=== PATIENT | male | born 1940 | race Caucasian/White ===

== ENCOUNTER → 2016-03-07 | Outpatient (CLI) | payer OTHER ==
[~2016-03-07] MED LIST: ASPCH81; ATOR-26 PO; AZEL0.056; CARV6.252 PO; GADAVIST IV PRN; GLC500 PO; HYDR12.56 PO; IPRA0.03 NAE; IPRA1AER2 INH; LISI20TA3 PO; POTA2.5T PO; SYMIN/8045 INH; TIOT1SPR INH; TRIA1SPR4; ZNTT/150 PO
--- NOTE | 2016-03-07 11:32 | DIAGNOSTIC IMAGING REPORT ---
BRAIN COMBO FOR IAC CLINICAL HISTORY: Asymmetrical left sided hearing loss. COMPARISON STUDY: No previous studies for comparison. TECHNIQUE: Utilizing 1.5 Brianna magnet and dedicated coil, multiplanar, multiecho imaging of the brain was performed pre and postcontrast administration. Thin cut imaging through the internal auditory canals was performed following intravenous injection of 10 cc of Gadavist IV. FINDINGS: There are no areas of restricted diffusion. No acute intracranial hemorrhage, midline shift or mass effect is present. Brain volume is normal for age. Ventricular system is normal. Basilar cisterns are patent. Flow-voids for the major intracranial vessels are present. No intracranial masses or pathologic enhancement is present. There is no enhancement or mass within the internal auditory canals. Semicircular canals are intact. There is no fluid within mastoid air cells. There is no mass within the cerebellopontine angles. Moderate white matter T2 hyperintensity suggest small vessel disease. Calvarial signal is maintained. Orbits and sinuses are unremarkable. IMPRESSION: 1. No acute intracranial findings. 2. No abnormalities within the internal auditory canals. 3. Moderate small vessel disease. 4. No intracranial masses or pathologic enhancement. Electronically signed by: Jewel Balbuena M.D. 03/07/2016 11:30 AM Dictated Date/Time: 03/07/2016 11:25 AM
== END | disposition home or self-care (01) ==
LOC: C.MRI 09:18
DX: H91.8X2 Other specified hearing loss, left ear (principal)

== ENCOUNTER 2021-06-24 14:20 | Inpatient (IN) ==
--- NOTE | 2021-06-24 14:34 | Emergency Department Note ---
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 Right common carotid artery: There is prominent atherosclerotic calcification present at the carotid bulb with approximately 50% stenosis present. Right internal carotid artery: Atherosclerotic calcification extends into the origin of the right internal carotid artery with approximately 70-80% stenosis present. The more mid to distal internal carotid artery also demonstrates atherosclerotic calcification with less than 50% narrowing.. Right vertebral artery: Patent without significant stenosis. Mild atherosclerotic calcification is present along its course. Left common carotid artery: There is atherosclerotic calcification present involving the carotid bulb with approximately 50% stenosis present. Left internal carotid artery: The atherosclerotic calcification again extends into the origin of the left internal carotid artery with 78% stenosis also seen at this site.. Left vertebral artery: Patent without significant stenosis. Atherosclerotic calcification is present along its course which is greater than on the right side. Nonvascular findings: The parotid and submandibular salivary glands appear normal. There is no enlarged cervical adenopathy noted. The airway appears patent. The thyroid gland appears within normal limits. . Impression: 1. Significant atherosclerotic calcification is seen involving the carotid bulbs bilaterally and extending into the origins of the internal carotid arteries bilaterally with 70-80% stenosis at the origins of the internal carotid arteries bilaterally. 2. There is also atherosclerotic calcification present along the course of the vertebral arteries, left greater than right. 3. 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 ACT 112: Negative or not required by law. Electronically signed by: Gonzalez Donohue M.D. 06/24/2021 6:16 PM Chest CTA 06/24/21 16:51 CT angio chest PE protocol CLINICAL HISTORY: History of Covid. Evaluate right lung opacities. COMPARISON STUDY: Portable chest from 06/16/2021 and previous CTA chest from 10/12/2020 CT DOSE: 2724.76 mGy.cm TECHNIQUE: CT Angio of the chest was performed.followed by image post processing with coronal, and sagittal MIP reformats. Contrast Volume: Optiray 320, 120 ml FINDINGS: Vasculature: There is homogeneous perfusion of the pulmonary vasculature bilaterally. No intraluminal filling defects or evidence for pulmonary embolus is seen. Airway: The airway is clear. No endobronchial lesion is identified. Lungs: Centrilobular emphysematous changes are present involving both lungs bilaterally, particularly involving the upper lobes. Compared to previous CT, there is now a patchy alveolar opacity present within the superior segment of the right lower lobe with bronchograms. This is characteristic of pneumonia. The additional finding seen at the right lung base radiographically were present on the previous CT. There is chronic scarring and bronchiectasis at the right lung base posteriorly. The left hemithorax is clear. Scattered bullae are present throughout both lungs. Pleura: There is no evidence for pleural effusion. There is no evidence for pneumothorax. Pleural calcifications are again seen on the right. Mediastinum: There is no evidence for pathologic adenopathy. The heart size is within normal limits. Coronary artery calcification is present. The thoracic aorta is within normal limits. 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 There is no evidence for pericardial effusion. Upper abdomen:The adrenal glands are normal bilaterally. Osseous structures: There is no acute osseous pathology. Impression: 1. No CTA evidence for pulmonary embolus. 2. Centrilobular emphysematous changes are again seen with bullous disease present. 3. The patchy alveolar opacity within the posterior segment of the right lower lobe is new and demonstrates air bronchograms. It is characteristic of pneumonia. 4. The alveolar opacities the right lung base are chronic with scarring and bronchiectasis present. 5. Extensive coronary artery calcification. 6. Additional nonacute findings are delineated above. ACT 112: Negative or not required by law. Electronically signed by: Gonzalez Donohue M.D. 06/24/2021 6:02 PM Discharge Plan Visit Data Chief Complaint: Confusion ED Provider: Efrain Anne Discharge Problem: Pneumonia, AMS (altered mental status), Acute hypotension, Carotid arterial disease Patient Disposition: Admitted As Inpatient Discharge Instructions Interventions: ED Discharge Assessment Last Done: 06/24/21 20:14 Discharge Problem: Pneumonia Qualifiers: Pneumonia type: due to unspecified organism Laterality: unspecified laterality Lung location: unspecified part of lung Qualified Code(s): J18.9 - Pneumonia, unspecified organism AMS (altered mental status) Qualifiers: Altered mental status type: disorientation Qualified Code(s): R41.0 - Disorientation, unspecified Carotid arterial disease Qualifiers: Carotid artery disease type: unspecified Laterality: unspecified laterality Qualified Code(s): I77.9 - Disorder of arteries and arterioles, unspecified
--- NOTE | 2021-06-24 14:49 | XRay Report ---
XR chest 1V portable CLINICAL HISTORY: SEPSIS. COMPARISON STUDY: 12/12/2017 TECHNIQUE: 1 view of the chest FINDINGS: Single frontal view of the chest demonstrates the cardiomediastinal silhouette to be within normal li mits. There is hyperinflation of the lungs with attenuation of the pulmonary vasculature peripherally characteristic of underlying chronic obstructive pulmonary disease. Patchy alveolar opacities are se en in the right midlung and at the right lung base suspicious for the presence of pneumonia. The left hemithorax is clear. There is no evidence for pleural effusion. There is no evidence for vascular co ngestion. There is no acute osseous pathology. IMPRESSION: 1. Evidence for COPD with small patchy alveolar opacities within the right midlung and right lung bas e suspicious for pneumonia. ACT 112: Negative or not required by law. Electronically signed by: Gonzalez Donohue M.D. 06/24/2021 2:47 PM
[2021-06-24 14:50] LABS: Base Excess VBG 1.6 mEq/L; HCO3 VBG 26 mmol/L; PCO2 VBG 42 mmHg (38-50); PO2 VBG 30 mmHg; pH VBG 7.41 (7.36-7.41)
[2021-06-24] MEDS ORDERED: SODIUM CHLORIDE 0.9% 1000ML 1,000 ML IV ONE ×2 (14:54→18:26)
[2021-06-24] MEDS ORDERED: PIPERACILLIN/TAZOBACTAM 4.5 GM/120 ML BAG IV ONE (14:54)
[2021-06-24] MEDS ORDERED: PIPERACILL/TAZOBAC CONSULT ACTIVE PRN (14:54)
[2021-06-24 14:56] LABS: Basophils # (auto) 0.01 K/uL (0-0.2); Basophils % (auto) 0.2 %; Eosinophils # (auto) 0.04 K/uL (0-0.5); Eosinophils % (auto) 0.6 %; Hemoglobin 14.6 g/dL (14.0-18.0); Immature Granulocytes # (auto) 0.01 K/uL (0.00-0.02); Immature Granulocytes % (auto) 0.2 %; Lymphocytes # (auto) 0.41 K/uL (1.2-3.4); Lymphocytes % (auto) 6.6 %; Mean Corpuscular Hemoglobin 32.2 pg (25-34); Mean Corpuscular Hgb Conc 33.2 g/dL (32-36); Mean Corpuscular Volume 96.9 fL (80-100); Mean Platelet Volume 12.4 fL (7.4-10.4); Monocytes # (auto) 0.48 K/uL (0.11-0.59); Monocytes % (auto) 7.8 %; Neutrophils # (auto) 5.22 K/uL (1.4-6.5); Neutrophils % (auto) 84.6 %; Platelet Count 178 K/uL (130-400); RDW Coefficient of Variation 15.3 % (11.5-14.5); RDW Standard Deviation 54.8 fL (36.4-46.3); Red Blood Count 4.54 M/uL (4.7-6.1); White Blood Count 6.17 K/uL (4.8-10.8)
[2021-06-24 14:58] LABS: Prothrombin Time 10.5 Seconds (9.0-12.0)
[2021-06-24 15:30] LABS: Influenza A virus by PCR Negative (Neg); Influenza B virus by PCR Negative (Neg); RSV by PCR Negative (Neg)
[2021-06-24 15:38] LABS: Oxygen Saturation VBG < 60.0 %
[2021-06-24 15:45] LABS: SARS CoV2 RNA(COVID-19) InHosp POSITIVE (Negative)
[2021-06-24 15:58] LABS: Appearance Urine Clear (Clear); Bilirubin Urine Negative (Negative); Blood Urine Negative (Negative); Color Urine Yellow; Glucose Urine UA Negative (Negative); Ketones Urine Negative (Negative); Leukocyte Esterase Urine Negative (Negative); Nitrite Urine Negative (Negative); Protein Urine Negative (Negative); Specific Gravity Urine 1.017 (1.000-1.030); Urobilinogen Urine Negative (Negative)
[2021-06-24 17:22] LABS: iSTAT Hemoglobin 13.3 g/dl (14.0-18.0); iSTAT Ionized Calcium 1.03 mmol/l (1.12-1.32); iSTAT Potassium 3.7 mmol/L (3.3-5.0)
[2021-06-24] MEDS ORDERED: OPTIRAY 320 125ml IV ONE (17:33)
[2021-06-24 17:42] LABS: Albumin Globulin Ratio 1.5 (0.9-2); Albumin Level 3.4 gm/dl (3.4-5.0); BUN Creatinine Ratio 17.9 (10-20); Bilirubin,Total 0.5 mg/dl (0.2-1.0); C Reactive Protein 5.28 mg/dl (0-0.5); Creatinine Clr Calc Pharmacy 59.7 ml/min; Est GFR (African American) 74.9 ml/min; Est GFR (Non-African American) 64.6 ml/min; Globulin 2.3 gm/dl (2.5-4.0); Magnesium 1.6 mg/dl (1.7-2.4); Potassium 3.8 mmol/L (3.5-5.1); Total Protein 5.7 gm/dl (6.0-8.3)
--- NOTE | 2021-06-24 17:49 | CT Scan Report ---
CT head/brain wo con CLINICAL HISTORY: AMS COMPARISON STUDY: No previous studies for comparison. CT DOSE: TECHNIQUE: Standard CT of the Brain was performed without IV contrast. A dose lowering technique was utilized adhering to the principles of ALARA. FINDINGS: Extraaxial space: There is no evidence for subdural hematoma. There are no extra-axial fluid collecti ons. Ventricles and cisterns: The ventricles are mildly dilated bilaterally. There is no evidence for midl ine shift or mass effect. Parenchyma: There is no subarachnoid or intraparenchymal hemorrhage. There is no evidence for an acut e infarct or cerebral edema. There is mild cerebral cortical atrophy and decreased attenuation in the periventricular white matter representing remote small vessel disease. There are no gross mass lesio ns. Osseous structures: There is no evidence for an acute fracture. There is mucosal thickening of the et hmoid air cells bilaterally. The remaining visualized paranasal sinuses are clear. The mastoid air ce lls are clear bilaterally. Soft tissues: There is no evidence for focal soft tissue swelling. IMPRESSION: 1. No acute intracerebral pathology. 2. Cerebral cortical atrophy and remote small vessel disease. 3. Chronic bilateral ethmoid sinusitis. ACT 112: Negative or not required by law. Electronically signed by: Gonzalez Donohue M.D. 06/24/2021 5:48 PM
--- NOTE | 2021-06-24 18:04 | CT Scan Report ---
CT angio chest PE protocol CLINICAL HISTORY: History of Covid. Evaluate right lung opacities. COMPARISON STUDY: Portable chest from 06/16/2021 and previous CTA chest from 10/12/2020 CT DOSE: 2724.76 mGy.cm TECHNIQUE: CT Angio of the chest was performed.followed by image post processing with coronal, and s agittal MIP reformats. Contrast Volume: Optiray 320, 120 ml FINDINGS: Vasculature: There is homogeneous perfusion of the pulmonary vasculature bilaterally. No intraluminal filling defects or evidence for pulmonary embolus is seen. Airway: The airway is clear. No endobronchial lesion is identified. Lungs: Centrilobular emphysematous changes are present involving both lungs bilaterally, particularly involving the upper lobes. Compared to previous CT, there is now a patchy alveolar opacity present w ithin the superior segment of the right lower lobe with bronchograms. This is characteristic of pneum onia. The additional finding seen at the right lung base radiographically were present on the previou s CT. There is chronic scarring and bronchiectasis at the right lung base posteriorly. The left hemithorax is clear. Scattered bullae are present throughout both lungs. Pleura: There is no evidence for pleural effusion. There is no evidence for pneumothorax. Pleural ca lcifications are again seen on the right. Mediastinum: There is no evidence for pathologic adenopathy. The heart size is within normal limits. Coronary artery calcification is present. The thoracic aorta is within normal limits. 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 There is no evidence for pericardial e ffusion. Upper abdomen:The adrenal glands are normal bilaterally. Osseous structures: There is no acute osseous pathology. Impression: 1. No CTA evidence for pulmonary embolus. 2. Centrilobular emphysematous changes are again seen with bullous disease present. 3. The patchy alveolar opacity within the posterior segment of the right lower lobe is new and demons trates air bronchograms. It is characteristic of pneumonia. 4. The alveolar opacities the right lung base are chronic with scarring and bronchiectasis present. 5. Extensive coronary artery calcification. 6. Additional nonacute findings are delineated above. ACT 112: Negative or not required by law. Electronically signed by: Gonzalez Donohue M.D. 06/24/2021 6:02 PM
--- NOTE | 2021-06-24 18:09 | CT Scan Report ---
CT angio head w con CLINICAL HISTORY: ams COMPARISON STUDY: CT brain without contrast from 06/24/2021 CT DOSE: TECHNIQUE: CT Angio of the brain was performed.followed by image post processing with coronal, and s agittal MIP reformats. Contrast Volume: Optiray 320, 120 ml FINDINGS: Vascular findings: There is normal enhancement within the internal carotid arteries bilaterally. Ther e is atherosclerotic calcification of the intracranial portions of the internal carotid arteries bila terally. On the right side, the anterior, middle and posterior cerebral arteries are within normal li mits. On the left side, there is complete occlusion of the A1 and A2 segments of the anterior cerebral delmi ry. However, the distal artery fills via the anterior communicating artery. These findings are most l ikely chronic. The middle and posterior cerebral arteries are within normal limits. Nonvascular findings: There is mild cerebral cortical atrophy and decreased attenuation in the perive ntricular white matter representing remote small vessel disease. There is no evidence for an acute in farct or cerebral edema. IMPRESSION: 1. Atherosclerotic calcification of the intracranial portions of the internal carotid arteries bilate rally. 2. 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 This is most likely a chronic finding. 3. Otherwise, negative CTA. ACT 112: Negative or not required by law. Electronically signed by: Gonzalez Donohue M.D. 06/24/2021 6:07 PM
--- NOTE | 2021-06-24 18:18 | CT Scan Report ---
CT angio neck with con CLINICAL HISTORY: ams COMPARISON STUDY: No previous studies for comparison. CT DOSE: TECHNIQUE: CT Angio of the neck was performed.followed by image post processing with coronal, and sa gittal MIP reformats.. Stenosis assessment by NASCET criteria. Contrast Volume: Optiray 320, 120 ml FINDINGS: Vascular findings: As seen on remote CTA of the chest, there is again complete occlusion of the origi n of the left subclavian artery with reconstitution of the artery via collaterals and subclavian stea l. Right common carotid artery: There is prominent atherosclerotic calcification present at the carotid bulb with approximately 50% stenosis present. Right internal carotid artery: Atherosclerotic calcification extends into the origin of the right int ernal carotid artery with approximately 70-80% stenosis present. The more mid to distal internal ann tid artery also demonstrates atherosclerotic calcification with less than 50% narrowing.. Right vertebral artery: Patent without significant stenosis. Mild atherosclerotic calcification is pr esent along its course. Left common carotid artery: There is atherosclerotic calcification present involving the carotid bulb with approximately 50% stenosis present. Left internal carotid artery: The atherosclerotic calcification again extends into the origin of the left internal carotid artery with 78% stenosis also seen at this site.. Left vertebral artery: Patent without significant stenosis. Atherosclerotic calcification is present along its course which is greater than on the right side. Nonvascular findings: The parotid and submandibular salivary glands appear normal. There is no enlarged cervical adenopathy noted. The airway appears patent. The thyroid gland appears within normal limits. . Impression: 1. Significant atherosclerotic calcification is seen involving the carotid bulbs bilaterally and exte nding into the origins of the internal carotid arteries bilaterally with 70-80% stenosis at the origi ns of the internal carotid arteries bilaterally. 2. There is also atherosclerotic calcification present along the course of the vertebral arteries, le ft greater than right. 3. 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 ACT 112: Negative or not required by law. Electronically signed by: Gonzalez Donohue M.D. 06/24/2021 6:16 PM
--- NOTE | 2021-06-24 18:46 | History & Physical Report ---
Date of Service June 24, 2021 History of Present Illness Chief Complaint: Possible stroke Primary Care Provider: Narendra Blakely MD Allergies Allergy/AdvReac Type Severity Reaction Status Date / Time No Known Allergies Allergy Verified 06/24/21 15:05 Home Medications Medication Instructions Recorded Confirmed Type albuterol sulfate 90 mcg/actuation 2 puff INHALATION Q4H PRN 12/11/17 06/24/21 History aerosol inhaler omeprazole 20 mg capsule,delayed 20 mg PO DAILYBB 12/11/17 06/24/21 History release amlodipine 2.5 mg tablet 2.5 mg PO DAILY 10/31/19 06/24/21 History azelastine 137 mcg (0.1 %) nasal 1 spray INTRANASAL BID 10/31/19 06/24/21 History spray aerosol furosemide 20 mg tablet (Lasix) 20 mg PO [id number] 10/31/19 06/24/21 History metformin 500 mg tablet 1,000 mg PO DAILY tab 10/31/19 06/24/21 History metoprolol succinate 25 mg 25 mg PO BID 10/31/19 06/24/21 History tablet,extended release 24 hr montelukast 10 mg tablet 10 mg PO HS 10/31/19 06/24/21 History potassium gluconate 550 mg (90 mg) 550 mg PO DAILY 10/31/19 06/24/21 History tablet aspirin 81 mg tablet,delayed 81 mg PO DAILY 01/07/21 06/24/21 History release (Adult Aspirin Regimen) atorvastatin 80 mg tablet 80 mg PO DAILY 01/07/21 06/24/21 History lisinopril 20 mg tablet 20 mg PO DAILY 01/07/21 06/24/21 History fluticasone fur. 100 mcg-umeclid 1 inh INHALATION QAM 06/24/21 06/24/21 History 62.5 mcg-vilant 25 mcg inhalat.powder (Trelegy Ellipta) ipratropium bromide 21 mcg (0.03 2 spray INTRANASAL BID 06/24/21 06/24/21 History %) nasal spray magnesium oxide 400 mg PO BID 06/24/21 06/24/21 History polyethylene glycol 3350 17 gram 17 g PO DAILY PRN 06/24/21 06/24/21 History oral powder packet (Miralax) pregabalin 150 mg capsule (Lyrica) 150 mg PO BID 06/24/21 06/24/21 History tramadol 50 mg tablet 50 mg PO Q8H PRN 06/24/21 06/24/21 History Past Med/Surg History Medical History Acute on chronic systolic and diastolic heart failure, NYHA class 4 Acute congestive heart failure likely precipitated by paroxysmal atrial fibrillation with rapid ventricular rate. Now back in sinus rhythm diuresing well with decreasing oxygen requirements Recommend: Continue diuretics, discontinue BiPAP, wean oxygen as tolerated, initiate sliding scale insulin for hyperglycemia, advance diet as tolerated Acute respiratory failure with hypoxia and hypercapnia Aortic stenosis Atherosclerosis of leg with intermittent claudication COPD (chronic obstructive pulmonary disease) Diabetes mellitus, type 2 Electrolyte imbalance GERD (gastroesophageal reflux disease) Hyperlipidemia Hypertension Hypokalemia Hypomagnesemia Hypoxia LBBB (left bundle branch block) Malignant neoplasm of skin of trunk Basal Cell - on Forehead and on Neck Nonischemic cardiomyopathy Osteoporosis Pulmonary edema PVD (peripheral vascular disease) Valvular heart disease Vertebral fracture, osteoporotic (02/04/08) Surgical History History of bronchoscopy 10/23/2019 - Diagnostic History of cardiac cath 11/2017 History of cataract extraction with lens replacement 07/03/2013 - Dr. Hazel History of cholecystectomy 1998 History of discectomy 1995 History of ERCP 02/1999 - with stone removal History of nasal septoplasty History of procedure for peripheral vascular disease 01/15/2015 - Right Femoral Endarterectomy History of tonsillectomy As a Child History of total knee replacement 12/05/2011 - Right - Dr. Medina History of trigger finger 10/09/2019 - Release Surgery (Dr. Dana Hernandez) Family History Mother , Passed age 92 of natural causes No problems noted. Father , Passed age 67 from stroke complications No problems noted. Brother , Passed age 67 of [place] No problems noted. Son No problems noted. Daughter No problems noted. 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 Feels Safe at Home: Yes Childhood Exposure to Second-Hand Smoke: No caffeine: Yes (1-2 cups of coffee/day ) during the past year weight has: remained stable Dental Care, Regularly: Yes Assistive Devices: None Results & Data Results & Data ([facility]) Vital Signs (Past 12 Hours) Vital Signs Temp Pulse Resp BP Pulse Ox 06/24/21 17:15 66 19 95 06/24/21 17:00 64 23 123/56 L 95 06/24/21 16:45 67 18 96 06/24/21 16:30 67 17 122/68 94 06/24/21 16:15 83 18 93 06/24/21 16:00 69 21 93 06/24/21 15:45 69 17 95 06/24/21 15:30 68 24 93 06/24/21 15:15 71 20 95 06/24/21 15:00 74 20 138/79 93 06/24/21 14:45 81 22 97 06/24/21 14:30 77 24 144/69 H 92 06/24/21 14:29 90 06/24/21 14:23 36.8 C 73 18 143/58 H 90
[2021-06-24] MEDS ORDERED: REMDESIVIR 200 MG in SODIUM CHLORIDE 0.9% 210 ML IV STA (19:30)
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
[2021-06-24] MEDS ORDERED: cefTRIAXone SODIUM 1,000 MG/50 ML BAG IV SCH (20:47)
[2021-06-24] MEDS ORDERED: traMADol HCL 50 MG TABLET PO PRN (21:18)
[2021-06-24] MEDS ORDERED: GLUCAGON FOR INJ 1 MG VIAL SQ PRN (21:18)
[2021-06-24] MEDS ORDERED: DEXTROSE 50% 50 ML SYRINGE IV PRN (21:18)
[2021-06-24] MEDS ORDERED: ALBUTEROL HFA 8 GM INHALER INH PRN (21:18)
[2021-06-24] MEDS ORDERED: MAGNESIUM PO SCH (21:18)
[2021-06-24] MEDS ORDERED: GLUCOSE 10 TABS/TUBE PO PRN (21:18)
[2021-06-24] MEDS ORDERED: MAGNESIUM OXIDE 400 MG PO SCH (21:18)
[2021-06-24] MEDS ORDERED: CARBOHYDRATES FOR HYPOGLYCEMIA PO PRN (21:18)
[2021-06-24] MEDS ORDERED: PHARMACIST DISCHARGE MED REC CONSULT PRN (21:18)
[2021-06-24] MEDS ORDERED: GLUCOSE 40% GEL 15 GM TUBE PO PRN (21:18)
[2021-06-24] MEDS: AZELASTINE HCL 0.1% NASAL 200 SPRAYS/27,400 MCG BTL SCH (21:57)
[2021-06-24] MEDS: MAGNESIUM OXIDE 400 MG TAB PO SCH (21:57)
[2021-06-24] MEDS: DOXYCYCLINE HYCLATE 100 MG CAP PO SCH (21:58)
[2021-06-24] MEDS: METOPROLOL SUCC 25MG EXT REL TAB PO SCH (21:59)
[2021-06-24] MEDS: MONTELUKAST SODIUM 10 MG TABLET PO SCH (22:00)
[2021-06-24] MEDS: ENOXAPARIN INJ 40 MG/0.4 ML SYR SQ SCH (22:01)
[2021-06-24] MEDS: IPRATROPIUM BROMIDE NASAL SPRAY 0.06% 15ML SCH (22:02)
[2021-06-24] MEDS: PREGABALIN 150 MG CAP PO SCH (22:04)
[2021-06-24] MEDS: INSULIN ASPART PER UNIT SC SCH (22:13)
[2021-06-24] MEDS: cefTRIAXone SODIUM 2,000 MG in DEXTROSE 5% 50 ML IV SCH (23:22)
[2021-06-25 05:30] LABS: Basophils # (auto) 0.01 K/uL (0-0.2); Basophils % (auto) 0.2 %; Eosinophils # (auto) 0.07 K/uL (0-0.5); Eosinophils % (auto) 1.2 %; Hematocrit (blood only) 38.9 % (42-52); Immature Granulocytes # (auto) 0.01 K/uL (0.00-0.02); Immature Granulocytes % (auto) 0.2 %; Lymphocytes % (auto) 15.8 %; Mean Corpuscular Hemoglobin 33.1 pg (25-34); Mean Corpuscular Hgb Conc 33.4 g/dL (32-36); Mean Platelet Volume 12.2 fL (7.4-10.4); Monocytes # (auto) 0.69 K/uL (0.11-0.59); Monocytes % (auto) 12.1 %; Neutrophils # (auto) 4.01 K/uL (1.4-6.5); Neutrophils % (auto) 70.5 %; Platelet Count 148 K/uL (130-400); RDW Coefficient of Variation 15.2 % (11.5-14.5); RDW Standard Deviation 56.1 fL (36.4-46.3); Red Blood Count 3.93 M/uL (4.7-6.1); White Blood Count 5.69 K/uL (4.8-10.8)
[2021-06-25 05:59] LABS: BUN Creatinine Ratio 17.4 (10-20); Calcium 8.6 mg/dl (8.5-10.1); Creatinine Clr Calc Pharmacy 68.8 ml/min; Est GFR (African American) 88.8 ml/min; Est GFR (Non-African American) 76.6 ml/min; Magnesium 1.9 mg/dl (1.7-2.4); Potassium 3.7 mmol/L (3.5-5.1)
--- NOTE | 2021-06-25 06:06 | Electrocardiogram Report ---
Test Reason : Blood Pressure : / mmHG Vent. Rate : 072 BPM Atrial Rate : 072 BPM P-R Int : 228 ms QRS Dur : 144 ms QT Int : 444 ms P-R-T Axes : 053 024 139 degrees QTc Int : 486 ms Sinus rhythm with 1st degree A-V block Left bundle branch block Abnormal ECG When compared with ECG of 11-DEC-2017 13:52, MN interval has increased Confirmed by Sree Pinedo ([id number]) on 06/25/2021 6:06:30 AM Referred By: Confirmed By:Sree Pinedo
[2021-06-25] MEDS: PANTOprazole 40 MG TAB PO SCH (06:23)
--- NOTE | 2021-06-25 07:05 | Magnetic Resonance Report ---
MRI OF THE BRAIN WITHOUT CONTRAST CLINICAL HISTORY: Weakness. Evaluate for cerebrovascular accident. COMPARISON STUDY: MRI of the brain March 17, 2016. CTA of the head and head CT June 24, 2021. TECHNIQUE: Utilizing a 1.5 Brianna magnet and dedicated coil, multiplanar, multiecho imaging of the bra in was performed without IV contrast. FINDINGS: There are no foci of restricted diffusion to suggest acute infarct. No acute intracranial h emorrhage, midline shift or mass effect is present. Mild to moderate atrophy is present. Ventricular system is unremarkable. Basal cisterns are patent. There are no extra-axial collections. White matter T2 hyperintense foci are similar to previous MRI. These suggest small vessel disease. No intracrania l masses identified on this unenhanced exam. 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 Calvarial signal is normal. There is mild sinus mucosal thickening. Orbits are unremarkable. IMPRESSION: No acute intracranial findings. ACT 112: Negative or not required by law. Electronically signed by: Jewel Balbuena M.D. 06/25/2021 7:03 AM
[2021-06-25] MEDS ORDERED: FUROSEMIDE 20 MG TAB PO ONE (09:00)
[2021-06-25] MEDS ORDERED: POTASSIUM GLUCONATE PO SCH (09:00)
[2021-06-25] MEDS ORDERED: NON-FORMULARY MEDICATION (Fluticasone-Umeclidin-Vilanter [Trelegy Ellipta] 100-62.5-25 mcg INH SCH (09:00)
[2021-06-25] MEDS: METOPROLOL SUCC 25MG EXT REL TAB PO SCH ×2 (09:05→22:09)
[2021-06-25] MEDS: amLODIPine BESYLATE 5 MG TAB PO SCH (09:10)
[2021-06-25] MEDS: ASPIRIN 81 MG ECTAB PO SCH (09:11)
[2021-06-25] MEDS: ATORVASTATIN 40 MG TAB PO SCH (09:11)
[2021-06-25] MEDS: FLUTICASONE FUROATE 100MCG 14 PUFFS/INHALER INH SCH (09:12)
[2021-06-25] MEDS: DOXYCYCLINE HYCLATE 100 MG CAP PO SCH ×2 (09:12→22:10)
[2021-06-25] MEDS: ENOXAPARIN INJ 40 MG/0.4 ML SYR SQ SCH ×2 (09:13→22:10)
[2021-06-25] MEDS: UMECLIDINIUM/VILANTEROL 62.5/25MCG 7 PUFFS/INHALER INH SCH (09:13)
[2021-06-25] MEDS: MAGNESIUM OXIDE 400 MG TAB PO SCH (09:14)
[2021-06-25] MEDS: lisinopril 20 MG TAB PO SCH (09:14)
[2021-06-25] MEDS: PREGABALIN 150 MG CAP PO SCH ×2 (09:15→22:14)
[2021-06-25] MEDS: dexAMETHasone 6 MG in SYRINGE 0 ML IV SCH (09:16)
[2021-06-25] MEDS: INSULIN ASPART PER UNIT SC SCH ×4 (09:22→22:11)
[2021-06-25] MEDS: IPRATROPIUM BROMIDE NASAL SPRAY 0.06% 15ML SCH ×2 (09:44→22:11)
[2021-06-25] MEDS: AZELASTINE HCL 0.1% NASAL 200 SPRAYS/27,400 MCG BTL SCH ×2 (09:44→22:11)
[2021-06-25 14:59] LABS: Estimated Average Glucose 157 mg/dl; Hemoglobin A1C 7.1 % (4.5-5.6)
--- NOTE | 2021-06-25 18:25 | Hospitalist Progress Note ---
Date of Service June 25, 2021 Assessment & Plan (1) Pneumonia due to COVID-19 virus: (2) Hypoxia: (3) Carotid arterial disease: (4) History of lung cancer: (5) Hypomagnesemia: Plan: Pneumonia likely due to COVID 19 along with hypoxia- CT chest and CXR with pneum onia, covid positive. on 2 L NC. WBC, lactate, procal normal; ESR and CRP elevated. - Reviewed his CT chest here with one done at [facility] on 06/21- looks similar. Spoke with radiology and transfer center- unfortunately the system is broken and they are unable to transmit the CT images from 06/21 here to be reviewed by our radiologist here but looks similar on my reading. Also communicated to his p ulmonologist Dr Cuellar at the request of his Brigitte- Per Dr Cuellar, CT lung changes likely from COVID pneumonia and recommended repeat CT in 3 months, unable to definitely say whether there is new malignancy or not. - Continue remdesevir D2/5, decadron D2/10, IS. Follow up on inflammatory markers. Confusion/AMS- [employer]. Resolved, back to baseline after ED arrival. AAOx4. Stroke work up negative. Spoke with neurology who recommended MRI w/wo contrast to r/o brain mets given his malignancy history. Carotid artery disease- Spoke with vascular surgery who recommended OP follow up once he recovers from covid as he is asymptomatic DM-2- A1c 7.1. Hold home metformin, Continue SSI HTN- BP stable, Continue home meds- lisinopril, toprol, norvasc Hypomagnesemia- resolved with repletion H/o lung cancer s/p chemo radiation with radiation pneumonitis COPD- no exacerbation- continue home inhalers Elevated trop- only mildly elevated and already downtrending. likely demand ischemia. no CP, no ischemic changes in EKG. DVT prophylaxis- sc lovenox Dispo- MRI brain pending, on treatment for COVID Pna Update- updated Brigitte over the phone and answered all questions. She would like an update regularly. Admission and Anticipated Discharge Date Admission Date: June 24, 2021 Subjective He feels better. Denies any new issues. He was hypoxic to 86-87% on room air during my encounter as he had taken his NC out when he went to the bathroom and never put it back on. Placed on 2 L NC with improvement to 92-93%. Denies any fever, chills, chest pain, shortness of breath. Discussed the labs and imaging results. Physical Exam Physical Exam: General: Looks better than yesterday. Elderly male, sitting in chair, not in distress, on room air HEENT: EOMI, SIENNA, MMM Chest: Decreased breath sounds bilaterally but fair with no wheezes or crackles CVS: Regular rate and rhythm, normal heart sounds, no murmur Abdomen: Soft, non tender, not distended, normal bowel sounds Neuro: Awake, alert, oriented, conversing well, non focal Extremities: No cyanosis, clubbing or edema Results & Data Results & Data ([facility]) Vital Signs (Past 12 Hours) Vital Signs Temp Pulse Resp BP Pulse Ox Pulse Ox Pulse Ox 06/25/21 15:58 94 06/25/21 14:27 06/25/21 13:47 89 L 93 06/25/21 11:00 36.8 C 57 L 19 144/72 H 90 06/25/21 07:00 48 L 15 153/61 H 98 Pulse Ox Pulse Ox Pulse Ox 06/25/21 15:58 06/25/21 14:27 94 06/25/21 13:47 93 87 L 06/25/21 11:00 06/25/21 07:00 Laboratory Results Short CBC 06/25/21 Range/Units 05:04 WBC 5.69 (4.8-10.8) K/uL Hgb 13.0 L (14.0-18.0) g/dL Hct 38.9 L (42-52) % Plt Count 148 (130-400) K/uL BMP 06/25/21 05:04 Sodium 138 Potassium 3.7 Chloride 104 Carbon Dioxide 29 BUN 16 Creatinine 0.92 Glucose 112 H Calcium 8.6 Diagnostic Findings Brain MRI 06/24/21 21:18 MRI OF THE BRAIN WITHOUT CONTRAST CLINICAL HISTORY: Weakness. Evaluate for cerebrovascular accident. COMPARISON STUDY: MRI of the brain March 17, 2016. CTA of the head and head CT June 24, 2021. TECHNIQUE: Utilizing a 1.5 Brianna magnet and dedicated coil, multiplanar, multiecho imaging of the brain was performed without IV contrast. FINDINGS: There are no foci of restricted diffusion to suggest acute infarct. No acute intracranial hemorrhage, midline shift or mass effect is present. Mild to moderate atrophy is present. Ventricular system is unremarkable. Basal cisterns are patent. There are no extra-axial collections. White matter T2 hyperintense foci are similar to previous MRI. These suggest small vessel disease. No intracranial masses identified on this unenhanced exam. 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 Calvarial signal is normal. There is mild sinus mucosal thickening. Orbits are unremarkable. IMPRESSION: No acute intracranial findings. ACT 112: Negative or not required by law. Electronically signed by: Jewel Balbuena M.D. 06/25/2021 7:03 AM Medications Administered Current Inpatient Medications Albuterol (Albuterol Hfa 8 Gm Inhaler) 2 puffs INH Q4H PRN PRN Reason: Wheezing Stop: 07/24/21 21:17 Amlodipine Besylate (Amlodipine Besylate 5 Mg Tab) 2.5 mg PO DAILY [facility] Stop: 07/25/21 08:59 Last Admin: 06/25/21 09:10 Dose: 2.5 mg Documented by: Aspirin (Aspirin 81 Mg Ectab) 81 mg PO DAILY [facility] Stop: 07/25/21 08:59 Last Admin: 06/25/21 09:11 Dose: 81 mg Documented by: Atorvastatin Calcium (Atorvastatin 40 Mg Tab) 80 mg PO DAILY [facility] Stop: 07/25/21 08:59 Last Admin: 06/25/21 09:11 Dose: 80 mg Documented by: Azelastine HCl (Azelastine Hcl 0.1% Nasal 200 Sprays/27,400 Mcg Btl) 1 sprays NA BID [facility] Stop: 07/24/21 21:17 Last Admin: 06/25/21 09:44 Dose: 1 sprays Documented by: Dextrose (Dextrose 50% 50 Ml Syringe) 25 - 50 ml IV UD PRN; Protocol PRN Reason: Hypoglycemia Protocol Stop: 07/24/21 21:17 Doxycycline Hyclate (Doxycycline Hyclate 100 Mg Cap) 100 mg PO BID [facility]; Protocol Stop: 07/01/21 21:17 Last Admin: 06/25/21 09:12 Dose: 100 mg Documented by: Enoxaparin Sodium (Enoxaparin Inj 40 Mg/0.4 Ml Syr) 40 mg SQ Q12H [facility] Stop: 07/24/21 21:59 Last Admin: 06/25/21 09:13 Dose: 40 mg Documented by: Fluticasone Furoate (Fluticasone Furoate 100mcg 14 Puffs/Inhaler) 1 puffs INH DAILY [facility] Stop: 07/25/21 08:59 Last Admin: 06/25/21 09:12 Dose: 1 puffs Documented by: Glucagon (Glucagon For Inj 1 Mg Vial) 1 mg SQ UD PRN; Protocol PRN Reason: Hypoglycemia Protocol Stop: 07/24/21 21:17 Glucose (Glucose 10 Tabs/Tube) 4 - 8 tabs PO UD PRN; Protocol PRN Reason: Hypoglycemia Protocol Stop: 07/24/21 21:17 Glucose (Glucose 40% Gel 15 Gm Tube) 15 - 30 gm PO UD PRN; Protocol PRN Reason: Hypoglycemia Protocol Stop: 07/24/21 21:17 Remdesivir 100 mg/ Sodium (Chloride) 250 mls @ 250 mls/hr IV DAILY@1999 [facility] Stop: 06/28/21 20:59 Dexamethasone 6 mg/ Syringe 1.5 mls @ 1 mls/min IV DAILY [facility] Stop: 07/04/21 09:02 Last Admin: 06/25/21 09:16 Dose: 1 mls/min Documented by: Ceftriaxone Sodium 2,000 mg/ (Dextrose) 70 mls @ 140 mls/hr IV Q24H [facility] Stop: 07/01/21 21:59 Last Infusion: 06/24/21 23:52 Dose: Infused Documented by: Insulin Aspart (Insulin Aspart Per Unit) 0 units SC ACHS [facility] Stop: 07/24/21 21:17 Last Admin: 06/25/21 17:53 Dose: 5 units Documented by: Ipratropium [place] (Ipratropium [place] Nasal [place] 0.06% 15ml) 1 sprays NA BID [facility] Stop: 07/24/21 21:59 Last Admin: 06/25/21 09:44 Dose: 1 sprays Documented by: Lisinopril (Lisinopril 20 Mg Tab) 20 mg PO DAILY [facility] Stop: 07/25/21 08:59 Last Admin: 06/25/21 09:14 Dose: 20 mg Documented by: Magnesium Oxide (Magnesium Oxide 400 Mg Tab) 400 mg PO QAM [facility] Stop: 07/24/21 20:49 Last Admin: 06/25/21 09:14 Dose: 400 mg Documented by: Metoprolol Succinate (Metoprolol Succ 25mg Ext Rel Tab) 25 mg PO BID [facility] Stop: 07/24/21 21:17 Last Admin: 06/25/21 09:05 Dose: Not Given Documented by: Miscellaneous (Carbohydrates For Hypoglycemia ) 15 - 30 gm PO UD PRN PRN Reason: Hypoglycemia Protocol Stop: 07/24/21 21:17 Montelukast Sodium (Montelukast Sodium 10 Mg Tablet) 10 mg PO HS [facility] Stop: 07/24/21 21:17 Last Admin: 06/24/21 22:00 Dose: 10 mg Documented by: Pantoprazole Sodium (Pantoprazole 40 Mg Tab) 40 mg PO DAILYBB [facility] Stop: 07/25/21 06:29 Last Admin: 06/25/21 06:23 Dose: 40 mg Documented by: Pregabalin (Pregabalin 150 Mg Cap) 150 mg PO BID [facility] Stop: 07/24/21 21:17 Last Admin: 06/25/21 09:15 Dose: 150 mg Documented by: Tramadol HCl (Tramadol Hcl 50 Mg Tablet) 50 mg PO Q8H PRN PRN Reason: Moderate Pain (Scale Score 5-6) Stop: 07/24/21 21:17 Umeclidinium/Vilanterol (Umeclidinium/Vilanterol 62.5/25mcg 7 Puffs/Inhaler) 1 puffs INH DAILY [facility] Stop: 07/25/21 08:59 Last Admin: 06/25/21 09:13 Dose: 1 puffs Documented by: (1) Carotid arterial disease Carotid artery disease type: unspecified Laterality: unspecified laterality Qualified Code(s): I77.9 - Disorder of arteries and arterioles, unspecified
[2021-06-25] MEDS: REMDESIVIR 100 MG in SODIUM CHLORIDE 0.9% 230 ML IV SCH (19:35)
[2021-06-25] MEDS: MONTELUKAST SODIUM 10 MG TABLET PO SCH (22:11)
[2021-06-25] MEDS ORDERED: GADOBUTROL 10ML VIAL IV ONE (22:51)
[2021-06-25] MEDS: cefTRIAXone SODIUM 2,000 MG in DEXTROSE 5% 50 ML IV SCH (22:58)
--- NOTE | 2021-06-25 23:06 | Magnetic Resonance Report ---
MRI OF THE BRAIN COMBO CLINICAL HISTORY: Lung cancer. Change in mental status. Metastatic survey. COMPARISON STUDY: CT and MRI of the brain dated 06/16/2021. TECHNIQUE: MRI of the brain was performed utilizing various T1 and T2-weighted sequences in the axial , sagittal, and coronal planes. Contrast-enhanced sequences were acquired following the administratio n of 9 cc of Gadavist. The examination is modestly degraded by motion artifact. FINDINGS: Brain parenchyma: There is age-related involutional change noting moderate subcortical and periventri cular microangiopathic disease. There is no hemorrhage or mass effect. There is no restricted diffusi on to suggest acute ischemia. No enhancing mass lesion is identified on the postcontrast images. Siegel -white matter differentiation is preserved. No extra-axial fluid collection is seen. The cerebellar t onsils are normal in configuration. Ventricles, sulci, and cisterns: Normal in configuration. Pituitary and sella: Unremarkable. Intracranial vasculature: Normal flow voids are maintained at the skull base. Orbits: The bony orbits are grossly intact. Orbital contents are normal in appearance noting bilatera l ocular lens implants. Sinuses and mastoids: There is trace mucosal thickening within the right maxillary antrum and the eth moid sinuses. The remaining paranasal sinuses and mastoid air cells are clear. Calvarium: Unremarkable. Cervical cord: Partially visualized cervical spinal cord is normal in morphology and signal intensity . IMPRESSION: No acute intracranial abnormality is identified. Specifically, there is no MRI evidence o f intracranial metastatic disease as clinically queried. ACT 112: Negative or not required by law. Electronically signed by: Hudson Salgado M.D. 06/25/2021 11:04 PM
[2021-06-26 05:24] LABS: Hematocrit (blood only) 40.4 % (42-52); Hemoglobin 13.4 g/dL (14.0-18.0); Immature Granulocytes # (auto) 0.01 K/uL (0.00-0.02); Immature Granulocytes % (auto) 0.2 %; Lymphocytes # (auto) 0.41 K/uL (1.2-3.4); Lymphocytes % (auto) 6.6 %; Mean Corpuscular Hemoglobin 31.7 pg (25-34); Mean Corpuscular Hgb Conc 33.2 g/dL (32-36); Mean Corpuscular Volume 95.5 fL (80-100); Monocytes # (auto) 0.53 K/uL (0.11-0.59); Monocytes % (auto) 8.5 %; Neutrophils # (auto) 5.27 K/uL (1.4-6.5); Neutrophils % (auto) 84.7 %; Platelet Count 183 K/uL (130-400); RDW Standard Deviation 53.1 fL (36.4-46.3); Red Blood Count 4.23 M/uL (4.7-6.1); White Blood Count 6.22 K/uL (4.8-10.8)
[2021-06-26 05:57] LABS: BUN Creatinine Ratio 18.8 (10-20); C Reactive Protein 11.49 mg/dl (0-0.5); Calcium 8.9 mg/dl (8.5-10.1); Creatinine Clr Calc Pharmacy 62.6 ml/min; Est GFR (African American) 79.4 ml/min; Est GFR (Non-African American) 68.5 ml/min; Potassium 4.4 mmol/L (3.5-5.1)
[2021-06-26] MEDS: PANTOprazole 40 MG TAB PO SCH (06:27)
[2021-06-26] MEDS: INSULIN ASPART PER UNIT SC SCH ×4 (07:48→20:35)
[2021-06-26] MEDS: amLODIPine BESYLATE 5 MG TAB PO SCH (07:54)
[2021-06-26] MEDS: AZELASTINE HCL 0.1% NASAL 200 SPRAYS/27,400 MCG BTL SCH ×2 (07:55→20:32)
[2021-06-26] MEDS: ASPIRIN 81 MG ECTAB PO SCH (07:55)
[2021-06-26] MEDS: ATORVASTATIN 40 MG TAB PO SCH (07:55)
[2021-06-26] MEDS: dexAMETHasone 6 MG in SYRINGE 0 ML IV SCH (07:56)
[2021-06-26] MEDS: DOXYCYCLINE HYCLATE 100 MG CAP PO SCH ×2 (07:56→20:31)
[2021-06-26] MEDS: FLUTICASONE FUROATE 100MCG 14 PUFFS/INHALER INH SCH (07:57)
[2021-06-26] MEDS: IPRATROPIUM BROMIDE NASAL SPRAY 0.06% 15ML SCH ×2 (07:57→20:32)
[2021-06-26] MEDS: METOPROLOL SUCC 25MG EXT REL TAB PO SCH ×3 (07:58→20:31)
[2021-06-26] MEDS: PREGABALIN 150 MG CAP PO SCH ×3 (07:58→22:16)
[2021-06-26] MEDS: UMECLIDINIUM/VILANTEROL 62.5/25MCG 7 PUFFS/INHALER INH SCH (07:58)
[2021-06-26] MEDS: lisinopril 20 MG TAB PO SCH (07:58)
[2021-06-26] MEDS: ENOXAPARIN INJ 40 MG/0.4 ML SYR SQ SCH ×2 (11:00→22:16)
--- NOTE | 2021-06-26 14:03 | Hospitalist Progress Note ---
Date of Service June 26, 2021 Assessment & Plan (1) Pneumonia due to COVID-19 virus: (2) Hypoxia: (3) Carotid arterial disease: (4) History of lung cancer: (5) Hypomagnesemia: Plan: Pneumonia likely due to COVID 19 along with hypoxia- CT chest and CXR with pneum onia, covid positive. on 2 L NC. - Continue remdesevir D3/5, decadron D3/10, IS. Follow up on inflammatory markers. On empiric antibiotics for PNA. Procal and CRP elevated. - Communicated with his field worker Dr Cuellar 06/25. Reviewed his OP CT lung from 06/21. Confusion/AMS- [employer]. Resolved, back to baseline after ED arrival. Likely related to his COVID infection. AAOx4 throughout my first encounter with him. Stroke work up negative. MRI brain with no mets. Carotid artery disease- Spoke with vascular surgery who recommended OP follow up once he recovers from covid as he is asymptomatic DM-2- A1c 7.1. Hold home metformin, Continue SSI HTN- BP stable, Continue home meds- lisinopril, toprol, norvasc H/o lung cancer s/p chemo radiation with radiation pneumonitis COPD- no exacerbation- continue home inhalers Elevated trop- only mildly elevated and already downtrending. likely demand ischemia. no CP, no ischemic changes in EKG. DVT prophylaxis- sc lovenox Dispo- Pending completion of COVID, PNA Update- updated Brigitte over the phone and answered all questions. She is concerned about the logistics about discharge- how to picker packer when he is still infectious, how to take care of things at home etc. Admission and Anticipated Discharge Date Admission Date: June 24, 2021 Subjective No new issues. Feels fine. Denies any chest pain, shortness of breath, confusion. Has sense of humor. He was on NC, I removed and observed for 5-7 minutes, he stayed in 91-93% throughout the encounter. Reviewed MRI results and labs. Asking when he will get out of here and how long he has to stay in isolation once discharged. He states he takes lyrica q8hrs at home (6 am, 2 pm and 10 pm) and it keeps his pain under control and requesting his lyrica to be ordered that way here. Physical Exam Physical Exam: General: Elderly male, sitting in chair, not in distress, on room air HEENT: EOMI, SIENNA, MMM Chest: Decreased breath sounds bilaterally but fair with no wheezes or crackles CVS: Regular rate and rhythm, normal heart sounds, no murmur Abdomen: Soft, non tender, not distended, normal bowel sounds Neuro: Awake, alert, oriented, conversing well, non focal Extremities: No cyanosis, clubbing or edema Results & Data Results & Data ([facility]) Vital Signs (Past 12 Hours) Vital Signs Temp Pulse Pulse Resp BP BP Pulse Ox 06/26/21 13:36 90 06/26/21 12:00 36.6 C 75 15 123/99 91 06/26/21 11:00 55 L 20 92 06/26/21 10:00 62 15 91 06/26/21 09:00 60 19 94 06/26/21 08:00 36.6 C 58 L 12 154/77 H 96 06/26/21 07:00 54 L 17 95 06/26/21 04:00 36 C L 61 16 103/70 96 Laboratory Results Short CBC 06/26/21 Range/Units 04:12 WBC 6.22 (4.8-10.8) K/uL Hgb 13.4 L (14.0-18.0) g/dL Hct 40.4 L (42-52) % Plt Count 183 (130-400) K/uL BMP 06/26/21 04:12 Sodium 138 Potassium 4.4 Chloride 104 Carbon Dioxide 28 BUN 19 Creatinine 1.01 Glucose 163 H Calcium 8.9 Medications Administered Current Inpatient Medications Albuterol (Albuterol Hfa 8 Gm Inhaler) 2 puffs INH Q4H PRN PRN Reason: Wheezing Stop: 07/24/21 21:17 Amlodipine Besylate (Amlodipine Besylate 5 Mg Tab) 2.5 mg PO DAILY [facility] Stop: 07/25/21 08:59 Last Admin: 06/26/21 07:54 Dose: 2.5 mg Documented by: Aspirin (Aspirin 81 Mg Ectab) 81 mg PO DAILY [facility] Stop: 07/25/21 08:59 Last Admin: 06/26/21 07:55 Dose: 81 mg Documented by: Atorvastatin Calcium (Atorvastatin 40 Mg Tab) 80 mg PO DAILY [facility] Stop: 07/25/21 08:59 Last Admin: 06/26/21 07:55 Dose: 80 mg Documented by: Azelastine HCl (Azelastine Hcl 0.1% Nasal 200 Sprays/27,400 Mcg Btl) 1 sprays NA BID [facility] Stop: 07/24/21 21:17 Last Admin: 06/26/21 07:55 Dose: 1 sprays Documented by: Dextrose (Dextrose 50% 50 Ml Syringe) 25 - 50 ml IV UD PRN; Protocol PRN Reason: Hypoglycemia Protocol Stop: 07/24/21 21:17 Doxycycline Hyclate (Doxycycline Hyclate 100 Mg Cap) 100 mg PO BID [facility]; Protocol Stop: 07/01/21 21:17 Last Admin: 06/26/21 07:56 Dose: 100 mg Documented by: Enoxaparin Sodium (Enoxaparin Inj 40 Mg/0.4 Ml Syr) 40 mg SQ Q12H [facility] Stop: 07/24/21 21:59 Last Admin: 06/26/21 11:00 Dose: 40 mg Documented by: Fluticasone Furoate (Fluticasone Furoate 100mcg 14 Puffs/Inhaler) 1 puffs INH D AILY [facility] Stop: 07/25/21 08:59 Last Admin: 06/26/21 07:57 Dose: 1 puffs Documented by: Glucagon (Glucagon For Inj 1 Mg Vial) 1 mg SQ UD PRN; Protocol PRN Reason: Hypoglycemia Protocol Stop: 07/24/21 21:17 Glucose (Glucose 10 Tabs/Tube) 4 - 8 tabs PO UD PRN; Protocol PRN Reason: Hypoglycemia Protocol Stop: 07/24/21 21:17 Glucose (Glucose 40% Gel 15 Gm Tube) 15 - 30 gm PO UD PRN; Protocol PRN Reason: Hypoglycemia Protocol Stop: 07/24/21 21:17 Remdesivir 100 mg/ Sodium (Chloride) 250 mls @ 250 mls/hr IV DAILY@1999 [facility] Stop: 06/28/21 20:59 Last Infusion: 06/25/21 21:41 Dose: Infused Documented by: Dexamethasone 6 mg/ Syringe 1.5 mls @ 1 mls/min IV DAILY [facility] Stop: 07/04/21 09:02 Last Admin: 06/26/21 07:56 Dose: 1 mls/min Documented by: Ceftriaxone Sodium 2,000 mg/ (Dextrose) 70 mls @ 140 mls/hr IV Q24H [facility] Stop: 07/01/21 21:59 Last Infusion: 06/25/21 23:31 Dose: Infused Documented by: Insulin Aspart (Insulin Aspart Per Unit) 0 units SC ACHS [facility] Stop: 07/24/21 21:17 Last Admin: 06/26/21 11:45 Dose: 5 units Documented by: Ipratropium [place] (Ipratropium [place] Nasal [place] 0.06% 15ml) 1 sprays NA BID [facility] Stop: 07/24/21 21:59 Last Admin: 06/26/21 07:57 Dose: 1 sprays Documented by: Lisinopril (Lisinopril 20 Mg Tab) 20 mg PO DAILY [facility] Stop: 07/25/21 08:59 Last Admin: 06/26/21 07:58 Dose: 20 mg Documented by: Metoprolol Succinate (Metoprolol Succ 25mg Ext Rel Tab) 25 mg PO BID [facility] Stop: 07/24/21 21:17 Last Admin: 06/26/21 10:48 Dose: Not Given Documented by: Miscellaneous (Carbohydrates For Hypoglycemia ) 15 - 30 gm PO UD PRN PRN Reason: Hypoglycemia Protocol Stop: 07/24/21 21:17 Montelukast Sodium (Montelukast Sodium 10 Mg Tablet) 10 mg PO HS [facility] Stop: 07/24/21 21:17 Last Admin: 06/25/21 22:11 Dose: 10 mg Documented by: Pantoprazole Sodium (Pantoprazole 40 Mg Tab) 40 mg PO DAILYBB [facility] Stop: 07/25/21 06:29 Last Admin: 06/26/21 06:27 Dose: 40 mg Documented by: Pregabalin (Pregabalin 150 Mg Cap) 150 mg PO BID [facility] Stop: 07/24/21 21:17 Last Admin: 06/26/21 07:58 Dose: 150 mg Documented by: Tramadol HCl (Tramadol Hcl 50 Mg Tablet) 50 mg PO Q8H PRN PRN Reason: Moderate Pain (Scale Score 5-6) Stop: 07/24/21 21:17 Umeclidinium/Vilanterol (Umeclidinium/Vilanterol 62.5/25mcg 7 Puffs/Inhaler) 1 puffs INH DAILY [facility] Stop: 07/25/21 08:59 Last Admin: 06/26/21 07:58 Dose: 1 puffs Documented by: (1) Carotid arterial disease Carotid artery disease type: unspecified Laterality: unspecified laterality Qualified Code(s): I77.9 - Disorder of arteries and arterioles, unspecified
[2021-06-26] MEDS: MONTELUKAST SODIUM 10 MG TABLET PO SCH (20:31)
[2021-06-26] MEDS: REMDESIVIR 100 MG in SODIUM CHLORIDE 0.9% 230 ML IV SCH (20:33)
[2021-06-26] MEDS: cefTRIAXone SODIUM 2,000 MG in DEXTROSE 5% 50 ML IV SCH (22:17)
[2021-06-27] MEDS: PANTOprazole 40 MG TAB PO SCH (06:08)
[2021-06-27] MEDS: PREGABALIN 150 MG CAP PO SCH ×3 (06:08→22:08)
[2021-06-27] MEDS: FLUTICASONE FUROATE 100MCG 14 PUFFS/INHALER INH SCH (08:24)
[2021-06-27] MEDS: dexAMETHasone 6 MG in SYRINGE 0 ML IV SCH (08:24)
[2021-06-27] MEDS: AZELASTINE HCL 0.1% NASAL 200 SPRAYS/27,400 MCG BTL SCH ×2 (08:24→20:34)
[2021-06-27] MEDS: ASPIRIN 81 MG ECTAB PO SCH (08:25)
[2021-06-27] MEDS: METOPROLOL SUCC 25MG EXT REL TAB PO SCH ×2 (08:25→20:33)
[2021-06-27] MEDS: DOXYCYCLINE HYCLATE 100 MG CAP PO SCH ×2 (08:25→20:34)
[2021-06-27] MEDS: ATORVASTATIN 40 MG TAB PO SCH (08:25)
[2021-06-27] MEDS: lisinopril 20 MG TAB PO SCH (08:25)
[2021-06-27] MEDS: amLODIPine BESYLATE 5 MG TAB PO SCH (08:26)
[2021-06-27] MEDS: IPRATROPIUM BROMIDE NASAL SPRAY 0.06% 15ML SCH ×2 (08:27→20:34)
[2021-06-27] MEDS: UMECLIDINIUM/VILANTEROL 62.5/25MCG 7 PUFFS/INHALER INH SCH (08:28)
[2021-06-27] MEDS: INSULIN ASPART PER UNIT SC SCH ×4 (08:56→20:35)
--- NOTE | 2021-06-27 10:47 | Hospitalist Progress Note ---
Date of Service June 27, 2021 Assessment & Plan (1) Pneumonia due to COVID-19 virus: (2) Hypoxia: (3) Carotid arterial disease: (4) History of lung cancer: (5) Hypomagnesemia: Plan: Pneumonia likely due to COVID 19 along with hypoxia- CT chest and CXR with pneumonia, covid positive. - Hypoxia resolved, now in room air saturating well. - Continue remdesevir D4/5, decadron D4/10, IS. Follow up on inflammatory markers. On empiric antibiotics for PNA. Procal and CRP elevated. Recheck in am. - Communicated with his dining server Dr Cuellar 06/25. Reviewed his OP CT lung from 06/21. 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 Resolved, back to baseline after ED arrival. Likely related to his COVID infection. AAOx4 throughout my first encounter with him. Stroke work up negative. MRI brain with no mets. Carotid artery disease- Per Brigitte, patient has a vascular surgeon in [facility] and they will follow up with him after discharge. DM-2- A1c 7.1. Hold home metformin, Continue SSI HTN- BP stable, Continue home meds- lisinopril, toprol, norvasc. resume lasix. H/o lung cancer s/p chemo radiation with radiation pneumonitis COPD- no exacerbation- continue home inhalers Elevated trop- only mildly elevated and already downtrending. likely demand ischemia. no CP, no ischemic changes in EKG. DVT prophylaxis- sc lovenox Dispo- Pending completion of COVID, PNA Update- now admitted under my service and updated at bedside. Admission and Anticipated Discharge Date Admission Date: June 24, 2021 Subjective No new issues. He feels great and would like to go home by tomorrow morning. Saturating well in room air. No shortness of breath. No fever. Mentation at baseline. Ambulating in room. Normal oral intake. Regular bowel movements. Physical Exam Physical Exam: General: Elderly male, sitting in chair, not in distress, on room air HEENT: EOMI, SIENNA, MMM Chest: Decreased breath sounds bilaterally but fair with no wheezes or crackles CVS: Regular rate and rhythm, normal heart sounds, no murmur Abdomen: Soft, non tender, not distended, normal bowel sounds Neuro: Awake, alert, oriented, conversing well, non focal Extremities: No cyanosis, clubbing or edema Results & Data Results & Data ([facility]) Vital Signs (Past 12 Hours) Vital Signs Temp Pulse Pulse Resp BP Pulse Ox 06/27/21 07:24 36.4 C L 47 L 19 151/74 H 96 06/27/21 05:00 36.5 C 67 16 131/74 93 06/27/21 00:36 36.5 C 68 16 135/80 93 Medications Administered Current Inpatient Medications Albuterol (Albuterol Hfa 8 Gm Inhaler) 2 puffs INH Q4H PRN PRN Reason: Wheezing Stop: 07/24/21 21:17 Amlodipine Besylate (Amlodipine Besylate 5 Mg Tab) 2.5 mg PO DAILY [facility] Stop: 07/25/21 08:59 Last Admin: 06/27/21 08:26 Dose: 2.5 mg Documented by: Aspirin (Aspirin 81 Mg Ectab) 81 mg PO DAILY [facility] Stop: 07/25/21 08:59 Last Admin: 06/27/21 08:25 Dose: 81 mg Documented by: Atorvastatin Calcium (Atorvastatin 40 Mg Tab) 80 mg PO DAILY [facility] Stop: 07/25/21 08:59 Last Admin: 06/27/21 08:25 Dose: 80 mg Documented by: Azelastine HCl (Azelastine Hcl 0.1% Nasal 200 Sprays/27,400 Mcg Btl) 1 sprays NA BID [facility] Stop: 07/24/21 21:17 Last Admin: 06/27/21 08:24 Dose: 1 sprays Documented by: Dextrose (Dextrose 50% 50 Ml Syringe) 25 - 50 ml IV UD PRN; Protocol PRN Reason: Hypoglycemia Protocol Stop: 07/24/21 21:17 Doxycycline Hyclate (Doxycycline Hyclate 100 Mg Cap) 100 mg PO BID [facility]; Protocol Stop: 07/01/21 21:17 Last Admin: 06/27/21 08:25 Dose: 100 mg Documented by: Enoxaparin Sodium (Enoxaparin Inj 40 Mg/0.4 Ml Syr) 40 mg SQ Q12H [facility] Stop: 07/24/21 21:59 Last Admin: 06/26/21 22:16 Dose: 40 mg Documented by: Fluticasone Furoate (Fluticasone Furoate 100mcg 14 Puffs/Inhaler) 1 puffs INH DAILY [facility] Stop: 07/25/21 08:59 Last Admin: 06/27/21 08:24 Dose: 1 puffs Documented by: Furosemide (Furosemide 20 Mg Tab) 20 mg PO QAM [facility] Stop: 07/27/21 09:59 Glucagon (Glucagon For Inj 1 Mg Vial) 1 mg SQ UD PRN; Protocol PRN Reason: Hypoglycemia Protocol Stop: 07/24/21 21:17 Glucose (Glucose 10 Tabs/Tube) 4 - 8 tabs PO UD PRN; Protocol PRN Reason: Hypoglycemia Protocol Stop: 07/24/21 21:17 Glucose (Glucose 40% Gel 15 Gm Tube) 15 - 30 gm PO UD PRN; Protocol PRN Reason: Hypoglycemia Protocol Stop: 07/24/21 21:17 Remdesivir 100 mg/ Sodium (Chloride) 250 mls @ 250 mls/hr IV DAILY@1999 [facility] Stop: 06/28/21 20:59 Last Infusion: 06/26/21 21:35 Dose: Infused Documented by: Dexamethasone 6 mg/ Syringe 1.5 mls @ 1 mls/min IV DAILY [facility] Stop: 07/04/21 09:02 Last Admin: 06/27/21 08:24 Dose: 1 mls/min Documented by: Ceftriaxone Sodium 2,000 mg/ (Dextrose) 70 mls @ 140 mls/hr IV Q24H [facility] Stop: 07/01/21 21:59 Last Infusion: 06/26/21 22:50 Dose: Infused Documented by: Insulin Aspart (Insulin Aspart Per Unit) 0 units SC ACHS [facility] Stop: 07/24/21 21:17 Last Admin: 06/27/21 08:56 Dose: 6 units Documented by: Ipratropium [place] (Ipratropium [place] Nasal [place] 0.06% 15ml) 1 sprays NA BID [facility] Stop: 07/24/21 21:59 Last Admin: 06/27/21 08:27 Dose: 1 sprays Documented by: Lisinopril (Lisinopril 20 Mg Tab) 20 mg PO DAILY [facility] Stop: 07/25/21 08:59 Last Admin: 06/27/21 08:25 Dose: 20 mg Documented by: Metoprolol Succinate (Metoprolol Succ 25mg Ext Rel Tab) 25 mg PO BID [facility] Stop: 07/24/21 21:17 Last Admin: 06/27/21 08:25 Dose: Not Given Documented by: Miscellaneous (Carbohydrates For Hypoglycemia ) 15 - 30 gm PO UD PRN PRN Reason: Hypoglycemia Protocol Stop: 07/24/21 21:17 Montelukast Sodium (Montelukast Sodium 10 Mg Tablet) 10 mg PO HS [facility] Stop: 07/24/21 21:17 Last Admin: 06/26/21 20:31 Dose: 10 mg Documented by: Pantoprazole Sodium (Pantoprazole 40 Mg Tab) 40 mg PO DAILYBB [facility] Stop: 07/25/21 06:29 Last Admin: 06/27/21 06:08 Dose: 40 mg Documented by: Pregabalin (Pregabalin 150 Mg Cap) 150 mg PO Q8 [facility] Stop: 07/26/21 14:14 Last Admin: 06/27/21 06:08 Dose: 150 mg Documented by: Tramadol HCl (Tramadol Hcl 50 Mg Tablet) 50 mg PO Q8H PRN PRN Reason: Moderate Pain (Scale Score 5-6) Stop: 07/24/21 21:17 Umeclidinium/Vilanterol (Umeclidinium/Vilanterol 62.5/25mcg 7 Puffs/Inhaler) 1 puffs INH DAILY [facility] Stop: 07/25/21 08:59 Last Admin: 06/27/21 08:28 Dose: 1 puffs Documented by: (1) Carotid arterial disease Carotid artery disease type: unspecified Laterality: unspecified laterality Qualified Code(s): I77.9 - Disorder of arteries and arterioles, unspecified
[2021-06-27] MEDS: ENOXAPARIN INJ 40 MG/0.4 ML SYR SQ SCH ×2 (12:13→22:09)
[2021-06-27] MEDS: FUROSEMIDE 20 MG TAB PO SCH (12:14)
[2021-06-27] MEDS: REMDESIVIR 100 MG in SODIUM CHLORIDE 0.9% 230 ML IV SCH (20:33)
[2021-06-27] MEDS: MONTELUKAST SODIUM 10 MG TABLET PO SCH (20:34)
[2021-06-27] MEDS: cefTRIAXone SODIUM 2,000 MG in DEXTROSE 5% 50 ML IV SCH (22:07)
[2021-06-28] MEDS: PREGABALIN 150 MG CAP PO SCH ×3 (06:09→22:09)
[2021-06-28] MEDS: PANTOprazole 40 MG TAB PO SCH (06:09)
[2021-06-28 06:32] LABS: BUN Creatinine Ratio 23.2 (10-20); C Reactive Protein 2.51 mg/dl (0-0.5); Calcium 8.4 mg/dl (8.5-10.1); Creatinine Clr Calc Pharmacy 63.9 ml/min; Est GFR (African American) 81.3 ml/min; Est GFR (Non-African American) 70.1 ml/min; Magnesium 1.8 mg/dl (1.7-2.4); Potassium 3.8 mmol/L (3.5-5.1)
[2021-06-28] MEDS: INSULIN ASPART PER UNIT SC SCH ×4 (08:00→20:35)
[2021-06-28] MEDS: ASPIRIN 81 MG ECTAB PO SCH (08:20)
[2021-06-28] MEDS: amLODIPine BESYLATE 5 MG TAB PO SCH (08:21)
[2021-06-28] MEDS: ATORVASTATIN 40 MG TAB PO SCH (08:21)
[2021-06-28] MEDS: lisinopril 20 MG TAB PO SCH (08:21)
[2021-06-28] MEDS: FUROSEMIDE 20 MG TAB PO SCH (08:22)
[2021-06-28] MEDS: DOXYCYCLINE HYCLATE 100 MG CAP PO SCH ×2 (08:22→20:39)
[2021-06-28] MEDS: UMECLIDINIUM/VILANTEROL 62.5/25MCG 7 PUFFS/INHALER INH SCH (08:23)
[2021-06-28] MEDS: METOPROLOL SUCC 25MG EXT REL TAB PO SCH ×2 (08:23→20:41)
[2021-06-28] MEDS: IPRATROPIUM BROMIDE NASAL SPRAY 0.06% 15ML SCH ×2 (08:24→20:37)
[2021-06-28] MEDS: dexAMETHasone 6 MG in SYRINGE 0 ML IV SCH (08:24)
[2021-06-28] MEDS: FLUTICASONE FUROATE 100MCG 14 PUFFS/INHALER INH SCH (08:24)
[2021-06-28] MEDS: AZELASTINE HCL 0.1% NASAL 200 SPRAYS/27,400 MCG BTL SCH ×2 (08:24→20:37)
[2021-06-28] MEDS: ENOXAPARIN INJ 40 MG/0.4 ML SYR SQ SCH ×2 (12:26→20:40)
--- NOTE | 2021-06-28 12:50 | Hospitalist Progress Note ---
Date of Service June 28, 2021 Assessment & Plan (1) Pneumonia due to COVID-19 virus: (2) Hypoxia: (3) Carotid arterial disease: (4) History of lung cancer: (5) Hypomagnesemia: Plan: Pneumonia likely due to COVID 19 along with hypoxia- CT chest and CXR with pneumonia, covid positive. - Hypoxia resolved, now in room air saturating well. - Continue remdesevir D5/5, decadron D5/10, IS. Inflammatory markers now improving, On empiric antibiotics for PNA- Procal and CRP elevated, now coming down. - Communicated with his vegetable packer Dr Cuellar 06/25. Reviewed his OP CT lung from 06/21. Recommended repeat CT after 8 weeks to ensure resolution. 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 Resolved, back to baseline after ED arrival. Likely related to his COVID infection. AAOx4 throughout my first encounter with him. Stroke work up negative. MRI brain with no mets. Carotid artery disease- Per Brigitte, patient has a vascular surgeon in [place] and they will follow up with him after discharge. DM-2- A1c 7.1. Hold home metformin, Continue SSI HTN- BP stable, Continue home meds- lisinopril, toprol, norvasc, lasix H/o lung cancer s/p chemo radiation with radiation pneumonitis COPD- no exacerbation- continue home inhalers Elevated trop- only mildly elevated and already downtrending. likely demand ischemia. no CP, no ischemic changes in EKG. DVT prophylaxis- sc lovenox Dispo- Pending completion of treatment for COVID, PNA- to be done tonight. Update- updated at bedside who is also admitted under my service Admission and Anticipated Discharge Date Admission Date: June 24, 2021 Subjective No new issues. He feels good. Denies any issues. He will complete his last dose of remdesevir tonight and hopes to go home tomorrow morning. He denies any needs. He would like some N95 to go home with. He is asking when to get repeat CT to ensure his pneumonia is gone- recommended follow up with his lung doctor Dr Cuellar who recommended repeat CT in 3 months. He was also enquiring how many more days to self isolate at home as his is covid negative. Physical Exam Physical Exam: General: Elderly male, sitting in bed, not in distress, on room air HEENT: EOMI, SIENNA, MMM Chest: Decreased breath sounds bilaterally but fair with no wheezes or crackles CVS: Regular rate and rhythm, normal heart sounds, no murmur Abdomen: Soft, non tender, not distended, normal bowel sounds Neuro: Awake, alert, oriented, conversing well, non focal Extremities: No cyanosis, clubbing or edema Results & Data Results & Data ([facility]) Vital Signs (Past 12 Hours) Vital Signs Temp Pulse Resp BP Pulse Ox 06/28/21 12:00 36.6 C 77 20 149/71 H 97 06/28/21 07:49 36.6 C 64 20 159/67 H 97 06/28/21 03:00 36.6 C 50 L 18 166/91 H 96 Laboratory Results BMP 06/28/21 05:35 Sodium 139 Potassium 3.8 Chloride 107 Carbon Dioxide 25 BUN 23 Creatinine 0.99 Glucose 152 H Calcium 8.4 L Medications Administered Current Inpatient Medications Albuterol (Albuterol Hfa 8 Gm Inhaler) 2 puffs INH Q4H PRN PRN Reason: Wheezing Stop: 07/24/21 21:17 Amlodipine Besylate (Amlodipine Besylate 5 Mg Tab) 2.5 mg PO DAILY [facility] Stop: 07/25/21 08:59 Last Admin: 06/28/21 08:21 Dose: 2.5 mg Documented by: Aspirin (Aspirin 81 Mg Ectab) 81 mg PO DAILY [facility] Stop: 07/25/21 08:59 Last Admin: 06/28/21 08:20 Dose: 81 mg Documented by: Atorvastatin Calcium (Atorvastatin 40 Mg Tab) 80 mg PO DAILY [facility] Stop: 07/25/21 08:59 Last Admin: 06/28/21 08:21 Dose: 80 mg Documented by: Azelastine HCl (Azelastine Hcl 0.1% Nasal 200 Sprays/27,400 Mcg Btl) 1 sprays NA BID [facility] Stop: 07/24/21 21:17 Last Admin: 06/28/21 08:24 Dose: 1 sprays Documented by: Dextrose (Dextrose 50% 50 Ml Syringe) 25 - 50 ml IV UD PRN; Protocol PRN Reason: Hypoglycemia Protocol Stop: 07/24/21 21:17 Doxycycline Hyclate (Doxycycline Hyclate 100 Mg Cap) 100 mg PO BID [facility]; Protocol Stop: 07/01/21 21:17 Last Admin: 06/28/21 08:22 Dose: 100 mg Documented by: Enoxaparin Sodium (Enoxaparin Inj 40 Mg/0.4 Ml Syr) 40 mg SQ Q12H [facility] Stop: 07/24/21 21:59 Last Admin: 06/28/21 12:26 Dose: 40 mg Documented by: Fluticasone Furoate (Fluticasone Furoate 100mcg 14 Puffs/Inhaler) 1 puffs INH DAILY [facility] Stop: 07/25/21 08:59 Last Admin: 06/28/21 08:24 Dose: 1 puffs Documented by: Furosemide (Furosemide 20 Mg Tab) 20 mg PO QAM [facility] Stop: 07/27/21 09:59 Last Admin: 06/28/21 08:22 Dose: 20 mg Documented by: Glucagon (Glucagon For Inj 1 Mg Vial) 1 mg SQ UD PRN; Protocol PRN Reason: Hypoglycemia Protocol Stop: 07/24/21 21:17 Glucose (Glucose 10 Tabs/Tube) 4 - 8 tabs PO UD PRN; Protocol PRN Reason: Hypoglycemia Protocol Stop: 07/24/21 21:17 Glucose (Glucose 40% Gel 15 Gm Tube) 15 - 30 gm PO UD PRN; Protocol PRN Reason: Hypoglycemia Protocol Stop: 07/24/21 21:17 Remdesivir 100 mg/ Sodium (Chloride) 250 mls @ 250 mls/hr IV DAILY@1999 [facility] Stop: 06/28/21 20:59 Last Infusion: 06/27/21 21:35 Dose: Infused Documented by: Dexamethasone 6 mg/ Syringe 1.5 mls @ 1 mls/min IV DAILY [facility] Stop: 07/04/21 09:02 Last Admin: 06/28/21 08:24 Dose: 1 mls/min Documented by: Ceftriaxone Sodium 2,000 mg/ (Dextrose) 70 mls @ 140 mls/hr IV Q24H [facility] Stop: 07/01/21 21:59 Last Infusion: 06/27/21 23:41 Dose: Infused Documented by: Insulin Aspart (Insulin Aspart Per Unit) 0 units SC ACHS [facility] Stop: 07/24/21 21:17 Last Admin: 06/28/21 12:06 Dose: 4 units Documented by: Ipratropium [place] (Ipratropium [place] Nasal [place] 0.06% 15ml) 1 sprays NA BID [facility] Stop: 07/24/21 21:59 Last Admin: 06/28/21 08:24 Dose: 1 sprays Documented by: Lisinopril (Lisinopril 20 Mg Tab) 20 mg PO DAILY [facility] Stop: 07/25/21 08:59 Last Admin: 06/28/21 08:21 Dose: 20 mg Documented by: Metoprolol Succinate (Metoprolol Succ 25mg Ext Rel Tab) 25 mg PO BID [facility] Stop: 07/24/21 21:17 Last Admin: 06/28/21 08:23 Dose: 25 mg Documented by: Miscellaneous (Carbohydrates For Hypoglycemia ) 15 - 30 gm PO UD PRN PRN Reason: Hypoglycemia Protocol Stop: 07/24/21 21:17 Montelukast Sodium (Montelukast Sodium 10 Mg Tablet) 10 mg PO HS [facility] Stop: 07/24/21 21:17 Last Admin: 06/27/21 20:34 Dose: 10 mg Documented by: Pantoprazole Sodium (Pantoprazole 40 Mg Tab) 40 mg PO DAILYBB [facility] Stop: 07/25/21 06:29 Last Admin: 06/28/21 06:09 Dose: 40 mg Documented by: Pregabalin (Pregabalin 150 Mg Cap) 150 mg PO Q8 [facility] Stop: 07/26/21 14:14 Last Admin: 06/28/21 06:09 Dose: 150 mg Documented by: Tramadol HCl (Tramadol Hcl 50 Mg Tablet) 50 mg PO Q8H PRN PRN Reason: Moderate Pain (Scale Score 5-6) Stop: 07/24/21 21:17 Umeclidinium/Vilanterol (Umeclidinium/Vilanterol 62.5/25mcg 7 Puffs/Inhaler) 1 puffs INH DAILY [facility] Stop: 07/25/21 08:59 Last Admin: 06/28/21 08:23 Dose: 1 puffs Documented by: (1) Carotid arterial disease Carotid artery disease type: unspecified Laterality: unspecified laterality Qualified Code(s): I77.9 - Disorder of arteries and arterioles, unspecified
[2021-06-28] MEDS: MONTELUKAST SODIUM 10 MG TABLET PO SCH (20:38)
[2021-06-28] MEDS: REMDESIVIR 100 MG in SODIUM CHLORIDE 0.9% 230 ML IV SCH (22:11)
[2021-06-28] MEDS: cefTRIAXone SODIUM 2,000 MG in DEXTROSE 5% 50 ML IV SCH (22:13)
[2021-06-29] MEDS: PANTOprazole 40 MG TAB PO SCH (05:23)
[2021-06-29] MEDS: PREGABALIN 150 MG CAP PO SCH (05:23)
[2021-06-29 07:29] VITALS: TEMP 97.5; O2SAT 94
[2021-06-29] MEDS: INSULIN ASPART PER UNIT SC SCH (08:18)
[2021-06-29] MEDS ORDERED: dexAMETHasone 4 MG TAB PO SCH (09:00)
[2021-06-29] MEDS: ATORVASTATIN 40 MG TAB PO SCH (10:20)
[2021-06-29] MEDS: ENOXAPARIN INJ 40 MG/0.4 ML SYR SQ SCH (10:21)
[2021-06-29] MEDS: DOXYCYCLINE HYCLATE 100 MG CAP PO SCH (10:21)
[2021-06-29] MEDS: METOPROLOL SUCC 25MG EXT REL TAB PO SCH (10:21)
[2021-06-29] MEDS: ASPIRIN 81 MG ECTAB PO SCH (10:22)
[2021-06-29] MEDS: FUROSEMIDE 20 MG TAB PO SCH (10:22)
[2021-06-29] MEDS: AZELASTINE HCL 0.1% NASAL 200 SPRAYS/27,400 MCG BTL SCH (10:22)
[2021-06-29] MEDS: amLODIPine BESYLATE 5 MG TAB PO SCH (10:22)
[2021-06-29] MEDS: FLUTICASONE FUROATE 100MCG 14 PUFFS/INHALER INH SCH (10:23)
[2021-06-29] MEDS: IPRATROPIUM BROMIDE NASAL SPRAY 0.06% 15ML SCH (10:23)
[2021-06-29] MEDS: UMECLIDINIUM/VILANTEROL 62.5/25MCG 7 PUFFS/INHALER INH SCH (10:23)
[2021-06-29] MEDS: lisinopril 20 MG TAB PO SCH (10:23)
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
[2021-06-29 11:30] VITALS: BP 133/77; PULSE 54
== END 2021-06-29 11:50 | disposition home or self-care (01) | DRG 177 ==
LOC: ED 14:20 → 1E 19:30 → 2S 06-26 19:02

== ENCOUNTER 2021-07-17 10:50 | Inpatient (IN) ==
[2021-07-17] MEDS ORDERED: ACETAMINOPHEN 1000 MG/100 ML IV IV ONE (11:00)
--- NOTE | 2021-07-17 11:04 | Emergency Department Note ---
Impression & Plan Pneumonia, AMS (altered mental status), Hypoxia ED Provider Note NAME: RADHA VENCES AGE: 81 SEX: M : 1940 ARRIVES VIA: Ambulance INFORMANT: Patient, EMS ED PROVIDER(S): Efrain Anne DO CHIEF COMPLAINT: Altered mental status HPI: The patient is an 81-year-old male who presented to the emergency department for an evaluation of altered mental status and neurologic symptoms. The patient had a similar presentation recently. He had a stroke work-up but at that time was found to have COVID-pneumonia as the cause of his presentation. He does have a history of tobacco use. He also has a history of lung cancer. H e states that he was not feeling well when he awoke this morning. His significant other called 911 because the patient had weakness and cannot walk up the stairs. He denies having any dysuria or frequency. He was noted to have a fever upon arrival to the emergency department. He did not know he had a fever. He does complain of cough which is not new for him. He states he has been getting intermittent chest pain as well. Reportedly he had slurred speech and left-sided facial droop which resolved prior to arrival. The patient states he has been feeling ill since he woke up this morning between 6 and 7 AM. He has had no changes to his medications. He denies having any trauma. ROS: See above HPI for pertinent positives & negatives. A total of 10 systems reviewed and were otherwise negative. PAST MEDICAL HISTORY: See Below PAST SURGICAL HISTORY: See Below FAMILY HISTORY: See Below SOCIAL HISTORY: See Below HOME MEDICATIONS: See Below ALLERGIES: See Below VITALS: See Below PHYSICAL EXAMINATION: GENERAL: The patient is awake and answers questions appropriately. EYES: The conjunctivae are clear. The pupils are round and reactive. EARS, NOSE, MOUTH AND THROAT: The nose is without any evidence of any deformity. NECK: The neck is nontender and supple. RESPIRATORY: Diminished breath sounds are noted throughout. Scattered rhonchi were noted. CARDIOVASCULAR: Irregular heart sounds are noted auscultation. There is no definite murmur. GASTROINTESTINAL: The abdomen is soft. Abdomen is nontender. MUSCULOSKELETAL/EXTREMITIES: There is no evidence of gross deformity full range of motion is noted in the hips and shoulders. SKIN: Skin is warm and dry. There is no significant pedal edema. NEUROLOGIC: Patient is awake alert and oriented x3. Patient is able to hold each leg off the bed for greater than 5 seconds. He does have a slight left-sided facial droop which spares the forehead. He has no drift in the upper extremities. Speech is pressured but understandable. MEDICAL DECISION MAKING: The patient is an 81-year-old male who presented to the emergency department for an evaluation of difficulty ambulating. Initially he was felt to be suffering from a neurologic episode. The patient was not made a stroke alert as his symptoms seem to wax and wane. The patient also admitted that he felt that he woke up with the symptoms so he was outside the 3-hour window for thrombolytics. His physical exam did not appear to be consistent with large vessel occlusion. He was febrile and had abnormal lung sounds. I discussed the patient's laboratory and radiographic studies with him and his significant other. Given his findings I also discussed his case with the [facility]call [facility]. He was treated with IV fluids and IV antibiotics. He was placed on supplemental oxygen. He was reevaluated multiple times. I discussed this with the [facility] as well about the possibility of a neurologic event and that the significant other would like further neuroimaging if at all possible. The patient did have a similar presentation at the end of May. Triage Nursing notes reviewed. Prior medical records reviewed Vital Signs: reviewed and remarkable for elevated blood pressure and hypoxia initially. Differential diagnosis: Infection, dehydration, metabolic abnormality, hypo/hyperglycemia, electrolyte disturbance, anemia, hypoxia, cardiac sources, intracerebral event, toxicologic, neurologic, as well as other pathologies. ER treatment provided: See below Diagnostics interpreted by me: ECG: EKG was obtained in the emergency department. My interpretation is sinus rhythm with first-degree AV block at 80 bpm. Left bundle branch block pattern was appreciated. There is no ectopy. There is no acute ST segment abnormalities noted. This was compared to a tracing from June 24. No changes were noted. Cardiac Monitoring: An order was placed for continuous cardiac monitoring. The monitor shows a rate of 70 bpm with sinus rhythm. Laboratory studies: As stated above and show below. Imaging studies: See below Consultation(s): I discussed this case with Dr. Ortiz who is on-call for the [facility]. They will evaluate the patient in the emergency department for further management and disposition. Past Med/Surg History Medical History Acute on chronic systolic and diastolic heart failure, NYHA class 4 Acute congestive heart failure likely precipitated by paroxysmal atrial fibrillation with rapid ventricular rate. Now back in sinus rhythm diuresing well with decreasing oxygen requirements Recommend: Continue diuretics, discontinue BiPAP, wean oxygen as tolerated, initiate sliding scale insulin for hyperglycemia, advance diet as tolerated Acute respiratory failure with hypoxia and hypercapnia Aortic stenosis Atherosclerosis of leg with intermittent claudication COPD (chronic obstructive pulmonary disease) Diabetes mellitus, type 2 Electrolyte imbalance GERD (gastroesophageal reflux disease) Hyperlipidemia Hypertension Hypokalemia Hypomagnesemia Hypoxia LBBB (left bundle branch block) Malignant neoplasm of skin of trunk Basal Cell - on Forehead and on Neck Nonischemic cardiomyopathy Osteoporosis Pulmonary edema PVD (peripheral vascular disease) Valvular heart disease Vertebral fracture, osteoporotic (02/04/08) Surgical History History of bronchoscopy 10/23/2019 - Diagnostic History of cardiac cath 11/2017 History of cataract extraction with lens replacement 07/03/2013 - Dr. Hazel History of cholecystectomy 1998 History of discectomy 1995 History of ERCP 02/1999 - with stone removal History of nasal septoplasty 1959' History of procedure for peripheral vascular disease 01/15/2015 - Right Femoral Endarterectomy History of tonsillectomy As a Child History of total knee replacement 12/05/2011 - Right - Dr. Medina History of trigger finger 10/09/2019 - Release Surgery (Dr. Dana Hernandez) Family History Mother , Passed age 92 of natural causes No problems noted. Father , Passed age 67 from stroke complications No problems noted. Brother , Passed age 67 of [place] No problems noted. Son No problems noted. Daughter No problems noted. Other No pertinent family history Social History Smoking Status: Former smoker Tobacco Type: Cigarettes packs per day: 1.5; Years Smoked: 62; Second Hand Exposure: No; Do You Dip or Chew Tobacco: No; Tobacco Cessation Education Requested by Patient: No Hx Alcohol Use: Yes Alcohol type: hard liquor Alcohol Intake Frequency: 2-3 x/Week Hx Substance Use: No Preferred Language: Yoruba Communication Ability: Effective Visual Impairment: Limited Hearing Ability: Hard of Hearing Sql Etl Developer Required: No Beliefs That Will Affect Care: None marital status: Current Living Situation: Spouse current occupational status: retired 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 Other Information That Helps Us Care for You: No Feels Safe at Home: Yes Safety Concerns: Feels Safe At This Time Childhood Exposure to Second-Hand Smoke: No caffeine: Yes (1-2 cups of coffee/day ) during the past year weight has: remained stable Dental Care, Regularly: Yes Assistive Devices: Cane and Walker Allergies Allergies Allergy/AdvReac Type Severity Reaction Status Date / Time No Known Allergies Allergy Verified 07/17/21 14:11 Home Meds Home Medications Medication Instructions Recorded Confirmed albuterol sulfate 90 mcg/actuation 2 puff INHALATION Q4H PRN 12/11/17 07/17/21 aerosol inhaler omeprazole 20 mg capsule,delayed 20 mg PO DAILYBB 12/11/17 07/17/21 release amlodipine 2.5 mg tablet 2.5 mg PO DAILY 10/31/19 07/17/21 azelastine 137 mcg (0.1 %) nasal 1 spray INTRANASAL BID 10/31/19 07/17/21 spray aerosol furosemide 20 mg tablet (Lasix) 20 mg PO [id number] 10/31/19 07/17/21 metformin 500 mg tablet 1,000 mg PO DAILY tab 10/31/19 07/17/21 metoprolol succinate 25 mg 25 mg PO BID 10/31/19 07/17/21 tablet,extended release 24 hr montelukast 10 mg tablet 10 mg PO HS 10/31/19 07/17/21 potassium gluconate 550 mg (90 mg) 550 mg PO DAILY 10/31/19 07/17/21 tablet aspirin 81 mg tablet,delayed 81 mg PO DAILY 01/07/21 07/17/21 release (Adult Aspirin Regimen) atorvastatin 80 mg tablet 80 mg PO DAILY 01/07/21 07/17/21 lisinopril 20 mg tablet 20 mg PO DAILY 01/07/21 07/17/21 fluticasone fur. 100 mcg-umeclid 1 inh INHALATION QAM 06/24/21 07/17/21 62.5 mcg-vilant 25 mcg inhalat.powder (Trelegy Ellipta) ipratropium bromide 21 mcg (0.03 2 spray INTRANASAL BID 06/24/21 07/17/21 %) nasal spray magnesium oxide 400 mg PO BID 06/24/21 07/17/21 polyethylene glycol 3350 17 gram 17 g PO DAILY PRN 06/24/21 07/17/21 oral powder packet (Miralax) pregabalin 150 mg capsule (Lyrica) 150 mg PO BID 06/24/21 07/17/21 tramadol 50 mg tablet 50 mg PO Q8H PRN 06/24/21 07/17/21 Results & Data (ED) Vital Signs Vital Signs - 24 hr 07/17/21 10:59 07/17/21 11:01 07/17/21 12:05 Temperature 39.4 C H Temperature Source Oral Pulse Rate 76 76 73 Pulse Rate from SpO2 Sensor 72 Pulse Rhythm Regular Regular Pulse Strength Normal Respiratory Rate 20 20 16 Respiratory Effort / Characteristics Non-Labored Spontaneous Non-Labored Spontaneous Respiratory Depth Normal Respiratory Pattern Regular Blood Pressure 150/78 H 107/63 Blood Pressure Mean 102 77 Blood Pressure Position Sitting Pulse Oximetry 92 92 93 Oxygen Delivery Method Room Air Room Air Sepsis Recent Fever Within 48 Hours Yes Sepsis New/Unexplained Change in Mental Status No Sepsis Action Taken by Nursing No Action Required 07/17/21 12:12 07/17/21 12:30 07/17/21 13:00 Temperature 37.6 C H Temperature Source Oral Pulse Rate 75 67 Pulse Rate from SpO2 Sensor 63 63 Pulse Rhythm Pulse Strength Respiratory Rate 7 L 11 L Respiratory Effort / Characteristics Respiratory Depth Respiratory Pattern Blood Pressure 139/72 118/67 Blood Pressure Mean 94 84 Blood Pressure Position Pulse Oximetry 91 93 Oxygen Delivery Method Sepsis Recent Fever Within 48 Hours Sepsis New/Unexplained Change in Mental Status Sepsis Action Taken by Nursing 07/17/21 13:30 07/17/21 14:01 07/17/21 14:30 Temperature Temperature Source Pulse Rate 60 60 64 Pulse Rate from SpO2 Sensor 60 61 62 Pulse Rhythm Pulse Strength Respiratory Rate 15 16 16 Respiratory Effort / Characteristics Respiratory Depth Respiratory Pattern Blood Pressure 119/70 141/81 H 165/77 H Blood Pressure Mean 86 101 106 Blood Pressure Position Pulse Oximetry 94 96 99 Oxygen Delivery Method Sepsis Recent Fever Within 48 Hours Sepsis New/Unexplained Change in Mental Status Sepsis Action Taken by Half-Way Medications Current Medication List: was personally reviewed by me Laboratory Data Attestation: I reviewed the patient's lab results. Result diagrams: 07/18/21 07:03 07/18/21 07:03 Lab Results 07/17/21 07/17/21 07/17/21 Range/Units 11:10 11:10 11:10 WBC (4.8-10.8) K/uL RBC (4.7-6.1) M/uL Hgb (14.0-18.0) g/dL Hct (42-52) % MCV (80-100) fL MCH (25-34) pg MCHC (32-36) g/dL RDW Std Deviation (36.4-46.3) fL RDW Coeff of Carol (11.5-14.5) % Plt Count (130-400) K/uL MPV (7.4-10.4) fL Immature Gran % (Auto) % Neut % (Auto) % Lymph % (Auto) % [place] % (Auto) % Eos % (Auto) % Baso % (Auto) % Neut # (Auto) (1.4-6.5) K/uL Lymph # (Auto) (1.2-3.4) K/uL [place] # (Auto) (0.11-0.59) K/uL Eos # (Auto) (0-0.5) K/uL Baso # (Auto) (0-0.2) K/uL Immature Gran # (Auto) (0.00-0.02) K/uL ESR 66 H (0-20) mm/hr PT (9.0-12.0) Seconds INR (0.9-1.1) APTT (21.0-31.0) Seconds PTT Ratio VBG pH (7.36-7.41) VBG pCO2 (38-50) mmHg VBG pO2 mmHg VBG HCO3 mmol/L VBG O2 Saturation % VBG Base Excess mEq/L Barometric Pressure mm/Hg Sodium 135 L (136-145) mmol/L Potassium 4.0 (3.5-5.1) mmol/L Chloride 100 (98-107) mmol/L Carbon Dioxide 25 (21-32) mmol/L Anion Gap 10 (3-11) BUN 14 (6-23) mg/dl Creatinine 0.92 (0.6-1.4) mg/dl Est Cr Clr Drug Dosing 74.7 ml/min Est GFR ( Amer) 88.8 ml/min Est GFR (Non-Af Amer) 76.6 ml/min BUN/Creatinine Ratio 15.2 (10-20) Glucose 160 H (70-99(Fasting)) mg/dl Lactate (0.4-2.0) mmol/L Calcium 8.8 (8.5-10.1) mg/dl Magnesium 1.5 L (1.7-2.4) mg/dl Total Bilirubin 0.8 (0.2-1.0) mg/dl AST 9 L (13-39) U/L ALT 7 (7-52) U/L Alkaline Phosphatase 73 (34-104) U/L Troponin I High Sens 27.6 H (0-20) pg/ml C-Reactive Protein 14.17 H (0-0.5) mg/dl Total Protein 6.7 (6.0-8.3) gm/dl Albumin 3.5 (3.4-5.0) gm/dl Globulin 3.2 (2.5-4.0) gm/dl Albumin/Globulin Ratio 1.1 (0.9-2) Procalcitonin 0.08 (0-0.5) ng/ml SARS-CoV-2 (PCR) (Negative) Influenza Type A (PCR) (Neg) Influenza Type B (PCR) (Neg) RSV (RT-PCR) (Neg) 07/17/21 07/17/21 07/17/21 Range/Units 11:10 11:10 11:14 WBC 8.86 (4.8-10.8) K/uL RBC 4.29 L (4.7-6.1) M/uL Hgb 14.0 (14.0-18.0) g/dL Hct 40.9 L (42-52) % MCV 95.3 (80-100) fL MCH 32.6 (25-34) pg MCHC 34.2 (32-36) g/dL RDW Std Deviation 50.2 H (36.4-46.3) fL RDW Coeff of Carol 14.4 (11.5-14.5) % Plt Count 177 (130-400) K/uL MPV 12.4 H (7.4-10.4) fL Immature Gran % (Auto) 0.2 % Neut % (Auto) 81.6 % Lymph % (Auto) 8.7 % [place] % (Auto) 9.4 % Eos % (Auto) 0.1 % Baso % (Auto) 0.0 % Neut # (Auto) 7.23 H (1.4-6.5) K/uL Lymph # (Auto) 0.77 L (1.2-3.4) K/uL [place] # (Auto) 0.83 H (0.11-0.59) K/uL Eos # (Auto) 0.01 (0-0.5) K/uL Baso # (Auto) 0.00 (0-0.2) K/uL Immature Gran # (Auto) 0.02 (0.00-0.02) K/uL ESR (0-20) mm/hr PT 10.9 (9.0-12.0) Seconds INR 1.0 (0.9-1.1) APTT 29.1 (21.0-31.0) Seconds PTT Ratio 1.1 VBG pH 7.42 H (7.36-7.41) VBG pCO2 47 (38-50) mmHg VBG pO2 30 mmHg VBG HCO3 30 mmol/L VBG O2 Saturation < 60.0 % VBG Base Excess 4.3 mEq/L Barometric Pressure 732.2 mm/Hg Sodium (136-145) mmol/L Potassium (3.5-5.1) mmol/L Chloride (98-107) mmol/L Carbon Dioxide (21-32) mmol/L Anion Gap (3-11) BUN (6-23) mg/dl Creatinine (0.6-1.4) mg/dl Est Cr Clr Drug Dosing ml/min Est GFR ( Amer) ml/min Est GFR (Non-Af Amer) ml/min BUN/Creatinine Ratio (10-20) Glucose (70-99(Fasting)) mg/dl Lactate (0.4-2.0) mmol/L Calcium (8.5-10.1) mg/dl Magnesium (1.7-2.4) mg/dl Total Bilirubin (0.2-1.0) mg/dl AST (13-39) U/L ALT (7-52) U/L Alkaline Phosphatase (34-104) U/L Troponin I High Sens (0-20) pg/ml C-Reactive Protein (0-0.5) mg/dl Total Protein (6.0-8.3) gm/dl Albumin (3.4-5.0) gm/dl Globulin (2.5-4.0) gm/dl Albumin/Globulin Ratio (0.9-2) Procalcitonin (0-0.5) ng/ml SARS-CoV-2 (PCR) (Negative) Influenza Type A (PCR) (Neg) Influenza Type B (PCR) (Neg) RSV (RT-PCR) (Neg) 07/17/21 07/17/21 Range/Units 11:14 11:50 WBC (4.8-10.8) K/uL RBC (4.7-6.1) M/uL Hgb (14.0-18.0) g/dL Hct (42-52) % MCV (80-100) fL MCH (25-34) pg MCHC (32-36) g/dL RDW Std Deviation (36.4-46.3) fL RDW Coeff of Carol (11.5-14.5) % Plt Count (130-400) K/uL MPV (7.4-10.4) fL Immature Gran % (Auto) % Neut % (Auto) % Lymph % (Auto) % [place] % (Auto) % Eos % (Auto) % Baso % (Auto) % Neut # (Auto) (1.4-6.5) K/uL Lymph # (Auto) (1.2-3.4) K/uL [place] # (Auto) (0.11-0.59) K/uL Eos # (Auto) (0-0.5) K/uL Baso # (Auto) (0-0.2) K/uL Immature Gran # (Auto) (0.00-0.02) K/uL ESR (0-20) mm/hr PT (9.0-12.0) Seconds INR (0.9-1.1) APTT (21.0-31.0) Seconds PTT Ratio VBG pH (7.36-7.41) VBG pCO2 (38-50) mmHg VBG pO2 mmHg VBG HCO3 mmol/L VBG O2 Saturation % VBG Base Excess mEq/L Barometric Pressure mm/Hg Sodium (136-145) mmol/L Potassium (3.5-5.1) mmol/L Chloride (98-107) mmol/L Carbon Dioxide (21-32) mmol/L Anion Gap (3-11) BUN (6-23) mg/dl Creatinine (0.6-1.4) mg/dl Est Cr Clr Drug Dosing ml/min Est GFR ( Amer) ml/min Est GFR (Non-Af Amer) ml/min BUN/Creatinine Ratio (10-20) Glucose (70-99(Fasting)) mg/dl Lactate 1.1 (0.4-2.0) mmol/L Calcium (8.5-10.1) mg/dl Magnesium (1.7-2.4) mg/dl Total Bilirubin (0.2-1.0) mg/dl AST (13-39) U/L ALT (7-52) U/L Alkaline Phosphatase (34-104) U/L Troponin I High Sens (0-20) pg/ml C-Reactive Protein (0-0.5) mg/dl Total Protein (6.0-8.3) gm/dl Albumin (3.4-5.0) gm/dl Globulin (2.5-4.0) gm/dl Albumin/Globulin Ratio (0.9-2) Procalcitonin (0-0.5) ng/ml SARS-CoV-2 (PCR) NEGATIVE (Negative) Influenza Type A (PCR) Negative (Neg) Influenza Type B (PCR) Negative (Neg) RSV (RT-PCR) Negative (Neg) Administered Medications Azelastine HCl (Azelastine Hcl 0.1% Nasal 200 Sprays/27,400 Mcg Btl) 1 sprays NA BID ZHENG Stop: 08/16/21 20:59 Last Admin: 07/17/21 21:14 Dose: 1 sprays Documented by: [id number] Doxycycline Hyclate 100 mg/ (Dextrose) 110 mls @ 50 mls/hr IV Q12H ZHENG Stop: 07/24/21 16:59 Last Infusion: 07/18/21 08:03 Dose: 0 mls/hr Documented by: [id number] Admin: 07/18/21 05:51 Dose: 50 mls/hr Documented by: [id number] Infusion: 07/17/21 19:50 Dose: 0 mls/hr Documented by: [id number] Admin: 07/17/21 17:38 Dose: 50 mls/hr Documented by: [id number] Piperacillin Sod/Tazobactam (Sod 3.375 gm/ Dextrose) 115 mls @ 28.75 mls/hr IV Q8H [facility]; Protocol Stop: 07/19/21 18:59 Last Infusion: 07/18/21 06:01 Dose: 0 mls/hr Documented by: [id number] Admin: 07/18/21 02:01 Dose: 28.8 mls/hr Documented by: [id number] Infusion: 07/18/21 00:17 Dose: 0 mls/hr Documented by: [id number] Admin: 07/17/21 20:17 Dose: 28.8 mls/hr Documented by: [id number] Insulin Aspart (Insulin Aspart Per Unit) 0 units SC ACHS [facility] Stop: 08/16/21 20:59 Last Admin: 07/18/21 08:25 Dose: 1 units Documented by: [id number] Cosigned by: [id number] Admin: 07/17/21 21:09 Dose: 2 units Documented by: [id number] Cosigned by: [id number] Ipratropium [place] (Ipratropium [place] Nasal [place] 0.06% 15ml) 2 sprays JOSEPH BID [facility]; Protocol Stop: 08/16/21 20:59 Last Admin: 07/18/21 08:27 Dose: 2 sprays Documented by: [id number] Admin: 07/17/21 21:15 Dose: 2 sprays Documented by: [id number] Magnesium Oxide (Magnesium Oxide 400 Mg Tab) 400 mg PO BID [facility] Stop: 08/16/21 20:59 Last Admin: 07/17/21 21:13 Dose: Not Given Documented by: [id number] Metoprolol Succinate (Metoprolol Succ 25mg Ext Rel Tab) 25 mg PO BID [facility] Stop: 08/16/21 20:59 Last Admin: 07/17/21 21:14 Dose: Not Given Documented by: [id number] Montelukast Sodium (Montelukast Sodium 10 Mg Tablet) 10 mg PO HS [facility] Stop: 08/16/21 20:59 Last Admin: 07/17/21 21:14 Dose: Not Given Documented by: [id number] Pantoprazole Sodium (Pantoprazole 40 Mg Tab) 40 mg PO DAILYBB [facility]; Protocol Stop: 08/17/21 06:29 Last Admin: 07/18/21 05:18 Dose: Not Given Documented by: [id number] Pregabalin (Pregabalin 150 Mg Cap) 150 mg PO BID ZHENG Stop: 08/16/21 20:59 Last Admin: 07/17/21 21:14 Dose: Not Given Documented by: [id number] Discontinued Medications Acetaminophen (Acetaminophen 1000 Mg/100 Ml Iv) 1,000 mg IV ONE ONE Stop: 07/17/21 11:01 Last Admin: 07/17/21 11:15 Dose: 1,000 mg Documented by: [id number] Gadobutrol (Gadobutrol 65ml Vial) 8.5 ml IV ONCE ONE Stop: 07/18/21 10:32 Last Admin: 07/18/21 10:32 Dose: 8.5 ml Documented by: [id number] Piperacillin Sod/Tazobactam Sod (Zosyn) 4.5 gm in 120 mls @ 240 mls/hr IV NOW ONE Stop: 07/17/21 12:19 Last Infusion: 07/17/21 12:36 Dose: 0 mls/hr Documented by: [id number] Admin: 07/17/21 12:06 Dose: 240 mls/hr Documented by: [id number] Magnesium Sulfate/Dextrose (Magnesium Sulfate / D5w) 1 gm in 100 mls @ 100 mls/hr IV Q1H ZHENG Stop: 07/17/21 14:08 Last Infusion: 07/17/21 14:47 Dose: 0 mls/hr Documented by: [id number] Admin: 07/17/21 13:47 Dose: 100 mls/hr Documented by: [id number] Infusion: 07/17/21 13:22 Dose: 0 mls/hr Documented by: [id number] Admin: 07/17/21 12:22 Dose: 100 mls/hr Documented by: [id number] Sodium Chloride (Nss) 500 mls @ 999 mls/hr IV .Q31M ONE Stop: 07/17/21 12:39 Last Infusion: 07/17/21 12:53 Dose: 0 mls/hr Documented by: [id number] Admin: 07/17/21 12:22 Dose: 999 mls/hr Documented by: [id number] Sodium Chloride (Nss 1000ml) 1,000 mls @ 75 mls/hr IV .[id number] [facility] Stop: 07/18/21 05:49 Last Infusion: 07/18/21 06:35 Dose: 0 mls/hr Documented by: [id number] Admin: 07/17/21 17:38 Dose: 75 mls/hr Documented by: [id number] Imaging Data Radiologist's Impression: Chest CT 07/17/21 10:58 CT OF THE CHEST WITHOUT IV CONTRAST CLINICAL HISTORY: Fever. History of lung cancer. COMPARISON STUDY: Chest CT June 16, 2021. Chest radiograph performed earlier today. CT DOSE: 1016.79 mGy.cm TECHNIQUE: Axial images of the chest were obtained without IV contrast. Images were reviewed in the axial, sagittal, and coronal planes. IV contrast was not administered for this examination. Automated exposure control was utilized for the study. A dose lowering technique was utilized adhering to the principles of ALARA. FINDINGS: A prominent AP window lymph node measures 1 cm short axis diameter. This is slightly increased in size since prior exams. This could be reactive. Extensive coronary artery calcification is present. There is mild cardiomegaly. No pericardial effusion is present. Severe emphysema is noted. Suspected post radiation change within the superior segment of the right lower lobe and posterior segment of the right upper lobe is noted. This is similar to several prior studies. There has been interval development of a 5.5 cm subpleural focus of consolidation within the left upper lobe since CT of June 24, 2021. This corresponds to the finding on chest radiograph. There is no pneumothorax. There are trace bilateral pleural effusions. Right lower lobe airspace opacity has slightly decreased. There is mild left lower lobe airspace opacity. No suspicio us lesions within the bony thorax. Calcified pleural plaques are again noted. Visualized portions of the upper abdomen are unremarkable on this unenhanced exam. Gallbladder is surgically absent. IMPRESSION: 1. Interval development of a 5.5 cm subpleural focus of consolidation within the left upper lobe since chest CT of June 16, 2021. This represents pneumonia. 2. Otherwise, no significant change in appearance of the chest, as described above. Suspected post radiation change within the right lung. 3. Trace bilateral pleural effusions. 4. Emphysema. ACT 112: Negative or not required by law. Electronically signed by: Jewel Balbuena M.D. 07/17/2021 12:[address] 07/17/21 10:58 CT OF THE HEAD WITHOUT CONTRAST CLINICAL HISTORY: Altered mental status. COMPARISON STUDY: Head CT June 24, 2021. MRI of the brain June 25, 2021. TECHNIQUE: Helical axial images of the head were obtained without IV contrast. Automated exposure control was utilized for the study. A dose lowering technique was utilized adhering to the principles of ALARA. FINDINGS: No acute intracranial hemorrhage, midline shift or mass effect is present. White matter hypodensities are unchanged and favor small vessel disease. The ventricular system is unremarkable. The basal cisterns are patent. No extra-axial collections are present. There are no findings to suggest acute dural sinus thrombosis or acute territorial infarct. No significant calvarial abnormalities are present. There is minimal sinus mucosal thickening. IMPRESSION: No acute intracranial findings. No change in appearance of the brain. ACT 112: Negative or not required by law. Electronically signed by: Jewel Balbuena M.D. 07/17/2021 11:58 AM Chest X-Ray 07/17/21 10:59 XR chest 1V portable CLINICAL HISTORY: Sepsis. History of lung cancer. COMPARISON STUDY: Chest radiograph and chest CT June 16, 2021. FINDINGS: Emphysema is better depicted on prior chest CT. There is no pneumothorax or pleural effusion. Cardiomediastinal silhouette is stable. There is no evidence for pulmonary edema. Lateral left midlung airspace has developed since prior exam. Right lower lobe airspace opacity has slightly improved. Mild left basilar opacity has increased. Right suprahilar opacity is unchanged and favor scarring. IMPRESSION: 1. Interval development of lateral left midlung airspace opacity. This favors pneumonia. 2. Slight improvement in right lower lung airspace opacity with slight increase in left basilar opacity. 3. No change in right suprahilar opacity which favor scarring. ACT 112: Negative or not required by law. Electronically signed by: Jewel Balbuena M.D. 07/17/2021 11:44 AM Discharge Plan Visit Data Chief Complaint: TIA Symptoms ED Provider: Efrain Anne Discharge Problem: Pneumonia, AMS (altered mental status), Hypoxia Patient Disposition: Admitted As Inpatient Discharge Instructions Interventions: ED Discharge Assessment Last Done: 07/17/21 15:13 Discharge Problem: Pneumonia Qualifiers: Pneumonia type: due to unspecified organism Laterality: right Lung location: lower lobe of lung Qualified Code(s): J18.9 - Pneumonia, unspecified organism AMS (altered mental status) Qualifiers: Altered mental status type: unspecified Qualified Code(s): R41.82 - Altered mental status, unspecified
[2021-07-17 11:29] LABS: Base Excess VBG 4.3 mEq/L; HCO3 VBG 30 mmol/L; PCO2 VBG 47 mmHg (38-50); PO2 VBG 30 mmHg; pH VBG 7.42 (7.36-7.41)
--- NOTE | 2021-07-17 11:46 | XRay Report ---
XR chest 1V portable CLINICAL HISTORY: Sepsis. History of lung cancer. COMPARISON STUDY: Chest radiograph and chest CT June 16, 2021. FINDINGS: Emphysema is better depicted on prior chest CT. There is no pneumothorax or pleural effusio n. Cardiomediastinal silhouette is stable. There is no evidence for pulmonary edema. Lateral left mid lung airspace has developed since prior exam. Right lower lobe airspace opacity has slightly improved . Mild left basilar opacity has increased. Right suprahilar opacity is unchanged and favor scarring. IMPRESSION: 1. Interval development of lateral left midlung airspace opacity. This favors pneumonia. 2. Slight improvement in right lower lung airspace opacity with slight increase in left basilar opac ity. 3. No change in right suprahilar opacity which favor scarring. ACT 112: Negative or not required by law. Electronically signed by: Jewel Balbuena M.D. 07/17/2021 11:44 AM
[2021-07-17] MEDS ORDERED: PIPERACILLIN/TAZOBACTAM 4.5 GM/120 ML BAG IV ONE (11:50)
[2021-07-17] MEDS ORDERED: PIPERACILL/TAZOBAC CONSULT ACTIVE PRN (11:50)
--- NOTE | 2021-07-17 11:59 | CT Scan Report ---
CT OF THE HEAD WITHOUT CONTRAST CLINICAL HISTORY: Altered mental status. COMPARISON STUDY: Head CT June 24, 2021. MRI of the brain June 25, 2021. TECHNIQUE: Helical axial images of the head were obtained without IV contrast. Automated exposure con trol was utilized for the study. A dose lowering technique was utilized adhering to the principles o f ALARA. FINDINGS: No acute intracranial hemorrhage, midline shift or mass effect is present. White matter hyp odensities are unchanged and favor small vessel disease. The ventricular system is unremarkable. The basal cisterns are patent. No extra-axial collections are present. There are no findings to suggest a cute dural sinus thrombosis or acute territorial infarct. No significant calvarial abnormalities are present. There is minimal sinus mucosal thickening. IMPRESSION: No acute intracranial findings. No change in appearance of the brain. ACT 112: Negative or not required by law. Electronically signed by: Jewel Balbuena M.D. 07/17/2021 11:58 AM
[2021-07-17 12:02] LABS: Partial Thromboplastin Ratio 1.1; Partial Thromboplastin Time 29.1 Seconds (21.0-31.0); Prothrombin Time 10.9 Seconds (9.0-12.0); Troponin I High Sensitivity 27.6 pg/ml (0-20)
[2021-07-17 12:08] LABS: Albumin Globulin Ratio 1.1 (0.9-2); Albumin Level 3.5 gm/dl (3.4-5.0); BUN Creatinine Ratio 15.2 (10-20); Bilirubin,Total 0.8 mg/dl (0.2-1.0); C Reactive Protein 14.17 mg/dl (0-0.5); Calcium 8.8 mg/dl (8.5-10.1); Creatinine Clr Calc Pharmacy 74.7 ml/min; Est GFR (African American) 88.8 ml/min; Est GFR (Non-African American) 76.6 ml/min; Globulin 3.2 gm/dl (2.5-4.0); Magnesium 1.5 mg/dl (1.7-2.4); Total Protein 6.7 gm/dl (6.0-8.3)
[2021-07-17] MEDS ORDERED: SODIUM CHLORIDE 0.9% 500 ML IV ONE (12:09)
[2021-07-17 12:12] LABS: Hematocrit (blood only) 40.9 % (42-52); Mean Corpuscular Hemoglobin 32.6 pg (25-34); Mean Corpuscular Hgb Conc 34.2 g/dL (32-36); Mean Corpuscular Volume 95.3 fL (80-100); Mean Platelet Volume 12.4 fL (7.4-10.4); Platelet Count 177 K/uL (130-400); RDW Coefficient of Variation 14.4 % (11.5-14.5); RDW Standard Deviation 50.2 fL (36.4-46.3); Red Blood Count 4.29 M/uL (4.7-6.1); White Blood Count 8.86 K/uL (4.8-10.8)
[2021-07-17] MEDS: MAGNESIUM SULFATE / D5W 1 GM/100 ML BAG IV SCH ×2 (12:22→13:47)
--- NOTE | 2021-07-17 12:30 | CT Scan Report ---
CT OF THE CHEST WITHOUT IV CONTRAST CLINICAL HISTORY: Fever. History of lung cancer. COMPARISON STUDY: Chest CT June 16, 2021. Chest radiograph performed earlier today. CT DOSE: 1016.79 mGy.cm TECHNIQUE: Axial images of the chest were obtained without IV contrast. Images were reviewed in the axial, sagittal, and coronal planes. IV contrast was not administered for this examination. Automat ed exposure control was utilized for the study. A dose lowering technique was utilized adhering to t he principles of ALARA. FINDINGS: A prominent AP window lymph node measures 1 cm short axis diameter. This is slightly incre ased in size since prior exams. This could be reactive. Extensive coronary artery calcification is pr esent. There is mild cardiomegaly. No pericardial effusion is present. Severe emphysema is noted. Yanet pected post radiation change within the superior segment of the right lower lobe and posterior segmen t of the right upper lobe is noted. This is similar to several prior studies. There has been interval development of a 5.5 cm subpleural focus of consolidation within the left upper lobe since CT of May. This corresponds to the finding on chest radiograph. There is no pneumothorax. There are trace bilateral pleural effusions. Right lower lobe airspace opacity has slightly decreased. There i s mild left lower lobe airspace opacity. No suspicious lesions within the bony thorax. Calcified pleu ral plaques are again noted. Visualized portions of the upper abdomen are unremarkable on this unenha nced exam. Gallbladder is surgically absent. IMPRESSION: 1. Interval development of a 5.5 cm subpleural focus of consolidation within the left upper lobe sinc e chest CT of June 16, 2021. This represents pneumonia. 2. Otherwise, no significant change in appearance of the chest, as described above. Suspected post ra diation change within the right lung. 3. Trace bilateral pleural effusions. 4. Emphysema. ACT 112: Negative or not required by law. Electronically signed by: Jewel Balbuena M.D. 07/17/2021 12:28 PM
[2021-07-17 12:36] LABS: Eosinophils # (auto) 0.01 K/uL (0-0.5); Eosinophils % (auto) 0.1 %; Immature Granulocytes # (auto) 0.02 K/uL (0.00-0.02); Immature Granulocytes % (auto) 0.2 %; Lymphocytes # (auto) 0.77 K/uL (1.2-3.4); Lymphocytes % (auto) 8.7 %; Monocytes # (auto) 0.83 K/uL (0.11-0.59); Monocytes % (auto) 9.4 %; Neutrophils # (auto) 7.23 K/uL (1.4-6.5); Neutrophils % (auto) 81.6 %
[2021-07-17 12:51] LABS: Oxygen Saturation VBG < 60.0 %
--- NOTE | 2021-07-17 13:26 | Electrocardiogram Report ---
Test Reason : Blood Pressure : / mmHG Vent. Rate : 080 BPM Atrial Rate : 080 BPM P-R Int : 210 ms QRS Dur : 140 ms QT Int : 418 ms P-R-T Axes : 069 -01 128 degrees QTc Int : 482 ms Sinus rhythm with 1st degree A-V block Left bundle branch block Abnormal ECG When compared with ECG of 24-JUN-2021 14:26, No significant change was found Confirmed by Efrain Cedeño ([id number]) on 07/17/2021 1:26:46 PM Referred By: REFERRED SELF Confirmed By:Efrain Cedeño
[2021-07-17 14:11] LABS: Influenza A virus by PCR Negative (Neg); Influenza B virus by PCR Negative (Neg); RSV by PCR Negative (Neg); SARS CoV2 RNA(COVID-19) InHosp NEGATIVE (Negative)
[2021-07-17] MEDS ORDERED: POLYETHYLENE (MIRALAX) 17 GM PACK PO PRN ×2 (15:53)
[2021-07-17] MEDS ORDERED: PHARMACIST DISCHARGE MED REC CONSULT PRN (15:53)
[2021-07-17] MEDS ORDERED: NITROGLYCERIN SL 0.4 MG/TAB TAB SL PRN (15:53)
[2021-07-17] MEDS ORDERED: ALBUTEROL HFA 8 GM INHALER INH PRN (15:53)
[2021-07-17] MEDS ORDERED: ACETAMINOPHEN 325 MG TAB PO PRN (15:53)
--- NOTE | 2021-07-17 16:07 | History and Physical Report ---
DATE OF ADMISSION: 07/17/2021. CHIEF COMPLAINT: Stroke-like symptoms. HISTORY OF PRESENT ILLNESS: This is an 81-year-old male with past medical history significant for diabetes, hypertension, history of severe COPD, moderate aortic stenosis, history of right lower lobe lung cancer, status post radiation, chronic heart failure with preserved EF, history of carotid stenosis, hyperlipidemia, osteoporosis, peripheral vascular disease, left subclavian artery stenosis, history of tobacco abuse, B12 deficiencies, chronic sinusitis and rhinitis who lives at home with his who was brought in because the patient fell from the steps and his thought he was having some facial droop and slurred speech.Says she does not know how long he had this new symptoms. Thought he was having a stroke and brought him here. The patient's says he is having these symptoms of slurred speech for the last 4 months, but it is getting worse, recently he was in the hospital in end of May with similar kind of symptoms. At that time, he was found to have COVID pneumonia, he was treated for pneumonia with remdesivir and steroids and at that time workup for stroke was unremarkable with MRI scan was negative .Patient is currently resting comfortably, hemodynamically stable, able to speak okay. Words somewhat slow in volume and no obvious facial droop seen. He is alert and oriented to name and place, could tell his date of , could tell current year, knows that he is in the hospital and also his 's name and mental status seemed to be doing okay. Denies any headache. No dizziness, no blurred visions, has sinus problems. No sore throat, no cough. No fever, no chest pain, no shortness of breath. No nausea, no abdominal pain, normal bowel and bladder movements. Ambulating okay without support, but his balance is not that great. He also had a barium swallow done on 07/05/2021 and was recommended to chop the food and eat slowly, chew properly and slowly and altrnate with liquids, which he is not following as per the , and he is supposed to have followup with speech therapy. ALLERGIES: No known drug allergies. MEDICAL HISTORY: As mentioned above. PAST SURGICAL HISTORY: Right total knee arthroplasty, bronchoscopy, common femoral endarterectomy, ERCP, right femoral popliteal artery, revascularization with stent placement, tonsillectomy, cataracts, cholecystectomy, repair of nasal septum, trigger finger release. MEDICATIONS: The patient is on albuterol 2 puffs inhalation q. 4 hours p.r.n., amlodipine 2.5 mg p.o. daily, aspirin 81 mg p.o. daily, atorvastatin 80 mg p.o. daily, azelastine 0.1% nasal spray intranasal b.i.d., furosemide 20 mg p.o. 6 times a week, ipratropium bromide 2 sprays intranasal b.i.d., lisinopril 20 mg p.o. daily, magnesium 400 mg p.o. b.i.d., metformin 1000 mg p.o. daily, metoprolol succinate 25 mg p.o. b.i.d., Montelukast 10 mg p.o. at bedtime, omeprazole 20 mg p.o. daily, MiraLax 17 g p.o. daily p.r.n., potassium gluconate 550 mg p.o. daily, Lyrica 150 mg p.o. b.i.d., tramadol 50 mg p.o. 8 hours p.r.n., Trelegy Ellipta 1 inhalation daily. FAMILY HISTORY: Significant for father has diabetes; brother has heart disorder; mother has peripheral vascular disease, father has stroke. SOCIAL HISTORY: , former smoker, who quit in 2012, smoked 1 pack a day for 60 years. Alcohol, drinks alcohol, no drug use. REVIEW OF SYMPTOMS: As per HPI. Rest of the review of symptoms is negative. PHYSICAL EXAMINATION: GENERAL: The patient is old and frail, not in acute distress. VITAL SIGNS: Temperature 37.6 when he came in it was 39.4, pulse 60, respiratory rate 16, blood pressure 141/81, oxygen 96% on room air. HEENT: Pupils equal, round and reactive to light. Oral mucosa moist. LUNGS: No JVD, no neck masses. CARDIOVASCULAR: S1 and S2 heard. Regular rate and rhythm. No murmur, no gallop. RESPIRATORY SYSTEM: Normal AP diameter. No accessory muscle use. No wheezing, no crackles. ABDOMEN: Soft. Bowel sounds are present, nontender, no distention. CENTRAL NERVOUS SYSTEM: Alert and oriented. Speech is somewhat low voice. No obvious facial droop. Power 5/5 in all extremities. Sensation is intact. Coordination was normal. No pronator drift. EXTREMITIES: No edema, no erythema. LABORATORY: WBC 8.8, hemoglobin 14, hematocrit 40.9, platelets 177. PT 10.9, INR 1, APTT 29.1. Venous blood gas, pH of 7.4. Sodium 135, potassium 4, chloride 100, bicarb 25, BUN 14, creatinine 0.9, serum glucose 160. Lactate 1.1, calcium 8.8, magnesium 1.5, total bilirubin 0.8, AST 9, ALT 7, alkaline phosphatase 73, troponin I high sensitivity around 7.6. C-reactive protein 14.1. Procalcitonin 0.08. SARS-CoV-2 PCR negative. Influenza A and B PCR negative. RSV PCR negative. IMAGING: Chest x-ray: Interval development of the left mid lung airspace opacity, this favors pneumonia. CT of the head, no acute findings. Chest CT interval development of 5.5 cm subpleural focus of consolidation within the left upper lobe this represents pneumonia. EKG: Sinus rhythm, first-degree AV block, left bundle-branch block, at the rate of 80, no significant change was found. ASSESSMENT AND PLAN: An 81-year-old male who presents with stroke like symptoms and found to have a fever and possible pneumonia. 1. The patient had stroke like symptoms like some facial droop and slurred speech at home. He had similar symptoms in end of May and workup on stroke was negative and thought to be secondary to COVID pneumonia. was concerned, so initial CT was okay. We will do MRI scan. Neuro consult in a.m. and closely monitor in the tele floor. 2. Pneumonia, right and left upper lobe on the CAT scan, he has also fever spikes. his COVID is negative. Influenza A and B and PCR and RSV PCR negative. ER empirically started on Zosyn for possible aspiration pneumonitis. He is having difficulty and trouble with swallowing. We will follow speech therapy evaluation. Empirically also add doxycycline and monitor the response. Gentle fluids.Keeping NPO as he failed dysphagia screen. 3. Hypomagnesemia. We will replace. 4. Diabetes: Hold metformin placed on insulin sliding scale. 5. Hypertension. Continue home medication of lisinopril, Toprol, Norvasc, and Lasix. Monitor the blood pressure. Currently holding po meds. iv lopressor prn 6. History of lung cancer, status post chemoradiation, radiation pneumonitis. Follow up with Pulmonary. 7. Chronic obstructive pulmonary disease, currently not in exacerbation. Continue home inhalers. 8.The troponins are only mildly elevated. We will follow the serial enzymes, likely demand ischemia. 9. Gastroesophageal reflux disease, on omeprazole.iv pecid until able to take po. 10. Chronic diastolic congestive heart failure, on Lasix and metoprolol.Po meds held. Monitor for volume overload. 11. Deep venous thrombosis prophylaxis: Sequential compression devices for now. DISPOSITION: Closely monitor in the tele. Level 1 full code. Expect to discharge home and follow with family doctor. Job ID: [id number]
[2021-07-17] MEDS ORDERED: METOPROLOL TARTRATE 1 MG/ML VIAL IV PRN (16:13)
[2021-07-17] MEDS ORDERED: SODIUM CHLORIDE 0.9% 1000ML 1,000 ML IV SCH (16:30)
[2021-07-17 17:14] LABS: Appearance Urine Clear (Clear); Bilirubin Urine Negative (Negative); Blood Urine Negative (Negative); Color Urine Yellow; Glucose Urine UA Negative (Negative); Ketones Urine Negative (Negative); Leukocyte Esterase Urine Negative (Negative); Nitrite Urine Negative (Negative); Protein Urine Negative (Negative); Specific Gravity Urine 1.014 (1.000-1.030); Urobilinogen Urine Negative (Negative); pH Urine 6.5 (4.5-7.5)
[2021-07-17] MEDS: DOXYCYCLINE HYCLATE 100 MG in DEXTROSE 5% 100 ML IV SCH (17:38)
[2021-07-17] MEDS: PIPERACILLIN/TAZOBACTAM 3.375 GM in DEXTROSE 5% 100 ML IV SCH (20:17)
[2021-07-17] MEDS ORDERED: GLUCAGON FOR INJ 1 MG VIAL SQ PRN (20:56)
[2021-07-17] MEDS ORDERED: GLUCOSE 40% GEL 15 GM TUBE PO PRN (20:56)
[2021-07-17] MEDS ORDERED: GLUCOSE 10 TABS/TUBE PO PRN (20:56)
[2021-07-17] MEDS ORDERED: CARBOHYDRATES FOR HYPOGLYCEMIA PO PRN (20:56)
[2021-07-17] MEDS ORDERED: DEXTROSE 50% 50 ML SYRINGE IV PRN (20:56)
[2021-07-17] MEDS: INSULIN ASPART PER UNIT SC SCH (21:09)
[2021-07-17] MEDS: MAGNESIUM OXIDE 400 MG TAB PO SCH (21:13)
[2021-07-17] MEDS: MONTELUKAST SODIUM 10 MG TABLET PO SCH (21:14)
[2021-07-17] MEDS: METOPROLOL SUCC 25MG EXT REL TAB PO SCH (21:14)
[2021-07-17] MEDS: PREGABALIN 150 MG CAP PO SCH (21:14)
[2021-07-17] MEDS: AZELASTINE HCL 0.1% NASAL 200 SPRAYS/27,400 MCG BTL SCH (21:14)
[2021-07-17] MEDS: IPRATROPIUM BROMIDE NASAL SPRAY 0.06% 15ML NAE SCH (21:15)
[2021-07-18] MEDS: PIPERACILLIN/TAZOBACTAM 3.375 GM in DEXTROSE 5% 100 ML IV SCH ×3 (02:01→19:15)
[2021-07-18] MEDS: PANTOprazole 40 MG TAB PO SCH (05:18)
[2021-07-18] MEDS: DOXYCYCLINE HYCLATE 100 MG in DEXTROSE 5% 100 ML IV SCH ×2 (05:51→17:04)
[2021-07-18 07:28] LABS: Basophils # (auto) 0.01 K/uL (0-0.2); Basophils % (auto) 0.1 %; Hematocrit (blood only) 42.1 % (42-52); Hemoglobin 14.3 g/dL (14.0-18.0); Immature Granulocytes # (auto) 0.02 K/uL (0.00-0.02); Immature Granulocytes % (auto) 0.3 %; Lymphocytes % (auto) 8.8 %; Mean Corpuscular Hemoglobin 31.8 pg (25-34); Mean Corpuscular Volume 93.6 fL (80-100); Mean Platelet Volume 12.3 fL (7.4-10.4); Monocytes # (auto) 0.72 K/uL (0.11-0.59); Neutrophils # (auto) 6.51 K/uL (1.4-6.5); Neutrophils % (auto) 81.8 %; Platelet Count 158 K/uL (130-400); RDW Coefficient of Variation 14.5 % (11.5-14.5); White Blood Count 7.96 K/uL (4.8-10.8)
[2021-07-18 07:53] LABS: BUN Creatinine Ratio 12.5 (10-20); Calcium 8.4 mg/dl (8.5-10.1); Chol HDL Ratio 1.9 (0-5); Creatinine Clr Calc Pharmacy 68.9 ml/min; Est GFR (African American) 84.4 ml/min; Est GFR (Non-African American) 72.8 ml/min; Potassium 3.7 mmol/L (3.5-5.1)
[2021-07-18] MEDS: INSULIN ASPART PER UNIT SC SCH ×4 (08:25→22:03)
[2021-07-18] MEDS: IPRATROPIUM BROMIDE NASAL SPRAY 0.06% 15ML NAE SCH ×2 (08:27→20:28)
[2021-07-18] MEDS ORDERED: NON-FORMULARY MEDICATION (Fluticasone-Umeclidin-Vilanter [Trelegy Ellipta] 100-62.5-25 mcg INH SCH (09:00)
[2021-07-18] MEDS ORDERED: GADOBUTROL 65ML VIAL IV ONE (10:31)
[2021-07-18] MEDS: PREGABALIN 150 MG CAP PO SCH ×2 (11:44→21:08)
[2021-07-18] MEDS: ATORVASTATIN 40 MG TAB PO SCH (11:44)
[2021-07-18] MEDS: amLODIPine BESYLATE 5 MG TAB PO SCH (11:44)
[2021-07-18] MEDS: POTASSIUM CHLORIDE CRTAB 20 MEQ TABCR PO SCH (11:44)
[2021-07-18] MEDS: AZELASTINE HCL 0.1% NASAL 200 SPRAYS/27,400 MCG BTL SCH ×2 (11:45→20:27)
[2021-07-18] MEDS: ASPIRIN 81 MG ECTAB PO SCH (11:45)
[2021-07-18] MEDS: UMECLIDINIUM/VILANTEROL 62.5/25MCG 7 PUFFS/INHALER INH SCH (11:46)
[2021-07-18] MEDS: MAGNESIUM OXIDE 400 MG TAB PO SCH ×2 (11:46→20:30)
[2021-07-18] MEDS: FLUTICASONE FUROATE 100MCG 14 PUFFS/INHALER INH SCH (11:47)
[2021-07-18] MEDS: lisinopril 20 MG TAB PO SCH (11:47)
[2021-07-18] MEDS: METOPROLOL SUCC 25MG EXT REL TAB PO SCH ×2 (11:48→20:31)
--- NOTE | 2021-07-18 12:04 | Communication Note ---
Date of Service: July 18, 2021 Neurology has been asked to evaluate Mr. Piña for a several month history of dysarthric speech of intermittent type worsening during a bout of COVID-pneu monia back in May and then improving but still occurring intermittently and accompanied recently by a general decline in his overall status with increasing ambulatory problems and more dysarthric speech. He was admitted found to have a new upper lobe infiltrate on this x-ray and CT scan is being treated for pneumonia. 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 Medications include albuterol, amlodipine, aspirin, atorvastatin, azelastine, Lasix ipratropium, lisinopril, magnesium, metformin, metoprolol, Singulair, omeprazole, potassium, Lyrica 150 mg twice a day, tramadol 50 mg daily, Trelegy Ellipta inhaler He denies any drug allergies Family history and social history are as per the admitting notes Review of systems from the patient is probably unreliable as he claims that he is back to his baseline never really had much of a speech problem and feels he is better now than he was during his COVID-pneumonia and really denies any fever sweats chills new cardiovascular problems change in memory new issues of numbness or tingling and denies any generalized weakness Exam reveals blood pressure 149/81 pulse 97 respirations are 18 he is afebrile and O2 saturation is 94% on 2 L by nasal cannula He is awake alert and oriented he may have a mild left facial asymmetry his speech is slightly dysarthric with rapid articulation there is no real nasality he does not have any eye movement issues ptosis neck flexor weakness does not complain facial numbness and seems to have pretty good facility rapid repetitive motions in the left arm and both legs but has a clawlike deformity of the right hand and a flexion deformity of the right elbow. Reflexes are hypoactive throughout absent at the ankles toes are indeterminate strength testing appears to be reasonably good he does have some vibratory loss below the knees bilaterally suggestive of a probable diabetic polyneuropathy Laboratory studies reveal a mild leukocytosis variable degrees glucose elevation, hypocalcemia, and mild hyponatremia Imaging studies revealed a pneumonia and the leukoencephalopathy on CT of the chest and MRI of the brain respectively At this point I suspect there we are seeing a nonspecific effect of the new pneumonia on prior neurologic deficits with emerging dysarthria and more motor problems Will check for myasthenia gravis with appropriate antibody titer but this will take a few weeks to come back and at this point if we indeed see no evidence for new infarction on official radiology review of the scan will need no further work-up. I am going to review the chart however to be sure that appropriate extracranial vascular studies have been ordered in the past and if not I may suggest we do them now William Diallo MD Above note was generated utilizing voice recognition technology and may have spelling errors punctuation errors pronoun usage errors and syntax errors
--- NOTE | 2021-07-18 12:13 | Communication Note ---
Date of Service: July 18, 2021 CT angiographic studies have indeed been done within the past 6 weeks and revealed 70 to 80% stenosis of both internal carotid arteries but currently symptoms would not be explained on the basis of these particular lesions loss of course we find evidence for new stroke We could probably justify a duplex of the carotids just to be sure the degree of stenosis has not progressed William Diallo MD
[2021-07-18] MEDS: FUROSEMIDE 20 MG TAB PO SCH (12:16)
--- NOTE | 2021-07-18 12:43 | Magnetic Resonance Report ---
MR brain wo/w con CLINICAL HISTORY: stroke like symptoms. Weakness for one day. Patient complains of slurred speech y esterday. COMPARISON STUDY: 06/25/2021 TECHNIQUE: Multiplanar multisequence images of the brain were performed before and after Gadavist, 8 .5 mL of IV contrast. Diffusion weighted imaging and ADC mapping was also performed. FINDINGS: Extra-axial space: There is no evidence for a subdural hematoma, There are no extra-axial fluid liana ections. Ventricles and cisterns: The ventricles are normal in size and configuration. There is no evidence f or midline shift or mass effect. Parenchyma: On noncontrast images, there is no evidence for an acute hemorrhage or infarct. No acute diffusion abnormalities are noted on diffusion weighted imaging or ADC mapping. There is normal nick -white differentiation. There is mild cerebral cortical atrophy present. There is bright signal seen on FLAIR weighted sequences within the centrum semiovale and periventricular white matter characteris tic of remote small vessel disease. The sulci and gyri appear normal without effacement. The midline structures are unremarkable. The posterior fossa structures appear normal. On postcontrast images, there is no evidence for enhancing mass lesion. Osseous structures: The paranasal sinuses are well aerated. There is mucosal thickening of the masto id air cells bilaterally, right greater than left. Soft tissues: No focal soft tissue abnormalities are identified. IMPRESSION: 1. No acute intracranial abnormalities. 2. Mild cerebral cortical atrophy and remote small vessel disease. 2. Bilateral chronic mastoiditis, right greater than left. ACT 112: Negative or not required by law. Electronically signed by: Gonzalez Donohue M.D. 07/18/2021 12:41 PM
[2021-07-18] MEDS: traMADol HCL 50 MG TABLET PO PRN (14:42)
--- NOTE | 2021-07-18 17:51 | Ultrasound Report ---
US carotid doppler BI CLINICAL HISTORY: foollow up on bilatral carotid stenoses. COMPARISON: CTA neck from 06/16/2021 TECHNIQUE: Siegel scale, Doppler spectral analysis, and color imaging was performed. Stenosis assessmen t by velocity criteria. FINDINGS: Right CCA velocity (cm/s): 197 and 220 at the carotid bulb Right ICA velocity (cm/s): 125 Right ICA/CCA ratio: 0.7 Right vertebral arterial flow: Antegrade. Right findings: There is marked atherosclerotic plaque present involving the common carotid artery, carotid bulb and origin of the right internal carotid artery as seen on the CTA. By velocity criteria , there is marked carotid stenosis Left CCA velocity (cm/s): 53 Left ICA velocity (cm/s): 33 Left ICA/CCA ratio: 1.6 Left vertebral arterial flow: Antegrade. Left findings: Marked atherosclerotic plaque is also present involving the common carotid, carotid b ulb and left internal carotid artery. Due to the calcification present, the velocities could not be w ell obtained. Findings are again characteristic of marked carotid stenosis. IMPRESSION: Ultrasound confirms marked atherosclerotic calcification of the carotid arteries, carotid bulbs and internal carotid arteries bilaterally. Marked carotid stenosis is present bilaterally. ACT 112: Negative or not required by law. Electronically signed by: Gonzalez Donohue M.D. 07/18/2021 5:48 PM
--- NOTE | 2021-07-18 18:50 | Hospitalist Progress Note ---
Date of Service July 18, 2021 Assessment & Plan (1) Pneumonia: (2) Stroke-like symptoms: Plan: 81-year-old male who presents with stroke like symptoms and found to have a fever and pneumonia. 1. STEPHANIA PNA- seen in CT- also febrile. Recently admitted with PNA due to COVID and was treated with remdesevir, steroids as well as empiric antibiotics. - concern for aspiration. continue zosyn, doxy for now. - seen by DELIVERY DEPARTMENT SUPERVISOR - Follow blood clx, sputum clx if able 2. Stroke like symptoms- similar to last admission in setting of infection/PNA- Stroke ruled out with negative MRI brain. Seen by neuro- Carotid duplex and acetylcholine antibodies ordered. Will check orthostatics with fleeting neurological symptoms, as per neuro. PT/OT eval 3. Carotid artery stenosis- US carotid duplex ordered. He has vascular doctor as OP 4. Diabetes: Hold metformin. Continue SSI. 5. Hypertension. Stable, Continue home medication of lisinopril, Toprol, Norvasc, and Lasix. 6. History of lung cancer, status post chemoradiation, radiation pneumonitis. Follows up with Pulmonary. Repeat CT recommended as OP in 3 months 7. Chronic obstructive pulmonary disease, currently not in exacerbation. Continue home inhalers. 8. Elevated trop- mild, flat, likely demand ischemia. No chest pain 9. GERD- continue PPI 10. Chronic diastolic congestive heart failure- compensated, on Lasix, continue 11. Hypomagnesemia- on supplementation, recheck in am DVT ppx- sc lovenox Dispo- continue inpatient status for management of PNA. still with fever. will need PT/OT eval Updated over the phone Admission and Anticipated Discharge Date Admission Date: July 17, 2021 Subjective He feels fine. Denies any issues currently. He remembers me from his recent admission. He recently had barium swallow study as OP and was seeing speech therapist. He denies choking or aspiration as such and he has been tolerating oral intake without issues here. Physical Exam Physical Exam: General: Sitting comfortably in bed, not in distress, on room air HEENT: EOMI, SIENNA, MMM Chest: Clear breath sounds bilaterally, no wheezes or crackles CVS: Regular rate and rhythm, normal heart sounds, no murmur Abdomen: Soft, non tender, not distended, normal bowel sounds Neuro: Awake, alert, oriented, conversing well, non focal Extremities: No cyanosis, clubbing or edema Results & Data Results & Data ([facility]) Vital Signs (Past 12 Hours) Vital Signs Temp Pulse Resp BP Pulse Ox Pulse Ox Pulse Ox 07/18/21 18:30 39 C H 07/18/21 16:35 37.3 C 89 17 120/70 93 07/18/21 15:53 07/18/21 11:42 36.5 C 97 H 18 149/81 H 94 07/18/21 09:44 93 94 07/18/21 07:40 37.5 C 90 19 145/77 H 93 Pulse Ox Pulse Ox Pulse Ox 07/18/21 18:30 07/18/21 16:35 07/18/21 15:53 93 07/18/21 11:42 07/18/21 09:44 96 88 L 07/18/21 07:40 Laboratory Results Short CBC 07/18/21 Range/Units 07:03 WBC 7.96 (4.8-10.8) K/uL Hgb 14.3 (14.0-18.0) g/dL Hct 42.1 (42-52) % Plt Count 158 (130-400) K/uL BMP 07/18/21 07:03 Sodium 133 L Potassium 3.7 Chloride 101 Carbon Dioxide 24 BUN 12 Creatinine 0.96 Glucose 155 H Calcium 8.4 L Diagnostic Findings Brain MRI 07/18/21 00:00 MR brain wo/w con CLINICAL HISTORY: stroke like symptoms. Weakness for one day. Patient complains of slurred speech yesterday. COMPARISON STUDY: 06/25/2021 TECHNIQUE: Multiplanar multisequence images of the brain were performed before and after Gadavist, 8.5 mL of IV contrast. Diffusion weighted imaging and ADC mapping was also performed. FINDINGS: Extra-axial space: There is no evidence for a subdural hematoma, There are no extra-axial fluid collections. Ventricles and cisterns: The ventricles are normal in size and configuration. There is no evidence for midline shift or mass effect. Parenchyma: On noncontrast images, there is no evidence for an acute hemorrhage or infarct. No acute diffusion abnormalities are noted on diffusion weighted imaging or ADC mapping. There is normal siegel-white differentiation. There is mild cerebral cortical atrophy present. There is bright signal seen on FLAIR weighted sequences within the centrum semiovale and periventricular white matter characteristic of remote small vessel disease. The sulci and gyri appear normal without effacement. The midline structures are unremarkable. The posterior fossa structures appear normal. On postcontrast images, there is no evidence for enhancing mass lesion. Osseous structures: The paranasal sinuses are well aerated. There is mucosal thickening of the mastoid air cells bilaterally, right greater than left. Soft tissues: No focal soft tissue abnormalities are identified. IMPRESSION: 1. No acute intracranial abnormalities. 2. Mild cerebral cortical atrophy and remote small vessel disease. 2. Bilateral chronic mastoiditis, right greater than left. ACT 112: Negative or not required by law. Electronically signed by: Gonzalez Donohue M.D. 07/18/2021 12:41 PM Carotid Doppler Study 07/18/21 12:13 US carotid doppler BI CLINICAL HISTORY: foollow up on bilatral carotid stenoses. COMPARISON: CTA neck from 06/16/2021 TECHNIQUE: Siegel scale, Doppler spectral analysis, and color imaging was performed. Stenosis assessment by velocity criteria. FINDINGS: Right CCA velocity (cm/s): 197 and 220 at the carotid bulb Right ICA velocity (cm/s): 125 Right ICA/CCA ratio: 0.7 Right vertebral arterial flow: Antegrade. Right findings: There is marked atherosclerotic plaque present involving the common carotid artery, carotid bulb and origin of the right internal carotid artery as seen on the CTA. By velocity criteria, there is marked carotid stenosis Left CCA velocity (cm/s): 53 Left ICA velocity (cm/s): 33 Left ICA/CCA ratio: 1.6 Left vertebral arterial flow: Antegrade. Left findings: Marked atherosclerotic plaque is also present involving the common carotid, carotid bulb and left internal carotid artery. Due to the calcification present, the velocities could not be well obtained. Findings are again characteristic of marked carotid stenosis. IMPRESSION: Ultrasound confirms marked atherosclerotic calcification of the carotid arteries, carotid bulbs and internal carotid arteries bilaterally. Marked carotid stenosis is present bilaterally. ACT 112: Negative or not required by law. Electronically signed by: Gonzalez Donohue M.D. 07/18/2021 5:48 PM Medications Administered Current Inpatient Medications Acetaminophen (Acetaminophen 325 Mg Tab) 650 mg PO Q4H PRN PRN Reason: Pain or Fever Stop: 08/16/21 15:52 Last Admin: 07/18/21 18:30 Dose: 650 mg Documented by: Albuterol (Albuterol Hfa 8 Gm Inhaler) 2 puffs INH Q4R PRN PRN Reason: Wheezing Stop: 08/16/21 15:52 Amlodipine Besylate (Amlodipine Besylate 5 Mg Tab) 2.5 mg PO DAILY [facility] Stop: 08/17/21 08:59 Last Admin: 07/18/21 11:44 Dose: 2.5 mg Documented by: Aspirin (Aspirin 81 Mg Ectab) 81 mg PO DAILY [facility] Stop: 08/17/21 08:59 Last Admin: 07/18/21 11:45 Dose: 81 mg Documented by: Atorvastatin Calcium (Atorvastatin 40 Mg Tab) 80 mg PO DAILY [facility] Stop: 08/17/21 08:59 Last Admin: 07/18/21 11:44 Dose: 80 mg Documented by: Azelastine HCl (Azelastine Hcl 0.1% Nasal 200 Sprays/27,400 Mcg Btl) 1 sprays NA BID [facility] Stop: 08/16/21 20:59 Last Admin: 07/18/21 11:45 Dose: 1 sprays Documented by: Dextrose (Dextrose 50% 50 Ml Syringe) 25 - 50 ml IV UD PRN; Protocol PRN Reason: Hypoglycemia Protocol Stop: 08/16/21 20:55 Fluticasone Furoate (Fluticasone Furoate 100mcg 14 Puffs/Inhaler) 1 puffs INH DAILY [facility]; Protocol Stop: 08/17/21 08:59 Last Admin: 07/18/21 11:47 Dose: 1 puffs Documented by: Furosemide (Furosemide 20 Mg Tab) 20 mg PO SuMoTuWeThFr@0900 [facility] Stop: 08/17/21 08:59 Last Admin: 07/18/21 12:16 Dose: 20 mg Documented by: Glucagon (Glucagon For Inj 1 Mg Vial) 1 mg SQ UD PRN; Protocol PRN Reason: Hypoglycemia Protocol Stop: 08/16/21 20:55 Glucose (Glucose 10 Tabs/Tube) 4 - 8 tabs PO UD PRN; Protocol PRN Reason: Hypoglycemia Protocol Stop: 08/16/21 20:55 Glucose (Glucose 40% Gel 15 Gm Tube) 15 - 30 gm PO UD PRN; Protocol PRN Reason: Hypoglycemia Protocol Stop: 08/16/21 20:55 Doxycycline Hyclate 100 mg/ (Dextrose) 110 mls @ 50 mls/hr IV Q12H [facility] Stop: 07/24/21 16:59 Last Admin: 07/18/21 17:04 Dose: 50 mls/hr Documented by: Piperacillin Sod/Tazobactam (Sod 3.375 gm/ Dextrose) 115 mls @ 28.75 mls/hr IV Q8H [facility]; Protocol Stop: 07/19/21 18:59 Last Infusion: 07/18/21 16:40 Dose: Infused Documented by: Insulin Aspart (Insulin Aspart Per Unit) 0 units SC ACHS [facility] Stop: 08/16/21 20:59 Last Admin: 07/18/21 17:04 Dose: 2 units Documented by: Ipratropium [place] (Ipratropium [place] Nasal [place] 0.06% 15ml) 2 sprays JOSEPH BID [facility]; Protocol Stop: 08/16/21 20:59 Last Admin: 07/18/21 08:27 Dose: 2 sprays Documented by: Lisinopril (Lisinopril 20 Mg Tab) 20 mg PO DAILY [facility] Stop: 08/17/21 08:59 Last Admin: 07/18/21 11:47 Dose: 20 mg Documented by: Magnesium Oxide (Magnesium Oxide 400 Mg Tab) 400 mg PO BID [facility] Stop: 08/16/21 20:59 Last Admin: 07/18/21 11:46 Dose: 400 mg Documented by: Metoprolol Succinate (Metoprolol Succ 25mg Ext Rel Tab) 25 mg PO BID [facility] Stop: 08/16/21 20:59 Last Admin: 07/18/21 11:48 Dose: 25 mg Documented by: Metoprolol Tartrate (Metoprolol Tartrate 1 Mg/Ml Vial) 5 mg IV Q6 PRN PRN Reason: Hypertension Stop: 08/16/21 17:59 Miscellaneous (Carbohydrates For Hypoglycemia ) 15 - 30 gm PO UD PRN PRN Reason: Hypoglycemia Protocol Stop: 08/16/21 20:55 Miscellaneous Information (Piperacill/Tazobac Consult Active) 1 ea N/A UD PRN PRN Reason: Consult Stop: 08/16/21 11:49 Miscellaneous Information (Pharmacist Discharge Med Rec Consult) 1 ea N/A UD PRN PRN Reason: Consult Stop: 08/16/21 15:52 Montelukast Sodium (Montelukast Sodium 10 Mg Tablet) 10 mg PO HS [facility] Stop: 08/16/21 20:59 Last Admin: 07/17/21 21:14 Dose: Not Given Documented by: Nitroglycerin (Nitroglycerin Sl 0.4 Mg/Tab Tab) 0.4 mg SL UD PRN PRN Reason: Chest Pain Stop: 08/16/21 15:52 Pantoprazole Sodium (Pantoprazole 40 Mg Tab) 40 mg PO DAILYBB [facility]; Protocol Stop: 08/17/21 06:29 Last Admin: 07/18/21 05:18 Dose: Not Given Documented by: Polyethylene Glycol (Polyethylene (Miralax) 17 Gm Pack) 17 gm PO DAILY PRN PRN Reason: Constipation Stop: 08/16/21 15:52 Potassium Chloride (Potassium Chloride Crtab 20 Meq Tabcr) 20 meq PO DAILY [facility]; Protocol Stop: 08/17/21 08:59 Last Admin: 07/18/21 11:44 Dose: 20 meq Documented by: Pregabalin (Pregabalin 150 Mg Cap) 150 mg PO BID [facility] Stop: 08/16/21 20:59 Last Admin: 07/18/21 11:44 Dose: 150 mg Documented by: Tramadol HCl (Tramadol Hcl 50 Mg Tablet) 50 mg PO Q8H PRN PRN Reason: Moderate Pain (Scale Score 5-6) Stop: 08/16/21 15:52 Last Admin: 07/18/21 14:42 Dose: 50 mg Documented by: Umeclidinium/Vilanterol (Umeclidinium/Vilanterol 62.5/25mcg 7 Puffs/Inhaler) 1 puffs INH DAILY [facility]; Protocol Stop: 08/17/21 08:59 Last Admin: 07/18/21 11:46 Dose: 1 puffs Documented by: (1) Pneumonia Laterality: right Lung location: lower lobe of lung Pneumonia type: due to unspecified organism Qualified Code(s): J18.9 - Pneumonia, unspecified organism
[2021-07-18] MEDS: MONTELUKAST SODIUM 10 MG TABLET PO SCH (20:29)
[2021-07-19] MEDS: PIPERACILLIN/TAZOBACTAM 3.375 GM in DEXTROSE 5% 100 ML IV SCH ×2 (02:53→12:29)
[2021-07-19] MEDS: DOXYCYCLINE HYCLATE 100 MG in DEXTROSE 5% 100 ML IV SCH ×2 (05:15→16:59)
[2021-07-19 05:53] LABS: Basophils # (auto) 0.01 K/uL (0-0.2); Basophils % (auto) 0.2 %; Eosinophils # (auto) 0.03 K/uL (0-0.5); Eosinophils % (auto) 0.5 %; Hematocrit (blood only) 41.3 % (42-52); Hemoglobin 13.8 g/dL (14.0-18.0); Immature Granulocytes # (auto) 0.02 K/uL (0.00-0.02); Immature Granulocytes % (auto) 0.3 %; Lymphocytes # (auto) 0.55 K/uL (1.2-3.4); Lymphocytes % (auto) 9.1 %; Mean Corpuscular Hemoglobin 31.7 pg (25-34); Mean Corpuscular Hgb Conc 33.4 g/dL (32-36); Mean Corpuscular Volume 94.9 fL (80-100); Mean Platelet Volume 12.1 fL (7.4-10.4); Monocytes # (auto) 0.74 K/uL (0.11-0.59); Monocytes % (auto) 12.3 %; Neutrophils # (auto) 4.68 K/uL (1.4-6.5); Neutrophils % (auto) 77.6 %; Platelet Count 176 K/uL (130-400); RDW Coefficient of Variation 14.6 % (11.5-14.5); RDW Standard Deviation 50.7 fL (36.4-46.3); Red Blood Count 4.35 M/uL (4.7-6.1); White Blood Count 6.03 K/uL (4.8-10.8)
[2021-07-19] MEDS: PANTOprazole 40 MG TAB PO SCH (06:21)
[2021-07-19 06:26] LABS: BUN Creatinine Ratio 15.6 (10-20); C Reactive Protein 29.31 mg/dl (0-0.5); Calcium 8.6 mg/dl (8.5-10.1); Creatinine Clr Calc Pharmacy 51.7 ml/min; Est GFR (African American) 59.6 ml/min; Est GFR (Non-African American) 51.4 ml/min; Troponin I High Sensitivity 68.1 pg/ml (0-20)
[2021-07-19 08:26] LABS: Estimated Average Glucose 171 mg/dl; Hemoglobin A1C 7.6 % (4.5-5.6)
[2021-07-19] MEDS: INSULIN ASPART PER UNIT SC SCH ×4 (08:32→20:22)
[2021-07-19] MEDS: PREGABALIN 150 MG CAP PO SCH ×2 (08:47→20:30)
[2021-07-19] MEDS: lisinopril 20 MG TAB PO SCH (08:47)
[2021-07-19] MEDS: IPRATROPIUM BROMIDE NASAL SPRAY 0.06% 15ML NAE SCH ×2 (08:47→20:28)
[2021-07-19] MEDS: AZELASTINE HCL 0.1% NASAL 200 SPRAYS/27,400 MCG BTL SCH ×2 (08:48→20:28)
[2021-07-19] MEDS: MAGNESIUM OXIDE 400 MG TAB PO SCH ×2 (08:48→20:28)
[2021-07-19] MEDS: ASPIRIN 81 MG ECTAB PO SCH (08:48)
[2021-07-19] MEDS: POTASSIUM CHLORIDE CRTAB 20 MEQ TABCR PO SCH (08:48)
[2021-07-19] MEDS: ATORVASTATIN 40 MG TAB PO SCH (08:48)
[2021-07-19] MEDS: FUROSEMIDE 20 MG TAB PO SCH (08:48)
[2021-07-19] MEDS: amLODIPine BESYLATE 5 MG TAB PO SCH (08:49)
[2021-07-19] MEDS: UMECLIDINIUM/VILANTEROL 62.5/25MCG 7 PUFFS/INHALER INH SCH (08:49)
[2021-07-19] MEDS: FLUTICASONE FUROATE 100MCG 14 PUFFS/INHALER INH SCH (08:49)
[2021-07-19] MEDS: METOPROLOL SUCC 25MG EXT REL TAB PO SCH ×2 (08:50→20:31)
--- NOTE | 2021-07-19 14:50 | Hospitalist Progress Note ---
Date of Service July 19, 2021 Assessment & Plan (1) Pneumonia: (2) Stroke-like symptoms: Plan: 81-year-old male who presents with stroke like symptoms and found to have a fever and pneumonia. 1. STEPHANIA PNA- seen in CT- currently afebrile, procal and CRP elevated, no leucocytosis. Blood clx negative - Recently admitted with PNA due to COVID and was treated with remdesevir, steroids as well as empiric antibiotics. - concern for aspiration. continue zosyn, doxy for now. - seen by ADOLESCENT COUNSELOR. tolerating diet without issues without obvious coughing or choking 2. Stroke like symptoms- similar to last admission in setting of infection/PNA- Stroke ruled out with negative MRI brain.Seen by neuro- acetylcholine antibodies ordered. PT/OT evashia 3. Carotid artery stenosis- US carotid duplex shows marked atherosclerotic calcification of the carotid arteries, carotid bulbs and internal carotid arteries bilaterally. Marked carotid stenosis is present bilaterally. He has vascular doctor as OP 4. Diabetes: Hold metformin. Continue SSI. 5. Hypertension. Stable, Continue home medication of lisinopril, Toprol, Norvasc, and Lasix. 6. History of lung cancer, status post chemoradiation, radiation pneumonitis. Follows up with Pulmonary. Repeat CT recommended as OP in 3 months 7. Chronic obstructive pulmonary disease, currently not in exacerbation. Continue home inhalers. 8. Elevated trop- mild, trending down, likely demand ischemia. No chest pain 9. GERD- continue PPI 10. Chronic diastolic congestive heart failure- compensated, on Lasix, continue DVT ppx- sc lovenox Dispo- continue inpatient status for management of PNA. PT/OT eval pending Admission and Anticipated Discharge Date Admission Date: July 17, 2021 Subjective He feels okay. Denies any new issues. No fever, no chills, no chest pain or shortness of breath. Physical Exam Physical Exam: General: Sitting comfortably in bed, not in distress, on NC HEENT: EOMI, SIENNA, MMM Chest: Clear breath sounds bilaterally, no wheezes or crackles CVS: Regular rate and rhythm, normal heart sounds, no murmur Abdomen: Soft, non tender, not distended, normal bowel sounds Neuro: Awake, alert, oriented, conversing well, non focal Extremities: No cyanosis, clubbing or edema Results & Data Results & Data ([facility]) Vital Signs (Past 12 Hours) Vital Signs Temp Pulse Resp BP Pulse Ox 07/19/21 12:12 36.8 C 74 19 117/71 96 07/19/21 08:10 36.9 C 83 19 147/82 H 92 07/19/21 04:11 69 20 96/51 L 94 Laboratory Results Short CBC 07/19/21 Range/Units 05:35 WBC 6.03 (4.8-10.8) K/uL Hgb 13.8 L (14.0-18.0) g/dL Hct 41.3 L (42-52) % Plt Count 176 (130-400) K/uL BMP 07/19/21 05:35 Sodium 132 L Potassium 4.0 Chloride 99 Carbon Dioxide 26 BUN 20 Creatinine 1.28 D Glucose 134 H Calcium 8.6 Medications Administered Current Inpatient Medications Acetaminophen (Acetaminophen 325 Mg Tab) 650 mg PO Q4H PRN PRN Reason: Pain or Fever Stop: 08/16/21 15:52 Last Admin: 07/18/21 18:30 Dose: 650 mg Documented by: Albuterol (Albuterol Hfa 8 Gm Inhaler) 2 puffs INH Q4R PRN PRN Reason: Wheezing Stop: 08/16/21 15:52 Amlodipine Besylate (Amlodipine Besylate 5 Mg Tab) 2.5 mg PO DAILY [facility] Stop: 08/17/21 08:59 Last Admin: 07/19/21 08:49 Dose: 2.5 mg Documented by: Aspirin (Aspirin 81 Mg Ectab) 81 mg PO DAILY [facility] Stop: 08/17/21 08:59 Last Admin: 07/19/21 08:48 Dose: 81 mg Documented by: Atorvastatin Calcium (Atorvastatin 40 Mg Tab) 80 mg PO DAILY [facility] Stop: 08/17/21 08:59 Last Admin: 07/19/21 08:48 Dose: 80 mg Documented by: Azelastine HCl (Azelastine Hcl 0.1% Nasal 200 Sprays/27,400 Mcg Btl) 1 sprays NA BID [facility] Stop: 08/16/21 20:59 Last Admin: 07/19/21 08:48 Dose: 1 sprays Documented by: Dextrose (Dextrose 50% 50 Ml Syringe) 25 - 50 ml IV UD PRN; Protocol PRN Reason: Hypoglycemia Protocol Stop: 08/16/21 20:55 Fluticasone Furoate (Fluticasone Furoate 100mcg 14 Puffs/Inhaler) 1 puffs INH DAILY [facility]; Protocol Stop: 08/17/21 08:59 Last Admin: 07/19/21 08:49 Dose: 1 puffs Documented by: Furosemide (Furosemide 20 Mg Tab) 20 mg PO SuMoTuWeThFr@0900 [facility] Stop: 08/17/21 08:59 Last Admin: 07/19/21 08:48 Dose: 20 mg Documented by: Glucagon (Glucagon For Inj 1 Mg Vial) 1 mg SQ UD PRN; Protocol PRN Reason: Hypoglycemia Protocol Stop: 08/16/21 20:55 Glucose (Glucose 10 Tabs/Tube) 4 - 8 tabs PO UD PRN; Protocol PRN Reason: Hypoglycemia Protocol Stop: 08/16/21 20:55 Glucose (Glucose 40% Gel 15 Gm Tube) 15 - 30 gm PO UD PRN; Protocol PRN Reason: Hypoglycemia Protocol Stop: 08/16/21 20:55 Doxycycline Hyclate 100 mg/ (Dextrose) 110 mls @ 50 mls/hr IV Q12H [facility] [place] Stop: 07/24/21 16:59 Last Infusion: 07/19/21 08:17 Dose: Infused Documented by: Piperacillin Sod/Tazobactam (Sod 3.375 gm/ Dextrose) 115 mls @ 28.75 mls/hr IV Q8H [facility]; Protocol Stop: 07/19/21 18:59 Last Admin: 07/19/21 12:29 Dose: 28.8 mls/hr Documented by: Insulin Aspart (Insulin Aspart Per Unit) 0 units SC ACHS [facility] [place] Stop: 08/16/21 20:59 Last Admin: 07/19/21 11:59 Dose: 4 units Documented by: Ipratropium [place] (Ipratropium [place] Nasal [place] 0.06% 15ml) 2 sprays JOSEPH BID [facility] [place]; Protocol Stop: 08/16/21 20:59 Last Admin: 07/19/21 08:47 Dose: 2 sprays Documented by: Lisinopril (Lisinopril 20 Mg Tab) 20 mg PO DAILY [facility] Stop: 08/17/21 08:59 Last Admin: 07/19/21 08:47 Dose: 20 mg Documented by: Magnesium Oxide (Magnesium Oxide 400 Mg Tab) 400 mg PO BID [facility] Stop: 08/16/21 20:59 Last Admin: 07/19/21 08:48 Dose: 400 mg Documented by: Metoprolol Succinate (Metoprolol Succ 25mg Ext Rel Tab) 25 mg PO BID [facility] Stop: 08/16/21 20:59 Last Admin: 07/19/21 08:50 Dose: 25 mg Documented by: Metoprolol Tartrate (Metoprolol Tartrate 1 Mg/Ml Vial) 5 mg IV Q6 PRN PRN Reason: Hypertension Stop: 08/16/21 17:59 Miscellaneous (Carbohydrates For Hypoglycemia ) 15 - 30 gm PO UD PRN PRN Reason: Hypoglycemia Protocol Stop: 08/16/21 20:55 Miscellaneous Information (Piperacill/Tazobac Consult Active) 1 ea N/A UD PRN PRN Reason: Consult Stop: 08/16/21 11:49 Montelukast Sodium (Montelukast Sodium 10 Mg Tablet) 10 mg PO HS [facility] Stop: 08/16/21 20:59 Last Admin: 07/18/21 20:29 Dose: 10 mg Documented by: Nitroglycerin (Nitroglycerin Sl 0.4 Mg/Tab Tab) 0.4 mg SL UD PRN PRN Reason: Chest Pain Stop: 08/16/21 15:52 Pantoprazole Sodium (Pantoprazole 40 Mg Tab) 40 mg PO DAILYBB [facility]; Protocol Stop: 08/17/21 06:29 Last Admin: 07/19/21 06:21 Dose: 40 mg Documented by: Polyethylene Glycol (Polyethylene (Miralax) 17 Gm Pack) 17 gm PO DAILY PRN PRN Reason: Constipation Stop: 08/16/21 15:52 Potassium Chloride (Potassium Chloride Crtab 20 Meq Tabcr) 20 meq PO DAILY [facility]; Protocol Stop: 08/17/21 08:59 Last Admin: 07/19/21 08:48 Dose: 20 meq Documented by: Pregabalin (Pregabalin 150 Mg Cap) 150 mg PO BID [facility] Stop: 08/16/21 20:59 Last Admin: 07/19/21 08:47 Dose: 150 mg Documented by: Tramadol HCl (Tramadol Hcl 50 Mg Tablet) 50 mg PO Q8H PRN PRN Reason: Moderate Pain (Scale Score 5-6) Stop: 08/16/21 15:52 Last Admin: 07/18/21 14:42 Dose: 50 mg Documented by: Umeclidinium/Vilanterol (Umeclidinium/Vilanterol 62.5/25mcg 7 Puffs/Inhaler) 1 puffs INH DAILY [facility]; Protocol Stop: 08/17/21 08:59 Last Admin: 07/19/21 08:49 Dose: 1 puffs Documented by: (1) Pneumonia Laterality: right Lung location: lower lobe of lung Pneumonia type: due to u nspecified organism Qualified Code(s): J18.9 - Pneumonia, unspecified organism
--- NOTE | 2021-07-19 15:06 | Communication Note ---
Date of Service: July 19, 2021 I saw Mr. Hanna today in the accompaniment of his . He was awake alert oriented can move all extremities well still has a left upper motor neuron type of facial asymmetry that his claims has emerged in the past month or so but was not correlated with any evidence on MRI for a new CVA. He does have bilateral severe stenoses of the common and internal carotid arteries read documented by ultrasound. These do have not gone on to total occlusions and there is flow through the system but this is going to be very pressure dependent. He does apparently have a vascular surgery evaluation on for early July at [facility] He continues to have the phenomenon of doing well in the morning and then fatiguing in the afternoon at which point he becomes very weak His blood pressure now is 117/71 but has had some low recordings. I do not see any evidence for clear orthostatic change but at this point I think his pressure should be maintained at him reasonable level i.e. 130 and 140/80-90 if possible as again I think perfusion of his cerebral hemispheres is going to be to some degree pressure dependent in light of the bilateral nature of the stenoses He does have some minor evidence for a polyneuropathy but this is not causing his weakness He is on a single aspirin per day and I certainly agree this could be maintained Without evidence for new CVA we really do not have a reason to add Plavix to the mix at this point He does have a new pneumonia needs this treated and some of his weakness is undoubtedly due to the nonspecific effects of this underlying infection I will check on the results of acetylcholine receptor antibody titer when it becomes available but this may be delayed up to a week to 10 days At this point neurology really does not have a whole lot more to offer other than suggestions that the blood pressure be allowed to run in a more elevated range, that he see vascular surgery at [place] and that his pneumonia be treated appropriately. He may well need a post hospital stay at [facility]. He does remain at risk for a vascular event however with the high-grade stenoses but the current anticoagulation program is all we can offer at this time William Diallo MD
[2021-07-19] MEDS: traMADol HCL 50 MG TABLET PO PRN (17:54)
[2021-07-19] MEDS: MONTELUKAST SODIUM 10 MG TABLET PO SCH (20:30)
[2021-07-20] MEDS: DOXYCYCLINE HYCLATE 100 MG in DEXTROSE 5% 100 ML IV SCH (04:02)
[2021-07-20] MEDS: PANTOprazole 40 MG TAB PO SCH (06:05)
[2021-07-20 06:56] LABS: Basophils # (auto) 0.01 K/uL (0-0.2); Basophils % (auto) 0.2 %; Eosinophils # (auto) 0.09 K/uL (0-0.5); Eosinophils % (auto) 1.7 %; Hematocrit (blood only) 37.9 % (42-52); Immature Granulocytes # (auto) 0.02 K/uL (0.00-0.02); Immature Granulocytes % (auto) 0.4 %; Lymphocytes # (auto) 0.49 K/uL (1.2-3.4); Lymphocytes % (auto) 9.3 %; Mean Corpuscular Hemoglobin 31.9 pg (25-34); Mean Corpuscular Hgb Conc 34.3 g/dL (32-36); Mean Corpuscular Volume 92.9 fL (80-100); Monocytes # (auto) 0.81 K/uL (0.11-0.59); Monocytes % (auto) 15.3 %; Neutrophils # (auto) 3.87 K/uL (1.4-6.5); Neutrophils % (auto) 73.1 %; Platelet Count 189 K/uL (130-400); RDW Coefficient of Variation 14.3 % (11.5-14.5); RDW Standard Deviation 48.5 fL (36.4-46.3); Red Blood Count 4.08 M/uL (4.7-6.1); White Blood Count 5.29 K/uL (4.8-10.8)
[2021-07-20 07:18] LABS: BUN Creatinine Ratio 18.2 (10-20); C Reactive Protein 20.82 mg/dl (0-0.5); Calcium 8.4 mg/dl (8.5-10.1); Creatinine Clr Calc Pharmacy 66.9 ml/min; Est GFR (African American) 81.3 ml/min; Est GFR (Non-African American) 70.1 ml/min; Phosphorus 2.4 mg/dl (2.5-4.9); Potassium 4.1 mmol/L (3.5-5.1)
[2021-07-20] MEDS: AZELASTINE HCL 0.1% NASAL 200 SPRAYS/27,400 MCG BTL SCH ×2 (08:27→21:06)
[2021-07-20] MEDS: IPRATROPIUM BROMIDE NASAL SPRAY 0.06% 15ML NAE SCH ×2 (08:27→21:06)
[2021-07-20] MEDS: UMECLIDINIUM/VILANTEROL 62.5/25MCG 7 PUFFS/INHALER INH SCH (08:38)
[2021-07-20] MEDS: FLUTICASONE FUROATE 100MCG 14 PUFFS/INHALER INH SCH (08:39)
[2021-07-20] MEDS: METOPROLOL SUCC 25MG EXT REL TAB PO SCH ×2 (08:39→21:07)
[2021-07-20] MEDS: POTASSIUM CHLORIDE CRTAB 20 MEQ TABCR PO SCH (08:39)
[2021-07-20] MEDS: ASPIRIN 81 MG ECTAB PO SCH (08:40)
[2021-07-20] MEDS: ATORVASTATIN 40 MG TAB PO SCH (08:40)
[2021-07-20] MEDS: INSULIN ASPART PER UNIT SC SCH ×4 (08:44→21:06)
[2021-07-20] MEDS: PREGABALIN 150 MG CAP PO SCH ×3 (08:44→21:09)
[2021-07-20] MEDS: ENOXAPARIN INJ 40 MG/0.4 ML SYR SQ SCH (08:47)
[2021-07-20] MEDS ORDERED: lisinopril 10 MG TAB PO SCH (09:00)
--- NOTE | 2021-07-20 12:30 | Hospitalist Progress Note ---
Date of Service July 20, 2021 Assessment & Plan (1) Pneumonia: (2) Stroke-like symptoms: Plan: 81-year-old male who presents with stroke like symptoms and found to have a fever and pneumonia. 1. STEPHANIA PNA, likely aspiration pneumonia- seen in CT- currently afebrile, procal and CRP elevated, no leucocytosis. Blood clx negative - Recently admitted with PNA due to COVID and was treated with remdesevir, steroids as well as empiric antibiotics. - Seen by EMT- silent aspiration noted. Discussed measures to minimize the risk by EMT as well as myself. He doesn't want a feeding tube - On zosyn, doxy. Follow up on CRP, procal. 2. Stroke like symptoms- similar to last admission in setting of infection/PNA- Stroke ruled out with negative MRI brain.Seen by neuro- acetylcholine antibodies ordered. PT/OT eval 3. Carotid artery stenosis- US carotid duplex shows marked atherosclerotic calcification of the carotid arteries, carotid bulbs and internal carotid arteries bilaterally. Marked carotid stenosis is present bilaterally. He has OP appointment for 08/04 with vascular surgery. Will decrease BP meds to allow adequate BP for cerebral perfusion as there was concern if his fluctuating neuro symptoms might be during episode of hypoperfusion with low BP. 4. Diabetes: Hold metformin. Continue SSI. 5. Hypertension. Stable, Decreased lisinopril, continue toprol. Holding norvasc and lasix. 6. History of lung cancer, status post chemoradiation, radiation pneumonitis. Follows up with Pulmonary. Repeat CT recommended as OP in 3 months 7. Chronic obstructive pulmonary disease, currently not in exacerbation. Continue home inhalers. 8. Elevated trop- mild, trending down, likely demand ischemia. No chest pain 9. GERD- continue PPI 10. Chronic diastolic congestive heart failure- compensated, holding lasix due to hyponatremia 11. Hyponatremia- will hold lasix. monitor. hold off on ivf or salt tabs for now. 12. Hypophosphatemia- mild. repleted. recheck in am DVT ppx- sc lovenox Dispo- PT eval pending. F/u labs in am Admission and Anticipated Discharge Date Admission Date: July 17, 2021 Subjective He feels fine. Denies any new issues. Discussed about aspiration and risks and how to minimize. No fever, chills, chest pain, shortness of breath. Physical Exam 2 Physical Exam: General: Sitting comfortably in bed, not in distress, on room air HEENT: EOMI, SIENNA, MMM Chest: Clear breath sounds bilaterally, no wheezes or crackles CVS: Regular rate and rhythm, normal heart sounds, no murmur Abdomen: Soft, non tender, not distended, normal bowel sounds Neuro: Awake, alert, oriented, conversing well, non focal Extremities: No cyanosis, clubbing or edema Results & Data Results & Data ([facility]) Vital Signs (Past 12 Hours) Vital Signs Temp Pulse Pulse Pulse Resp BP Pulse Ox 07/20/21 11:28 37.1 C 73 18 110/69 90 07/20/21 08:00 36.5 C 81 19 129/75 90 07/20/21 07:38 76 07/20/21 04:21 37.3 C 76 16 130/75 90 07/20/21 01:03 74 Laboratory Results Short CBC 07/20/21 Range/Units 06:30 WBC 5.29 (4.8-10.8) K/uL Hgb 13.0 L (14.0-18.0) g/dL Hct 37.9 L (42-52) % Plt Count 189 (130-400) K/uL BMP 07/20/21 06:30 Sodium 128 L Potassium 4.1 Chloride 96 L Carbon Dioxide 25 BUN 18 Creatinine 0.99 Glucose 154 H Calcium 8.4 L Medications Administered Current Inpatient Medications Acetaminophen (Acetaminophen 325 Mg Tab) 650 mg PO Q4H PRN PRN Reason: Pain or Fever Stop: 08/16/21 15:52 Last Admin: 07/18/21 18:30 Dose: 650 mg Documented by: Albuterol (Albuterol Hfa 8 Gm Inhaler) 2 puffs INH Q4R PRN PRN Reason: Wheezing Stop: 08/16/21 15:52 Amlodipine Besylate (Amlodipine Besylate 5 Mg Tab) 2.5 mg PO DAILY [facility] Stop: 08/17/21 08:59 Last Admin: 07/19/21 08:49 Dose: 2.5 mg Documented by: Aspirin (Aspirin 81 Mg Ectab) 81 mg PO DAILY [facility] Stop: 08/17/21 08:59 Last Admin: 07/20/21 08:40 Dose: 81 mg Documented by: Atorvastatin Calcium (Atorvastatin 40 Mg Tab) [address] [facility] Stop: 08/17/21 08:59 Last Admin: 07/20/21 08:40 Dose: 80 mg Documented by: Azelastine HCl (Azelastine Hcl 0.1% Nasal 200 Sprays/27,400 Mcg Btl) [address] [facility] Stop: 08/16/21 20:59 Last Admin: 07/20/21 08:27 Dose: 1 sprays Documented by: Dextrose (Dextrose 50% 50 Ml Syringe) 25 - 50 ml IV UD PRN; Protocol PRN Reason: Hypoglycemia Protocol Stop: 08/16/21 20:55 Doxycycline Hyclate (Doxycycline Hyclate 100 Mg Cap) 100 mg PO BID@0700,1900 [facility]; Protocol Stop: 07/27/21 18:59 Enoxaparin Sodium (Enoxaparin Inj 40 Mg/0.4 Ml Syr) [address] [facility] Stop: 08/19/21 08:59 Last Admin: 07/20/21 08:47 Dose: 40 mg Documented by: Fluticasone Furoate (Fluticasone Furoate 100mcg 14 Puffs/Inhaler) [address] [facility]; Protocol Stop: 08/17/21 08:59 Last Admin: 07/20/21 08:39 Dose: 1 puffs Documented by: Furosemide (Furosemide 20 Mg Tab) 20 mg PO SuMoTuWeThFr@0900 [facility] Stop: 08/17/21 08:59 Last Admin: 07/19/21 08:48 Dose: 20 mg Documented by: Glucagon (Glucagon For Inj 1 Mg Vial) 1 mg SQ UD PRN; Protocol PRN Reason: Hypoglycemia Protocol Stop: 08/16/21 20:55 Glucose (Glucose 10 Tabs/Tube) 4 - 8 tabs PO UD PRN; Protocol PRN Reason: Hypoglycemia Protocol Stop: 08/16/21 20:55 Glucose (Glucose 40% Gel 15 Gm Tube) 15 - 30 gm PO UD PRN; Protocol PRN Reason: Hypoglycemia Protocol Stop: 08/16/21 20:55 Insulin Aspart (Insulin Aspart Per Unit) [address] [facility] Stop: 08/16/21 20:59 Last Admin: 07/20/21 12:11 Dose: 7 units Documented by: Ipratropium [place] (Ipratropium [place] Nasal [place] 0.06% 15ml) [address] [facility]; Protocol Stop: 08/16/21 20:59 Last Admin: 07/20/21 08:27 Dose: 2 sprays Documented by: Lisinopril (Lisinopril 10 Mg Tab) [address] [facility] Stop: 08/19/21 08:59 Last Admin: 07/20/21 08:40 Dose: 10 mg Documented by: Magnesium Oxide (Magnesium Oxide 400 Mg Tab) 400 mg PO BID [facility] Stop: 08/16/21 20:59 Last Admin: 07/19/21 20:28 Dose: 400 mg Documented by: Metoprolol Succinate (Metoprolol Succ 25mg Ext Rel Tab) [address] [facility] Stop: 08/16/21 20:59 Last Admin: 07/20/21 08:39 Dose: 25 mg Documented by: Metoprolol Tartrate (Metoprolol Tartrate 1 Mg/Ml Vial) 5 mg IV Q6 PRN PRN Reason: Hypertension Stop: 08/16/21 17:59 Miscellaneous (Carbohydrates For Hypoglycemia ) 15 - 30 gm PO UD PRN PRN Reason: Hypoglycemia Protocol Stop: 08/16/21 20:55 Miscellaneous Information (Piperacill/Tazobac Consult Active) 1 ea N/A UD PRN PRN Reason: Consult Stop: 08/16/21 11:49 Montelukast Sodium (Montelukast Sodium 10 Mg Tablet) [address] [facility] Stop: 08/16/21 20:59 Last Admin: 07/19/21 20:30 Dose: 10 mg Documented by: Nitroglycerin (Nitroglycerin Sl 0.4 Mg/Tab Tab) 0.4 mg SL UD PRN PRN Reason: Chest Pain Stop: 08/16/21 15:52 Pantoprazole Sodium (Pantoprazole 40 Mg Tab) [address] [facility]; Protocol Stop: 08/17/21 06:29 Last Admin: 07/20/21 06:05 Dose: 40 mg Documented by: Polyethylene Glycol (Polyethylene (Miralax) 17 Gm Pack) 17 gm PO DAILY PRN PRN Reason: Constipation Stop: 08/16/21 15:52 Potassium Chloride (Potassium Chloride Crtab 20 Meq Tabcr) [address] [facility]; Protocol Stop: 08/17/21 08:59 Last Admin: 07/20/21 08:39 Dose: 20 meq Documented by: Pregabalin (Pregabalin 150 Mg Cap) [address] [facility] Stop: 08/16/21 20:59 Last Admin: 07/20/21 08:44 Dose: 150 mg Documented by: Tramadol HCl (Tramadol Hcl 50 Mg Tablet) 50 mg PO Q8H PRN PRN Reason: Moderate Pain (Scale Score 5-6) Stop: 08/16/21 15:52 Last Admin: 07/19/21 17:54 Dose: 50 mg Documented by: Umeclidinium/Vilanterol (Umeclidinium/Vilanterol 62.5/25mcg 7 Puffs/Inhaler) [address] [facility]; Protocol Stop: 08/17/21 08:59 Last Admin: 07/20/21 08:38 Dose: 1 puffs Documented by: (1) Pneumonia Laterality: right Lung location: lower lobe of lung Pneumonia type: due to unspecified organism Qualified Code(s): J18.9 - Pneumonia, unspecified organism
[2021-07-20] MEDS: POT PHOSPHATE MONOBASIC W/ SOD TAB PO SCH ×2 (13:40→21:08)
[2021-07-20] MEDS: PIPERACILLIN/TAZOBACTAM 3.375 GM in DEXTROSE 5% 100 ML IV SCH ×2 (13:59→21:10)
--- NOTE | 2021-07-20 16:46 | Communication Note ---
Date of Service: July 20, 2021 I saw Mr. Piña again today in the accompaniment of his . She states she was up and walking to the bathroom still is a little weak at the end of the day still has a left upper motor neuron facial asymmetry and mild intermittent dysarthria speech but his blood pressure today was reasonably good. There was a slight orthostatic drop in a set up but this was not maintained when he stood and he maintained a pressure of about 120/70 and had no orthostatic symptoms Plans apparently are to have him transferred to [facility] for rehabilitation and I agree with this as I think he would benefit I sincerely doubt that there is any myasthenia gravis here but we we will wait for the results of the laboratory study and let his know the results At this point again neurology does not have much more to offer. I would keep his blood pressure in the current range or perhaps even slightly higher in light of his bilateral severe carotid artery stenoses, treat the pneumonia, continue his aspirin, and we will follow-up on the results of the acetylcholine receptor antibody titer when they come back from the reference lab I will make 1 more visit to his bedside tomorrow if he is indeed still here in the hospital not at [facility] William Diallo MD
[2021-07-20] MEDS: DOXYCYCLINE HYCLATE 100 MG CAP PO SCH (19:07)
[2021-07-20] MEDS ORDERED: ALBUT/IPRATROP 3MG/0.5MG NEB 3 ML VIAL NEB STA (20:00)
--- NOTE | 2021-07-20 20:37 | XRay Report ---
XR chest 1V portable CLINICAL HISTORY: low o2. Follow-up alveolar opacities COMPARISON STUDY: 07/17/2021 TECHNIQUE: 1 view of the chest FINDINGS: Single frontal view of the chest demonstrates the cardiomediastinal silhouette to be within normal li mits. There is a decreased inspiratory effort with slightly more prominent right midlung and left low er lobe lung opacities. There is again evidence for underlying COPD. The findings most likely due to chronic lung changes due to there is persistent central recurrence. There is no evidence for pleural effusion. There is no evidence for vascular congestion. There is no acute osseous pathology. IMPRESSION: 1. COPD with chronic right midlung and left lower lung opacities which are most likely related to chr onic lung disease. 2. COPD and chronic changes were identified on the patient's recent CT. 3. No acute alveolar opacities. ACT 112: Negative or not required by law. Electronically signed by: Gonzalez Donohue M.D. 07/20/2021 8:35 PM
[2021-07-20] MEDS: MONTELUKAST SODIUM 10 MG TABLET PO SCH (21:08)
[2021-07-20] MEDS ORDERED: METOPROLOL TARTRATE 1 MG/ML VIAL IV STA (22:55)
[2021-07-20] MEDS ORDERED: SODIUM CHLORIDE 0.9% 500 ML IV ONE (22:56)
[2021-07-20] MEDS: MAGNESIUM SULFATE / D5W 1 GM/100 ML BAG IV SCH (23:28)
[2021-07-21] MEDS: MAGNESIUM SULFATE / D5W 1 GM/100 ML BAG IV SCH (01:21)
[2021-07-21] MEDS ORDERED: METOPROLOL TARTRATE 1 MG/ML VIAL IV STA (05:07)
[2021-07-21 05:36] LABS: Basophils # (auto) 0.01 K/uL (0-0.2); Basophils % (auto) 0.2 %; Eosinophils # (auto) 0.13 K/uL (0-0.5); Eosinophils % (auto) 2.5 %; Hematocrit (blood only) 40.2 % (42-52); Hemoglobin 13.9 g/dL (14.0-18.0); Immature Granulocytes # (auto) 0.01 K/uL (0.00-0.02); Immature Granulocytes % (auto) 0.2 %; Lymphocytes # (auto) 0.62 K/uL (1.2-3.4); Lymphocytes % (auto) 12.1 %; Mean Corpuscular Hemoglobin 31.9 pg (25-34); Mean Corpuscular Hgb Conc 34.6 g/dL (32-36); Mean Corpuscular Volume 92.2 fL (80-100); Monocytes # (auto) 0.87 K/uL (0.11-0.59); Monocytes % (auto) 16.9 %; Neutrophils % (auto) 68.1 %; Platelet Count 230 K/uL (130-400); RDW Coefficient of Variation 14.3 % (11.5-14.5); RDW Standard Deviation 48.7 fL (36.4-46.3); Red Blood Count 4.36 M/uL (4.7-6.1); White Blood Count 5.14 K/uL (4.8-10.8)
[2021-07-21] MEDS ORDERED: SODIUM CHLORIDE 0.9% 500 ML IV ONE (05:55)
[2021-07-21 05:56] LABS: Partial Thromboplastin Ratio 1.2; Partial Thromboplastin Time 31.8 Seconds (21.0-31.0)
[2021-07-21] MEDS: PREGABALIN 150 MG CAP PO SCH ×3 (05:58→21:44)
[2021-07-21] MEDS: METOPROLOL SUCC 25MG EXT REL TAB PO SCH ×2 (05:58→21:48)
[2021-07-21] MEDS: PANTOprazole 40 MG TAB PO SCH (05:59)
[2021-07-21 06:02] LABS: BUN Creatinine Ratio 18.8 (10-20); Calcium 8.6 mg/dl (8.5-10.1); Creatinine Clr Calc Pharmacy 77.9 ml/min; Est GFR (African American) 93.4 ml/min; Est GFR (Non-African American) 80.6 ml/min; Magnesium 2.3 mg/dl (1.7-2.4); Potassium 4.3 mmol/L (3.5-5.1)
[2021-07-21] MEDS: DOXYCYCLINE HYCLATE 100 MG CAP PO SCH ×2 (06:34→19:54)
[2021-07-21] MEDS: PIPERACILLIN/TAZOBACTAM 3.375 GM in DEXTROSE 5% 100 ML IV SCH ×3 (06:49→21:44)
--- NOTE | 2021-07-21 06:57 | Communication Note ---
Date of Service: July 21, 2021 Episodic tachycardia overnight. 5 AM -patient in and out of A. 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 EKG as per my interpretation rate 120, wide QRS rhythm, LAD, LAFB, LBBB AP PAF New onset IV beta-obie 1 dose now in addition to early administration of home beta- obie Cardiology consult Re: New onset AF
[2021-07-21] MEDS: UMECLIDINIUM/VILANTEROL 62.5/25MCG 7 PUFFS/INHALER INH SCH (08:09)
[2021-07-21] MEDS: FLUTICASONE FUROATE 100MCG 14 PUFFS/INHALER INH SCH (08:09)
[2021-07-21] MEDS: POT PHOSPHATE MONOBASIC W/ SOD TAB PO SCH ×2 (08:10→21:44)
[2021-07-21] MEDS: ATORVASTATIN 40 MG TAB PO SCH (08:10)
[2021-07-21] MEDS: AZELASTINE HCL 0.1% NASAL 200 SPRAYS/27,400 MCG BTL SCH ×2 (08:10→20:19)
[2021-07-21] MEDS: IPRATROPIUM BROMIDE NASAL SPRAY 0.06% 15ML NAE SCH ×2 (08:10→20:19)
[2021-07-21] MEDS: ASPIRIN 81 MG ECTAB PO SCH (08:10)
[2021-07-21] MEDS: ENOXAPARIN INJ 40 MG/0.4 ML SYR SQ SCH (08:11)
[2021-07-21] MEDS: INSULIN ASPART PER UNIT SC SCH ×4 (08:15→20:25)
[2021-07-21] MEDS ORDERED: lisinopril 5 MG TAB PO SCH (09:00)
--- NOTE | 2021-07-21 11:47 | Cardiology Consultation ---
Date of Consultation July 21, 2021 Assessment & Plan (1) Atrial tachycardia, paroxysmal: (2) Pneumonia: (3) AMS (altered mental status): (4) Hyponatremia: Patient with 2 episodes of atrial tachycardia overnight lasting 1.5 - 2 hours. Per review of outpatient records, he has a history of atrial tach/SVT with wide complex conduction and is on chronic metoprolol. This arrhythmia likely consistent with his history. No definitive atrial fibrillation or atrial flutter. Continue metoprolol 25 mg BID. Replace supplements including magnesium. Fluid restriction encouraged and monitor sodium levels. Continue antibiotics per hospitalist. Echo earlier this admission was unremarkable. Case discussed with Dr. Linda. Will follow. Supervising Physician Co-Signing Physician Notes I have discussed the case with Ms. Turpin and reviewed the medical record. I have seen and examined the patient. I agree with the plan as outlined. History of Present Illness Reason for Consultation: wide complex tachycardia Requesting Physician: Dr. De La Garza Attending Physician: Dr. Linda History of Present Illness Patient is a 81 year old male who is known to [facility], Dr. Richardson for complex history includin.Diffuse generalized atherosclerosis. 2.Atherosclerotic peripheral vascular disease with chronic claudication, status post right common femoral artery and profunda femoral artery endarterectomy, December 2014. 3.Mild to moderate carotid atherosclerosis with chronic right carotid bruit. 4.Left subclavian stenosis with marked reduction in left arm blood pressure. 5.Chronic obstructive lung disease. 6.History of nonischemic cardiomyopathy with moderate nonobstructive coronary artery disease by cardiac catheterization, January 2016, November 2017. 7.Calcific moderate aortic stenosis. 8.Hypertension. 9.Hyperlipidemia. 10.Chronic left bundle branch block. 11.Diabetes mellitus. 12.History of chronic neuropathic foot pain. 13. 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 Paroxysmal supraventricular tachycardia with wide complex conduction Patient admitted to [facility] with worsening SOB, alterned mental status, diagnosed with pneumonia. Given change in mental status, slurred speech, underwent Brain MRI without evidence of CVA. Treated with antibiotics for pneumonia. Found to have b/l carotid stenosis. BP medications reduced to allow permissive hypertension. Has vasculuar surgery appt in July. Overnight patient developed 2 episodes of sustained wide complex tachycardia. Regular rhythm suggestive of atrial tach/SVT, consistent with patient's history. Sodium and magnesium levels low. Treated with IV metoprolol. Both episodes lasted approx 1-2 hours. Patient was asymptomatic. AT time of consult, patient feeling well. denies acute complaints. SOB improving from admission. Cough improving. No chest pain. No sesnse of palpitations or tachypalpitations. No dizziness. No orthopnea, PND or edema. Allergies Allergy/AdvReac Type Severity Reaction Status Date / Time No Known Allergies Allergy Verified 07/17/21 14:11 Home Medications Medication Instructions Recorded Confirmed Type albuterol sulfate 90 mcg/actuation 2 puff INHALATION Q4H PRN 12/11/17 07/17/21 History aerosol inhaler omeprazole 20 mg capsule,delayed 20 mg PO DAILYBB 12/11/17 07/17/21 History release amlodipine 2.5 mg tablet 2.5 mg PO DAILY 10/31/19 07/17/21 History azelastine 137 mcg (0.1 %) nasal 1 spray INTRANASAL BID 10/31/19 07/17/21 History spray aerosol furosemide 20 mg tablet (Lasix) 20 mg PO [id number] 10/31/19 07/17/21 History metformin 500 mg tablet 1,000 mg PO DAILY tab 10/31/19 07/17/21 History metoprolol succinate 25 mg 25 mg PO BID 10/31/19 07/17/21 History tablet,extended release 24 hr montelukast 10 mg tablet 10 mg PO HS 10/31/19 07/17/21 History potassium gluconate 550 mg (90 mg) 550 mg PO DAILY 10/31/19 07/17/21 History tablet aspirin 81 mg tablet,delayed 81 mg PO DAILY 01/07/21 07/17/21 History release (Adult Aspirin Regimen) atorvastatin 80 mg tablet 80 mg PO DAILY 01/07/21 07/17/21 History lisinopril 20 mg tablet 20 mg PO DAILY 01/07/21 07/17/21 History fluticasone fur. 100 mcg-umeclid 1 inh INHALATION QAM 06/24/21 07/17/21 History 62.5 mcg-vilant 25 mcg inhalat.powder (Trelegy Ellipta) ipratropium bromide 21 mcg (0.03 2 spray INTRANASAL BID 06/24/21 07/17/21 History %) nasal spray magnesium oxide 400 mg PO BID 06/24/21 07/17/21 History polyethylene glycol 3350 17 gram 17 g PO DAILY PRN 06/24/21 07/17/21 History oral powder packet (Miralax) pregabalin 150 mg capsule (Lyrica) 150 mg PO BID 06/24/21 07/17/21 History tramadol 50 mg tablet 50 mg PO Q8H PRN 06/24/21 07/17/21 History Patient History Medical History Acute on chronic systolic and diastolic heart failure, NYHA class 4 Acute congestive heart failure likely precipitated by paroxysmal atrial fibrillation with rapid ventricular rate. Now back in sinus rhythm diuresing well with decreasing oxygen requirements Recommend: Continue diuretics, discontinue BiPAP, wean oxygen as tolerated, initiate sliding scale insulin for hyperglycemia, advance diet as tolerated Acute respiratory failure with hypoxia and hypercapnia Aortic stenosis Atherosclerosis of leg with intermittent claudication COPD (chronic obstructive pulmonary disease) Diabetes mellitus, type 2 Electrolyte imbalance GERD (gastroesophageal reflux disease) Hyperlipidemia Hypertension Hypokalemia Hypomagnesemia Hypoxia LBBB (left bundle branch block) Malignant neoplasm of skin of trunk Basal Cell - on Forehead and on Neck Nonischemic cardiomyopathy Osteoporosis Pulmonary edema PVD (peripheral vascular disease) Valvular heart disease Vertebral fracture, osteoporotic (02/04/08) Surgical History History of bronchoscopy 10/23/2019 - Diagnostic History of cardiac cath 11/2017 History of cataract extraction with lens replacement 07/03/2013 - Dr. Hazel History of cholecystectomy 1998 History of discectomy 1995 History of ERCP 02/1999 - with stone removal History of nasal septoplasty History of procedure for peripheral vascular disease 01/15/2015 - Right Femoral Endarterectomy History of tonsillectomy As a Child History of total knee replacement 12/05/2011 - Right - Dr. Medina History of trigger finger 10/09/2019 - Release Surgery (Dr. Dana Hernandez) Family History Mother , Passed age 92 of natural causes No problems noted. Father , Passed age 67 from stroke complications No problems noted. Brother , Passed age 67 of [place] No problems noted. Son No problems noted. Daughter No problems noted. Other No pertinent family history Social History Smoking Status: Former smoker Tobacco Type: Cigarettes packs per day: 1.5; Years Smoked: 62; Second Hand Exposure: No; Do You Dip or Chew Tobacco: No; Tobacco Cessation Education Requested by Patient: No Hx Alcohol Use: Yes Alcohol type: hard liquor Alcohol Intake Frequency: 2-3 x/Week Hx Substance Use: No Preferred Language: Spanish Communication Ability: Effective Visual Impairment: Limited Hearing Ability: Hard of Hearing Fuel Assembler Required: No Beliefs That Will Affect Care: None marital status: Current Living Situation: Spouse current occupational status: retired 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 Other Information That Helps Us Care for You: No Feels Safe at Home: Yes Safety Concerns: Feels Safe At This Time Childhood Exposure to Second-Hand Smoke: No caffeine: Yes (1-2 cups of coffee/day ) during the past year weight has: remained stable Dental Care, Regularly: Yes Assistive Devices: Cane and Walker Review of Systems Review of Systems: All systems reviewed & are unremarkable except as noted in HPI & below Physical Exam Constitutional: WD/WN, vitals as above Respiratory: no respiratory distress Auscultation: + diminished lung sounds and + wheezes Cardiovascular: Rate/Rhythm: regular rate and regular rhythm Heart Sounds: + murmur (II/ systolic murmur) Vessels: no JVD Extremities: no edema Gastrointestinal (Abdomen): normal bowel sounds, soft, nontender, no hepatosplenomegaly Musculoskeletal: no cyanosis or clubbing, extremities motor strength 5/5 Results & Data ([facility]) Vital Signs (Past 12 Hours) Vital Signs Temp Pulse Pulse Pulse Resp BP BP 07/21/21 08:34 36.4 C L 79 18 119/69 07/21/21 07:00 86 07/21/21 06:23 87 121/77 07/21/21 05:57 133 H 107/07/21/21 05:51 147 H 107/07/21/21 05:50 147 H 129/94 07/21/21 05:06 127 H 127/85 07/21/21 04:00 36.3 C L 79 18 143/83 H 07/21/21 01:26 82 07/21/21 00:09 88 124/81 Pulse Ox 07/21/21 08:34 93 07/21/21 07:00 07/21/21 06:23 07/21/21 05:57 07/21/21 05:51 07/21/21 05:50 07/21/21 05:06 07/21/21 04:00 91 07/21/21 01:26 07/21/21 00:09 Laboratory Results Laboratory Results WBC 5.14 K/uL (4.8-10.8) 07/21/21 05:16 RBC 4.36 M/uL (4.7-6.1) L 07/21/21 05:16 Hgb 13.9 g/dL (14.0-18.0) L 07/21/21 05:16 Hct 40.2 % (42-52) L 07/21/21 05:16 MCV 92.2 fL (80-100) 07/21/21 05:16 MCH 31.9 pg (25-34) 07/21/21 05:16 MCHC 34.6 g/dL (32-36) 07/21/21 05:16 RDW Std Deviation 48.7 fL (36.4-46.3) H 07/21/21 05:16 RDW Coeff of Carol 14.3 % (11.5-14.5) 07/21/21 05:16 Plt Count 230 K/uL (130-400) 07/21/21 05:16 MPV 12.0 fL (7.4-10.4) H 07/21/21 05:16 Immature Gran % (Auto) 0.2 % 07/21/21 05:16 Neut % (Auto) 68.1 % 07/21/21 05:16 Lymph % (Auto) 12.1 % 07/21/21 05:16 [place] % (Auto) 16.9 % 07/21/21 05:16 Eos % (Auto) 2.5 % 07/21/21 05:16 Baso % (Auto) 0.2 % 07/21/21 05:16 Neut # (Auto) 3.50 K/uL (1.4-6.5) 07/21/21 05:16 Lymph # (Auto) 0.62 K/uL (1.2-3.4) L 07/21/21 05:16 [place] # (Auto) 0.87 K/uL (0.11-0.59) H 07/21/21 05:16 Eos # (Auto) 0.13 K/uL (0-0.5) 07/21/21 05:16 Baso # (Auto) 0.01 K/uL (0-0.2) 07/21/21 05:16 Immature Gran # (Auto) 0.01 K/uL (0.00-0.02) 07/21/21 05:16 ESR 66 mm/hr (0-20) H 07/17/21 11:10 PT 10.9 Seconds (9.0-12.0) 07/17/21 11:10 INR 1.0 (0.9-1.1) 07/17/21 11:10 APTT 31.8 Seconds (21.0-31.0) H 07/21/21 05:16 PTT Ratio 1.2 07/21/21 05:16 VBG pH 7.42 (7.36-7.41) H 07/17/21 11:14 VBG pCO2 47 mmHg (38-50) 07/17/21 11:14 VBG pO2 30 mmHg 07/17/21 11:14 VBG HCO3 30 mmol/L 07/17/21 11:14 VBG O2 Saturation < 60.0 % 07/17/21 11:14 VBG Base Excess 4.3 mEq/L 07/17/21 11:14 Barometric Pressure 732.2 mm/Hg 07/17/21 11:14 Sodium 132 mmol/L (136-145) L 07/21/21 05:16 Potassium 4.3 mmol/L (3.5-5.1) 07/21/21 05:16 Chloride 101 mmol/L (98-107) 07/21/21 05:16 Carbon Dioxide 22 mmol/L (21-32) 07/21/21 05:16 Anion Gap 9 (3-11) 07/21/21 05:16 BUN 16 mg/dl (6-23) 07/21/21 05:16 Creatinine 0.85 mg/dl (0.6-1.4) 07/21/21 05:16 Est Cr Clr Drug Dosing 77.9 ml/min 07/21/21 05:16 Est GFR ( Amer) 93.4 ml/min 07/21/21 05:16 Est GFR (Non-Af Amer) 80.6 ml/min 07/21/21 05:16 BUN/Creatinine Ratio 18.8 (10-20) 07/21/21 05:16 Glucose 181 mg/dl (70-99(Fasting)) H 07/21/21 05:16 POC Glucose 210 mg/dl (70-99) H 07/21/21 11:17 Estimat Average Glucose 171 mg/dl 07/18/21 07:03 Hemoglobin A1c 7.6 % (4.5-5.6) H 07/18/21 07:03 Osmolality 283 mOsm/kg (280-300) 07/21/21 05:16 Lactate 1.1 mmol/L (0.4-2.0) 07/17/21 11:14 Calcium 8.6 mg/dl (8.5-10.1) 07/21/21 05:16 Phosphorus 2.4 mg/dl (2.5-4.9) L 07/20/21 06:30 Magnesium 2.3 mg/dl (1.7-2.4) 07/21/21 05:16 Total Bilirubin 0.8 mg/dl (0.2-1.0) 07/17/21 11:10 AST 9 U/L (13-39) L 07/17/21 11:10 ALT 7 U/L (7-52) 07/17/21 11:10 Alkaline Phosphatase 73 U/L (34-104) 07/17/21 11:10 Troponin I High Sens 64.5 pg/ml (0-20) H* D 07/19/21 17:44 C-Reactive Protein 20.68 mg/dl (0-0.5) H 07/21/21 05:16 Total Protein 6.7 gm/dl (6.0-8.3) 07/17/21 11:10 Albumin 3.5 gm/dl (3.4-5.0) 07/17/21 11:10 Globulin 3.2 gm/dl (2.5-4.0) 07/17/21 11:10 Albumin/Globulin Ratio 1.1 (0.9-2) 07/17/21 11:10 Triglycerides 51 mg/dl (0-150) 07/18/21 07:03 Cholesterol 110 mg/dl (0-200) 07/18/21 07:03 LDL Cholesterol, Calc 41 mg/dl 07/18/21 07:03 VLDL Cholesterol, Calc 10 mg/dl (0-30) 07/18/21 07:03 HDL Cholesterol 59 mg/dl 07/18/21 07:03 Cholesterol/HDL Ratio 1.9 (0-5) 07/18/21 07:03 Procalcitonin 0.64 ng/ml (0-0.5) H 07/21/21 05:16 TSH 1.774 uIu/ml (0.300-4.500) 07/21/21 05:16 Urine Color Yellow 07/17/21 16:20 Urine Appearance Clear (Clear) 07/17/21 16:20 Urine pH 6.5 (4.5-7.5) 07/17/21 16:20 Ur Specific [place] 1.014 (1.000-1.030) 07/17/21 16:20 Urine Protein Negative (Negative) 07/17/21 16:20 Urine Glucose (UA) Negative (Negative) 07/17/21 16:20 Urine Ketones Negative (Negative) 07/17/21 16:20 Urine Blood Negative (Negative) 07/17/21 16:20 Urine Nitrite Negative (Negative) 07/17/21 16:20 Urine Bilirubin Negative (Negative) 07/17/21 16:20 Urine Urobilinogen Negative (Negative) 07/17/21 16:20 Ur Leukocyte Esterase Negative (Negative) 07/17/21 16:20 SARS-CoV-2 (PCR) NEGATIVE (Negative) 07/17/21 11:50 Influenza Type A (PCR) Negative (Neg) 07/17/21 11:50 Influenza Type B (PCR) Negative (Neg) 07/17/21 11:50 RSV (RT-PCR) Negative (Neg) 07/17/21 11:[address] 07/17/21 10:58 CT OF THE CHEST WITHOUT IV CONTRAST CLINICAL HISTORY: Fever. History of lung cancer. COMPARISON STUDY: Chest CT June 16, 2021. Chest radiograph performed earlier today. CT DOSE: 1016.79 mGy.cm TECHNIQUE: Axial images of the chest were obtained without IV contrast. Images were reviewed in the axial, sagittal, and coronal planes. IV contrast was not administered for this examination. Automated exposure control was utilized for the study. A dose lowering technique was utilized adhering to the principles of ALARA. FINDINGS: A prominent AP window lymph node measures 1 cm short axis diameter. This is slightly increased in size since prior exams. This could be reactive. Extensive coronary artery calcification is present. There is mild cardiomegaly. No pericardial effusion is present. Severe emphysema is noted. Suspected post radiation change within the superior segment of the right lower lobe and posterior segment of the right upper lobe is noted. This is similar to several prior studies. There has been interval development of a 5.5 cm subpleural focus of consolidation within the left upper lobe since CT of June 24, 2021. This corresponds to the finding on chest radiograph. There is no pneumothorax. There are trace bilateral pleural effusions. Right lower lobe airspace opacity has slightly decreased. There is mild left lower lobe airspace opacity. No suspicious lesions within the bony thorax. Calcified pleural plaques are again noted. Visualized portions of the upper abdomen are unremarkable on this unenhanced exam. Gallbladder is surgically absent. IMPRESSION: 1. Interval development of a 5.5 cm subpleural focus of consolidation within the left upper lobe since chest CT of June 16, 2021. This represents pneumonia. 2. Otherwise, no significant change in appearance of the chest, as described above. Suspected post radiation change within the right lung. 3. Trace bilateral pleural effusions. 4. Emphysema. ACT 112: Negative or not required by law. Electronically signed by: Jewel Balbuena M.D. 07/17/2021 12:[address] 07/17/21 10:58 CT OF THE HEAD WITHOUT CONTRAST CLINICAL HISTORY: Altered mental status. COMPARISON STUDY: Head CT June 24, 2021. MRI of the brain June 25, 2021. TECHNIQUE: Helical axial images of the head were obtained without IV contrast. Automated exposure control was utilized for the study. A dose lowering technique was utilized adhering to the principles of ALARA. FINDINGS: No acute intracranial hemorrhage, midline shift or mass effect is present. White matter hypodensities are unchanged and favor small vessel disea se. The ventricular system is unremarkable. The basal cisterns are patent. No extra-axial collections are present. There are no findings to suggest acute dural sinus thrombosis or acute territorial infarct. No significant calvarial abnormalities are present. There is minimal sinus mucosal thickening. IMPRESSION: No acute intracranial findings. No change in appearance of the brain. ACT 112: Negative or not required by law. Electronically signed by: Jewel Balbuena M.D. 07/17/2021 11:58 AM Brain MRI 07/18/21 00:00 MR brain wo/w con CLINICAL HISTORY: stroke like symptoms. Weakness for one day. Patient complains of slurred speech yesterday. COMPARISON STUDY: 06/25/2021 TECHNIQUE: Multiplanar multisequence images of the brain were performed before and after Gadavist, 8.5 mL of IV contrast. Diffusion weighted imaging and ADC mapping was also performed. FINDINGS: Extra-axial space: There is no evidence for a subdural hematoma, There are no extra-axial fluid collections. Ventricles and cisterns: The ventricles are normal in size and configuration. There is no evidence for midline shift or mass effect. Parenchyma: On noncontrast images, there is no evidence for an acute hemorrhage or infarct. No acute diffusion abnormalities are noted on diffusion weighted imaging or ADC mapping. There is normal siegel-white differentiation. There is mild cerebral cortical atrophy present. There is bright signal seen on FLAIR weighted sequences within the centrum semiovale and periventricular white matter characteristic of remote small vessel disease. The sulci and gyri appear normal without effacement. The midline structures are unremarkable. The posterior fossa structures appear normal. On postcontrast images, there is no evidence for enhancing mass lesion. Osseous structures: The paranasal sinuses are well aerated. There is mucosal thickening of the mastoid air cells bilaterally, right greater than left. Soft tissues: No focal soft tissue abnormalities are identified. IMPRESSION: 1. No acute intracranial abnormalities. 2. Mild cerebral cortical atrophy and remote small vessel disease. 2. Bilateral chronic mastoiditis, right greater than left. ACT 112: Negative or not required by law. Electronically signed by: Gonzalez Donohue M.D. 07/18/2021 12:41 PM Carotid Doppler Study 07/18/21 12:13 US carotid doppler BI CLINICAL HISTORY: foollow up on bilatral carotid stenoses. COMPARISON: CTA neck from 06/16/2021 TECHNIQUE: Siegel scale, Doppler spectral analysis, and color imaging was performed. Stenosis assessment by velocity criteria. FINDINGS: Right CCA velocity (cm/s): 197 and 220 at the carotid bulb Right ICA velocity (cm/s): 125 Right ICA/CCA ratio: 0.7 Right vertebral arterial flow: Antegrade. Right findings: There is marked atherosclerotic plaque present involving the common carotid artery, carotid bulb and origin of the right internal carotid artery as seen on the CTA. By velocity criteria, there is marked carotid stenosis Left CCA velocity (cm/s): 53 Left ICA velocity (cm/s): 33 Left ICA/CCA ratio: 1.6 Left vertebral arterial flow: Antegrade. Left findings: Marked atherosclerotic plaque is also present involving the common carotid, carotid bulb and left internal carotid artery. Due to the calcification present, the velocities could not be well obtained. Findings are again characteristic of marked carotid stenosis. IMPRESSION: Ultrasound confirms marked atherosclerotic calcification of the carotid arteries, carotid bulbs and internal carotid arteries bilaterally. Marked carotid stenosis is present bilaterally. ACT 112: Negative or not required by law. Electronically signed by: Gonzalez Donohue M.D. 07/18/2021 5:48 PM Chest X-Ray 07/20/21 19:59 XR chest 1V portable CLINICAL HISTORY: low o2. Follow-up alveolar opacities COMPARISON STUDY: 07/17/2021 TECHNIQUE: 1 view of the chest FINDINGS: Single frontal view of the chest demonstrates the cardiomediastinal silhouette to be within normal limits. There is a decreased inspiratory effort with slightly more prominent right midlung and left lower lobe lung opacities. There is again evidence for underlying COPD. The findings most likely due to chronic lung changes due to there is persistent central recurrence. There is no evidence for pleural effusion. There is no evidence for vascular congestion. There is no acute osseous pathology. IMPRESSION: 1. COPD with chronic right midlung and left lower lung opacities which are most likely related to chronic lung disease. 2. COPD and chronic changes were identified on the patient's recent CT. 3. No acute alveolar opacities. ACT 112: Negative or not required by law. Electronically signed by: Gonzalez Donohue M.D. 07/20/2021 8:35 PM Diagnostic Findings Telemetry reviewed: NSR with underlying conduction delay (known LBBB). Around 22:30 last evening patient developed wide complex tachycardia, regular. Rates around 130 bpm consistent with possible atrial tach, SVT. episode lasted approx 1.5 hours. He had recurrent episode again around 4:00 AM till 6 AM. No symptoms reported (1) AMS (altered mental status) Altered mental status type: unspecified Qualified Code(s): R41.82 - Altered mental status, unspecified (2) Pneumonia Laterality: unspecified laterality Lung location: unspecified part of lung Pneumonia type: due to unspecified organism Qualified Code(s): J18.9 - Pneumonia, unspecified organism
--- NOTE | 2021-07-21 13:50 | Electrocardiogram Report ---
Test Reason : Blood Pressure : / mmHG Vent. Rate : 120 BPM Atrial Rate : 129 BPM P-R Int : 000 ms QRS Dur : 132 ms QT Int : 366 ms P-R-T Axes : 000 -26 137 degrees QTc Int : 517 ms Wide QRS rhythm Left bundle branch block Abnormal ECG When compared with ECG of 17-JUL-2021 11:01, Wide QRS rhythm has replaced Sinus rhythm Vent. rate has increased BY 40 BPM Confirmed by Efrain Cedeño ([id number]) on 07/21/2021 1:49:27 PM Referred By: REFERRED SELF Confirmed By:Efrain Cedeño
--- NOTE | 2021-07-21 13:57 | Electrocardiogram Report ---
Test Reason : Blood Pressure : / mmHG Vent. Rate : 129 BPM Atrial Rate : 098 BPM P-R Int : 000 ms QRS Dur : 128 ms QT Int : 358 ms P-R-T Axes : 000 -29 135 degrees QTc Int : 524 ms Wide QRS tachycardia Left bundle branch block Abnormal ECG When compared with ECG of 20-JUL-2021 23:42, (unconfirmed) Wide QRS tachycardia has replaced Wide QRS rhythm Confirmed by Efrain Cedeño ([id number]) on 07/21/2021 1:57:33 PM Referred By: REFERRED SELF Confirmed By:Efrain Cedeño
--- NOTE | 2021-07-21 15:21 | Communication Note ---
Date of Service: July 21, 2021 Mr. Piña was in the bathroom when I made rounds today but according to his nurse he was ambulatory required a little assistance when he is out of bed ov ritucatalino seems to be doing better. He had some runs of supraventricular tachycardia last night and cardiology has seen him. He was asymptomatic. 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, has a bilateral significant internal and common carotid artery stenoses is due to see vascular surgery for this issue and his blood pressure needs to be maintained in a somewhat higher range but currently at 117/74 he is asymptomatic and we have not documented any significant orthostasis He does have a polyneuropathy which is not helping his gait stability but I think a major issue now is the fact that he has an pneumonia and some generalized weakness due to that and I wonder if he is not having episodes of right hemisphere hypoperfusion without fixed ischemic damage to the explanation of his episodic dysarthria At present we are not justified in giving anything more than aspirin and I think he will probably [facility] which I think is appropriate Again we have not documented any new cerebrovascular events involving the right hemisphere or brainstem, his exam would be atypical for myasthenia but the antibody titers are still out and will certainly inform his of the results when they are available. He does have a vascular surgery appointment address the carotid issue and I do not think neurology needs to see him on a regular basis less things would change I am going to sign off the case at this point but will be available for reconsultation should anything change
--- NOTE | 2021-07-21 17:08 | Hospitalist Progress Note ---
Date of Service July 21, 2021 Assessment & Plan (1) Pneumonia: (2) Stroke-like symptoms: Plan: 81-year-old male who presents with stroke like symptoms and found to have a fever and pneumonia. 1. STEPHANIA PNA, likely aspiration pneumonia- seen in CT- currently afebrile, procal and CRP elevated, no leucocytosis. Blood clx negative - Recently admitted with PNA due to COVID and was treated with remdesevir, steroids as well as empiric antibiotics. - Seen by APPLIANCE SERVICER- silent aspiration noted. Discussed measures to minimize the risk by APPLIANCE SERVICER as well as myself. He doesn't want a feeding tube - On zosyn, doxy. Procal, CRP improving. WBC normal, no fever. 2. Stroke like symptoms- similar to last admission in setting of infection/PNA- Stroke ruled out with negative MRI brain.Seen by neuro- acetylcholine antibodies ordered- f/u as OP 3. Carotid artery stenosis- US carotid duplex shows marked atherosclerotic calcification of the carotid arteries, carotid bulbs and internal carotid arteries bilaterally. Marked carotid stenosis is present bilaterally. He has OP appointment for 08/04 with vascular surgery. BP meds decreased to allow adequate BP for cerebral perfusion as there was concern if his fluctuating neuro symptoms might be during episode of hypoperfusion with low BP. 4. Diabetes: Hold metformin. Continue SSI. 5. Hypertension. Stable, Decreased lisinopril, continue toprol. Holding norvasc and lasix. 6. History of lung cancer, status post chemoradiation, radiation pneumonitis. Follows up with Pulmonary. Repeat CT recommended as OP in 3 months 7. Chronic obstructive pulmonary disease, currently not in exacerbation. Continue home inhalers. 8. Elevated trop- mild, trending down, likely demand ischemia. No chest pain 9. GERD- continue PPI 10. Chronic diastolic congestive heart failure- compensated, holding lasix due to hyponatremia. Will likely resume in am. 11. Hyponatremia- improved to 132. monitor 12. PAT- seen by cardio- not a new issue- on toprol. No new recommendations. DVT ppx- sc lovenox Dispo- PT recommended rehab. Plan for [facility]. stable for discharge. Updated Brigitte at bedside and answered all questions Admission and Anticipated Discharge Date Admission Date: July 17, 2021 Subjective No new issues. States his heart went crazy last night but he did not feel anything. No chest pain, palpitations, shortness of breath, lightheadedness, dizziness. Physical Exam Physical Exam: General: Sitting comfortably in bed, not in distress, on room air HEENT: EOMI, SIENNA, MMM Chest: Clear breath sounds bilaterally, no wheezes or crackles CVS: Regular rate and rhythm, normal heart sounds, no murmur Abdomen: Soft, non tender, not distended, normal bowel sounds Neuro: Awake, alert, oriented, conversing well, non focal Extremities: No cyanosis, clubbing or edema Results & Data Results & Data ([facility]) Vital Signs (Past 12 Hours) Vital Signs Temp Pulse Pulse Resp BP BP Pulse Ox 07/21/21 16:00 69 07/21/21 15:48 36.8 C 86 16 138/84 96 07/21/21 12:00 36.4 C L 70 18 117/74 93 07/21/21 08:34 36.4 C L 79 18 119/69 93 07/21/21 07:00 86 07/21/21 06:23 87 121/77 07/21/21 05:57 133 H 107/77 07/21/21 05:51 147 H 107/77 07/21/21 05:50 147 H 129/94 07/21/21 05:06 127 H 127/85 Laboratory Results Short CBC 07/21/21 Range/Units 05:16 WBC 5.14 (4.8-10.8) K/uL Hgb 13.9 L (14.0-18.0) g/dL Hct 40.2 L (42-52) % Plt Count 230 (130-400) K/uL BMP 07/21/21 05:16 Sodium 132 L Potassium 4.3 Chloride 101 Carbon Dioxide 22 BUN 16 Creatinine 0.85 Glucose 181 H Calcium 8.6 Medications Administered Current Inpatient Medications Acetaminophen (Acetaminophen 325 Mg Tab) 650 mg PO Q4H PRN PRN Reason: Pain or Fever Stop: 08/16/21 15:52 Last Admin: 07/18/21 18:30 Dose: 650 mg Documented by: Albuterol (Albuterol Hfa 8 Gm Inhaler) 2 puffs INH Q4R PRN PRN Reason: Wheezing Stop: 08/16/21 15:52 Amlodipine Besylate (Amlodipine Besylate 5 Mg Tab) 2.5 mg PO DAILY [facility] Stop: 08/17/21 08:59 Last Admin: 07/19/21 08:49 Dose: 2.5 mg Documented by: Aspirin (Aspirin 81 Mg Ectab) 81 mg PO DAILY [facility] Stop: 08/17/21 08:59 Last Admin: 07/21/21 08:10 Dose: 81 mg Documented by: Atorvastatin Calcium (Atorvastatin 40 Mg Tab) 80 mg PO DAILY [facility] Stop: 08/17/21 08:59 Last Admin: 07/21/21 08:10 Dose: 80 mg Documented by: Azelastine HCl (Azelastine Hcl 0.1% Nasal 200 Sprays/27,400 Mcg Btl) 1 sprays NA BID [facility] Stop: 08/16/21 20:59 Last Admin: 07/21/21 08:10 Dose: 1 sprays Documented by: Dextrose (Dextrose 50% 50 Ml Syringe) 25 - 50 ml IV UD PRN; Protocol PRN Reason: Hypoglycemia Protocol Stop: 08/16/21 20:55 Doxycycline Hyclate (Doxycycline Hyclate 100 Mg Cap) 100 mg PO BID@0700,1900 [facility]; Protocol Stop: 07/27/21 18:59 Last Admin: 07/21/21 06:34 Dose: 100 mg Documented by: Enoxaparin Sodium (Enoxaparin Inj 40 Mg/0.4 Ml Syr) 40 mg SQ QAM [facility] Stop: 08/19/21 08:59 Last Admin: 07/21/21 08:11 Dose: 40 mg Documented by: Fluticasone Furoate (Fluticasone Furoate 100mcg 14 Puffs/Inhaler) 1 puffs INH DAILY [facility]; Protocol Stop: 08/17/21 08:59 Last Admin: 07/21/21 08:09 Dose: 1 puffs Documented by: Furosemide (Furosemide 20 Mg Tab) 20 mg PO SuMoTuWeThFr@0900 [facility] Stop: 08/17/21 08:59 Last Admin: 07/19/21 08:48 Dose: 20 mg Documented by: Glucagon (Glucagon For Inj 1 Mg Vial) 1 mg SQ UD PRN; Protocol PRN Reason: Hypoglycemia Protocol Stop: 08/16/21 20:55 Glucose (Glucose 10 Tabs/Tube) 4 - 8 tabs PO UD PRN; Protocol PRN Reason: Hypoglycemia Protocol Stop: 08/16/21 20:55 Glucose (Glucose 40% Gel 15 Gm Tube) 15 - 30 gm PO UD PRN; Protocol PRN Reason: Hypoglycemia Protocol Stop: 08/16/21 20:55 Piperacillin Sod/Tazobactam (Sod 3.375 gm/ Dextrose) 115 mls @ 28.75 mls/hr IV Q8H [facility]; Protocol Stop: 07/25/21 09:59 Last Admin: 07/21/21 14:58 Dose: 28.8 mls/hr Documented by: Insulin Aspart (Insulin Aspart Per Unit) 0 units SC ACHS [facility] Stop: 08/16/21 20:59 Last Admin: 07/21/21 16:54 Dose: 5 units Documented by: Ipratropium [place] (Ipratropium [place] Nasal [place] 0.06% 15ml) 2 sprays JOSEPH BID [facility]; Protocol Stop: 08/16/21 20:59 Last Admin: 07/21/21 08:10 Dose: 2 sprays Documented by: Lisinopril (Lisinopril 5 Mg Tab) 5 mg PO DAILY [facility] Stop: 08/20/21 08:59 Last Admin: 07/21/21 08:10 Dose: 5 mg Documented by: Magnesium Oxide (Magnesium Oxide 400 Mg Tab) 400 mg PO BID [facility] Stop: 08/16/21 20:59 Last Admin: 07/19/21 20:28 Dose: 400 mg Documented by: Metoprolol Succinate (Metoprolol Succ 25mg Ext Rel Tab) 25 mg PO BID [facility] Stop: 08/20/21 05:09 Last Admin: 07/21/21 05:58 Dose: 25 mg Documented by: Metoprolol Tartrate (Metoprolol Tartrate 1 Mg/Ml Vial) 5 mg IV Q6 PRN PRN Reason: Hypertension Stop: 08/16/21 17:59 Miscellaneous (Carbohydrates For Hypoglycemia ) 15 - 30 gm PO UD PRN PRN Reason: Hypoglycemia Protocol Stop: 08/16/21 20:55 Miscellaneous Information (Piperacill/Tazobac Consult Active) 1 ea N/A UD PRN PRN Reason: Consult Stop: 08/16/21 11:49 Montelukast Sodium (Montelukast Sodium 10 Mg Tablet) 10 mg PO HS [facility] Stop: 08/16/21 20:59 Last Admin: 07/20/21 21:08 Dose: 10 mg Documented by: Nitroglycerin (Nitroglycerin Sl 0.4 Mg/Tab Tab) 0.4 mg SL UD PRN PRN Reason: Chest Pain Stop: 08/16/21 15:52 Pantoprazole Sodium (Pantoprazole 40 Mg Tab) 40 mg PO DAILYBB [facility]; Protocol Stop: 08/17/21 06:29 Last Admin: 07/21/21 05:59 Dose: 40 mg Documented by: Polyethylene Glycol (Polyethylene (Miralax) 17 Gm Pack) 17 gm PO DAILY PRN PRN Reason: Constipation Stop: 08/16/21 15:52 Potassium Chloride (Potassium Chloride Crtab 20 Meq Tabcr) 20 meq PO DAILY [facility]; Protocol Stop: 08/17/21 08:59 Last Admin: 07/20/21 08:39 Dose: 20 meq Documented by: Potassium Phosphate (Pot Phosphate Monobasic W/ Sod Tab) 1 tab PO BID [facility] Stop: 07/22/21 12:44 Last Admin: 07/21/21 08:10 Dose: 1 tab Documented by: Pregabalin (Pregabalin 150 Mg Cap) 150 mg PO TID@0600,1400,2200 [facility] Stop: 08/19/21 15:29 Last Admin: 07/21/21 14:58 Dose: 150 mg Documented by: Tramadol HCl (Tramadol Hcl 50 Mg Tablet) 50 mg PO Q8H PRN PRN Reason: Moderate Pain (Scale Score 5-6) Stop: 08/16/21 15:52 Last Admin: 07/19/21 17:54 Dose: 50 mg Documented by: Umeclidinium/Vilanterol (Umeclidinium/Vilanterol 62.5/25mcg 7 Puffs/Inhaler) 1 puffs INH DAILY [facility]; Protocol Stop: 08/17/21 08:59 Last Admin: 07/21/21 08:09 Dose: 1 puffs Documented by: (1) Pneumonia Laterality: right Lung location: lower lobe of lung Pneumonia type: due to unspecified organism Qualified Code(s): J18.9 - Pneumonia, unspecified organism
[2021-07-21] MEDS: MONTELUKAST SODIUM 10 MG TABLET PO SCH (21:44)
[2021-07-22] MEDS: PIPERACILLIN/TAZOBACTAM 3.375 GM in DEXTROSE 5% 100 ML IV SCH (06:11)
[2021-07-22] MEDS: PANTOprazole 40 MG TAB PO SCH (06:11)
[2021-07-22] MEDS: PREGABALIN 150 MG CAP PO SCH ×2 (06:11→14:31)
[2021-07-22 06:33] LABS: BUN Creatinine Ratio 17.1 (10-20); Calcium 8.5 mg/dl (8.5-10.1); Creatinine Clr Calc Pharmacy 84.4 ml/min; Est GFR (African American) 97.8 ml/min; Est GFR (Non-African American) 84.4 ml/min; Potassium 4.4 mmol/L (3.5-5.1)
[2021-07-22] MEDS ORDERED: lisinopril 10 MG TAB PO SCH (09:00)
[2021-07-22] MEDS ORDERED: AZELASTINE HCL 0.1% NASAL 200 SPRAYS/27,400 MCG BTL SCH (09:00)
[2021-07-22] MEDS: ENOXAPARIN INJ 40 MG/0.4 ML SYR SQ SCH (09:03)
[2021-07-22] MEDS: ASPIRIN 81 MG ECTAB PO SCH (09:03)
[2021-07-22] MEDS: DOXYCYCLINE HYCLATE 100 MG CAP PO SCH (09:03)
[2021-07-22] MEDS: ATORVASTATIN 40 MG TAB PO SCH (09:03)
[2021-07-22] MEDS: UMECLIDINIUM/VILANTEROL 62.5/25MCG 7 PUFFS/INHALER INH SCH (09:04)
[2021-07-22] MEDS: IPRATROPIUM BROMIDE NASAL SPRAY 0.06% 15ML NAE SCH (09:04)
[2021-07-22] MEDS: METOPROLOL SUCC 25MG EXT REL TAB PO SCH (09:05)
[2021-07-22] MEDS: FLUTICASONE FUROATE 100MCG 14 PUFFS/INHALER INH SCH (09:05)
[2021-07-22] MEDS: INSULIN ASPART PER UNIT SC SCH ×2 (09:09→12:01)
--- NOTE | 2021-07-22 10:06 | Cardiology Progress Note ---
Date of Service July 22, 2021 Assessment & Plan (1) Atrial tachycardia, paroxysmal: (2) Pneumonia: (3) AMS (altered mental status): (4) Hyponatremia: Plan: I reviewed the patient's telemetry for the past 24 hours. He is maintaining sinus rhythm with occasional PACs. No atrial fibrillation or other significant arrhythmias. At this point I would continue his current medications. Cardiology will sign off. Admission and Anticipated Discharge Date Admission Date: July 17, 2021 Subjective The patient has no new cardiac complaints. Review of Systems Review of Systems: Review of Systems: See HPI for pertinent positives. All other 10 point review of systems are negative. Physical Exam Physical Exam: General: no acute distress and stated age Head: normocephalic, no masses, lesions, tenderness or abnormalities Eyes: conjunctiva are pink and non-injected, sclera clear Neck: supple, no adenopathy, no bruits, normal jugular venous pulse, no hepa tojugular reflux Chest: normal shape and normal respiratory effort Lungs: clear to auscultation and percussion Cardiac Exam: - regular rate & rhythm, no murmurs gallops or rubs - normal S1, normal S2 Pulses: 2(+) throughout Abdomen: abdomen soft, non-tender, no abnormal masses and no hepatosplenomegaly Musculoskeletal: no gait disturbance, no joint inflammation, no deforming arthritis Extremities: no edema and no cyanosis Neuro: grossly normal exam Results & Data ([facility]) Vital Signs (Past 12 Hours) Vital Signs Temp Pulse Pulse Pulse Resp BP Pulse Ox 07/22/21 07:00 36.8 C 74 20 147/69 H 98 07/22/21 02:30 36.7 C 73 20 151/86 H 93 07/22/21 00:00 73 07/21/21 22:37 36.8 C 74 19 145/82 H 93 Laboratory Results Laboratory Results - last 24 hr 07/21/21 07/21/21 07/21/21 05:16 11:17 16:15 Sodium Potassium Chloride Carbon Dioxide Anion Gap BUN Creatinine Est Cr Clr Drug Dosing Est GFR ( Amer) Est GFR (Non-Af Amer) BUN/Creatinine Ratio Glucose POC Glucose 210 H 166 H Calcium C-Reactive Protein 20.68 H 07/21/21 07/22/21 20:16 05:40 Sodium 135 L Potassium 4.4 Chloride 103 Carbon Dioxide 26 Anion Gap 6 BUN 13 Creatinine 0.76 Est Cr Clr Drug Dosing 84.4 Est GFR ( Amer) 97.8 Est GFR (Non-Af Amer) 84.4 BUN/Creatinine Ratio 17.1 Glucose 181 H POC Glucose 163 H Calcium 8.5 C-Reactive Protein Medications Administered Current Inpatient Medications Acetaminophen (Acetaminophen 325 Mg Tab) 650 mg PO Q4H PRN PRN Reason: Pain or Fever Stop: 08/16/21 15:52 Last Admin: 07/18/21 18:30 Dose: 650 mg Documented by: Albuterol (Albuterol Hfa 8 Gm Inhaler) 2 puffs INH Q4R PRN PRN Reason: Wheezing Stop: 08/16/21 15:52 Amlodipine Besylate (Amlodipine Besylate 5 Mg Tab) 2.5 mg PO DAILY [facility] Stop: 08/17/21 08:59 Last Admin: 07/19/21 08:49 Dose: 2.5 mg Documented by: Aspirin (Aspirin 81 Mg Ectab) 81 mg PO DAILY [facility] Stop: 08/17/21 08:59 Last Admin: 07/22/21 09:03 Dose: 81 mg Documented by: Atorvastatin Calcium (Atorvastatin 40 Mg Tab) 80 mg PO DAILY [facility] Stop: 08/17/21 08:59 Last Admin: 07/22/21 09:03 Dose: 80 mg Documented by: Azelastine HCl (Azelastine Hcl 0.1% Nasal 200 Sprays/27,400 Mcg Btl) 1 sprays NA BID [facility] Stop: 08/16/21 08:59 Last Admin: 07/22/21 09:04 Dose: 1 sprays Documented by: Dextrose (Dextrose 50% 50 Ml Syringe) 25 - 50 ml IV UD PRN; Protocol PRN Reason: Hypoglycemia Protocol Stop: 08/16/21 20:55 Doxycycline Hyclate (Doxycycline Hyclate 100 Mg Cap) 100 mg PO BID@0700,1900 [facility]; Protocol Stop: 07/27/21 18:59 Last Admin: 07/22/21 09:03 Dose: 100 mg Documented by: Enoxaparin Sodium (Enoxaparin Inj 40 Mg/0.4 Ml Syr) 40 mg SQ QAM [facility] Stop: 08/19/21 08:59 Last Admin: 07/22/21 09:03 Dose: 40 mg Documented by: Fluticasone Furoate (Fluticasone Furoate 100mcg 14 Puffs/Inhaler) 1 puffs INH DAILY [facility]; Protocol Stop: 08/17/21 08:59 Last Admin: 07/22/21 09:05 Dose: 1 puffs Documented by: Furosemide (Furosemide 20 Mg Tab) 20 mg PO SuMoTuWeThFr@0900 [facility] Stop: 08/17/21 08:59 Last Admin: 07/19/21 08:48 Dose: 20 mg Documented by: Glucagon (Glucagon For Inj 1 Mg Vial) 1 mg SQ UD PRN; Protocol PRN Reason: Hypoglycemia Protocol Stop: 08/16/21 20:55 Glucose (Glucose 10 Tabs/Tube) 4 - 8 tabs PO UD PRN; Protocol PRN Reason: Hypoglycemia Protocol Stop: 08/16/21 20:55 Glucose (Glucose 40% Gel 15 Gm Tube) 15 - 30 gm PO UD PRN; Protocol PRN Reason: Hypoglycemia Protocol Stop: 08/16/21 20:55 Piperacillin Sod/Tazobactam (Sod 3.375 gm/ Dextrose) 115 mls @ 28.75 mls/hr IV Q8H [facility]; Protocol Stop: 07/25/21 09:59 Last Admin: 07/22/21 06:11 Dose: 28.8 mls/hr Documented by: Insulin Aspart (Insulin Aspart Per Unit) 0 units SC ACHS [facility] Stop: 08/16/21 20:59 Last Admin: 07/22/21 09:09 Dose: 6 units Documented by: Ipratropium [place] (Ipratropium [place] Nasal [place] 0.06% 15ml) 2 sprays JOSEPH BID [facility]; Protocol Stop: 08/16/21 20:59 Last Admin: 07/22/21 09:04 Dose: 2 sprays Documented by: Lisinopril (Lisinopril 10 Mg Tab) 10 mg PO DAILY [facility] Stop: 08/21/21 08:59 Last Admin: 07/22/21 09:03 Dose: 10 mg Documented by: Magnesium Oxide (Magnesium Oxide 400 Mg Tab) 400 mg PO BID [facility] Stop: 08/16/21 20:59 Last Admin: 07/19/21 20:28 Dose: 400 mg Documented by: Metoprolol Succinate (Metoprolol Succ 25mg Ext Rel Tab) 25 mg PO BID [facility] Stop: 08/20/21 05:09 Last Admin: 07/22/21 09:05 Dose: 25 mg Documented by: Metoprolol Tartrate (Metoprolol Tartrate 1 Mg/Ml Vial) 5 mg IV Q6 PRN PRN Reason: Hypertension Stop: 08/16/21 17:59 Miscellaneous (Carbohydrates For Hypoglycemia ) 15 - 30 gm PO UD PRN PRN Reason: Hypoglycemia Protocol Stop: 08/16/21 20:55 Miscellaneous Information (Piperacill/Tazobac Consult Active) 1 ea N/A UD PRN PRN Reason: Consult Stop: 08/16/21 11:49 Montelukast Sodium (Montelukast Sodium 10 Mg Tablet) 10 mg PO HS [facility] Stop: 08/16/21 20:59 Last Admin: 07/21/21 21:44 Dose: 10 mg Documented by: Nitroglycerin (Nitroglycerin Sl 0.4 Mg/Tab Tab) 0.4 mg SL UD PRN PRN Reason: Chest Pain Stop: 08/16/21 15:52 Pantoprazole Sodium (Pantoprazole 40 Mg Tab) 40 mg PO DAILYBB [facility]; Protocol Stop: 08/17/21 06:29 Last Admin: 07/22/21 06:11 Dose: 40 mg Documented by: Polyethylene Glycol (Polyethylene (Miralax) 17 Gm Pack) 17 gm PO DAILY PRN PRN Reason: Constipation Stop: 08/16/21 15:52 Potassium Chloride (Potassium Chloride Crtab 20 Meq Tabcr) 20 meq PO DAILY [facility]; Protocol Stop: 08/17/21 08:59 Last Admin: 07/20/21 08:39 Dose: 20 meq Documented by: Pregabalin (Pregabalin 150 Mg Cap) 150 mg PO TID@0600,1400,2200 [facility] Stop: 08/19/21 15:29 Last Admin: 07/22/21 06:11 Dose: 150 mg Documented by: Tramadol HCl (Tramadol Hcl 50 Mg Tablet) 50 mg PO Q8H PRN PRN Reason: Moderate Pain (Scale Score 5-6) Stop: 08/16/21 15:52 Last Admin: 07/19/21 17:54 Dose: 50 mg Documented by: Umeclidinium/Vilanterol (Umeclidinium/Vilanterol 62.5/25mcg 7 Puffs/Inhaler) 1 puffs INH DAILY [facility]; Protocol Stop: 08/17/21 08:59 Last Admin: 07/22/21 09:04 Dose: 1 puffs Documented by: (1) Pneumonia Laterality: unspecified laterality Lung location: unspecified part of lung Pneumonia type: due to unspecified organism Qualified Code(s): J18.9 - Pneumonia, unspecified organism (2) AMS (altered mental status) Altered mental status type: unspecified Qualified Code(s): R41.82 - Altered mental status, unspecified
[2021-07-22] MEDS: FUROSEMIDE 20 MG TAB PO SCH (10:41)
[2021-07-22 12:17] VITALS: BP 138/76; TEMP 98.1; O2SAT 97
--- NOTE | 2021-07-22 13:23 | Discharge Summary ---
Date of Service July 22, 2021 Admission HPI Per Admitting Provider This is an 81-year-old male with past medical history significant for diabetes, hypertension, history of severe COPD, moderate aortic stenosis, history of right lower lobe lung cancer, status post radiation, chronic heart failure with preserved EF, history of carotid stenosis, hyperlipidemia, osteoporosis, peripheral vascular disease, left subclavian artery stenosis, history of tobacco abuse, B12 deficiencies, chronic sinusitis and rhinitis who lives at home with his who was brought in because the patient fell from the steps and his thought he was having some facial droop and slurred speech.Says she does not know how long he had this new symptoms. Thought he was having a stroke and brought him here. The patient's says he is having these symptoms of slurred speech for the last 4 months, but it is getting worse, recently he was in the hospital in end of May with similar kind of symptoms. At that time, he was found to have COVID pneumonia, he was treated for pneumonia with remdesivir and steroids and at that time workup for stroke was unremarkable with MRI scan was negative .Patient is currently resting comfortably, hemodynamically stable, able to speak okay. Words somewhat slow in volume and no obvious facial droop seen. He is alert and oriented to name and place, could tell his date of , could tell current year, knows that he is in the hospital and also his 's name and mental status seemed to be doing okay. Denies any headache. No dizziness, no blurred visions, has sinus problems. No sore throat, no cough. No fever, no chest pain, no shortness of breath. No nausea, no abdominal pain, normal bowel and bladder movements. Ambulating okay without support, but his balance is not that great. He also had a barium swallow done on 07/05/2021 and was recommended to chop the food and eat slowly, chew properly and slowly and altrnate with liquids, which he is not following as per the , and he is supposed to have followup with speech therapy. Admission Exam Per Admitting Provider GENERAL: The patient is old and frail, not in acute distress. VITAL SIGNS: Temperature 37.6 when he came in it was 39.4, pulse 60, respiratory rate 16, blood pressure 141/81, oxygen 96% on room air. HEENT: Pupils equal, round and reactive to light. Oral mucosa moist. LUNGS: No JVD, no neck masses. CARDIOVASCULAR: S1 and S2 heard. Regular rate and rhythm. No murmur, no gallop. RESPIRATORY SYSTEM: Normal AP diameter. No accessory muscle use. No wheezing, no crackles. ABDOMEN: Soft. Bowel sounds are present, nontender, no distention. CENTRAL NERVOUS SYSTEM: Alert and oriented. Speech is somewhat low voice. No obvious facial droop. Power 5/5 in all extremities. Sensation is intact. Coordination was normal. No pronator drift. EXTREMITIES: No edema, no erythema. Principal Diagnosis Aspiration pneumonia Discharge Exam General: Sitting comfortably in bed, not in distress, on room air HEENT: EOMI, SIENNA, MMM Chest: Clear breath sounds bilaterally, no wheezes or crackles CVS: Regular rate and rhythm, normal heart sounds, no murmur Abdomen: Soft, non tender, not distended, normal bowel sounds Neuro: Awake, alert, oriented, conversing well, non focal Extremities: No cyanosis, clubbing or edema Discharge Data Allergies Allergy/AdvReac Type Severity Reaction Status Date / Time No Known Allergies Allergy Verified 07/17/21 14:11 Consultations 07/17/21 13:06 ED Decision to Admit Stat 07/17/21 15:53 Consult Neurology Routine 07/21/21 06:05 Consult Cardiology Routine Ordered Studies 07/17/21 10:58 CT chest diagnostic wo con Stat CT head/brain wo con Stat 07/18/21 00:00 MR brain wo/w con Routine 07/18/21 12:13 US carotid doppler BI Routine Laboratory Results WBC 5.14 K/uL (4.8-10.8) 07/21/21 05:16 RBC 4.36 M/uL (4.7-6.1) L 07/21/21 05:16 Hgb 13.9 g/dL (14.0-18.0) L 07/21/21 05:16 Hct 40.2 % (42-52) L 07/21/21 05:16 MCV 92.2 fL (80-100) 07/21/21 05:16 MCH 31.9 pg (25-34) 07/21/21 05:16 MCHC 34.6 g/dL (32-36) 07/21/21 05:16 RDW Std Deviation 48.7 fL (36.4-46.3) H 07/21/21 05:16 RDW Coeff of Carol 14.3 % (11.5-14.5) 07/21/21 05:16 Plt Count 230 K/uL (130-400) 07/21/21 05:16 MPV 12.0 fL (7.4-10.4) H 07/21/21 05:16 Immature Gran % (Auto) 0.2 % 07/21/21 05:16 Neut % (Auto) 68.1 % 07/21/21 05:16 Lymph % (Auto) 12.1 % 07/21/21 05:16 Schuyler % (Auto) 16.9 % 07/21/21 05:16 Eos % (Auto) 2.5 % 07/21/21 05:16 Baso % (Auto) 0.2 % 07/21/21 05:16 Neut # (Auto) 3.50 K/uL (1.4-6.5) 07/21/21 05:16 Lymph # (Auto) 0.62 K/uL (1.2-3.4) L 07/21/21 05:16 [place]uyler # (Auto) 0.87 K/uL (0.11-0.59) H 07/21/21 05:16 Eos # (Auto) 0.13 K/uL (0-0.5) 07/21/21 05:16 Baso # (Auto) 0.01 K/uL (0-0.2) 07/21/21 05:16 Immature Gran # (Auto) 0.01 K/uL (0.00-0.02) 07/21/21 05:16 ESR 66 mm/hr (0-20) H 07/17/21 11:10 PT 10.9 Seconds (9.0-12.0) 07/17/21 11:10 INR 1.0 (0.9-1.1) 07/17/21 11:10 APTT 31.8 Seconds (21.0-31.0) H 07/21/21 05:16 PTT Ratio 1.2 07/21/21 05:16 VBG pH 7.42 (7.36-7.41) H 07/17/21 11:14 VBG pCO2 47 mmHg (38-50) 07/17/21 11:14 VBG pO2 30 mmHg 07/17/21 11:14 VBG HCO3 30 mmol/L 07/17/21 11:14 VBG O2 Saturation < 60.0 % 07/17/21 11:14 VBG Base Excess 4.3 mEq/L 07/17/21 11:14 Barometric Pressure 732.2 mm/Hg 07/17/21 11:14 Sodium 135 mmol/L (136-145) L 07/22/21 05:40 Potassium 4.4 mmol/L (3.5-5.1) 07/22/21 05:40 Chloride 103 mmol/L (98-107) 07/22/21 05:40 Carbon Dioxide 26 mmol/L (21-32) 07/22/21 05:40 Anion Gap 6 (3-11) 07/22/21 05:40 BUN 13 mg/dl (6-23) 07/22/21 05:40 Creatinine 0.76 mg/dl (0.6-1.4) 07/22/21 05:40 Est Cr Clr Drug Dosing 84.4 ml/min 07/22/21 05:40 Est GFR ( Amer) 97.8 ml/min 07/22/21 05:40 Est GFR (Non-Af Amer) 84.4 ml/min 07/22/21 05:40 BUN/Creatinine Ratio 17.1 (10-20) 07/22/21 05:40 Glucose 181 mg/dl (70-99(Fasting)) H 07/22/21 05:40 POC Glucose 200 mg/dl (70-99) H 07/22/21 11:12 Estimat Average Glucose 171 mg/dl 07/18/21 07:03 Hemoglobin A1c 7.6 % (4.5-5.6) H 07/18/21 07:03 Osmolality 283 mOsm/kg (280-300) 07/21/21 05:16 Lactate 1.1 mmol/L (0.4-2.0) 07/17/21 11:14 Calcium 8.5 mg/dl (8.5-10.1) 07/22/21 05:40 Phosphorus 2.4 mg/dl (2.5-4.9) L 07/20/21 06:30 Magnesium 2.3 mg/dl (1.7-2.4) 07/21/21 05:16 Total Bilirubin 0.8 mg/dl (0.2-1.0) 07/17/21 11:10 AST 9 U/L (13-39) L 07/17/21 11:10 ALT 7 U/L (7-52) 07/17/21 11:10 Alkaline Phosphatase 73 U/L (34-104) 07/17/21 11:10 Troponin I High Sens 64.5 pg/ml (0-20) H* D 07/19/21 17:44 C-Reactive Protein 20.68 mg/dl (0-0.5) H 07/21/21 05:16 Total Protein 6.7 gm/dl (6.0-8.3) 07/17/21 11:10 Albumin 3.5 gm/dl (3.4-5.0) 07/17/21 11:10 Globulin 3.2 gm/dl (2.5-4.0) 07/17/21 11:10 Albumin/Globulin Ratio 1.1 (0.9-2) 07/17/21 11:10 Triglycerides 51 mg/dl (0-150) 07/18/21 07:03 Cholesterol 110 mg/dl (0-200) 07/18/21 07:03 LDL Cholesterol, Calc 41 mg/dl 07/18/21 07:03 VLDL Cholesterol, Calc 10 mg/dl (0-30) 07/18/21 07:03 HDL Cholesterol 59 mg/dl 07/18/21 07:03 Cholesterol/HDL Ratio 1.9 (0-5) 07/18/21 07:03 Procalcitonin 0.64 ng/ml (0-0.5) H 07/21/21 05:16 TSH 1.774 uIu/ml (0.300-4.500) 07/21/21 05:16 Urine Color Yellow 07/17/21 16:20 Urine Appearance Clear (Clear) 07/17/21 16:20 Urine pH 6.5 (4.5-7.5) 07/17/21 16:20 Ur Specific [place] 1.014 (1.000-1.030) 07/17/21 16:20 Urine Protein Negative (Negative) 07/17/21 16:20 Urine Glucose (UA) Negative (Negative) 07/17/21 16:20 Urine Ketones Negative (Negative) 07/17/21 16:20 Urine Blood Negative (Negative) 07/17/21 16:20 Urine Nitrite Negative (Negative) 07/17/21 16:20 Urine Bilirubin Negative (Negative) 07/17/21 16:20 Urine Urobilinogen Negative (Negative) 07/17/21 16:20 Ur Leukocyte Esterase Negative (Negative) 07/17/21 16:20 SARS-CoV-2 (PCR) NEGATIVE (Negative) 07/17/21 11:50 Influenza Type A (PCR) Negative (Neg) 07/17/21 11:50 Influenza Type B (PCR) Negative (Neg) 07/17/21 11:50 RSV (RT-PCR) Negative (Neg) 07/17/21 11:[address] 07/17/21 10:58 CT OF THE CHEST WITHOUT IV CONTRAST CLINICAL HISTORY: Fever. History of lung cancer. COMPARISON STUDY: Chest CT June 16, 2021. Chest radiograph performed earlier today. CT DOSE: 1016.79 mGy.cm TECHNIQUE: Axial images of the chest were obtained without IV contrast. Images were reviewed in the axial, sagittal, and coronal planes. IV contrast was not administered for this examination. Automated exposure control was utilized for the study. A dose lowering technique was utilized adhering to the principles of ALARA. FINDINGS: A prominent AP window lymph node measures 1 cm short axis diameter. This is slightly increased in size since prior exams. This could be reactive. Extensive coronary artery calcification is present. There is mild cardiomegaly. No pericardial effusion is present. Severe emphysema is noted. Suspected post radiation change within the superior segment of the right lower lobe and posterior segment of the right upper lobe is noted. This is similar to several prior studies. There has been interval development of a 5.5 cm subpleural focus of consolidation within the left upper lobe since CT of June 24, 2021. This corresponds to the finding on chest radiograph. There is no pneumothorax. There are trace bilateral pleural effusions. Right lower lobe airspace opacity has slightly decreased. There is mild left lower lobe airspace opacity. No suspicious lesions within the bony thorax. Calcified pleural plaques are again noted. Visualized portions of the upper abdomen are unremarkable on this unenhanced exam. Gallbladder is surgically absent. IMPRESSION: 1. Interval development of a 5.5 cm subpleural focus of consolidation within the left upper lobe since chest CT of June 16, 2021. This represents pneumonia. 2. Otherwise, no significant change in appearance of the chest, as described above. Suspected post radiation change within the right lung. 3. Trace bilateral pleural effusions. 4. Emphysema. ACT 112: Negative or not required by law. Electronically signed by: Jewel Balbuena M.D. 07/17/2021 12:[address] 07/17/21 10:58 CT OF THE HEAD WITHOUT CONTRAST CLINICAL HISTORY: Altered mental status. COMPARISON STUDY: Head CT June 24, 2021. MRI of the brain June 25, 2021. TECHNIQUE: Helical axial images of the head were obtained without IV contrast. Automated exposure control was utilized for the study. A dose lowering technique was utilized adhering to the principles of ALARA. FINDINGS: No acute intracranial hemorrhage, midline shift or mass effect is present. White matter hypodensities are unchanged and favor small vessel disease. The ventricular system is unremarkable. The basal cisterns are patent. No extra-axial collections are present. There are no findings to suggest acute dural sinus thrombosis or acute territorial infarct. No significant calvarial abnormalities are present. There is minimal sinus mucosal thickening. IMPRESSION: No acute intracranial findings. No change in appearance of the brain. ACT 112: Negative or not required by law. Electronically signed by: Jewel Balbuena M.D. 07/17/2021 11:58 AM Brain MRI 07/18/21 00:00 MR brain wo/w con CLINICAL HISTORY: stroke like symptoms. Weakness for one day. Patient complains of slurred speech yesterday. COMPARISON STUDY: 06/25/2021 TECHNIQUE: Multiplanar multisequence images of the brain were performed before and after Gadavist, 8.5 mL of IV contrast. Diffusion weighted imaging and ADC mapping was also performed. FINDINGS: Extra-axial space: There is no evidence for a subdural hematoma, There are no extra-axial fluid collections. Ventricles and cisterns: The ventricles are normal in size and configuration. There is no evidence for midline shift or mass effect. Parenchyma: On noncontrast images, there is no evidence for an acute hemorrhage or infarct. No acute diffusion abnormalities are noted on diffusion weighted imaging or ADC mapping. There is normal siegel-white differentiation. There is mild cerebral cortical atrophy present. There is bright signal seen on FLAIR weighted sequences within the centrum semiovale and periventricular white matter characteristic of remote small vessel disease. The sulci and gyri appear normal without effacement. The midline structures are unremarkable. The posterior fossa structures appear normal. On postcontrast images, there is no evidence for enhancing mass lesion. Osseous structures: The paranasal sinuses are well aerated. There is mucosal thickening of the mastoid air cells bilaterally, right greater than left. Soft tissues: No focal soft tissue abnormalities are identified. IMPRESSION: 1. No acute intracranial abnormalities. 2. Mild cerebral cortical atrophy and remote small vessel disease. 2. Bilateral chronic mastoiditis, right greater than left. ACT 112: Negative or not required by law. Electronically signed by: Gonzalez Donohue M.D. 07/18/2021 12:41 PM Carotid Doppler Study 07/18/21 12:13 US carotid doppler BI CLINICAL HISTORY: foollow up on bilatral carotid stenoses. COMPARISON: CTA neck from 06/16/2021 TECHNIQUE: Siegel scale, Doppler spectral analysis, and color imaging was performed. Stenosis assessment by velocity criteria. FINDINGS: Right CCA velocity (cm/s): 197 and 220 at the carotid bulb Right ICA velocity (cm/s): 125 Right ICA/CCA ratio: 0.7 Right vertebral arterial flow: Antegrade. Right findings: There is marked atherosclerotic plaque present involving the common carotid artery, carotid bulb and origin of the right internal carotid artery as seen on the CTA. By velocity criteria, there is marked carotid stenosis Left CCA velocity (cm/s): 53 Left ICA velocity (cm/s): 33 Left ICA/CCA ratio: 1.6 Left vertebral arterial flow: Antegrade. Left findings: Marked atherosclerotic plaque is also present involving the common carotid, carotid bulb and left internal carotid artery. Due to the calcification present, the velocities could not be well obtained. Findings are again characteristic of marked carotid stenosis. IMPRESSION: Ultrasound confirms marked atherosclerotic calcification of the carotid arteries, carotid bulbs and internal carotid arteries bilaterally. Marked carotid stenosis is present bilaterally. ACT 112: Negative or not required by law. Electronically signed by: Gonzalez Donohue M.D. 07/18/2021 5:48 PM Chest X-Ray 07/20/21 19:59 XR chest 1V portable CLINICAL HISTORY: low o2. Follow-up alveolar opacities COMPARISON STUDY: 07/17/2021 TECHNIQUE: 1 view of the chest FINDINGS: Single frontal view of the chest demonstrates the cardiomediastinal silhouette to be within normal limits. There is a decreased inspiratory effort with slightly more prominent right midlung and left lower lobe lung opacities. There is again evidence for underlying COPD. The findings most likely due to chronic lung changes due to there is persistent central recurrence. There is no evidence for pleural effusion. There is no evidence for vascular congestion. There is no acute osseous pathology. IMPRESSION: 1. COPD with chronic right midlung and left lower lung opacities which are most likely related to chronic lung disease. 2. COPD and chronic changes were identified on the patient's recent CT. 3. No acute alveolar opacities. ACT 112: Negative or not required by law. Electronically signed by: Gonzalez Donohue M.D. 07/20/2021 8:35 PM Hospital Course (1) Pneumonia: (2) Stroke-like symptoms: 81-year-old male who presents with stroke like symptoms and found to have a fever and pneumonia. 1. STEPHANIA PNA, likely aspiration pneumonia- seen in CT- currently afebrile, procal and CRP elevated but coming down, no leucocytosis. Blood clx negative - Recently admitted with PNA due to COVID and was treated with remdesevir, steroids as well as empiric antibiotics. - Seen by FOOD SERVICES MANAGER- silent aspiration noted. Discussed measures to minimize the risk by FOOD SERVICES MANAGER as well as myself. He doesn't want a feeding tube - On zosyn, doxy inhouse -> being changed to augmentin/doxy for 2 more days. Procal, CRP improving. WBC normal, no fever. 2. Stroke like symptoms- similar to last admission in setting of infection/PNA- Stroke ruled out with negative MRI brain.Seen by neuro- acetylcholine antibodies ordered- f/u as OP 3. Carotid artery stenosis- US carotid duplex shows marked atherosclerotic calcification of the carotid arteries, carotid bulbs and internal carotid arteries bilaterally. Marked carotid stenosis is present bilaterally. CTA neck copy from 06/24 was provided to the . He has OP appointment for 08/04 with vascular surgery. Per neurology, keep BP in higher range 130-140/80-90 to allow adequate cerebral perfusion- hence his BP meds were adjusted- discontinued norvasc, lisinopril decreased to 10 mg/d. continue toprol and lasix. 4. Diabetes: Continue metformin. SSI if needed per rehab physician 5. Hypertension: BP improved, BP meds adjusted as #3 6. History of lung cancer, status post chemoradiation, radiation pneumonitis. Follows up with Pulmonary. Repeat CT recommended as OP in 8-12 weeks 7. Chronic obstructive pulmonary disease, currently not in exacerbation. Continue home inhalers. 8. Elevated trop- mild, trended down, likely demand ischemia. No chest pain 9. GERD- continue PPI 10. Chronic diastolic congestive heart failure- compensated, continue OP lasix 11. Hyponatremia- resolved. Recommend fluid restriction. 12. PAT- seen by cardio- not a new issue- on toprol. No new recommendations. Comfortable and stable for discharge to [facility]. Updated over the phone and answered all questions. Reinforced oral hygiene and aspiration precautions to prevent recurrent aspiration pneumonia. Total Time Total Time Spent Total Time Spent (In Minutes): 40 Discharge Plan Discharge Items Patient Disposition: Transfer Inpatient Rehab Fac Reason For Visit: STROKE LIKE SYMPTOMS Discharge Diagnosis: Aspiration pneumnia Activity: Resume your previous activity Non-emergency contact: Primary Care Provider Call non-emergency contact if: you have any medication questions Follow-up/Referrals: Narendra Blakely MD [Primary Care Provider] - Diet: Carb Consistent or DM2 Fluids: 1500ml (6 cups) Addtl Attending Provider Instructions: Complete the antibiotic for 2 more days Recommend good oral hygiene and aspiration precautions as recommended by speech therapist Follow up with your vascular surgery on August 04 for your carotid artery disease evaluation Because of your carotid artery disease, neurology recommended keeping the blood pressure in slightly higher range like 130-140/80-90 to allow for good blood supply to the brain. We have stopped your norvasc and decreased your lisinopril for the same reason. Your rehab doctor will further manage that to keep the blood pressure at that range. Recommend repeat CT in 8-12 weeks for follow up of your pneumonia- follow up with your lung doctor or family doctor Follow up with neurology with follow up on the acetylcholine receptor antibody test Pending Studies at Discharge: Yes Studies:: Acetylcholine receptor antibody Stand-Alone Forms: My [employer] Skilled Items Patient informed of condition?: Yes DNR: No Discharge Level of Care: Acute rehab Communicable Disease: No Discharge Prognosis: Stable Lines: None Urinary Catheter: No Medications and DC Order Prescriptions: New doxycycline hyclate 100 mg Capsule 100 mg PO BID@0700,1900 Qty: 4 RF: 0 amoxicillin-pot clavulanate 875-125 mg tablet 1 tab PO BID Qty: 4 RF: 0 Continued montelukast 10 mg tablet 10 mg PO HS RF: 0 metoprolol succinate 25 mg tablet extended release 24 hr 25 mg PO BID RF: 0 azelastine 137 mcg (0.1 %) aerosol,spray 1 spray intranasal BID RF: 0 furosemide [Lasix] 20 mg tablet 20 mg PO [id number] RF: 0 metformin 500 mg tablet 1,000 mg PO DAILY RF: 0 potassium gluconate 550 mg (90 mg) tablet 550 mg PO DAILY RF: 0 aspirin [Adult Aspirin Regimen] 81 mg tablet,delayed release (DR/EC) 81 mg PO DAILY RF: 0 atorvastatin 80 mg tablet 80 mg PO DAILY RF: 0 omeprazole 20 mg Capsule,Delayed Release(Dr/Ec) 20 mg PO DAILYBB RF: 0 albuterol sulfate 90 mcg/actuation Hfa Aerosol Inhaler 2 puff INHALATION Q4H PRN (Reason: Wheezing) RF: 0 polyethylene glycol 3350 [Miralax] 17 gram Powder In Packet 17 g PO DAILY PRN (Reason: Constipation) RF: 0 tramadol 50 mg tablet 50 mg PO Q8H PRN (Reason: Moderate Pain (Scale Score 5-6)) RF: 0 ipratropium bromide 21 mcg (0.03 %) spray,non-aerosol 2 spray INTRANASAL BID RF: 0 magnesium oxide 400 mg magnesium Capsule 400 mg PO BID RF: 0 Trelegy Ellipta 100-62.5-25 mcg blister with device 1 inh INHALATION QAM RF: 0 Changed lisinopril 20 mg tablet 10 mg PO DAILY Qty: 0 RF: 0 pregabalin [Lyrica] 150 mg capsule 150 mg PO Q8H Qty: 0 RF: 0 Discontinued amlodipine 2.5 mg tablet 2.5 mg PO DAILY RF: 0 Discharge Orders: Discharge Order (Routine); Ordered 07/22/21 Ordered By: Jarod Patel/Other Patient Handouts: Managing Type 2 Diabetes Admission Data Admit Date/Time: 07/17/21 14:39 Attending Provider: Jarod Nichole Admit Provider: Jonathan Ortiz Primary Care Provider: Narendra Blakely Other Providers: Jonathan Ortiz ; Mary Martino ; Willima Diallo ; Mary Bentley ; Blu Miguel ; Joleen Li. ; [facility] ; Huan Mcfarland ; Dale Diego ; Van Richardson ; Jose Cazares ; Jake Linda. ; Mane [place] ; Irina Turpin ; Mary Stokes ; Rosalina Pratt. ; Blaise Rosales
[2021-07-22 14:00] VITALS: PULSE 81
[2021-07-24 02:36] LABS: Acetylcholine Recept Blocking <15 (<15); Receptor Binding Ab <0.30 nmol/L
== END 2021-07-22 14:44 | DRG 178 ==
LOC: ED 10:50 → SUATTDRO 14:39 → 2S 14:39
DX: I24.8 Other forms of acute ischemic heart disease; R09.02 Hypoxemia; Z85.118 Personal history of other malignant neoplasm of bronchus and lung; I44.7 Left bundle-branch block, unspecified; Z83.3 Family history of diabetes mellitus; I35.0 Nonrheumatic aortic (valve) stenosis; E87.1 Hypo-osmolality and hyponatremia; Z79.84 Long term (current) use of oral hypoglycemic drugs; Z96.651 Presence of right artificial knee joint; I50.32 Chronic diastolic (congestive) heart failure; Z92.3 Personal history of irradiation; J69.0 Pneumonitis due to inhalation of food and vomit; Z87.891 Personal history of nicotine dependence; E83.42 Hypomagnesemia; J44.9 Chronic obstructive pulmonary disease, unspecified; I47.1 Supraventricular tachycardia

== ENCOUNTER 2021-09-19 16:46 | Inpatient (IN) ==
[2021-09-19] MEDS ORDERED: ALBUTEROL 0.083% NEBU SOLN 3 ML VIAL NEB STA (17:02)
--- NOTE | 2021-09-19 17:05 | Emergency Department Note ---
Impression & Plan Multifocal pneumonia, COPD (chronic obstructive pulmonary disease), Primary cancer of right lower lobe of lung, Hypoxia ED Provider Note NAME: RADHA VENCES AGE: 81 SEX: M : 1940 ARRIVES VIA: Walk-In INFORMANT: Patient, ED PROVIDER(S): Curt Sanford DO CHIEF COMPLAINT: shortness of breath and change in sputum HPI: Patient is an 81-year-old male with a past medical history of COPD, hyponatremia, paroxysmal atrial tachycardia, pneumonia, Primary right lower lobe lung cancer who presents to ER for worsening shortness of breath. He notes he h as been admitted twice in the past 2 months. With the past week, his shortness of breath has gotten significantly worse. He has been wearing his oxygen 1 L as needed at home. It is helping only slightly. He notes that he has increased production of sputum but no change in color. He does have a cough and this is unchanged. This to some right-sided mid abdominal pain. No dysuria urgency or frequency. No other exacerbating remitting factors. ROS: See above HPI for pertinent positives & negatives. A total of 10 systems reviewed and were otherwise negative. PAST MEDICAL HISTORY:See Below PAST SURGICAL HISTORY:See Below FAMILY HISTORY:See Below SOCIAL HISTORY:See Below HOME MEDICATIONS:See Below ALLERGIES:See Below VITALS:See Below PHYSICAL EXAMINATION: GENERAL: Sitting up in bed, alert, Ill-appearing, disheveled EYE EXAM: normal conjunctiva. PERRL and EOM's grossly intact. OROPHARYNX: no exudate, no erythema, lips, buccal mucosa, and tongue normal and mucous membranes are moist NECK: supple, no nuchal rigidity, no adenopathy, non-tender LUNGS: Wrist bilaterally. Normal chest wall mechanics HEART: no murmurs, S1 normal and S2 normal ABDOMEN: abdomen soft, non-tender, normo-active bowel sounds, no masses, no rebound or guarding. UPPER EXTREMITIES: upper extremities are grossly normal. LOWER EXTREMITIES: No pitting edema. Calfs are equal bilateral NEURO EXAM: Normal sensorium, cranial nerves II-XII grossly intact, normal speech, no gross weakness of arms, no gross weakness of legs. MEDICAL DECISION MAKING: Patient is an 81-year-old male who presents ER for the boasting complaint. IV was established blood work was obtained.Labs show no significant leukocytosis or anemia. D-dimer was elevated. BMP along with LFTs bilirubin and lipase was unremarkable. Troponin was negative. COVID was negative. CT of the chest shows multifocal pneumonia. He was given IV Rocephin and azithromycin. He was hypoxic at 84% on room air and placed on 1 to 2 L. This hypoxia was with exertion. He was updated bedside. Discussed with hospitalist admitted for further work-up. Triage Nursing notes reviewed. Limited review of prior medical records performed Vital Signs: reviewed and remarkable for Tachycardic, hypoxic and hypotensive Differential diagnosis: Differential diagnoses includes but is not limited to pneumonia, bronchitis, COPD/Asthma exacerbation, pneumothorax, pulmonary embolism, congestive heart failure, acute coronary syndrome ER treatment provided: See below Diagnostics interpreted by me: ECG: Sinus rhythm rate 83 Normal axis No PVCs Left bundle branch block Cardiac Monitoring: An order was placed for continuous cardiac monitoring. The monitor shows a rate of 89 with sinus rhythm. Laboratory studies: As stated above and show below. Imaging studies: CT angio chest shows multifocal pneumonia Consultation(s): Discussed with hospitalist for further evaluation Procedures: none Critical Care: None Past Med/Surg History Medical History (Updated 09/19/21 @ 22:47 by Curt Sanford DO) Acute on chronic systolic and diastolic heart failure, NYHA class 4 Acute congestive heart failure likely precipitated by paroxysmal atrial fibrillation with rapid ventricular rate. Now back in sinus rhythm diuresing well with decreasing oxygen requirements Recommend: Continue diuretics, discontinue BiPAP, wean oxygen as tolerated, initiate sliding scale insulin for hyperglycemia, advance diet as tolerated Acute respiratory failure with hypoxia and hypercapnia Aortic stenosis Atherosclerosis of leg with intermittent claudication COPD (chronic obstructive pulmonary disease) Diabetes mellitus, type 2 Electrolyte imbalance GERD (gastroesophageal reflux disease) Hyperlipidemia Hypertension Hypokalemia Hypomagnesemia Hypoxia LBBB (left bundle branch block) Malignant neoplasm of skin of trunk Basal Cell - on Forehead and on Neck Nonischemic cardiomyopathy Osteoporosis Pulmonary edema PVD (peripheral vascular disease) Valvular heart disease Vertebral fracture, osteoporotic (02/04/08) Surgical History History of bronchoscopy 10/23/2019 - Diagnostic History of cardiac cath 11/2017 History of cataract extraction with lens replacement 07/03/2013 - Dr. Hazel History of cholecystectomy 1998 History of discectomy 1995 History of ERCP 02/1999 - with stone removal History of nasal septoplasty 1960's History of procedure for peripheral vascular disease 01/15/2015 - Right Femoral Endarterectomy History of tonsillectomy As a Child History of total knee replacement 12/05/2011 - Right - Dr. Medina History of trigger finger 10/09/2019 - Release Surgery (Dr. Dana Hernandez) Family History Mother , Passed age 92 of natural causes No problems noted. Father , Passed age 67 from stroke complications No problems noted. Brother , Passed age 67 of [place] No problems noted. Son No problems noted. Daughter No problems noted. 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 Feels Safe at Home: Yes Childhood Exposure to Second-Hand Smoke: No caffeine: Yes (1-2 cups of coffee/day ) during the past year weight has: remained stable Dental Care, Regularly: Yes Assistive Devices: Cane and Walker Allergies Allergies Allergy/AdvReac Type Severity Reaction Status Date / Time No Known Allergies Allergy Verified 09/19/21 17:19 Home Meds Home Medications Medication Instructions Recorded Confirmed albuterol sulfate 90 mcg/actuation 2 puff inhalation Q4H PRN Wheezing 12/11/17 09/19/21 aerosol inhaler omeprazole 20 mg capsule,delayed 20 mg PO DAILYBB 12/11/17 09/19/21 release furosemide 20 mg tablet (Lasix) 20 mg PO 6XWK 10/31/19 09/19/21 metoprolol succinate 25 mg See Rx Instructions .Route .COMPLEX 10/31/19 09/19/21 tablet,extended release 24 hr montelukast 10 mg tablet 10 mg PO HS 10/31/19 09/19/21 potassium gluconate 550 mg (90 mg) 550 mg PO DAILY 10/31/19 09/19/21 tablet aspirin 81 mg tablet,delayed 81 mg PO DAILY 01/07/21 09/19/21 release (Adult Aspirin Regimen) atorvastatin 80 mg tablet 80 mg PO DAILY 01/07/21 09/19/21 ipratropium bromide 21 mcg (0.03 2 spray intranasal BID 06/24/21 09/19/21 %) nasal spray magnesium oxide 400 mg PO BID 06/24/21 09/19/21 polyethylene glycol 3350 17 gram 17 g PO DAILY PRN Constipation 06/24/21 09/19/21 oral powder packet (Miralax) tramadol 50 mg tablet 50 mg PO Q8H PRN Moderate Pain 06/24/21 09/19/21 (Scale Score 5-6) amlodipine 2.5 mg tablet 2.5 mg PO DAILY 09/09/21 09/19/21 fluticasone fur. 100 mcg-umeclid 1 inh inhalation QAM 09/19/21 09/19/21 62.5 mcg-vilant 25 mcg inhalat.powder (Trelegy Ellipta) lisinopril 5 mg tablet 5 mg PO QAM 09/19/21 09/19/21 metformin 500 mg tablet,extended 1,000 mg PO DAILY 09/19/21 09/19/21 release 24 hr Previous Rx's Medication Instructions Recorded pregabalin 150 mg capsule (Lyrica) 150 mg PO Q8H #0 caps 07/22/21 Results & Data (ED) Vital Signs Vital Signs - 24 hr 09/19/21 16:50 09/19/21 17:18 09/19/21 17:18 Temperature 36.4 C L Temperature Source Temporal Artery Scan Pulse Rate 102 H Pulse Rate [Finger] 83 Pulse Rate from SpO2 Sensor Pulse Rhythm [Finger] Regular Pulse Strength [Finger] Normal Respiratory Rate 22 18 Respiratory Effort / Characteristics Non-Labored Spontaneous Non-Labored Respiratory Depth Normal Normal Respiratory Pattern Regular Regular Blood Pressure 169/89 H Blood Pressure [Right Arm] 138/81 Blood Pressure Mean 115 Blood Pressure Mean [Right Arm] 100 Blood Pressure Position [Right Arm] Lying Pulse Oximetry 88 L 91 91 Oxygen Delivery Method Room Air Room Air Room Air Oxygen Flow Rate Sepsis Recent Fever Within 48 Hours No Sepsis New/Unexplained Change in Mental Status N/A Sepsis Action Taken by Nursing No Action Required 09/19/21 17:18 09/19/21 19:51 09/19/21 20:57 Temperature Temperature Source Pulse Rate 83 92 H Pulse Rate [Finger] 93 H Pulse Rate from SpO2 Sensor Pulse Rhythm [Finger] Regular Pulse Strength [Finger] Respiratory Rate 18 19 21 Respiratory Effort / Characteristics Respiratory Depth Normal Respiratory Pattern Blood Pressure 151/92 H Blood Pressure [Right Arm] 152/106 H Blood Pressure Mean 111 Blood Pressure Mean [Right Arm] 121 Blood Pressure Position [Right Arm] Pulse Oximetry 91 95 94 Oxygen Delivery Method Room Air Nasal Cannula Oxygen Flow Rate 2 Sepsis Recent Fever Within 48 Hours Sepsis New/Unexplained Change in Mental Status Sepsis Action Taken by Nursing 09/19/21 22:00 Temperature Temperature Source Pulse Rate 89 Pulse Rate [Finger] Pulse Rate from SpO2 Sensor 89 Pulse Rhythm [Finger] Pulse Strength [Finger] Respiratory Rate 23 Respiratory Effort / Characteristics Respiratory Depth Respiratory Pattern Blood Pressure Blood Pressure [Right Arm] Blood Pressure Mean Blood Pressure Mean [Right Arm] Blood Pressure Position [Right Arm] Pulse Oximetry 95 Oxygen Delivery Method Oxygen Flow Rate Sepsis Recent Fever Within 48 Hours Sepsis New/Unexplained Change in Mental Status Sepsis Action Taken by Nursing Laboratory Data Result diagrams: 09/19/21 17:15 09/19/21 17:15 Lab Results 09/19/21 09/19/21 09/19/21 Range/Units 17:15 17:15 17:15 WBC 5.35 (4.8-10.8) K/ul RBC 4.46 L (4.63-6.08) M/uL Hgb 13.7 L (14.0-18.0) g/dl Hct 40.2 (40.1-51.0) % MCV 90.1 (80.0-100.0) fL MCH 30.7 (25.0-34.0) pg MCHC 34.1 (32.0-36.0) g/dL RDW Std Deviation 46.8 H (36.4-46.3) fL RDW Coeff of Carol 14.1 (11.5-14.5) % Plt Count 318 (130-400) K/uL MPV 11.4 (9.4-12.4) fL Immature Gran % (Auto) 0.4 % Neut % (Auto) 67.3 % Lymph % (Auto) 14.6 % [place] % (Auto) 11.6 % Eos % (Auto) 5.2 % Baso % (Auto) 0.9 % Neut # (Auto) 3.60 (1.4-6.5) K/uL Lymph # (Auto) 0.78 L (1.2-3.4) K/uL [place] # (Auto) 0.62 (0.24-0.82) K/uL Eos # (Auto) 0.28 (0-0.50) K/uL Baso # (Auto) 0.05 (0-0.2) K/uL Immature Gran # (Auto) 0.02 (0.00-0.02) K/uL D-Dimer 2120 H* (0-500) ug/L FEU Sodium 136 (136-145) mmol/L Potassium 4.0 (3.5-5.1) mmol/L Chloride 101 (98-107) mmol/L Carbon Dioxide 24 (21-32) mmol/L Anion Gap 11 (3-11) BUN 18 (6-23) mg/dl Creatinine 0.90 (0.6-1.4) mg/dl Est Cr Clr Drug Dosing 70.7 ml/min Est GFR ( Amer) 91.2 ml/min Est GFR (Non-Af Amer) 78.7 ml/min BUN/Creatinine Ratio 20.0 (10-20) Glucose 139 H (70-99(Fasting)) mg/dl Calcium 8.8 (8.5-10.1) mg/dl Total Bilirubin 0.5 (0.2-1.0) mg/dl AST 10 L (13-39) U/L ALT 7 (7-52) U/L Alkaline Phosphatase 75 (34-104) U/L Troponin I High Sens 19.9 D (0-20) pg/ml Total Protein 6.8 (6.0-8.3) gm/dl Albumin 3.4 (3.4-5.0) gm/dl Globulin 3.4 (2.5-4.0) gm/dl Albumin/Globulin Ratio 1.0 (0.9-2) Lipase 14 (11-82) U/L SARS-CoV-2, RNA, NAAT (NEGATIVE) 09/19/21 Range/Units 17:20 WBC (4.8-10.8) K/ul RBC (4.63-6.08) M/uL Hgb (14.0-18.0) g/dl Hct (40.1-51.0) % MCV (80.0-100.0) fL MCH (25.0-34.0) pg MCHC (32.0-36.0) g/dL RDW Std Deviation (36.4-46.3) fL RDW Coeff of Carol (11.5-14.5) % Plt Count (130-400) K/uL MPV (9.4-12.4) fL Immature Gran % (Auto) % Neut % (Auto) % Lymph % (Auto) % [place] % (Auto) % Eos % (Auto) % Baso % (Auto) % Neut # (Auto) (1.4-6.5) K/uL Lymph # (Auto) (1.2-3.4) K/uL [place] # (Auto) (0.24-0.82) K/uL Eos # (Auto) (0-0.50) K/uL Baso # (Auto) (0-0.2) K/uL Immature Gran # (Auto) (0.00-0.02) K/uL D-Dimer (0-500) ug/L FEU Sodium (136-145) mmol/L Potassium (3.5-5.1) mmol/L Chloride (98-107) mmol/L Carbon Dioxide (21-32) mmol/L Anion Gap (3-11) BUN (6-23) mg/dl Creatinine (0.6-1.4) mg/dl Est Cr Clr Drug Dosing ml/min Est GFR ( Amer) ml/min Est GFR (Non-Af Amer) ml/min BUN/Creatinine Ratio (10-20) Glucose (70-99(Fasting)) mg/dl Calcium (8.5-10.1) mg/dl Total Bilirubin (0.2-1.0) mg/dl AST (13-39) U/L ALT (7-52) U/L Alkaline Phosphatase (34-104) U/L Troponin I High Sens (0-20) pg/ml Total Protein (6.0-8.3) gm/dl Albumin (3.4-5.0) gm/dl Globulin (2.5-4.0) gm/dl Albumin/Globulin Ratio (0.9-2) Lipase (11-82) U/L SARS-CoV-2, RNA, NAAT NEGATIVE (NEGATIVE) Administered Medications Discontinued Medications Albuterol (Albuterol 0.083% Nebu Soln 3 Ml Vial) 5 mg NEB NOW STA; Protocol Stop: 09/19/21 17:03 Last Admin: 09/19/21 17:23 Dose: 5 mg Documented By: CCM Ceftriaxone Sodium (Rocephin) 2,000 mg in 70 mls @ 140 mls/hr IV NOW STA Stop: 09/19/21 20:46 Last Infusion: 09/19/21 21:24 Dose: 0 mls/hr Documented By: Admin: 09/19/21 20:56 Dose: 140 mls/hr Documented By: EMB Azithromycin 500 mg/ Dextrose 255 mls @ 125 mls/hr IV NOW STA Stop: 09/19/21 22:19 Last Admin: 09/19/21 20:55 Dose: 125 mls/hr Documented By: EMB Ioversol (Optiray 320 125ml) 120 ml IV ONCE ONE Stop: 09/19/21 19:45 Last Admin: 09/19/21 19:44 Dose: 120 ml Documented By: PERRI Methylprednisolone (Methylprednisolone 40 Mg/Ml Vial) 40 mg IV NOW STA Stop: 09/19/21 17:09 Last Admin: 09/19/21 17:23 Dose: 40 mg Documented By: [facility] Imaging Data Radiologist's Impression: Chest X-Ray 09/19/21 17:02 XR chest 1V portable CLINICAL HISTORY: Atypical chest pain. COMPARISON STUDY: Chest CT July 17, 2021. Chest radiograph July 20, 2021. FINDINGS: No pneumothorax or pleural effusion is noted. Calcified pleural plaque projects over the right chest. Interval development of moderate left lower lung airspace opacity is noted. Left upper lobe opacity shown on prior chest CT has resolved. Cardiac size is normal. Mediastinal contours are normal. IMPRESSION: Left lower lung airspace opacity suggestive of pneumonia. Radiographic follow-up to ensure resolution is recommended. Resolution of previously described left upper lobe pneumonia. ACT 112: Negative or not required by law. Electronically signed by: Jewel Balbuena M.D. 09/19/2021 6:47 PM Abdomen/Pelvis CT 09/19/21 18:[address] WITH IV CONTRAST CT DOSE: 837.13 mGy.cm HISTORY: Right upper quadrant abdominal pain. TECHNIQUE: Multiaxial CT images of the abdomen and pelvis were performed following the use of intravenous contrast. A dose lowering technique was utilized adhering to the principles of ALARA. COMPARISON STUDY: Abdominal CT 06/24/2009. FINDINGS: Please refer to the same day chest CT for further evaluation the lung bases. Moderate degenerative disc disease at L4-5. There is an old mild anterior wedge-shaped compression deformity at T12. No pneumoperitoneum. No pneumatosis. Bilateral sacroiliac joints are partially fused. Trace left pleural effusion. Prior cholecystectomy. The liver, spleen, adrenal glands, and pancreas are unremarkable. No retroperitoneal lymphadenopathy. Moderate to severe calcified plaque within the mildly ectatic abdominal aorta which measures up to 2.6 cm in diameter. The bilateral proximal superficial femoral arteries are occluded. This is technically age indeterminate but likely chronic. The prostate gland is mildly enlarged. Mild bladder wall thickening is likely due to chronic outlet obstruction. Calcifications within the bilateral renal sinuses are likely vascular. No ureteral stones. No hydronephrosis. Mild bilateral perinephric edema, unchanged. This is likely chronic. The main portal vein is patent. No pelvic free fluid. A few colonic diverticula. No evidence for acute diverticulitis. No bowel wall thickening or obstruction. Normal appendix. IMPRESSION: 1. No bowel wall thickening or obstruction. 2. Colonic diverticulosis. No evidence for acute diverticulitis. 3. Normal appendix. 4. The bilateral superficial femoral arteries are occluded proximally. This is technically age indeterminate but likely chronic. 5. Please refer to the same day chest CT for further evaluation of the lung bases. 6. Additional findings as described above. ACT 112: Negative or not required by law. Electronically signed by: Hung Stuart M.D. 09/19/2021 7:57 PM Chest CTA 09/19/21 18:38 CT ANGIOGRAPHY OF THE CHEST, PULMONARY EMBOLUS PROTOCOL CLINICAL HISTORY: Elevated d-dimer. Short of breath. Hypoxia. History of lung cancer. COMPARISON STUDY: Chest CT July 17, 2021. Chest radiograph performed earlier today. TECHNIQUE: Following IV administration of 120 mL of Optiray, helical axial images of the chest were obtained utilizing the pulmonary embolus protocol. Maximal intensity projections and sagittal and coronal reformats were viewed on an independent 3D workstation. IV contrast was administered without complication. Automated exposure control was utilized for the study. A dose lo wering technique was utilized adhering to the principles of ALARA. FINDINGS: No pulmonary emboli are identified although the lower lobe pulmonary arteries are suboptimally assessed due to respiratory motion. No pericardial effusion is present. Size of the heart is normal. There is extensive coronary artery calcification. A prominent AP window lymph node is unchanged since CT of July 17, 2021. Small left pleural effusion has slightly increased in size. There is no pneumothorax. Severe emphysema is noted. Calcified pleural plaques are again noted. Irregular opacity within the posterior segment of the right upper lobe and superior segment the right lower lobe remains unchanged. This favors postradiation change. Scattered airspace opacities within the left lower lobe, lingula and anterior segment of the right upper lobe are new since CT of July 17, 2021. Secretions within the right lower lobe bronchi are noted. Abdomen and pelvis CT will be reported separately. IMPRESSION: 1. No pulmonary emboli identified although lower lobe pulmonary arteries suboptimally assessed due to respiratory motion. 2. Scattered multifocal airspace opacities within the lungs which have developed since CT of July 17, 2021. This favors multifocal pneumonia. A follow-up chest CT in 3 months to ensure resolution is recommended. 3. Suspected post radiation change within the right lung, similar to prior exam. This can be assessed on follow-up CT. 4. Emphysema. ACT 112: Negative or not required by law. Electronically signed by: Jewel Balbuena M.D. 09/19/2021 8:00 PM Discharge Plan Visit Data Chief Complaint: Shortness of Breath/Dyspnea Stated Complaint: SOB ED Provider: Curt Sanford Discharge Problem: Multifocal pneumonia, COPD (chronic obstructive pulmonary disease), Primary cancer of right lower lobe of lung, Hypoxia Forms Stand Alone Forms: My [facility] [employer] Prescriptions Prescriptions: No Action montelukast 10 mg tablet 10 mg PO HS metoprolol succinate 25 mg tablet extended release 24 hr See Rx Instructions .ROUTE .COMPLEX Rx Instructions: 25 mg (1 tablet) orally in the morning and 12.5 mg (1/2 tablet) orally in the evening furosemide [Lasix] 20 mg tablet 20 mg PO 6XWK Rx Instructions: take one per day plus add one two days per week and as directed potassium gluconate 550 mg (90 mg) tablet 550 mg PO DAILY aspirin [Adult Aspirin Regimen] 81 mg tablet,delayed release (DR/EC) 81 mg PO DAILY atorvastatin 80 mg tablet 80 mg PO DAILY amlodipine 2.5 mg tablet 2.5 mg PO DAILY omeprazole 20 mg Capsule,Delayed Release(Dr/Ec) 20 mg PO DAILYBB albuterol sulfate 90 mcg/actuation Hfa Aerosol Inhaler 2 puff INHALATION Q4H PRN (Reason: Wheezing) polyethylene glycol 3350 [Miralax] 17 gram Powder In Packet 17 g PO DAILY PRN (Reason: Constipation) tramadol 50 mg tablet 50 mg PO Q8H PRN (Reason: Moderate Pain (Scale Score 5-6)) ipratropium bromide 21 mcg (0.03 %) spray,non-aerosol 2 spray INTRANASAL BID magnesium oxide 400 mg magnesium Capsule 400 mg PO BID lisinopril 5 mg tablet 5 mg PO QAM metformin 500 mg tablet extended release 24 hr 1,000 mg PO DAILY Trelegy Ellipta 100-62.5-25 mcg blister with device 1 inh INHALATION QAM pregabalin [Lyrica] 150 mg capsule 150 mg PO Q8H Qty: 0 0RF Rx Instructions: at 6 am, 2 pm, and 10 pm Referrals Referrals: Narendra Blakely MD [Primary Care Provider] -
[2021-09-19 17:43] LABS: Basophils # (auto) 0.05 K/uL (0-0.2); Basophils % (auto) 0.9 %; Eosinophils # (auto) 0.28 K/uL (0-0.50); Eosinophils % (auto) 5.2 %; Hematocrit (blood only) 40.2 % (40.1-51.0); Hemoglobin 13.7 g/dl (14.0-18.0); Immature Granulocytes # (auto) 0.02 K/uL (0.00-0.02); Immature Granulocytes % (auto) 0.4 %; Lymphocytes # (auto) 0.78 K/uL (1.2-3.4); Lymphocytes % (auto) 14.6 %; Mean Corpuscular Hemoglobin 30.7 pg (25.0-34.0); Mean Corpuscular Hgb Conc 34.1 g/dL (32.0-36.0); Mean Corpuscular Volume 90.1 fL (80.0-100.0); Mean Platelet Volume 11.4 fL (9.4-12.4); Monocytes # (auto) 0.62 K/uL (0.24-0.82); Monocytes % (auto) 11.6 %; Neutrophils % (auto) 67.3 %; Platelet Count 318 K/uL (130-400); RDW Coefficient of Variation 14.1 % (11.5-14.5); RDW Standard Deviation 46.8 fL (36.4-46.3); Red Blood Count 4.46 M/uL (4.63-6.08); White Blood Count 5.35 K/ul (4.8-10.8)
[2021-09-19 18:03] LABS: Albumin Level 3.4 gm/dl (3.4-5.0); Bilirubin,Total 0.5 mg/dl (0.2-1.0); Calcium 8.8 mg/dl (8.5-10.1); Creatinine Clr Calc Pharmacy 70.7 ml/min; Est GFR (African American) 91.2 ml/min; Est GFR (Non-African American) 78.7 ml/min; Globulin 3.4 gm/dl (2.5-4.0); Total Protein 6.8 gm/dl (6.0-8.3)
[2021-09-19 18:06] LABS: D Dimer 2120 ug/L FEU (0-500)
[2021-09-19 18:09] LABS: Troponin I High Sensitivity 19.9 pg/ml (0-20)
--- NOTE | 2021-09-19 18:48 | XRay Report ---
XR chest 1V portable CLINICAL HISTORY: Atypical chest pain. COMPARISON STUDY: Chest CT July 17, 2021. Chest radiograph July 20, 2021. FINDINGS: No pneumothorax or pleural effusion is noted. Calcified pleural plaque projects over the ri ght chest. Interval development of moderate left lower lung airspace opacity is noted. Left upper lob e opacity shown on prior chest CT has resolved. Cardiac size is normal. Mediastinal contours are norm al. IMPRESSION: Left lower lung airspace opacity suggestive of pneumonia. Radiographic follow-up to ensu re resolution is recommended. Resolution of previously described left upper lobe pneumonia. ACT 112: Negative or not required by law. Electronically signed by: Jewel Balbuena M.D. 09/19/2021 6:47 PM
[2021-09-19] MEDS ORDERED: OPTIRAY 320 125ml IV ONE (19:44)
--- NOTE | 2021-09-19 19:59 | CT Scan Report ---
ABDOMEN AND PELVIS CT WITH IV CONTRAST CT DOSE: 837.13 mGy.cm HISTORY: Right upper quadrant abdominal pain. TECHNIQUE: Multiaxial CT images of the abdomen and pelvis were performed following the use of intrave nous contrast. A dose lowering technique was utilized adhering to the principles of ALARA. COMPARISON STUDY: Abdominal CT 06/24/2009. FINDINGS: Please refer to the same day chest CT for further evaluation the lung bases. Moderate degen erative disc disease at L4-5. There is an old mild anterior wedge-shaped compression deformity at T12 . No pneumoperitoneum. No pneumatosis. Bilateral sacroiliac joints are partially fused. Trace left pl eural effusion. Prior cholecystectomy. The liver, spleen, adrenal glands, and pancreas are unremarkab le. No retroperitoneal lymphadenopathy. Moderate to severe calcified plaque within the mildly ectatic abdominal aorta which measures up to 2.6 cm in diameter. The bilateral proximal superficial femoral arteries are occluded. This is technically age indeterminate but likely chronic. The prostate gland i s mildly enlarged. Mild bladder wall thickening is likely due to chronic outlet obstruction. Calcific ations within the bilateral renal sinuses are likely vascular. No ureteral stones. No hydronephrosis. Mild bilateral perinephric edema, unchanged. This is likely chronic. The main portal vein is patent. No pelvic free fluid. A few colonic diverticula. No evidence for acute diverticulitis. No bowel wall thickening or obstruction. Normal appendix. IMPRESSION: 1. No bowel wall thickening or obstruction. 2. Colonic diverticulosis. No evidence for acute diverticulitis. 3. Normal appendix. 4. The bilateral superficial femoral arteries are occluded proximally. This is technically age indete rminate but likely chronic. 5. Please refer to the same day chest CT for further evaluation of the lung bases. 6. Additional findings as described above. ACT 112: Negative or not required by law. Electronically signed by: Hung Stuart M.D. 09/19/2021 7:57 PM
--- NOTE | 2021-09-19 20:02 | CT Scan Report ---
CT ANGIOGRAPHY OF THE CHEST, PULMONARY EMBOLUS PROTOCOL CLINICAL HISTORY: Elevated d-dimer. Short of breath. Hypoxia. History of lung cancer. COMPARISON STUDY: Chest CT July 17, 2021. Chest radiograph performed earlier today. TECHNIQUE: Following IV administration of 120 mL of Optiray, helical axial images of the chest were o btained utilizing the pulmonary embolus protocol. Maximal intensity projections and sagittal and cor onal reformats were viewed on an independent 3D workstation. IV contrast was administered without co mplication. Automated exposure control was utilized for the study. A dose lowering technique was ut ilized adhering to the principles of ALARA. FINDINGS: No pulmonary emboli are identified although the lower lobe pulmonary arteries are suboptim ally assessed due to respiratory motion. No pericardial effusion is present. Size of the heart is nor mal. There is extensive coronary artery calcification. A prominent AP window lymph node is unchanged since CT of July 17, 2021. Small left pleural effusion has slightly increased in size. There is no pne umothorax. Severe emphysema is noted. Calcified pleural plaques are again noted. Irregular opacity wi thin the posterior segment of the right upper lobe and superior segment the right lower lobe remains unchanged. This favors postradiation change. Scattered airspace opacities within the left lower lobe, lingula and anterior segment of the right upper lobe are new since CT of July 17, 2021. Secretions wi thin the right lower lobe bronchi are noted. Abdomen and pelvis CT will be reported separately. IMPRESSION: 1. No pulmonary emboli identified although lower lobe pulmonary arteries suboptimally assessed due to respiratory motion. 2. Scattered multifocal airspace opacities within the lungs which have developed since CT of July 17, 2021. This favors multifocal pneumonia. A follow-up chest CT in 3 months to ensure resolution is ed mmended. 3. Suspected post radiation change within the right lung, similar to prior exam. This can be assessed on follow-up CT. 4. Emphysema. ACT 112: Negative or not required by law. Electronically signed by: Jewel Balbuena M.D. 09/19/2021 8:00 PM
[2021-09-19] MEDS ORDERED: AZITHROMYCIN 500 MG in DEXTROSE 5% 250 ML IV STA (20:17)
[2021-09-19] MEDS ORDERED: cefTRIAXone SODIUM 2,000 MG/70 ML BAG IV STA (20:17)
[2021-09-19] MEDS ORDERED: NITROGLYCERIN SL 0.4 MG/TAB TAB SL PRN (22:48)
[2021-09-19] MEDS ORDERED: ALBUTEROL HFA 8 GM INHALER INH PRN (22:48)
[2021-09-19] MEDS ORDERED: ACETAMINOPHEN 325 MG TAB PO PRN (22:48)
[2021-09-19] MEDS ORDERED: traMADol HCL 50 MG TABLET PO PRN (22:48)
[2021-09-19] MEDS ORDERED: LEVALBUTEROL HCL 1.25 MG/3 ML NEB NEB PRN (22:48)
[2021-09-19] MEDS ORDERED: POLYETHYLENE (MIRALAX) 17 GM PACK PO PRN ×2 (22:48)
[2021-09-19] MEDS: AMPICILLIN/SULBACTAM SOD 3,000 MG in 0.9 % SODIUM CHLORIDE 100 ML IV SCH (22:54)
[2021-09-19] MEDS ORDERED: GLUCOSE 40% GEL 15 GM TUBE PO PRN (23:15)
[2021-09-19] MEDS ORDERED: GLUCAGON FOR INJ 1 MG VIAL IM PRN (23:15)
[2021-09-19] MEDS ORDERED: DEXTROSE 50% 50 ML SYRINGE IV PRN (23:15)
[2021-09-19] MEDS ORDERED: GLUCOSE 10 TAB/TUBE PO PRN (23:15)
[2021-09-20] MEDS: DOXYCYCLINE HYCLATE 100 MG in DEXTROSE 5% 100 ML IV SCH ×3 (00:03→23:55)
[2021-09-20] MEDS: ENOXAPARIN INJ 40 MG/0.4 ML SYR SQ SCH ×2 (00:04→21:35)
[2021-09-20] MEDS: PREGABALIN 150 MG CAP PO SCH ×4 (00:05→21:40)
[2021-09-20] MEDS: MAGNESIUM OXIDE 400 MG TAB PO SCH ×3 (00:06→21:33)
[2021-09-20] MEDS: METOPROLOL SUCC 25MG EXT REL TAB PO SCH ×3 (00:06→21:34)
[2021-09-20] MEDS: MONTELUKAST SODIUM 10 MG TABLET PO SCH ×2 (00:06→21:33)
[2021-09-20] MEDS: IPRATROPIUM BROMIDE NEB SOLN 0.02% 2.5 ML VIAL INH SCH ×5 (00:12→19:07)
[2021-09-20] MEDS: LEVALBUTEROL HCL 0.63 MG/3 ML NEB NEB SCH ×5 (00:13→19:07)
--- NOTE | 2021-09-20 00:51 | History and Physical Report ---
DATE OF ADMISSION: 09/19/2021. CHIEF COMPLAINT: Shortness of breath. HISTORY OF PRESENT ILLNESS: An 81-year-old male with past medical history significant for diabetes, hypertension, history of severe COPD, history of moderate aortic stenosis, history of right lower lobe lung cancer, status post radiation, history of radiation pneumonitis, history of chronic heart failure with preserved EF, history of carotid stenosis, hyperlipidemia, osteoporosis, peripheral vascular disease, left subclavian artery stenosis, history of tobacco abuse, history of B12 deficiency, history of chronic sinusitis and rhinitis, history of COVID, presents with shortness of breath. The patient states that since 3 days he is feeling short of breath, cough, bringing up yellowish phlegm, uses oxygen at home as needed lately using 1 liter of oxygen all time and symptoms are not getting better, came to the hospital. Denies any fever or chills. He has aspiration pneumonitis in the past and he says he cuts his food into small pieces and swallows with water.Denies any headache. No dizziness, no blurred visions, no earache, no runny nose, no sore throat. He notes he also has chest pain from his radiation, comes and goes, moves up and down. He is also having some abdominal discomfort. Denies any nausea. No diarrhea or constipation. Normal bladder movements. Ambulating without any support. ALLERGIES: No known drug allergies. PAST MEDICAL HISTORY: As mentioned above. PAST SURGICAL HISTORY: Right total knee arthroplasty, bronchoscopy, common femoral endarterectomy, femoral popliteal artery revascularization with stent and angioplasty, back surgery, tonsillectomy, cataract surgery, cholecystectomy, repair of nasal septum, left third trigger finger release. MEDICATIONS: The patient is on albuterol 2 puffs inhalation q. 4 hours p.r.n., amlodipine 2.5 mg p.o. daily, aspirin 81 mg p.o. daily, atorvastatin 80 mg p.o. daily, Trelegy Ellipta 1 inhalation daily, furosemide 20 mg p.o. 6 times a week, ipratropium bromide 2 sprays intranasal b.i.d., lisinopril 5 mg p.o. a.m., magnesium oxide 400 mg p.o. b.i.d., metformin 1000 mg p.o. daily, metoprolol succinate 25 mg as directed, montelukast 10 mg p.o. daily, omeprazole 20 mg p.o. daily, MiraLax 17 grams p.o. daily p.r.n., potassium gluconate 550 mg p.o. daily, Lyrica 150 mg p.o. daily, tramadol 50 mg p.o. 8 hours p.r.n. FAMILY HISTORY: Significant for father has diabetes; brother has [place]; mother has peripheral vascular disease. SOCIAL HISTORY: , former smoker, smoked 1 pack a day for 60 years, quit in 2012. Alcohol, drinks 12 drinks per week as per the Epic. No drug use. REVIEW OF SYSTEMS: As per HPI. Rest of review of systems is negative. PHYSICAL EXAMINATION: GENERAL: The patient is of moderate build, not in acute distress. VITAL SIGNS: Temperature 36.4, pulse 93, respiratory rate 19, blood pressure 152/106, oxygen 88% on room air and 95% on 2 L. HEENT: Pupils equal, round and reactive to light. Oral mucosa moist. NECK: No carotid bruit, no neck masses, no JVD seen. CARDIOVASCULAR: S1 and S2 heard. Regular rate and rhythm. No murmur, no gallop. RESPIRATORY SYSTEM: Normal AP diameter. No accessory muscle use. Mild bilateral wheezing is heard. No crackles. ABDOMEN: Soft, bowel sounds present. Mild abdominal discomfort, feels no distention. CENTRAL NERVOUS SYSTEM: Cranial nerves II-XII are grossly intact, nonfocal. EXTREMITIES: No edema, no erythema. LABORATORY DATA: WBC 5.3, hemoglobin 13.7, hematocrit 40.2, platelets 318. D- dimer 2120. Sodium 136, potassium 4, chloride 101, bicarbonate 24, BUN 18, creatinine 0.9, serum glucose 139, calcium 8.8, total bilirubin 0.5, AST 10, ALT 7, alkaline phosphatase 75, troponin I high sensitivity 19.9. Lipase 14. SARS-CoV-2 rapid test negative. IMAGING DATA: CT of the chest, no pulmonary emboli, scattered multifocal airspace opacities within the lungs, which have developed since CT of the 07/17/2021. Possible multifocal pneumonia. Followup CT chest in three months is recommended. Suspected postradiation changes in the right lung, similar to prior exam. Emphysema. CT of abdomen and pelvis, no bowel wall thickening or obstruction, colonic diverticulosis, no evidence for acute diverticulitis. Normal appendix. Bilateral superficial femoral arteries are occluded proximally. This is technically age indeterminate, but likely chronic. Chest x-ray, left lower lung airspace opacities are suggestive of pneumonia, resolution of previously described left upper lobe pneumonia. EKG: Normal sinus rhythm at a rate of 83, left bundle-branch block. ASSESSMENT AND PLAN: This is an 81-year-old male who presents with shortness of breath and cough and found to have pneumonia. 1. Shortness of breath: Shortness of breath with multifocal pneumonia on CAT scan. History of aspiration pneumonia episode in the past. History of COVID in the past. Empirically started on Unasyn and doxycycline. We will place him on full liquid diet for now and consult speech evaluation in the a.m. Monitor for the response. 2. Mild COPD exacerbation and mild wheezing. History of COPD. Continue home inhalers. The patient placed on nebs around the clock and p.r.n., IV Solu- Medrol 40 mg p.o. b.i.d., antibiotics as above. Monitor for the response. 3. History of diabetes: Holding metformin, placed on insulin sliding scale. Follow the blood sugars. 4. History of hypertension: Continue his home medications of lisinopril, metoprolol and Lasix. Monitor the blood pressure. 5. History of lung cancer, status post radiation pneumonitis. Follow up with pulmonary. 6. GERD. On omeprazole. 7. History of chronic diastolic CHF,on Lasix and metoprolol. Monitor for any volume overload. 8. Deep venous thrombosis prophylaxis: Placed on Lovenox. DISPOSITION: Closely monitor in [employer]. Level 1 full code. PT/OT prior to discharge. Social service to help with discharge planning. Job ID: [id number] [facility]
[2021-09-20] MEDS ORDERED: XOPENEX/ATROVENT 0.63mg/0.5MG NEB COMBO NEB SCH (01:00)
[2021-09-20] MEDS: AMPICILLIN/SULBACTAM SOD 3,000 MG in 0.9 % SODIUM CHLORIDE 100 ML IV SCH ×5 (02:27→23:16)
[2021-09-20] MEDS ORDERED: PANTOprazole 40 MG TAB ONE (04:55)
[2021-09-20] MEDS: PANTOprazole 40 MG TAB PO SCH (05:16)
[2021-09-20] MEDS: methylPREDNISolone 40 MG in SYRINGE 0 ML IV SCH ×2 (05:16→18:23)
[2021-09-20 05:36] LABS: Hematocrit (blood only) 38.2 % (40.1-51.0); Hemoglobin 12.9 g/dl (14.0-18.0); Immature Granulocytes # (auto) 0.02 K/uL (0.00-0.02); Immature Granulocytes % (auto) 0.7 %; Lymphocytes # (auto) 0.34 K/uL (1.2-3.4); Lymphocytes % (auto) 11.7 %; Mean Corpuscular Hemoglobin 30.1 pg (25.0-34.0); Mean Corpuscular Hgb Conc 33.8 g/dL (32.0-36.0); Mean Corpuscular Volume 89.3 fL (80.0-100.0); Mean Platelet Volume 11.5 fL (9.4-12.4); Monocytes # (auto) 0.16 K/uL (0.24-0.82); Monocytes % (auto) 5.5 %; Neutrophils # (auto) 2.39 K/uL (1.4-6.5); Neutrophils % (auto) 82.1 %; Platelet Count 295 K/uL (130-400); RDW Coefficient of Variation 13.8 % (11.5-14.5); RDW Standard Deviation 44.9 fL (36.4-46.3); Red Blood Count 4.28 M/uL (4.63-6.08); White Blood Count 2.91 K/ul (4.8-10.8)
[2021-09-20 06:04] LABS: BUN Creatinine Ratio 21.8 (10-20); Calcium 8.7 mg/dl (8.5-10.1); Creatinine Clr Calc Pharmacy 81.6 ml/min; Est GFR (African American) 96.7 ml/min; Est GFR (Non-African American) 83.5 ml/min; Magnesium 1.6 mg/dl (1.7-2.4); Potassium 4.4 mmol/L (3.5-5.1)
[2021-09-20 06:44] LABS: Estimated Average Glucose 171 mg/dl; Hemoglobin A1C 7.6 % (4.5-5.6)
[2021-09-20] MEDS ORDERED: PHARMACY GLYCEMIC MGMT CONSULT PRN (07:51)
[2021-09-20] MEDS ORDERED: POTASSIUM GLUCONATE PO SCH (09:00)
[2021-09-20] MEDS ORDERED: FLUTICASONE FUROATE 100MCG 14 PUFFS/INHALER INH SCH (09:00)
[2021-09-20] MEDS ORDERED: LANTUS PER UNIT CHARGE SQ SCH ×2 (09:15→21:00)
[2021-09-20] MEDS ORDERED: LANTUS PER UNIT CHARGE SQ ONE (09:15)
[2021-09-20] MEDS: amLODIPine BESYLATE 5 MG TAB PO SCH (09:25)
[2021-09-20] MEDS: ASPIRIN 81 MG ECTAB PO SCH (10:02)
[2021-09-20] MEDS: FUROSEMIDE 20 MG TAB PO SCH (10:02)
[2021-09-20] MEDS: ATORVASTATIN 40 MG TAB PO SCH (10:03)
[2021-09-20] MEDS: lisinopril 5 MG TAB PO SCH (10:05)
[2021-09-20] MEDS: UMECLIDINIUM/VILANTEROL 62.5/25MCG 7 PUFFS/INHALER INH SCH (10:06)
[2021-09-20] MEDS: INSULIN ASPART PER UNIT SC SCH ×4 (10:32→21:31)
--- NOTE | 2021-09-20 14:25 | Electrocardiogram Report ---
Test Reason : Blood Pressure : / mmHG Vent. Rate : 083 BPM Atrial Rate : 083 BPM P-R Int : 186 ms QRS Dur : 142 ms QT Int : 424 ms P-R-T Axes : 058 019 130 degrees QTc Int : 498 ms Normal sinus rhythm Left bundle branch block Abnormal ECG When compared with ECG of 21-JUL-2021 05:10, Vent. rate has decreased BY 46 BPM Confirmed by Pawan Chinchilla ([id number]) on 09/20/2021 2:24:56 PM Referred By: REFERRED SELF Confirmed By:Pawan Chinchilla
--- NOTE | 2021-09-20 14:38 | Pharmacy Report ---
Pharmacy Glycemic Short Note 2 - Date of Service September 20, 2021 - Glycemic Short BSG Results (Last 24 hours): 09/19/21 09/20/21 09/20/21 17:15 05:21 08:55 Glucose 139 H 289 H POC Glucose 237 H 09/20/21 11:51 Glucose POC Glucose 279 H OUTPATIENT ANTIDIABETIC REGIMEN: * metformin 1 gm PO Daily * HbA1C = 7.6% (09/20/21) ASSESSMENT: * Mr Piña is an 81 y/o M with a PMH of T2DM who presents with SOB. He received Solu-Medrol 40 mg on 09/19/21 @ 1723 and then was started on Solu- Medrol 40 mg IV q12 hours @ 0600 on 09/20/21. * Fasting BSG today was 237 mg/dL (after two doses of Solu-Medrol). * For basal, started Lantus 20 units x 1 (gxrd-bkrnvs-pxhys stress of 3). This was not given until noon. Will do a scale for this evening with weight-based stress 1 and 2 available. * For Novolog, started weight-based stress of 3. AM Novolog given at 1032 and lunch Novolog given at 1430 so Accuchecks have been off. * Overnight checks to ensure full 24 hour coverage. PLAN FOR INPATIENT GLYCEMIC CONTROL: * Hold outpatient oral diabetes medications * Basal insulin * Lantus 20 units SQ x 1 then 0-15 units tonight depending on BSG * Bolus insulin * NovoLog per scale ACHS or Q6hrs while NPO * Goal Range: Low 110 mg/dL - High 140 mg/dL * Correction Factor: 20 mg/dL/unit * Nutritional / Prandial insulin per carb ratio of 1 unit per 7 grams CHO consumed
--- NOTE | 2021-09-20 16:41 | Pulmonary Consultation ---
Date of Consultation September 20, 2021 Assessment & Plan (1) Multifocal pneumonia: (2) Hypoxia: (3) Abnormal CT scan of lung: (4) COPD (chronic obstructive pulmonary disease): Plan CT chest 09/19/2021 personally reviewed: Centrilobular and paraseptal emphysema appreciated bilaterally Bronchiectasis superior segment of the right lower lobe with scarring Consolidative changes appreciated in the left lower lobe, left upper lobe consolidative process seems to be improving No mediastinal lymphadenopathy 2D echo 07/18/2021: Normal EF, right ventricle systolic function is normal --Pneumonia Left lower lobe Continue with antibiotics Seems to be recurrent aspiration. Patient already has a history of aspiration as per the previous records. Swallow eval can be done again if it is not confirmatory. COVID NAAT negative --Abnormal chest CT Patient seen to have bronchiectasis and fibrosis of the superior segment of the right upper lobe There is some interstitial thickening around the emphysematous changes in the right lower lobe on the periphery Repeat CT chest in 3 months --History of lung cancer S/p radiation on the right side That is most likely the cause of patient's fibrosis and bronchiectasis in the superior segment of the right lung -- COPD with emphysema On Trelegy inhaler at home. Would recommend to continue with the same regimen --Ex-smoker [id number]-[id number] smoking history Quit in 2012 Plan: Would recommend to have swallow eval to rule out aspiration episodes Add flutter valve and hypertonic saline Please note the above document was generated using voice recognition software. It may contain grammatical, syntax or spelling errors.Any formal questions or concerns about the content, text or information contained within the body of this dictation should be directly addressed to the provider for clarification. History of Present Illness Attending Physician: Brandon Rubalcava MD History of Present Illness 81-year-old male was admitted to hospital because of shortness of breath Past medical history: Diabetes, hypertension, moderate aortic stenosis, right lower lobe cancer s/p radiation, dyslipidemia, peripheral vascular disease Pulmonary consulted for shortness of breath and recurrent infiltrate At the time of examination patient said that he has been having issues with coughing for a long time Denies any worsening with eating He states that he is compliant with the recommendation from speech therapy that he got from before. No hemoptysis. No fever or chills No dysuria, diarrhea No headache, no blurry vision. He has been using incentive spirometry. He is compliant with his medications. Social history: [id number] smoking history quit in 2012. Drinks 1 and half to 2 drinks a week. Denies any illicit drug use Allergies Allergy/AdvReac Type Severity Reaction Status Date / Time No Known Allergies Allergy Verified 09/19/21 17:19 Home Medications Medication Instructions Recorded Confirmed Type albuterol sulfate 90 mcg/actuation 2 puff inhalation Q4H PRN Wheezing 12/11/17 09/19/21 History aerosol inhaler omeprazole 20 mg capsule,delayed 20 mg PO DAILYBB 12/11/17 09/19/21 History release furosemide 20 mg tablet (Lasix) 20 mg PO [id number] 10/31/19 09/19/21 History metoprolol succinate 25 mg See Rx Instructions .Route .COMPLEX 10/31/19 09/19/21 History tablet,extended release 24 hr montelukast 10 mg tablet 10 mg PO HS 10/31/19 09/19/21 History potassium gluconate 550 mg (90 mg) 550 mg PO DAILY 10/31/19 09/19/21 History tablet aspirin 81 mg tablet,delayed 81 mg PO DAILY 01/07/21 09/19/21 History release (Adult Aspirin Regimen) atorvastatin 80 mg tablet 80 mg PO DAILY 01/07/21 09/19/21 History ipratropium bromide 21 mcg (0.03 2 spray intranasal BID 06/24/21 09/19/21 History %) nasal spray magnesium oxide 400 mg PO BID 06/24/21 09/19/21 History polyethylene glycol 3350 17 gram 17 g PO DAILY PRN Constipation 06/24/21 09/19/21 History oral powder packet (Miralax) tramadol 50 mg tablet 50 mg PO Q8H PRN Moderate Pain 06/24/21 09/19/21 History (Scale Score 5-6) pregabalin 150 mg capsule (Lyrica) 150 mg PO Q8H #0 caps 07/22/21 09/19/21 Rx amlodipine 2.5 mg tablet 2.5 mg PO DAILY 09/09/21 09/19/21 History fluticasone fur. 100 mcg-umeclid 1 inh inhalation QAM 09/19/21 09/19/21 History 62.5 mcg-vilant 25 mcg inhalat.powder (Trelegy Ellipta) lisinopril 5 mg tablet 5 mg PO QAM 09/19/21 09/19/21 History metformin 500 mg tablet,extended 1,000 mg PO DAILY 09/19/21 09/19/21 History release 24 hr Patient History Medical History (Updated 09/19/21 @ 22:47 by Curt Sanford DO) Acute on chronic systolic and diastolic heart failure, NYHA class 4 Acute congestive heart failure likely precipitated by paroxysmal atrial fibrillation with rapid ventricular rate. Now back in sinus rhythm diuresing well with decreasing oxygen requirements Recommend: Continue diuretics, discontinue BiPAP, wean oxygen as tolerated, initiate sliding scale insulin for hyperglycemia, advance diet as tolerated Acute respiratory failure with hypoxia and hypercapnia Aortic stenosis Atherosclerosis of leg with intermittent claudication COPD (chronic obstructive pulmonary disease) Diabetes mellitus, type 2 Electrolyte imbalance GERD (gastroesophageal reflux disease) Hyperlipidemia Hypertension Hypokalemia Hypomagnesemia Hypoxia LBBB (left bundle branch block) Malignant neoplasm of skin of trunk Basal Cell - on Forehead and on Neck Nonischemic cardiomyopathy Osteoporosis Pulmonary edema PVD (peripheral vascular disease) Valvular heart disease Vertebral fracture, osteoporotic (02/04/08) Surgical History History of bronchoscopy 10/23/2019 - Diagnostic History of cardiac cath 11/2017 History of cataract extraction with lens replacement 07/03/2013 - Dr. Hazel History of cholecystectomy 1998 History of discectomy 1995 History of ERCP 02/1999 - with stone removal History of nasal septoplasty History of procedure for peripheral vascular disease 01/15/2015 - Right Femoral Endarterectomy History of tonsillectomy As a Child History of total knee replacement 12/05/2011 - Right - Dr. Medina History of trigger finger 10/09/2019 - Release Surgery (Dr. Dana Hernandez) Family History Mother , Passed age 92 of natural causes No problems noted. Father , Passed age 67 from stroke complications No problems noted. Brother , Passed age 67 of [place] No problems noted. Son No problems noted. Daughter No problems noted. 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 Other Information That Helps Us Care for You: No Feels Safe at Home: Yes Safety Concerns: Feels Safe At This Time Childhood Exposure to Second-Hand Smoke: No caffeine: Yes (1-2 cups of coffee/day ) during the past year weight has: remained stable Dental Care, Regularly: Yes Assistive Devices: Oxygen - Continuous Review of Systems Review of Systems: All systems reviewed & are unremarkable except as noted in HPI & below Physical Exam Physical Exam: Constitutional: No acute distress HEENT: EOMI, PERRLA Respiratory system: Decreased air entry bilaterally, no wheeze, rhonchi, positive crackles bilaterally CVS: S1-S2 positive, no murmurs or gallops, distant heart sounds Abdomen: Soft, nontender, nondistended, positive bowel sounds x4 Extremities: +2 pulses bilaterally radialis/ dorsalis pedis, no cyanosis, no edema Neuro: Awake alert oriented x3 Psych: Normal mood and affect G/U: No [place] Skin: no rashes, warm and dry Lymphatic: no cervical or axillary lymphadenopathy Results & Data Results & [facility] ([facility]) Vital Signs (Past 12 Hours) Vital Signs Temp Pulse Resp BP Pulse Ox O2 Del Method O2 Flow Rate 09/20/21 13:19 65 20 118/62 93 Nasal Cannula 1 09/20/21 12:28 65 18 97 Nasal Cannula 2 09/20/21 11:31 67 20 158/88 H 95 Nasal Cannula 2 09/20/21 10:09 37 C 73 22 158/102 H 94 Nasal Cannula 2 09/20/21 07:21 63 18 97 Nasal Cannula 2 Laboratory Results 09/20/21 05:21 09/20/21 05:21 PG Care Time/CCT Total # of Minutes Spent Total Time Spent with Patient: Total time spent is greater than 50% in coordination of care (as documented) at patient's floor/unit and/or counseling patient: Coding Level of Care Code 06953 Initial Inpt Care Lvl 3 Diagnoses Multifocal pneumonia J18.[address] scan of lung R91.8 COPD (chronic obstructive pulmonary disease) J44.9
--- NOTE | 2021-09-20 19:12 | Hospitalist Progress Note ---
Date of Service September 20, 2021 Assessment & Plan (1) Multifocal pneumonia: Plan: ASSESSMENT AND PLAN: This is an 81-year-old male who presents with shortness of breath and cough and found to have pneumonia. 1. Multifocal pneumonia, possible community-acquired versus aspiration related History of radiation pneumonitis History of aspiration pneumonia episode in the past. History of COVID in the past. Empirically started on Unasyn and doxycycline. We will place him on full liquid diet for now and consult speech evaluation in the a.m. Monitor for the response. 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 Cuellar per family request- recommend to DC inhaled corticosteroid to prevent recurrent pneumonia Sputum cultures ordered Continue Unasyn plus doxycycline, nebs, Solu-Medrol Pulmonary service consulted 2. Mild COPD exacerbation and mild wheezing. History of COPD. Management per above 3. History of diabetes: Holding metformin, placed on insulin sliding scale. Follow the blood sugars. 4. History of hypertension: Continue his home medications of lisinopril, metoprolol and Lasix. Monitor the blood pressure. 5. History of lung cancer, status post radiation pneumonitis. Follow up with pulmonary. 6. GERD. On omeprazole. 7. History of chronic diastolic CHF,on Lasix and metoprolol. Monitor for any volume overload. 8. Deep venous thrombosis prophylaxis: Placed on Lovenox. DISPOSITION: Closely monitor in [employer]. Level 1 full code. PT/OT prior to discharge. Social service to help with discharge planning. Tried to call patient's but no response Admission and Anticipated Discharge Date Admission Date: September 19, 2021 Subjective Follow-up for multifocal pneumonia, etc. Seen sitting up in bed, on 1 L of nasal cannula States he feels okay overall Improving compared to yesterday Less cough, denies shortness of breath No chest pain, palpitations, dizziness No fevers or chills no abdominal pain, nausea vomiting No other symptom Review of Systems Review of Systems: all noted and negative except for above Physical Exam Physical Exam: General- oriented x 3, not in distress, speaks in sentences with no effort or accessory muscle use Head- atraumatic Eyes- PERRL, EOMI, anicteric ENT- oropharynx clear Neck- supple, no JVD, no adenopathy, no thyromegaly; carotids +2/2, no bruits appreciated Lungs-positive faint diffuse wheeze bilaterally No crackles Heart- normal rate, regular rhythm; no murmur, no gallop, no rub appreciated Abdomen- normal bowel sounds, nondistended, soft, nontender, no masses or hepatosplenomegaly Extremities- no pretibial edema, no calf tenderness; peripheral pulses intact Neuro- alert, oriented x 3; CN 2-12 grossly intact; motor 5/5 [address]ally;sensation 100% on all extremities; no other gross focal neurologic deficits Skin- warm & dry Results & Data Results & Data ([facility]) Vital Signs (Past 12 Hours) Vital Signs Temp Pulse Pulse Resp BP Pulse Ox O2 Del Method 09/20/21 16:43 75 09/20/21 16:15 36.4 C L 79 18 119/75 91 Nasal Cannula 09/20/21 16:31 Nasal Cannula 09/20/21 13:19 65 20 118/62 93 Nasal Cannula 09/20/21 12:28 65 18 97 Nasal Cannula 09/20/21 11:31 67 20 158/88 H 95 Nasal Cannula 09/20/21 10:09 37 C 73 22 158/102 H 94 Nasal Cannula 09/20/21 07:21 63 18 97 Nasal Cannula O2 Flow Rate 09/20/21 16:43 09/20/21 16:15 1 09/20/21 16:31 1 09/20/21 13:19 1 09/20/21 12:28 2 09/20/21 11:31 2 09/20/21 10:09 2 09/20/21 07:21 2 all noted and reviewed including below
[2021-09-20] MEDS: CARBOHYDRATES FOR HYPOGLYCEMIA PO PRN ×2 (20:12→20:44)
[2021-09-21] MEDS: INSULIN ASPART PER UNIT SC SCH ×6 (00:15→22:10)
[2021-09-21] MEDS: LEVALBUTEROL HCL 0.63 MG/3 ML NEB NEB SCH (00:37)
[2021-09-21] MEDS: IPRATROPIUM BROMIDE NEB SOLN 0.02% 2.5 ML VIAL INH SCH (00:37)
[2021-09-21] MEDS: PANTOprazole 40 MG TAB PO SCH (05:34)
[2021-09-21] MEDS: methylPREDNISolone 40 MG in SYRINGE 0 ML IV SCH ×2 (05:34→17:39)
[2021-09-21] MEDS: PREGABALIN 150 MG CAP PO SCH ×3 (06:06→22:01)
[2021-09-21] MEDS: AMPICILLIN/SULBACTAM SOD 3,000 MG in 0.9 % SODIUM CHLORIDE 100 ML IV SCH ×4 (06:07→23:21)
[2021-09-21] MEDS: LANTUS PER UNIT CHARGE SQ SCH (08:59)
[2021-09-21] MEDS: UMECLIDINIUM/VILANTEROL 62.5/25MCG 7 PUFFS/INHALER INH SCH (09:02)
[2021-09-21] MEDS: METOPROLOL SUCC 25MG EXT REL TAB PO SCH ×2 (09:03→22:02)
[2021-09-21] MEDS: ASPIRIN 81 MG ECTAB PO SCH (09:03)
[2021-09-21] MEDS: ATORVASTATIN 40 MG TAB PO SCH (09:03)
[2021-09-21] MEDS: amLODIPine BESYLATE 5 MG TAB PO SCH (09:03)
[2021-09-21] MEDS: FUROSEMIDE 20 MG TAB PO SCH (09:04)
[2021-09-21] MEDS: MAGNESIUM OXIDE 400 MG TAB PO SCH ×2 (09:04→22:03)
[2021-09-21] MEDS: lisinopril 5 MG TAB PO SCH (09:04)
[2021-09-21] MEDS: ADVANCED PROBIOTIC 1250 MG CAPSULE PO SCH (11:12)
[2021-09-21] MEDS: DOXYCYCLINE HYCLATE 100 MG in DEXTROSE 5% 100 ML IV SCH ×2 (12:56→23:59)
--- NOTE | 2021-09-21 14:15 | Pharmacy Report ---
Pharmacy Glycemic Short Note 2 - Date of Service September 21, 2021 - Glycemic Short BSG Results (Last 24 hours): 09/20/21 09/20/21 09/20/21 16:35 20:08 20:10 POC Glucose 245 H 65 L* 62 L* 09/20/21 09/20/21 09/20/21 20:33 20:59 21:28 POC Glucose 63 L* 71 88 09/20/21 09/21/21 09/21/21 22:35 04:15 07:52 POC Glucose 198 H 241 H 132 H 09/21/21 11:33 POC Glucose 233 H OUTPATIENT ANTIDIABETIC REGIMEN: * metformin 1 gm PO Daily * HbA1C = 7.6% (09/20/21) ASSESSMENT: 09/21/21 * BSGs yesterday were [phone] and overnight were 198-241 mg/dL. Julisa ent continues to receive Solu-Medrol 40 mg IV q12. * Patient had hypoglycemic episode as Novolog was administered late and stacking occurred. * Patient received 49 units of insulin yesterday (20 units of basal and 29 units of bolus). * Continue Lantus 20 units. * Continue Novolog with loosen CF. Background * Mr Wang is an 81 y/o M with a PMH of T2DM who presents with SOB. He received Solu-Medrol 40 mg on 09/19/21 @ 1723 and then was started on Solu- Medrol 40 mg IV q12 hours @ 0600 on 09/20/21. * Fasting BSG today was 237 mg/dL (after two doses of Solu-Medrol). * For basal, started Lantus 20 units x 1 ([id number]-[id number] stress of 3). This was not given until noon. Will do a scale for this evening with weight-based stress 1 and 2 available. * For Novolog, started weight-based stress of 3. AM Novolog given at 1032 and lunch Novolog given at 1430 so Accuchecks have been off. * Overnight checks to ensure full 24 hour coverage. PLAN FOR INPATIENT GLYCEMIC CONTROL: * Hold outpatient oral diabetes medications * Basal insulin * Lantus 20 units SQ daily * Bolus insulin * NovoLog per scale ACHS or Q6hrs while NPO * Goal Range: Low 110 mg/dL - High 140 mg/dL * Correction Factor: 25 mg/dL/unit * Nutritional / Prandial insulin per carb ratio of 1 unit per 7 grams CHO consumed
--- NOTE | 2021-09-21 15:24 | Pulmonology Progress Note ---
Date of Service September 21, 2021 Assessment & Plan (1) Multifocal pneumonia: (2) Hypoxia: (3) Abnormal CT scan of lung: (4) COPD (chronic obstructive pulmonary disease): Plan CT chest 09/19/2021 personally reviewed: Centrilobular and paraseptal emphysema appreciated bilaterally Bronchiectasis superior segment of the right lower lobe with scarring Consolidative changes appreciated in the left lower lobe, left upper lobe consolidative process seems to be improving No mediastinal lymphadenopathy 2D echo 07/18/2021: Normal EF, right ventricle systolic function is normal --Pneumonia Left lower lobe Continue with antibiotics Seems to be recurrent aspiration. Patient already has a history of aspiration as per the previous records. Swallow eval can be done again if it is not confirmatory. COVID NAAT negative Procalcitonin 0.06 --Abnormal chest CT Patient seen to have bronchiectasis and fibrosis of the superior segment of the right upper lobe There is some interstitial thickening around the emphysematous changes in the right lower lobe on the periphery Repeat CT chest in 3 months --History of lung cancer S/p radiation on the right side That is most likely the cause of patient's fibrosis and bronchiectasis in the superior segment of the right lung -- COPD with emphysema On Trelegy inhaler at home. Would recommend to continue with the same regimen --Ex-smoker [id number] smoking history Quit in 2012 Plan: Continue with antibiotics Continue with flutter valve and hypertonic saline nebulized Recommend speech eval again. Can check immunoglobulin levels to see if patient does has hypogammaglobulinemia Please note the above document was generated using voice recognition software. It may contain grammatical, syntax or spelling errors.Any formal questions or concerns about the content, text or information contained within the body of this dictation should be directly addressed to the provider for clarification. Admission and Anticipated Discharge Date Admission Date: September 19, 2021 Subjective Seen and examined at bedside. No acute distress, no delusions overnight. Says that he still coughing. No hemoptysis. Fair appetite. No nausea or vomiting. No headache, blurry vision. No abdominal pain. Review of Systems Review of Systems: All systems reviewed & are unremarkable except as noted in Subjective Physical Exam Physical Exam: Constitutional: No acute distress HEENT: EOMI, PERRLA Respiratory system: Decreased air entry bilaterally, no wheeze, rhonchi, positive crackles bilaterally CVS: S1-S2 positive, no murmurs or gallops, distant heart sounds Abdomen: Soft, nontender, nondistended, positive bowel sounds x4 Extremities: +2 pulses bilaterally radialis/ dorsalis pedis, no cyanosis, no edema Neuro: Awake alert oriented x3 Psych: Normal mood and affect G/U: No [place] Skin: no rashes, warm and dry Lymphatic: no cervical or axillary lymphadenopathy Results & Data Results & Data ([facility]) Vital Signs (Past 12 Hours) Vital Signs Temp Pulse Pulse Resp BP Pulse Ox O2 Del Method 09/21/21 14:57 36.3 C L 58 L 16 114/70 92 Room Air 09/21/21 11:23 36.3 C L 62 16 129/62 95 Nasal Cannula 09/21/21 08:00 Nasal Cannula 09/21/21 08:00 56 L 09/21/21 07:34 36.4 C L 62 16 137/76 95 Nasal Cannula 09/21/21 04:34 Nasal Cannula 09/21/21 04:11 65 18 136/63 93 Room Air O2 Flow Rate 09/21/21 14:57 09/21/21 11:23 1 09/21/21 08:00 1 09/21/21 08:00 09/21/21 07:34 2 09/21/21 04:34 1 09/21/21 04:11 Laboratory Results 09/20/21 05:21 09/20/21 05:21 PG Care Time/CCT Total # of Minutes Spent Total Time Spent with Patient: Total time spent is greater than 50% in coordination of care (as documented) at patient's floor/unit and/or counseling patient: Coding Level of Care Code 36151 Subseq Hosp Care Lvl 2 Diagnoses Multifocal pneumonia J18.[address] scan of lung R91.8 COPD (chronic obstructive pulmonary disease) J44.9
[2021-09-21] MEDS: SODIUM CHLOR 7% 4 ML NEB NEB SCH (19:52)
--- NOTE | 2021-09-21 20:02 | Hospitalist Progress Note ---
Date of Service September 21, 2021 Assessment & Plan (1) Multifocal pneumonia: Plan: ASSESSMENT AND PLAN: This is an 81-year-old male who presents with shortness of breath and cough and found to have pneumonia. 1. Multifocal pneumonia, possible community-acquired versus aspiration related History of radiation pneumonitis History of aspiration pneumonia episode in the past. History of COVID in the past. Empirically started on Unasyn and doxycycline. We will place him on full liquid diet for now and consult speech evaluation in the a.m. Monitor for the response. 09/21 Clinically improving, wean of oxygen accordingly Discussed with [facility] ditch digger Dr. Cuellar per family request- recommend to DC inhaled corticosteroid to prevent recurrent pneumonia Sputum cultures ordered: Pending Continue Unasyn plus doxycycline, nebs, Solu-Medrol Pulmonary service consulted 2. Mild COPD exacerbation and mild wheezing. History of COPD. Management per above 3. History of diabetes: Holding metformin, placed on insulin sliding scale. 4. History of hypertension: Continue his home medications of lisinopril, metoprolol and Lasix. Monitor the blood pressure. 5. History of lung cancer, status post radiation pneumonitis. Follow up with pulmonary. 6. GERD. On omeprazole. 7. History of chronic diastolic CHF,on Lasix and metoprolol. Monitor for any volume overload. 8. Deep venous thrombosis prophylaxis: Placed on Lovenox. DISPOSITION: Possible discharge home tomorrow Tried to call patient's but no response Admission and Anticipated Discharge Date Admission Date: September 19, 2021 Subjective Follow-up for multifocal pneumonia, etc. Seen resting in bed, comfortable, not in distress On 1 to 2 L of nasal cannula States he is feeling improved overall Less cough Has right lower rib pain-chronic No nausea vomiting, hematemesis, melena hematochezia No fevers or chills No other symptom Review of Systems Review of Systems: all noted and negative except for above Physical Exam Physical Exam: General- oriented x 3, not in distress, speaks in sentences with no effort or accessory muscle use Eyes- anicteric Neck- no JVD Lungs- clear BS bilaterally, no wheezing Heart- normal rate, regular rhythm; no murmurs Abdomen- normal bowel sounds, nondistended, soft, nontender Extremities- no pretibial edema, no calf tenderness Neuro- alert, oriented x 3; no gross focal neurologic deficits Skin- warm & dry Results & Data Results & Data ([facility]) Vital Signs (Past 12 Hours) Vital Signs Temp Pulse Pulse Resp BP Pulse Ox O2 Del Method 09/21/21 19:52 85 18 92 Room Air 09/21/21 19:25 36.4 C L 64 20 145/74 H 92 Room Air 09/21/21 15:44 62 09/21/21 14:57 36.3 C L 58 L 16 114/70 92 Room Air 09/21/21 11:23 36.3 C L 62 16 129/62 95 Nasal Cannula 09/21/21 08:00 Nasal Cannula 09/21/21 08:00 56 L O2 Flow Rate 09/21/21 19:52 09/21/21 19:25 09/21/21 15:44 09/21/21 14:57 09/21/21 11:23 1 09/21/21 08:00 1 09/21/21 08:00 all noted and reviewed including below
[2021-09-21] MEDS: MONTELUKAST SODIUM 10 MG TABLET PO SCH (22:01)
[2021-09-21] MEDS: ENOXAPARIN INJ 40 MG/0.4 ML SYR SQ SCH (22:10)
[2021-09-22] MEDS: PANTOprazole 40 MG TAB PO SCH (04:55)
[2021-09-22] MEDS: methylPREDNISolone 40 MG in SYRINGE 0 ML IV SCH (04:55)
[2021-09-22] MEDS: PREGABALIN 150 MG CAP PO SCH (05:00)
[2021-09-22] MEDS: AMPICILLIN/SULBACTAM SOD 3,000 MG in 0.9 % SODIUM CHLORIDE 100 ML IV SCH (05:00)
[2021-09-22] MEDS: SODIUM CHLOR 7% 4 ML NEB NEB SCH (07:03)
[2021-09-22 07:21] LABS: Creatinine Clr Calc Pharmacy 79.6 ml/min; Est GFR (African American) 95.7 ml/min; Est GFR (Non-African American) 82.6 ml/min
[2021-09-22 07:53] VITALS: BP 179/67; TEMP 97.3
[2021-09-22] MEDS: METOPROLOL SUCC 25MG EXT REL TAB PO SCH (08:58)
[2021-09-22] MEDS: lisinopril 5 MG TAB PO SCH (08:59)
[2021-09-22] MEDS: MAGNESIUM OXIDE 400 MG TAB PO SCH (08:59)
[2021-09-22] MEDS: ADVANCED PROBIOTIC 1250 MG CAPSULE PO SCH (09:00)
[2021-09-22] MEDS: ATORVASTATIN 40 MG TAB PO SCH (09:00)
[2021-09-22] MEDS: ASPIRIN 81 MG ECTAB PO SCH (09:00)
[2021-09-22] MEDS: FUROSEMIDE 20 MG TAB PO SCH (09:00)
[2021-09-22] MEDS: amLODIPine BESYLATE 5 MG TAB PO SCH (09:01)
[2021-09-22] MEDS: INSULIN ASPART PER UNIT SC SCH (09:03)
[2021-09-22] MEDS: LANTUS PER UNIT CHARGE SQ SCH (09:04)
[2021-09-22] MEDS: UMECLIDINIUM/VILANTEROL 62.5/25MCG 7 PUFFS/INHALER INH SCH (09:04)
--- NOTE | 2021-09-22 09:20 | Hospitalist Progress Note ---
Date of Service September 22, 2021 Assessment & Plan (1) Multifocal pneumonia: Plan: ASSESSMENT AND PLAN: This is an 81-year-old male who presents with shortness of breath and cough and found to have pneumonia. 1. Multifocal pneumonia, possible community-acquired versus aspiration related History of radiation pneumonitis History of aspiration pneumonia episode in the past. History of COVID in the past. Empirically started on Unasyn and doxycycline. We will place him on full liquid diet for now and consult speech evaluation in the a.m. Monitor for the response. 09/22 Clinically improved on room air at rest Discussed with [facility] part time Dr. Cuellar per family request- recommend to DC inhaled corticosteroid to prevent recurrent pneumonia Sputum cultures ordered: (+) Pseudomonas given Unasyn plus doxycycline, nebs, Solu-Medrol x 3 days Pulmonary service consulted- Dr. Mcqueen discharge plan: Levaquin 500mg daily x 10 days Augmentin 875mg BID x 7 days Prednisone taper 40mg x 2 days, 20mg x 2 days, then 10mg x 2 days d/c Trelegy Ellipta, [facility] Aspiration Precautions emphasized Incentive Spirometry, Atrial Flutter 2. Mild COPD exacerbation and mild wheezing. History of COPD. Management per above 3. History of diabetes: continue Metformin 4. History of hypertension: Continue his home medications of lisinopril, metoprolol and Lasix. 5. History of lung cancer, status post radiation pneumonitis. Follow up with pulmonary. 6. GERD. On omeprazole. 7. History of chronic diastolic CHF,on Lasix and metoprolol. Monitor for any volume overload. 8. Deep venous thrombosis prophylaxis: Placed on Lovenox. DISPOSITION: d/c home today ff up with PCP in 1 week Admission and Anticipated Discharge Date Admission Date: September 19, 2021 Subjective Follow-up for multifocal pneumonia, etc. Seen resting in bed, sitting up, on room air, in good spirits States he feels much better overall Breathing also better Less cough No chest pain, palpitations, dizziness No other symptoms States that he is ready and would like to be discharged today Review of Systems Review of Systems: all noted and negative except for above Physical Exam Physical Exam: General- oriented x 3, not in distress, speaks in sentences with no effort or accessory muscle use Eyes- anicteric Neck- no JVD Lungs- mild rhonchi, L lower lobe clear on the R Heart- normal rate, regular rhythm; no murmurs Abdomen- normal bowel sounds, nondistended, soft, nontender Extremities- no pretibial edema, no calf tenderness Neuro- alert, oriented x 3; no gross focal neurologic deficits Skin- warm & dry Results & Data Results & Data ([facility]) Vital Signs (Past 12 Hours) Vital Signs Temp Pulse Pulse Resp BP Pulse Ox O2 Del Method 09/22/21 07:53 36.3 C L 64 18 179/67 H 90 09/22/21 07:05 80 16 92 Room Air 09/22/21 04:08 36.5 C 64 17 123/71 93 Room Air 09/22/21 03:54 62 09/21/21 23:00 36.4 C L 61 20 133/79 92 Room Air all noted and reviewed including below
--- NOTE | 2021-09-22 09:40 | Discharge Summary ---
Date of Service September 22, 2021 Discharge Data Allergies Allergy/AdvReac Type Severity Reaction Status Date / Time No Known Allergies Allergy Verified 09/19/21 17:19 Consultations 09/19/21 20:17 ED Decision to Admit Stat 09/20/21 16:18 Consult Pulmonology Routine Ordered Studies 09/19/21 18:38 CT Abd and Pelvis [CT abd pelvis IV con only] Stat CT angio chest PE protocol Stat Hospital Course (1) Multifocal pneumonia: ASSESSMENT AND PLAN: This is an 81-year-old male who presents with shortness of breath and cough and found to have pneumonia. 1. Multifocal pneumonia, possible community-acquired versus aspiration related History of radiation pneumonitis History of aspiration pneumonia episode in the past. History of COVID in the past. Empirically started on Unasyn and doxycycline. We will place him on full liquid diet for now and consult speech evaluation in the a.m. Monitor for the response. 09/22 Clinically improved on room air at rest [facility] Cu[facility] per family request- recommend to DC inhaled corticosteroid to prevent recurrent pneumonia Sputum cultures ordered: (+) Pseudomonas given Unasyn plus doxycycline, nebs, Solu-Medrol x 3 days Pulmonary service consulted- Dr. Mcqueen discharge plan: Levaquin 500mg daily x 10 days Augmentin 875mg BID x 7 days Prednisone taper 40mg x 2 days, 20mg x 2 days, then 10mg x 2 days d/c Trelegy Ellipta, transition to Stiolto as per [facility] Dr. Cuellar Aspiration Precautions emphasized Incentive Spirometry, Atrial Flutter 2. Mild COPD exacerbation and mild wheezing. History of COPD. Management per above 3. History of diabetes: continue Metformin 4. History of hypertension: Continue his home medications of lisinopril, metoprolol and Lasix. 5. History of lung cancer, status post radiation pneumonitis. Follow up with pulmonary. 6. GERD. On omeprazole. 7. History of chronic diastolic CHF,on Lasix and metoprolol. Monitor for any volume overload. 8. Deep venous thrombosis prophylaxis: Placed on Lovenox. DISPOSITION: d/c home today ff up with PCP in 1 week Discharge Plan Discharge Items Patient Disposition: Home - Self-Care Reason For Visit: SOB Discharge Diagnosis: MULTIFOCAL PNEUMONIA- PSEUDOMONAS, POSSIBLE ASPIRATION COMPONENT Activity: Resume your previous activity Activity Comment: RESUME ACTIVITY GRADUALLY TOLERATED Lifting: Wait until after follow-up appointment Exercise/Sports: Wait until after follow-up appointment Driving/Machine Use: NO DRIVING UNTIL RE-EVALUATED AND ALLOWED BY PRIMARY CARE PHYSICIAN Non-emergency contact: Primary Care Provider and Partition Assembly Machine Operator Call non-emergency contact if: you have any medication questions, your symptoms worsen, your pain is not controlled, your pain is worsening, your pain is unusual for you, your pain is concerning for you and you have a fever Follow-up/Referrals: Narendra Blakely MD [Primary Care Provider] - (Date & Time 09/27/2021 10:20 AM Provider Tonya Matias MD Department General Internal Medicine [facility] ) Blu Cuellar MD [Outside Practitioners] - Diet: Carb Consistent or DM2 and Heart Healthy Addtl Attending Provider Instructions: PLEASE REFER TO YOUR NEW MEDICATION LIST AND FOLLOW INSTRUCTIONS CAREFULLY. YOUR NEW MEDICATIONS INCLUDE: LEVAQUIN AND AUGMENTIN- antibiotic take a probiotic daily x 1 month to prevent diarrhea PREDNISONE TAPER- as follows Prednisone 40mg daily x 2 days, then Prednisone 20mg daily x 2 days, then Prednisone 10mg daily x 2 days, then STOP USE 3 LITERS OF OXYGEN WHILE AMBULATING. CONTINUE TO USE INCENTIVE SPIROMETRY AND FLUTTER VALVE (AT LEAST EVERY 4 HOURS) X 10 DAYS. DRINK PLENTY OF FLUIDS. PLEASE FOLLOW ASPIRATION PRECAUTIONS STRICTLY. PLEASE CALL YOUR PRIMARY CARE PHYSICIAN OR RETURN TO THE ER IF WITH WORSENING OF SYMPTOMS, INCLUDING SHORTNESS OF BREATH, COUGH, FEVER/CHILLS, DIARRHEA, ETC FOLLOW UP WITH PRIMARY CARE PHYSICIAN in 1 week. FOLLOW-UP WITH AGRICULTURE TECHNICIAN SCHEDULED. Pending Studies at Discharge: No Stand-Alone Forms: My [facility], Smoking Cessation Medications and DC Order Prescriptions: New levofloxacin 750 mg Tablet 750 mg PO DAILY@1100 6 Days Qty: 7 0RF amoxicillin-pot clavulanate 875-125 mg Tablet 1 tab PO BIDM 5 Days Qty: 10 0RF Advanced Probiotic 625 mg (10 billion cell) Capsule 2 cap PO DAILY 30 Days Qty: 60 0RF Stiolto Respimat 2.5-2.5 mcg/actuation mist 2 inh inhalation DAILY Qty: 4 0RF prednisone 10 mg tablet 10 mg PO DAILY Qty: 14 0RF Continued montelukast 10 mg tablet 10 mg PO HS metoprolol succinate 25 mg tablet extended release 24 hr See Rx Instructions .ROUTE .COMPLEX Rx Instructions: 25 mg (1 tablet) orally in the morning and 12.5 mg (1/2 tablet) orally in the evening furosemide [Lasix] 20 mg tablet 20 mg PO [id number] Rx Instructions: take one per day plus add one two days per week and as directed potassium gluconate 550 mg (90 mg) tablet 550 mg PO DAILY aspirin [Adult Aspirin Regimen] 81 mg tablet,delayed release (DR/EC) 81 mg PO DAILY atorvastatin 80 mg tablet 80 mg PO DAILY amlodipine 2.5 mg tablet 2.5 mg PO DAILY omeprazole 20 mg Capsule,Delayed Release(Dr/Ec) 20 mg PO DAILYBB albuterol sulfate 90 mcg/actuation Hfa Aerosol Inhaler 2 puff INHALATION Q4H PRN (Reason: Wheezing) polyethylene glycol 3350 [Miralax] 17 gram Powder In Packet 17 g PO DAILY PRN (Reason: Constipation) tramadol 50 mg tablet 50 mg PO Q8H PRN (Reason: Moderate Pain (Scale Score 5-6)) ipratropium bromide 21 mcg (0.03 %) spray,non-aerosol 2 spray INTRANASAL BID magnesium oxide 400 mg magnesium Capsule 400 mg PO BID lisinopril 5 mg tablet 5 mg PO QAM metformin 500 mg tablet extended release 24 hr 1,000 mg PO DAILY pregabalin [Lyrica] 150 mg capsule 150 mg PO Q8H Qty: 0 0RF Rx Instructions: at 6 am, 2 pm, and 10 pm Discontinued Trelegy Ellipta 100-62.5-25 mcg blister with device 1 inh INHALATION QAM Discharge Orders: Discharge Order (Routine); Ordered 09/22/21 Ordered By: Brandon Patel/Other Patient Handouts: Managing Type 2 Diabetes Admission Data Admit Date/Time: 09/19/21 21:01 Attending Provider: Josh Wright Admit Provider: Jonathan Ortiz Primary Care Provider: Narendra Blakely Other Providers: Jonathan Ortiz ; [facility] ; Power Mcqueen
--- NOTE | 2021-09-22 09:45 | XRay Report ---
XR chest 1V portable HISTORY: Follow up airspace opacity/pneumonia. COMPARISON: Chest 09/19/2021. FINDINGS: Patchy left basilar airspace opacities have improved. Emphysema and mild chronic interstiti al thickening persists. No pneumothorax. Focal wedge-shaped density within the right midlung zone rem ains unchanged and likely represents post radiation change. The heart is stable in size. There are ol d, healed right-sided rib fractures and an old, healed right humeral and clavicle fracture. No eviden ce for pulmonary edema. Focal right suprahilar density remains unchanged. IMPRESSION: 1. Improved aeration within the left lung base airspace opacity. 2. Focal right suprahilar density persists. 3. Emphysema. 4. No pneumothorax. ACT 112: Negative or not required by law. Electronically signed by: Hung Stuart M.D. 09/22/2021 9:43 AM
[2021-09-22 10:55] VITALS: PULSE 64; O2SAT 90
[2021-09-22] MEDS ORDERED: levoFLOXacin 750 MG TAB PO SCH (11:00)
[2021-09-22] MEDS ORDERED: levoFLOXacin 500 MG TAB PO SCH (11:00)
[2021-09-22] MEDS ORDERED: AMOXICILLIN/CLAVULANATE 875 MG TAB PO SCH (17:00)
== END 2021-09-22 12:27 | disposition home health service (06) | DRG 178 ==
LOC: ED 16:46 → SUATTDRO 21:01 → EDINP 21:01 → 2W 09-20 05:19

== ENCOUNTER 2022-10-21 14:22 | Inpatient (IN) ==
--- NOTE | 2022-10-21 14:43 | Emergency Department Note ---
Impression & Plan Pneumonia, COPD (chronic obstructive pulmonary disease), Hypoxia ED Provider Note NAME: RADHA VENCES AGE: 82 SEX: M ARRIVES VIA: Ambulance INFORMANT: Patient ED PROVIDER(S): Damien Ennis MD CHIEF COMPLAINT: Shortness of breath PLAN: Disposition: Admit MEDICAL DECISION MAKING: The patient is an 82-year-old gentleman with a past medical history of hypert ension, diabetes, severe COPD, aortic stenosis, history of right lower lobe lung cancer status post radiation and chemotherapy, history of radiation pneumonitis, chronic diastolic heart failure, carotid stenosis, hyperlipidemia, peripheral vascular disease, tobacco abuse who presents to the emergency department via EMS for worsening shortness of breath since yesterday with productive yellow sputum and increased work of breathing and chest tightness. He reports he is not on oxygen normally. On my evaluation the patient is mildly dyspneic but no acute distress, afebrile with O2 saturation 87% on room air on arrival improving to 94% on 2 L nasal cannula. Blood pressures 150s/80s and vital signs otherwise stable. He appears clinically dry. He has diminished breath sounds of the right lower lung martin with underlying bilateral wheezes diffusely. EKG demonstrates left bundle branch block similar to prior without Sgarbossa criteria. Chest x-ray demonstrates right middle lobe opacities suggestive of pneumonia per my review. WBC, H/H and platelets within normal limits. Chemistry without metabolic acidosis. Magnesium 1.6 with IV repletion provided and sodium 135 electrolytes otherwise unremarkable. Initial lactic acid 2.2 with repeat following gentle IV fluid hydration improved to 1.4. LFTs unremarkable. High-sensitivity troponin 18.5, within normal limits. BNP 48, nonspecific. Lipase is not elevated. Procalcitonin is undetectable. Respiratory viral panel/[employer] was negative. CTA of the chest was performed and was negative for PE. Note is made of airspace opacity in the right lung consistent with aspiration/pneumonia. Small right pleural effusion is seen. Emphysema and fibrotic changes are present. Upon reevaluation the patient did feel some improvement following treatment with IV fluid hydration, Solu-Medrol, DuoNeb. Patient agrees with plan for admission for further management. Case was discussed with Rosy Olmos jesse PAC with Dr. Doshi, [facility] hospitalist, who will evaluate the patient for admission. Triage Nursing notes reviewed and agree them. Prior/outside medical records reviewed Vital Signs: reviewed Differential diagnosis: Reactive airway disease, pneumonia, pneumothorax, COPD, CHF, infections, cardiac ischemia, pulmonary embolism, musculoskeletal, gastrointestinal, as well as other pathologies. ER treatment provided: See below. Diagnostics interpreted by me: ECG: Sinus rhythm with first-degree AV block, 80 bpm, no ectopy, LBBB, no sgarbossa criteria, QTc 500, QRS 138. Similar to prior. Cardiac Monitoring: An order for continuous cardiac monitoring was placed and demonstrated Sinus rhythm with first-degree AV block, 80 bpm, no ectopy. Laboratory studies: See below Imaging studies: See below Consultation(s): Case was discussed with Rosy Olmos [facility] PAC with Dr. Doshi, [facility] hospitalist, who will evaluate the patient for admission. HPI: The patient is an 82-year-old gentleman with a past medical history of hypertension, diabetes, severe COPD, aortic stenosis, history of right lower lobe lung cancer status post radiation and chemotherapy, history of radiation pneumonitis, chronic diastolic heart failure, carotid stenosis, hyperlipidemia, peripheral vascular disease, tobacco abuse who presents to the emergency department via EMS for worsening shortness of breath since yesterday with pro ductive yellow sputum and increased work of breathing and chest tightness. He reports he is not on oxygen normally. ROS: See above HPI for pertinent positives & negatives. A total of 10 systems reviewed and were otherwise negative. VITALS:See Below PHYSICAL EXAMINATION: GENERAL: Awake, alert, mildly dyspneic-appearing, in no distress HENT: Normocephalic, atraumatic. Oropharynx with dry mucous membranes and otherwise unremarkable. EYES: Normal conjunctiva. Sclera non-icteric. NECK: Supple. No nuchal rigidity. FROM. No JVD. RESPIRATORY: Diminished breath sounds of the right lower lung martin with underlying bilateral wheezes diffusely. CARDIAC: Regular rate, normal rhythm. Extremities warm and well perfused. Pulses equal. ABDOMEN: Soft, non-distended. No tenderness to palpation. No rebound or guarding. No masses. RECTAL: Deferred. MUSCULOSKELETAL: Chest examination reveals no tenderness. The back is symmetr ical on inspection without obvious abnormality. There is no CVA tenderness to palpation. No joint edema. LOWER EXTREMITIES: Calves are equal size bilaterally and non-tender. No edema. No discoloration. NEURO: Normal sensorium. No sensory or motor deficits noted. SKIN: No rash or jaundice noted. Damien Ennis MD Past Med/Surg History Medical History Acute on chronic systolic and diastolic heart failure, NYHA class 4 Acute congestive heart failure likely precipitated by paroxysmal atrial fibrillation with rapid ventricular rate. Now back in sinus rhythm diuresing well with decreasing oxygen requirements Recommend: Continue diuretics, discontinue BiPAP, wean oxygen as tolerated, initiate sliding scale insulin for hyperglycemia, advance diet as tolerated Acute respiratory failure with hypoxia and hypercapnia Aortic stenosis Atherosclerosis of leg with intermittent claudication COPD (chronic obstructive pulmonary disease) Diabetes mellitus, type 2 Electrolyte imbalance GERD (gastroesophageal reflux disease) Hyperlipidemia Hypertension Hypokalemia Hypomagnesemia Hypoxia LBBB (left bundle branch block) Malignant neoplasm of skin of trunk Basal Cell - on Forehead and on Neck Nonischemic cardiomyopathy Osteoporosis Pulmonary edema PVD (peripheral vascular disease) Valvular heart disease Vertebral fracture, osteoporotic (02/04/08) Surgical History History of bronchoscopy 10/23/2019 - Diagnostic History of cardiac cath 11/2017 History of cataract extraction with lens replacement 07/03/2013 - Dr. Hazel History of cholecystectomy 1998 History of discectomy 1995 History of ERCP 02/1999 - with stone removal History of nasal septoplasty History of procedure for peripheral vascular disease 01/15/2015 - Right Femoral Endarterectomy History of tonsillectomy As a Child History of total knee replacement 12/05/2011 - Right - Dr. Medina History of trigger finger 10/09/2019 - Release Surgery (Dr. Dana Hernandez) Family History Mother , Passed age 92 of natural causes No problems noted. Father , Passed age 67 from stroke complications No problems noted. Brother , Passed age 67 of [place] No problems noted. Son No problems noted. Daughter No problems noted. 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 Feels Safe at Home: Yes Childhood Exposure to Second-Hand Smoke: No Diet: regular caffeine: Yes (1-2 cups of coffee/day ) during the past year weight has: remained stable Dental Care, Regularly: Yes Assistive Devices: Oxygen - Continuous Allergies Allergies Allergy/AdvReac Type Severity Reaction Status Date / Time No Known Allergies Allergy Verified 12/14/21 14:23 Home Meds Home Medications Medication Instructions Recorded Confirmed albuterol sulfate 90 mcg/actuation 2 puff inhalation Q4H PRN Wheezing 12/11/17 10/21/22 aerosol inhaler omeprazole 20 mg capsule,delayed 20 mg PO DAILYBB 12/11/17 10/21/22 release furosemide 20 mg tablet (Lasix) 20 mg PO SUMOTUWETHSA@0900 10/31/19 10/21/22 montelukast 10 mg tablet 10 mg PO HS 10/31/19 10/21/22 potassium gluconate 550 mg (90 mg) 550 mg PO DAILY 10/31/19 10/21/22 tablet aspirin 81 mg tablet,delayed 81 mg PO DAILY 01/07/21 10/21/22 release (Adult Aspirin Regimen) atorvastatin 80 mg tablet 80 mg PO DAILY 01/07/21 10/21/22 ipratropium bromide 21 mcg (0.03 2 spray intranasal BID 06/24/21 10/21/22 %) nasal spray magnesium oxide 400 mg PO BID 06/24/21 10/21/22 polyethylene glycol 3350 17 gram 17 g PO DAILY PRN Constipation 06/24/21 10/21/22 oral powder packet (Miralax) tramadol 50 mg tablet 50 mg PO Q8H PRN Moderate Pain 06/24/21 10/21/22 (Scale Score 5-6) lisinopril 5 mg tablet 5 mg PO QAM 09/19/21 10/21/22 metformin 500 mg tablet,extended 1,000 mg PO DAILY 09/19/21 10/21/22 release 24 hr metoprolol succinate 50 mg 50 mg PO AMHS 10/21/22 10/21/22 tablet,extended release 24 hr pregabalin 150 mg capsule (Lyrica) 150 mg PO Q8H PRN nerve pain 10/21/22 10/21/22 Previous Rx's Medication Instructions Recorded tiotropium 2.5 mcg-olodaterol 2.5 2 inh inhalation DAILY #4 grams 09/22/21 mcg/actuation mist for inhalation (Stiolto Respimat) loperamide 2 mg capsule (Imodium 2 mg PO Q6H PRN loose stool #14 07/16/22 A-D) caps Results & Data (ED) Vital Signs Vital Signs - 24 hr 10/21/22 14:35 10/21/22 14:35 10/21/22 14:35 Temperature 37.5 C 37.5 C Temperature Source Oral Oral Pulse Rate 93 H Pulse Rate from SpO2 Sensor Respiratory Rate 20 Blood Pressure 159/89 H Blood Pressure Mean 112 Pulse Oximetry 87 L 87 L Oxygen Delivery Method Room Air Room Air Oxygen Flow Rate 0 Sepsis Recent Fever Within 48 Hours Yes Sepsis New/Unexplained Change in Mental Status No Sepsis Action Taken by Nursing No Action Required Oxygen Flow Rate - Titration 2 Pulse Oximetry Post Tiitration 95 10/21/22 14:43 10/21/22 14:44 10/21/22 14:45 Temperature Temperature Source Pulse Rate 89 88 Pulse Rate from SpO2 Sensor 88 Respiratory Rate 24 Blood Pressure Blood Pressure Mean Pulse Oximetry 94 95 Oxygen Delivery Method Nasal Cannula Oxygen Flow Rate 2 Sepsis Recent Fever Within 48 Hours Sepsis New/Unexplained Change in Mental Status Sepsis Action Taken by Nursing Oxygen Flow Rate - Titration Pulse Oximetry Post Tiitration 10/21/22 14:50 10/21/22 15:00 10/21/22 15:00 Temperature Temperature Source Pulse Rate 89 88 Pulse Rate from SpO2 Sensor 90 93 H Respiratory Rate 18 13 Blood Pressure 128/92 Blood Pressure Mean 111 Pulse Oximetry 94 94 Oxygen Delivery Method Oxygen Flow Rate Sepsis Recent Fever Within 48 Hours Sepsis New/Unexplained Change in Mental Status Sepsis Action Taken by Nursing Oxygen Flow Rate - Titration Pulse Oximetry Post Tiitration 10/21/22 15:10 10/21/22 15:20 10/21/22 15:30 Temperature Temperature Source Pulse Rate 89 86 Pulse Rate from SpO2 Sensor 89 86 Respiratory Rate 15 15 Blood Pressure 135/84 Blood Pressure Mean 100 Pulse Oximetry 93 94 Oxygen Delivery Method Oxygen Flow Rate Sepsis Recent Fever Within 48 Hours Sepsis New/Unexplained Change in Mental Status Sepsis Action Taken by Nursing Oxygen Flow Rate - Titration Pulse Oximetry Post Tiitration 10/21/22 15:30 10/21/22 16:11 10/21/22 16:20 Temperature Temperature Source Pulse Rate 86 90 85 Pulse Rate from SpO2 Sensor 86 85 Respiratory Rate 15 15 17 Blood Pressure Blood Pressure Mean Pulse Oximetry 93 99 Oxygen Delivery Method Oxygen Flow Rate Sepsis Recent Fever Within 48 Hours Sepsis New/Unexplained Change in Mental Status Sepsis Action Taken by Nursing Oxygen Flow Rate - Titration Pulse Oximetry Post Tiitration 10/21/22 16:30 10/21/22 16:30 10/21/22 16:40 Temperature Temperature Source Pulse Rate 87 87 Pulse Rate from SpO2 Sensor 87 87 Respiratory Rate 23 23 Blood Pressure 89/74 L Blood Pressure Mean 79 Pulse Oximetry 100 95 Oxygen Delivery Method Oxygen Flow Rate Sepsis Recent Fever Within 48 Hours Sepsis New/Unexplained Change in Mental Status Sepsis Action Taken by Nursing Oxygen Flow Rate - Titration Pulse Oximetry Post Tiitration 10/21/22 16:50 10/21/22 17:02 10/21/22 17:10 Temperature Temperature Source Pulse Rate 92 H 86 Pulse Rate from SpO2 Sensor 92 H 93 H 86 Respiratory Rate 21 15 Blood Pressure Blood Pressure Mean Pulse Oximetry 92 90 90 Oxygen Delivery Method Oxygen Flow Rate Sepsis Recent Fever Within 48 Hours Sepsis New/Unexplained Change in Mental Status Sepsis Action Taken by Nursing Oxygen Flow Rate - Titration Pulse Oximetry Post Tiitration 10/21/22 17:20 10/21/22 17:30 10/21/22 17:33 Temperature Temperature Source Pulse Rate 85 81 Pulse Rate from SpO2 Sensor 85 82 Respiratory Rate 15 19 Blood Pressure 142/79 H Blood Pressure Mean 108 Pulse Oximetry 90 90 Oxygen Delivery Method Oxygen Flow Rate Sepsis Recent Fever Within 48 Hours Sepsis New/Unexplained Change in Mental Status Sepsis Action Taken by Nursing Oxygen Flow Rate - Titration Pulse Oximetry Post Tiitration 10/21/22 17:33 10/21/22 17:40 10/21/22 17:50 Temperature Temperature Source Pulse Rate 82 83 82 Pulse Rate from SpO2 Sensor 84 82 82 Respiratory Rate 19 15 19 Blood Pressure Blood Pressure Mean Pulse Oximetry 93 94 94 Oxygen Delivery Method Oxygen Flow Rate Sepsis Recent Fever Within 48 Hours Sepsis New/Unexplained Change in Mental Status Sepsis Action Taken by Nursing Oxygen Flow Rate - Titration Pulse Oximetry Post Tiitration 10/21/22 18:00 10/21/22 18:00 10/21/22 18:46 Temperature Temperature Source Pulse Rate 82 73 Pulse Rate from SpO2 Sensor 81 Respiratory Rate 20 Blood Pressure 147/71 H Blood Pressure Mean 90 Pulse Oximetry 96 Oxygen Delivery Method Oxygen Flow Rate Sepsis Recent Fever Within 48 Hours Sepsis New/Unexplained Change in Mental Status Sepsis Action Taken by Nursing Oxygen Flow Rate - Titration Pulse Oximetry Post Tiitration Laboratory Data Attestation: I reviewed the patient's lab results. 10/21/22 14:50 10/21/22 14:50 Lab Results 10/21/22 10/21/22 10/21/22 Range/Units 14:50 14:50 14:50 WBC 9.96 (4.8-10.8) K/ul RBC 4.77 (4.70-6.10) M/uL Hgb 15.2 (14.0-18.0) g/dl Hct 45.1 (42.0-52.0) % MCV 94.5 (80.0-100.0) fL MCH 31.9 (25.0-34.0) pg MCHC 33.7 (32.0-36.0) g/dL RDW Std Deviation 48.4 H (36.4-46.3) fL RDW Coeff of Carol 13.9 (11.5-14.5) % Plt Count 250 (130-400) K/uL MPV 10.8 (9.4-12.4) fL Immature Gran % (Auto) 0.3 % Neut % (Auto) 89.6 % Lymph % (Auto) 4.5 % Republic % (Auto) 4.7 % Eos % (Auto) 0.4 % Baso % (Auto) 0.5 % Neut # (Auto) 8.92 H (1.40-6.50) K/uL Lymph # (Auto) 0.45 L (1.20-3.40) K/uL Republic # (Auto) 0.47 (0.11-0.59) K/uL Eos # (Auto) 0.04 (0.00-0.50) K/uL Baso # (Auto) 0.05 (0.00-0.20) K/uL Immature Gran # (Auto) 0.03 (0.01-0.20) K/uL PT (9.0-12.0) Seconds INR (0.9-1.1) Sodium 135 L (136-145) mmol/L Potassium 4.3 (3.5-5.1) mmol/L Chloride 101 (98-107) mmol/L Carbon Dioxide 25 (21-32) mmol/L Anion Gap 9 (3-11) BUN 15 (6-23) mg/dl Creatinine 0.95 (0.6-1.4) mg/dl Est Cr Clr Drug Dosing Not Reportable Est GFR ( Amer) 84.9 ml/min Est GFR (Non-Af Amer) 73.2 ml/min BUN/Creatinine Ratio 15.8 (10-20) Glucose 123 H (70-99(Fasting)) mg/dl Lactate (0.4-2.0) mmol/L Calcium 9.0 (8.6-10.3) mg/dl Phosphorus 2.7 (2.5-4.9) mg/dl Magnesium 1.6 L (1.7-2.4) mg/dl Total Bilirubin 0.7 (0.2-1.0) mg/dl AST 12 L (13-39) U/L ALT 9 (7-52) U/L Alkaline Phosphatase 74 (34-104) U/L Troponin I High Sens 18.5 (0-20) pg/ml B-Natriuretic Peptide 488 H (0-100) pg/ml Total Protein 6.9 (6.0-8.3) gm/dl Albumin 4.0 (3.4-5.0) gm/dl Globulin 2.9 (2.5-4.0) gm/dl Albumin/Globulin Ratio 1.4 (0.9-2) Lipase 9 L (11-82) U/L Procalcitonin (0-0.5) ng/ml Adenovirus (PCR) (NotDetected) B. pertussis DNA (PCR) (NotDetected) B.parapertussis DNA PCR (NotDetected) C. pneumoniae DNA (PCR) (NotDetected) Coronavirus OC43 (PCR) (NotDetected) Coronavirus HKU1 (PCR) (NotDetected) Coronavirus 229E (PCR) (NotDetected) SARS-CoV-2 (PCR) (NotDetected) Coronavirus NL63 (PCR) (NotDetected) Human Metapneumovir PCR (NotDetected) Influenza Type A (PCR) (NotDetected) Influenza Type B (PCR) (NotDetected) M. pneumoniae (PCR) (NotDetected) Parainfluenza 1 (PCR) (NotDetected) Parainfluenza 2 (PCR) (NotDetected) Parainfluenza 3 (PCR) (NotDetected) Parainfluenza 4 (PCR) (NotDetected) RSV (PCR) (NotDetected) Entero/Rhino (PCR) (NotDetected) 10/21/22 10/21/22 10/21/22 Range/Units 14:50 14:50 14:50 WBC (4.8-10.8) K/ul RBC (4.70-6.10) M/uL Hgb (14.0-18.0) g/dl Hct (42.0-52.0) % MCV (80.0-100.0) fL MCH (25.0-34.0) pg MCHC (32.0-36.0) g/dL RDW Std Deviation (36.4-46.3) fL RDW Coeff of Carol (11.5-14.5) % Plt Count (130-400) K/uL MPV (9.4-12.4) fL Immature Gran % (Auto) % Neut % (Auto) % Lymph % (Auto) % Republic % (Auto) % Eos % (Auto) % Baso % (Auto) % Neut # (Auto) (1.40-6.50) K/uL Lymph # (Auto) (1.20-3.40) K/uL Republic # (Auto) (0.11-0.59) K/uL Eos # (Auto) (0.00-0.50) K/uL Baso # (Auto) (0.00-0.20) K/uL Immature Gran # (Auto) (0.01-0.20) K/uL PT 10.9 (9.0-12.0) Seconds INR 1.0 (0.9-1.1) Sodium (136-145) mmol/L Potassium (3.5-5.1) mmol/L Chloride (98-107) mmol/L Carbon Dioxide (21-32) mmol/L Anion Gap (3-11) BUN (6-23) mg/dl Creatinine (0.6-1.4) mg/dl Est Cr Clr Drug Dosing Est GFR ( Amer) ml/min Est GFR (Non-Af Amer) ml/min BUN/Creatinine Ratio (10-20) Glucose (70-99(Fasting)) mg/dl Lactate (0.4-2.0) mmol/L Calcium (8.6-10.3) mg/dl Phosphorus (2.5-4.9) mg/dl Magnesium (1.7-2.4) mg/dl Total Bilirubin (0.2-1.0) mg/dl AST (13-39) U/L ALT (7-52) U/L Alkaline Phosphatase (34-104) U/L Troponin I High Sens (0-20) pg/ml B-Natriuretic Peptide (0-100) pg/ml Total Protein (6.0-8.3) gm/dl Albumin (3.4-5.0) gm/dl Globulin (2.5-4.0) gm/dl Albumin/Globulin Ratio (0.9-2) Lipase (11-82) U/L Procalcitonin < 0.05 (0-0.5) ng/ml Adenovirus (PCR) Not Detected (NotDetected) B. pertussis DNA (PCR) Not Detected (NotDetected) B.parapertussis DNA PCR Not Detected (NotDetected) C. pneumoniae DNA (PCR) Not Detected (NotDetected) Coronavirus OC43 (PCR) Not Detected (NotDetected) Coronavirus HKU1 (PCR) Not Detected (NotDetected) Coronavirus 229E (PCR) Not Detected (NotDetected) SARS-CoV-2 (PCR) Not Detected (NotDetected) Coronavirus NL63 (PCR) Not Detected (NotDetected) Human Metapneumovir PCR Not Detected (NotDetected) Influenza Type A (PCR) Not Detected (NotDetected) Influenza Type B (PCR) Not Detected (NotDetected) M. pneumoniae (PCR) Not Detected (NotDetected) Parainfluenza 1 (PCR) Not Detected (NotDetected) Parainfluenza 2 (PCR) Not Detected (NotDetected) Parainfluenza 3 (PCR) Not Detected (NotDetected) Parainfluenza 4 (PCR) Not Detected (NotDetected) RSV (PCR) Not Detected (NotDetected) Entero/Rhino (PCR) Not Detected (NotDetected) 10/21/22 10/21/22 Range/Units 15:50 17:46 WBC (4.8-10.8) K/ul RBC (4.70-6.10) M/uL Hgb (14.0-18.0) g/dl Hct (42.0-52.0) % MCV (80.0-100.0) fL MCH (25.0-34.0) pg MCHC (32.0-36.0) g/dL RDW Std Deviation (36.4-46.3) fL RDW Coeff of Carol (11.5-14.5) % Plt Count (130-400) K/uL MPV (9.4-12.4) fL Immature Gran % (Auto) % Neut % (Auto) % Lymph % (Auto) % Republic % (Auto) % Eos % (Auto) % Baso % (Auto) % Neut # (Auto) (1.40-6.50) K/uL Lymph # (Auto) (1.20-3.40) K/uL Republic # (Auto) (0.11-0.59) K/uL Eos # (Auto) (0.00-0.50) K/uL Baso # (Auto) (0.00-0.20) K/uL Immature Gran # (Auto) (0.01-0.20) K/uL PT (9.0-12.0) Seconds INR (0.9-1.1) Sodium (136-145) mmol/L Potassium (3.5-5.1) mmol/L Chloride (98-107) mmol/L Carbon Dioxide (21-32) mmol/L Anion Gap (3-11) BUN (6-23) mg/dl Creatinine (0.6-1.4) mg/dl Est Cr Clr Drug Dosing Est GFR ( Amer) ml/min Est GFR (Non-Af Amer) ml/min BUN/Creatinine Ratio (10-20) Glucose (70-99(Fasting)) mg/dl Lactate 2.2 H* 1.4 (0.4-2.0) mmol/L Calcium (8.6-10.3) mg/dl Phosphorus (2.5-4.9) mg/dl Magnesium (1.7-2.4) mg/dl Total Bilirubin (0.2-1.0) mg/dl AST (13-39) U/L ALT (7-52) U/L Alkaline Phosphatase (34-104) U/L Troponin I High Sens (0-20) pg/ml B-Natriuretic Peptide (0-100) pg/ml Total Protein (6.0-8.3) gm/dl Albumin (3.4-5.0) gm/dl Globulin (2.5-4.0) gm/dl Albumin/Globulin Ratio (0.9-2) Lipase (11-82) U/L Procalcitonin (0-0.5) ng/ml Adenovirus (PCR) (NotDetected) B. pertussis DNA (PCR) (NotDetected) B.parapertussis DNA PCR (NotDetected) C. pneumoniae DNA (PCR) (NotDetected) Coronavirus OC43 (PCR) (NotDetected) Coronavirus HKU1 (PCR) (NotDetected) Coronavirus 229E (PCR) (NotDetected) SARS-CoV-2 (PCR) (NotDetected) Coronavirus NL63 (PCR) (NotDetected) Human Metapneumovir PCR (NotDetected) Influenza Type A (PCR) (NotDetected) Influenza Type B (PCR) (NotDetected) M. pneumoniae (PCR) (NotDetected) Parainfluenza 1 (PCR) (NotDetected) Parainfluenza 2 (PCR) (NotDetected) Parainfluenza 3 (PCR) (NotDetected) Parainfluenza 4 (PCR) (NotDetected) RSV (PCR) (NotDetected) Entero/Rhino (PCR) (NotDetected) Administered Medications Discontinued Medications Albuterol (Albut/Ipratrop 3mg/0.5mg Neb 3 Ml Vial) 3 ml NEB NOW STA; Protocol Stop: 10/21/22 15:21 Last Admin: 10/21/22 16:12 Dose: 3 ml Documented By: DEBRA Piperacillin Sod/Tazobactam Sod (Zosyn) 4.5 gm in 120 mls @ 240 mls/hr IV NOW ONE Stop: 10/21/22 15:43 Last Infusion: 10/21/22 16:55 Dose: 0 mls/hr Documented By: Admin: 10/21/22 16:12 Dose: 240 mls/hr Documented By: DEBRA Sodium Chloride (Nss) 500 mls @ 999 mls/hr IV .Q31M ONE Stop: 10/21/22 15:50 Last Infusion: 10/21/22 16:55 Dose: 0 mls/hr Documented By: Admin: 10/21/22 16:13 Dose: 999 mls/hr Documented By: DEBRA Sodium Chloride (Nss) 500 mls @ 999 mls/hr IV .Q31M ONE Stop: 10/21/22 17:35 Last Infusion: 10/21/22 18:53 Dose: 0 mls/hr Documented By: Admin: 10/21/22 17:48 Dose: 999 mls/hr Documented By: DEBRA Magnesium Sulfate/Dextrose (Magnesium Sulfate / D5w) 1 gm in 100 mls @ 100 mls/hr IV NOW STA Stop: 10/21/22 18:05 Last Infusion: 10/21/22 18:53 Dose: 0 mls/hr Documented By: Admin: 10/21/22 17:48 Dose: 100 mls/hr Documented By: DEBRA Ioversol (Ioversol 350 Mg 125ml Prefilled Syringe) 118 ml IV ONCE ONE Stop: 10/21/22 16:07 Last Admin: 10/21/22 16:07 Dose: 118 ml Documented By: PORTIA Methylprednisolone (Methylprednisolone 125 Mg/2 Ml Vial) 125 mg IV NOW STA Stop: 10/21/22 15:21 Last Admin: 10/21/22 15:57 Dose: 125 mg Documented By: DEBRA Imaging Data Radiologist's Impression: Chest X-Ray 10/21/22 14:41 XR chest 1V portable HISTORY: 82 years-old Male Chest pain, nonspecific COMPARISON: 01/03/2022 TECHNIQUE: AP view the chest FINDINGS: Cardiac silhouette is enlarged. Severe emphysema with chronic fibrotic changes. No pneumothorax. Small right pleural effusion with patchy airspace opacities within the right lung, most pronounced in the right lung base. Cortical thickening of the right clavicle. Degenerative changes of the shoulders and spine. Cholecystectomy. IMPRESSION: 1. Right basilar predominant airspace opacities suggestive of pneumonia or aspiration pneumonitis with small right pleural effusion. 2. Emphysema with chronic fibrotic changes redemonstrated. ACT 112: Negative or not required by law. The above report was generated using voice recognition software. It may contain grammatical, syntax or spelling errors. Electronically signed by: Baljit Grigsby M.D. 10/21/2022 3:37 PM Chest CTA 10/21/22 15:21 CT angio chest PE protocol CLINICAL HISTORY: cp, sob, hypoxia, r/o PE TECHNIQUE: Multidetector row helical CT of the chest was performed with angiographic protocol. Coronal and sagittal reformations were obtained. Coronal and sagittal MIPS were obtained from the axial data set and were submitted for review. Automated dose lowering techniques and/or adjustment according to patient size were utilized for this exam. CT DOSE: 749.76 mGy.cm Comparison: Comparison is made to chest 01/03/2022 FINDINGS: Lungs and pleura: Severe emphysematous and fibrotic changes are seen. There is a trace right pleural effusion. There is airspace opacity in the right lower middle lobes, new from prior exam. Heart and pericardium: Cardiomegaly is seen with biatrial enlargement. Aortic valve calcifications are seen. Vessels: Severe atherosclerotic changes in the aorta and coronary arteries. Mediastinum and james: Subcentimeter lymph nodes are seen. Chest wall and lower neck: Unremarkable. Abdomen: Patient is status post cholecystectomy. Bones: Degenerative changes in the thoracic spine. IMPRESSION: 1. No evidence of pulmonary embolus. 2. Airspace opacity in the right lung compatible with aspiration/pneumonia. 3. Small right pleural effusion. 4. Emphysema and fibrotic changes. ACT 112: Negative or not required by law. Electronically signed by: Tra Gonzalez M.D. 10/21/2022 4:23 PM Discharge Plan Visit Data Chief Complaint: Weakness Stated Complaint: WEAKNESS ED Provider: Damien Ennis Discharge Problem: Pneumonia, COPD (chronic obstructive pulmonary disease), Hypoxia Patient Disposition: Admitted As Inpatient Discharge Instructions Interventions: ED Discharge Assessment Last Done: 10/21/22 20:14 Forms Stand Alone Forms: [facility] Prescriptions Prescriptions: No Action montelukast 10 mg tablet 10 mg PO HS furosemide [Lasix] 20 mg tablet 20 mg PO SUMOTUWETHSA@0900 potassium gluconate 550 mg (90 mg) tablet 550 mg PO DAILY aspirin [Adult Aspirin Regimen] 81 mg tablet,delayed release (DR/EC) 81 mg PO DAILY atorvastatin 80 mg tablet 80 mg PO DAILY omeprazole 20 mg Capsule,Delayed Release(Dr/Ec) 20 mg PO DAILYBB albuterol sulfate 90 mcg/actuation Hfa Aerosol Inhaler 2 puff INHALATION Q4H PRN (Reason: Wheezing) polyethylene glycol 3350 [Miralax] 17 gram Powder In Packet 17 g PO DAILY PRN (Reason: Constipation) tramadol 50 mg tablet 50 mg PO Q8H PRN (Reason: Moderate Pain (Scale Score 5-6)) ipratropium bromide 21 mcg (0.03 %) spray,non-aerosol 2 spray INTRANASAL BID magnesium oxide 400 mg magnesium Capsule 400 mg PO BID lisinopril 5 mg tablet 5 mg PO QAM metformin 500 mg tablet extended release 24 hr 1,000 mg PO DAILY Stiolto Respimat 2.5-2.5 mcg/actuation mist 2 inh inhalation DAILY Qty: 4 0RF loperamide [Imodium A-D] 2 mg capsule 2 mg PO Q6H PRN (Reason: loose stool) Qty: 14 0RF metoprolol succinate 50 mg tablet extended release 24 hr 50 mg PO AMHS pregabalin [Lyrica] 150 mg capsule 150 mg PO Q8H PRN (Reason: nerve pain) Referrals Referrals: Narendra Blakely MD [Primary Care Provider] -
[2022-10-21 15:14] LABS: Basophils # (auto) 0.05 K/uL (0.00-0.20); Basophils % (auto) 0.5 %; Eosinophils # (auto) 0.04 K/uL (0.00-0.50); Eosinophils % (auto) 0.4 %; Hematocrit (blood only) 45.1 % (42.0-52.0); Hemoglobin 15.2 g/dl (14.0-18.0); Immature Granulocytes # (auto) 0.03 K/uL (0.01-0.20); Immature Granulocytes % (auto) 0.3 %; Lymphocytes # (auto) 0.45 K/uL (1.20-3.40); Lymphocytes % (auto) 4.5 %; Mean Corpuscular Hemoglobin 31.9 pg (25.0-34.0); Mean Corpuscular Hgb Conc 33.7 g/dL (32.0-36.0); Mean Corpuscular Volume 94.5 fL (80.0-100.0); Mean Platelet Volume 10.8 fL (9.4-12.4); Monocytes # (auto) 0.47 K/uL (0.11-0.59); Monocytes % (auto) 4.7 %; Neutrophils # (auto) 8.92 K/uL (1.40-6.50); Neutrophils % (auto) 89.6 %; Platelet Count 250 K/uL (130-400); RDW Coefficient of Variation 13.9 % (11.5-14.5); RDW Standard Deviation 48.4 fL (36.4-46.3); Red Blood Count 4.77 M/uL (4.70-6.10); White Blood Count 9.96 K/ul (4.8-10.8)
[2022-10-21] MEDS ORDERED: PIPERACILLIN/TAZOBACTAM 4.5 GM/120 ML BAG IV ONE (15:14)
[2022-10-21] MEDS ORDERED: SODIUM CHLORIDE 0.9% 500 ML IV ONE ×2 (15:20→17:05)
[2022-10-21] MEDS ORDERED: methylPREDNISolone 125 MG/2 ML VIAL IV STA (15:20)
[2022-10-21] MEDS ORDERED: ALBUT/IPRATROP 3MG/0.5MG NEB 3 ML VIAL NEB STA (15:20)
[2022-10-21 15:30] LABS: Alanine Aminotransferase 9 U/L (7-52); Albumin Globulin Ratio 1.4 (0.9-2); Alkaline Phosphatase 74 U/L (34-104); Anion Gap 9 (3-11); Aspartate Aminotransferase 12 U/L (13-39); BUN Creatinine Ratio 15.8 (10-20); Bilirubin,Total 0.7 mg/dl (0.2-1.0); Blood Urea Nitrogen 15 mg/dl (6-23); Carbon Dioxide 25 mmol/L (21-32); Chloride 101 mmol/L (98-107); Est GFR (African American) 84.9 ml/min; Est GFR (Non-African American) 73.2 ml/min; Globulin 2.9 gm/dl (2.5-4.0); Glucose 123 mg/dl (70-99(Fasting)); Lipase 9 U/L (11-82); Magnesium 1.6 mg/dl (1.7-2.4); Phosphorus 2.7 mg/dl (2.5-4.9); Potassium 4.3 mmol/L (3.5-5.1); Sodium 135 mmol/L (136-145); Total Protein 6.9 gm/dl (6.0-8.3)
[2022-10-21 15:35] LABS: Troponin I High Sensitivity 18.5 pg/ml (0-20)
--- NOTE | 2022-10-21 15:38 | XRay Report ---
XR chest 1V portable HISTORY: 82 years-old Male Chest pain, nonspecific COMPARISON: 01/03/2022 TECHNIQUE: AP view the chest FINDINGS: Cardiac silhouette is enlarged. Severe emphysema with chronic fibrotic changes. No pneumothorax. Smal l right pleural effusion with patchy airspace opacities within the right lung, most pronounced in the right lung base. Cortical thickening of the right clavicle. Degenerative changes of the shoulders an d spine. Cholecystectomy. IMPRESSION: 1. Right basilar predominant airspace opacities suggestive of pneumonia or aspiration pneumonitis wit h small right pleural effusion. 2. Emphysema with chronic fibrotic changes redemonstrated. ACT 112: Negative or not required by law. The above report was generated using voice recognition software. It may contain grammatical, syntax o r spelling errors. Electronically signed by: Baljit Grigsby M.D. 10/21/2022 3:37 PM
[2022-10-21 15:42] LABS: Prothrombin Time 10.9 Seconds (9.0-12.0)
[2022-10-21] MEDS ORDERED: IOVERSOL 350 MG 125mL Prefilled Syringe IV ONE (16:06)
--- NOTE | 2022-10-21 16:25 | CT Scan Report ---
CT angio chest PE protocol CLINICAL HISTORY: cp, sob, hypoxia, r/o PE TECHNIQUE: Multidetector row helical CT of the chest was performed with angiographic protocol. Wu l and sagittal reformations were obtained. Coronal and sagittal MIPS were obtained from the axial daniel a set and were submitted for review. Automated dose lowering techniques and/or adjustment according to patient size were utilized for this exam. CT DOSE: 749.76 mGy.cm Comparison: Comparison is made to chest 01/03/2022 FINDINGS: Lungs and pleura: Severe emphysematous and fibrotic changes are seen. There is a trace right pleural effusion. There is airspace opacity in the right lower middle lobes, new from prior exam. Heart and pericardium: Cardiomegaly is seen with biatrial enlargement. Aortic valve calcifications ar e seen. Vessels: Severe atherosclerotic changes in the aorta and coronary arteries. Mediastinum and james: Subcentimeter lymph nodes are seen. Chest wall and lower neck: Unremarkable. Abdomen: Patient is status post cholecystectomy. Bones: Degenerative changes in the thoracic spine. IMPRESSION: 1. No evidence of pulmonary embolus. 2. Airspace opacity in the right lung compatible with aspiration/pneumonia. 3. Small right pleural effusion. 4. Emphysema and fibrotic changes. ACT 112: Negative or not required by law. Electronically signed by: Tra Gonzalez M.D. 10/21/2022 4:23 PM
--- NOTE | 2022-10-21 16:55 | Electrocardiogram Report ---
Test Reason : Blood Pressure : / mmHG Vent. Rate : 088 BPM Atrial Rate : 088 BPM P-R Int : 220 ms QRS Dur : 138 ms QT Int : 414 ms P-R-T Axes : 059 043 096 degrees QTc Int : 500 ms Sinus rhythm with 1st degree A-V block Left bundle branch block Abnormal ECG When compared with ECG of 03-JAN-2022 13:06, Vent. rate has increased BY 30 BPM Confirmed by Pawan Chinchilla ([id number]) on 10/21/2022 4:55:19 PM Referred By: Confirmed By:Pawan Chinchilla
[2022-10-21] MEDS ORDERED: MAGNESIUM SULFATE / D5W 1 GM/100 ML BAG IV STA (17:06)
--- NOTE | 2022-10-21 17:27 | History & Physical Report ---
Date of Service October 21, 2022 Assessment & Plan (1) Hypoxia: (2) Pneumonia: (3) COPD (chronic obstructive pulmonary disease): Plan This is an 82-year-old male who has a significant past medical history of HTN, moderate aortic stenosis, chronic diastolic CHF, history of SVT, atherosclerosis of lower extremities, T2DM, chronic hypoxic respiratory failure, COPD, history of right lower lobe lung cancer status post radiation, history of radiation pneumonitis who presents to ED secondary to worsening cough and shortness of breath/chills x 1 day. Hypoxia Right middle and lower lobe pneumonia, likely aspiration COPD exacerbation Hemoptysis Hx of RLL CA s/p XRT Admit to telemetry Biofire: negative CT Chest:No evidence of pulmonary embolus.2. Airspace opacity in the right lung compatible with aspiration/pneumonia.3. Small right pleural effusion.4. Emphysema and fibrotic changes. Treat with IV Zosyn, oral doxycycline Solu-Medrol 40 mg IV every 8 Pulmonary toilet with routine nebulizers, hypertonic saline, incentive spirom eter, flutter valve Mucinex 600 mg twice daily Consult pulmonology in regards to recurrent right lower lobe pneumonia, known right lower lobe lung cancer history and hemoptysis Continue oxygen supplementation as needed He is not on home oxygen Sputum culture He does not meet sepsis criteria, he did receive 500 mL IV fluid in ED Given history of CHF will avoid further fluids Lactic acidosis Likely in setting of hypoxia, now resolved Patient does not meet sepsis criteria Chronic diastolic CHF HTN Left subclavian stenosis Patient euvolemic Continue ASA, statin, Lasix, lisinopril Most recent echo 09/2022 revealed EF 55 to 59%, moderate mitral annular calcification, MV chordae thickened, mild mitral stenosis No blood pressures in left upper extremity T2DM Last A1c 7.April Hold metformin Lantus/NovoLog per protocol DVT prophylaxis: SCDs for now in setting of hemoptysis PCP: Reddy DNR/DNI Dispo: admit to PCU Pt was seen and examined in collaboration with DR. Doshi, please see addendum A total of 75 was spent coordinating, documenting, and providing care for this patient excluding time spent in the performance of separately billed services. This included personally viewing all current laboratories and imaging studies, medication reconciliation, outpatient chart review, and discussion with specialists. History of Present Illness Chief Complaint: Chills/SOB x 1 day. Primary Care Provider: Narendra Blakely MD This is an 82-year-old male who has a significant past medical history of HTN, moderate aortic stenosis, chronic diastolic CHF, history of SVT, atherosclerosis of lower extremities, T2DM, chronic hypoxic respiratory failure, COPD, history of right lower lobe lung cancer status post radiation, history of radiation pneumonitis who presents to ED secondary to worsening cough and shortness of breath/chills x 1 day. Patient has history of recurrent aspiration pneumonia. He states symptoms started yesterday with chills and increasing shortness of breath. He has a chronic cough at baseline but feels it is more productive and did have 2 episodes of bloody sputum today. He had one episode of lightheadedness today but otherwise denies any fever, sweats, dizziness, chest pain, shortness breath at rest, sinus congestion, sore throat, nausea, vomiting, abdominal pain, changes bowel or urinary habits. He denies any orthopnea, PND, change in weight or lower extremity edema. He has been compliant with his medications. He did not take his Lasix today as he normally does not take it on Fridays. He has been using his albuterol twice daily. He gets short of breath at rest with minimal exertion. In ED patient was initially hypoxic requiring 2 L of supplemental oxygen. He was otherwise hemodynamically stable. He did have a mild elevated lactic acidosis at 2.2 and received 500 mL of IV fluid. His lactic acidosis has since resolved. He also had low magnesium at 1.6, elevated BNP at 488 and his respiratory bio fire panel was negative.Chest CTA was negative for PE, airspace opacity in the right lung compatible with aspiration/pneumonia, small right pleural effusion, emphysema and fibrotic changes noted. Patient was seen IV Solu-Medrol, IV Zosyn, nebulizer and IV fluid in ED. He currently feels improved. Allergies Allergy/AdvReac Type Severity Reaction Status Date / Time No Known Allergies Allergy Verified 12/14/21 14:23 Home Medications Medication Instructions Recorded Confirmed Type albuterol sulfate 90 mcg/actuation 2 puff inhalation Q4H PRN Wheezing 12/11/17 10/21/22 History aerosol inhaler omeprazole 20 mg capsule,delayed 20 mg PO DAILYBB 12/11/17 10/21/22 History release furosemide 20 mg tablet (Lasix) 20 mg PO SUMOTUWETHSA@0900 10/31/19 10/21/22 History montelukast 10 mg tablet 10 mg PO HS 10/31/19 10/21/22 History potassium gluconate 550 mg (90 mg) 550 mg PO DAILY 10/31/19 10/21/22 History tablet aspirin 81 mg tablet,delayed 81 mg PO DAILY 01/07/21 10/21/22 History release (Adult Aspirin Regimen) atorvastatin 80 mg tablet 80 mg PO DAILY 01/07/21 10/21/22 History ipratropium bromide 21 mcg (0.03 2 spray intranasal BID 06/24/21 10/21/22 History %) nasal spray magnesium oxide 400 mg PO BID 06/24/21 10/21/22 History polyethylene glycol 3350 17 gram 17 g PO DAILY PRN Constipation 06/24/21 10/21/22 History oral powder packet (Miralax) tramadol 50 mg tablet 50 mg PO Q8H PRN Moderate Pain 06/24/21 10/21/22 History (Scale Score 5-6) lisinopril 5 mg tablet 5 mg PO QAM 09/19/21 10/21/22 History metformin 500 mg tablet,extended 1,000 mg PO DAILY 09/19/21 10/21/22 History release 24 hr tiotropium 2.5 mcg-olodaterol 2.5 2 inh inhalation DAILY #4 grams 09/22/21 10/21/22 Rx mcg/actuation mist for inhalation (Stiolto Respimat) loperamide 2 mg capsule (Imodium 2 mg PO Q6H PRN loose stool #14 07/16/22 10/21/22 Rx A-D) caps metoprolol succinate 50 mg 50 mg PO AMHS 10/21/22 10/21/22 History tablet,extended release 24 hr pregabalin 150 mg capsule (Lyrica) 150 mg PO Q8H PRN nerve pain 10/21/22 10/21/22 History Past Med/Surg History Medical History Acute on chronic systolic and diastolic heart failure, NYHA class 4 Acute congestive heart failure likely precipitated by paroxysmal atrial fibrillation with rapid ventricular rate. Now back in sinus rhythm diuresing well with decreasing oxygen requirements Recommend: Continue diuretics, discontinue BiPAP, wean oxygen as tolerated, initiate sliding scale insulin for hyperglycemia, advance diet as tolerated Acute respiratory failure with hypoxia and hypercapnia Aortic stenosis Atherosclerosis of leg with intermittent claudication COPD (chronic obstructive pulmonary disease) Diabetes mellitus, type 2 Electrolyte imbalance GERD (gastroesophageal reflux disease) Hyperlipidemia Hypertension Hypokalemia Hypomagnesemia Hypoxia LBBB (left bundle branch block) Malignant neoplasm of skin of trunk Basal Cell - on Forehead and on Neck Nonischemic cardiomyopathy Osteoporosis Pulmonary edema PVD (peripheral vascular disease) Valvular heart disease Vertebral fracture, osteoporotic (02/04/08) Surgical History History of bronchoscopy 10/23/2019 - Diagnostic History of cardiac cath 11/2017 History of cataract extraction with lens replacement 07/03/2013 - Dr. Hazel History of cholecystectomy 1998 History of discectomy 1995 History of ERCP 02/1999 - with stone removal History of nasal septoplasty History of procedure for peripheral vascular disease 01/15/2015 - Right Femoral Endarterectomy History of tonsillectomy As a Child History of total knee replacement 12/05/2011 - Right - Dr. Medina History of trigger finger 10/09/2019 - Release Surgery (Dr. Dana Hernandez) Family History Mother , Passed age 92 of natural causes No problems noted. Father , Passed age 67 from stroke complications No problems noted. Brother , Passed age 67 of [place] No problems noted. Son No problems noted. Daughter No problems noted. 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 Other Information That Helps Us Care for You: No Feels Safe at Home: Yes Safety Concerns: Feels Safe At This Time Childhood Exposure to Second-Hand Smoke: No Diet: regular caffeine: Yes (1-2 cups of coffee/day ) during the past year weight has: remained stable Dental Care, Regularly: Yes Assistive Devices: Glasses Review of Systems Review of Systems: All systems reviewed & are unremarkable except as noted in HPI & below Physical Exam Physical Exam: Constitutional: WD/WN, Tall, M, KASAAN, vitals as above, NAD, sitting up in bed, pleasant, conversing easily Head: Normocephalic, Atraumatic Eyes: PERRL, conjunctivae normal, anicteric sclerae ENMT: external ear and nose normal, oropharynx normal dry membranes Neck: trachea midline, no thyromegaly normal visual inspection Respiratory: normal respiratory effort, lungs with scattered wheezing/rhonchi throughout, decreased RLL. Normal insp/exp effort, no accessory muscle use Cardiovascular: RRR, no murmur, no edema Vessels: no JVD or carotid bruit Chest: normal inspection of chest Abdomen: normal bowel sounds, soft, nontender, no hepatosplenomegaly Musculoskeletal: no cyanosis or clubbing, extremities motor strength 5/5 Skin: no rashes, warm and dry normal turgor Neurologic: PERRL, EOMI, accommodation nl, no face palsy, no dysarthria CN's II-XI intact bilaterally and moves all extremities Psychiatric: A+Ox3, euthymic affect Lymphatic: no cervical or axillary lymphadenopathy : deferred Results & Data Results & Data Vital Signs (Past 12 Hours) Vital Signs Temp Pulse Resp BP Pulse Ox O2 Del Method O2 Flow Rate 10/21/22 17:02 90 10/21/22 16:50 92 H 21 92 10/21/22 16:40 87 23 95 10/21/22 16:30 87 23 100 10/21/22 16:30 89/74 L 10/21/22 16:20 85 17 99 10/21/22 16:11 90 15 10/21/22 15:30 86 15 93 10/21/22 15:30 135/84 10/21/22 15:20 86 15 94 10/21/22 15:10 89 15 93 10/21/22 15:00 88 13 94 10/21/22 15:00 128/92 10/21/22 14:50 89 18 94 10/21/22 14:45 88 24 95 10/21/22 14:44 89 10/21/22 14:43 94 Nasal Cannula 2 08/25/23 14:35 37.5 C 10/21/22 14:35 87 L Room Air 0 10/21/22 14:35 37.5 C 93 H 20 159/89 H 87 L Room Air Diagnostic Findings Chest X-Ray 10/21/22 14:41 XR chest 1V portable HISTORY: 82 years-old Male Chest pain, nonspecific COMPARISON: 01/03/2022 TECHNIQUE: AP view the chest FINDINGS: Cardiac silhouette is enlarged. Severe emphysema with chronic fibrotic changes. No pneumothorax. Small right pleural effusion with patchy airspace opacities within the right lung, most pronounced in the right lung base. Cortical thickening of the right clavicle. Degenerative changes of the shoulders and spine. Cholecystectomy. IMPRESSION: 1. Right basilar predominant airspace opacities suggestive of pneumonia or aspiration pneumonitis with small right pleural effusion. 2. Emphysema with chronic fibrotic changes redemonstrated. ACT 112: Negative or not required by law. The above report was generated using voice recognition software. It may contain grammatical, syntax or spelling errors. Electronically signed by: Baljit Grigsby M.D. 10/21/2022 3:37 PM Chest CTA 10/21/22 15:21 CT angio chest PE protocol CLINICAL HISTORY: cp, sob, hypoxia, r/o PE TECHNIQUE: Multidetector row helical CT of the chest was performed with angiographic protocol. Coronal and sagittal reformations were obtained. Coronal and sagittal MIPS were obtained from the axial data set and were submitted for review. Automated dose lowering techniques and/or adjustment according to patient size were utilized for this exam. CT DOSE: 749.76 mGy.cm Comparison: Comparison is made to chest 01/03/2022 FINDINGS: Lungs and pleura: Severe emphysematous and fibrotic changes are seen. There is a trace right pleural effusion. There is airspace opacity in the right lower middle lobes, new from prior exam. Heart and pericardium: Cardiomegaly is seen with biatrial enlargement. Aortic valve calcifications are seen. Vessels: Severe atherosclerotic changes in the aorta and coronary arteries. Mediastinum and james: Subcentimeter lymph nodes are seen. Chest wall and lower neck: Unremarkable. Abdomen: Patient is status post cholecystectomy. Bones: Degenerative changes in the thoracic spine. IMPRESSION: 1. No evidence of pulmonary embolus. 2. Airspace opacity in the right lung compatible with aspiration/pneumonia. 3. Small right pleural effusion. 4. Emphysema and fibrotic changes. ACT 112: Negative or not required by law. Electronically signed by: Tra Gonzalez M.D. 10/21/2022 4:23 PM Medications Administered Medication List Discontinued Medications Albuterol (Albut/Ipratrop 3mg/0.5mg Neb 3 Ml Vial) 3 ml NEB NOW STA; Protocol Stop: 10/21/22 15:21 Last Admin: 10/21/22 16:12 Dose: 3 ml Documented By: DEBRA Piperacillin Sod/Tazobactam Sod (Zosyn) 4.5 gm in 120 mls @ 240 mls/hr IV NOW ONE Stop: 10/21/22 15:43 Last Infusion: 10/21/22 16:55 Dose: 0 mls/hr Documented By: Admin: 10/21/22 16:12 Dose: 240 mls/hr Documented By: DEBRA Sodium Chloride (Nss) 500 mls @ 999 mls/hr IV .Q31M ONE Stop: 10/21/22 15:50 Last Infusion: 10/21/22 16:55 Dose: 0 mls/hr Documented By: Admin: 10/21/22 16:13 Dose: 999 mls/hr Documented By: DEBRA Ioversol (Ioversol 350 Mg 125ml Prefilled Syringe) 118 ml IV ONCE ONE Stop: 10/21/22 16:07 Last Admin: 10/21/22 16:07 Dose: 118 ml Documented By: PORTIA Methylprednisolone (Methylprednisolone 125 Mg/2 Ml Vial) 125 mg IV NOW STA Stop: 10/21/22 15:21 Last Admin: 10/21/22 15:57 Dose: 125 mg Documented By: DEBRA ECG Rate (beats per minute): 88 Rhythm: normal sinus Findings: + 1st degree AV block and + LBBB Additional Comments: qtc 500ms COVID-19 Results Results COVID-19 Adm Lab Results: RBC 4.11 M/uL (4.70-6.10) L 10/23/22 WBC 13.66 K/ul (4.8-10.8) H 10/23/22 Hgb 13.1 g/dl (14.0-18.0) L 10/23/22 Hct 37.5 % (42.0-52.0) L 10/23/22 Plt Count 230 K/uL (130-400) 10/23/22 Neutrophils (%) (Auto) 87.6 % 10/23/22 Lymphocytes (%) (Auto) 4.1 % 10/23/22 Monocytes # (Auto) 0.98 K/uL (0.11-0.59) H 10/23/22 Eosinophils # (Auto) 0.00 K/uL (0.00-0.50) 10/23/22 Immature Granulocyte % (Auto) 1.0 % 10/23/22 Neutrophils # (Auto) 11.98 K/uL (1.40-6.50) H 10/23/22 Lymphocytes # (Auto) 0.56 K/uL (1.20-3.40) L 10/23/22 Monocytes # (Auto) 0.98 K/uL (0.11-0.59) H 10/23/22 Eosinophils # (Auto) 0.00 K/uL (0.00-0.50) 10/23/22 Basophils # (Auto) 0.01 K/uL (0.00-0.20) 10/23/22 Immature Granulocyte # (Auto) 0.13 K/uL (0.01-0.20) 3 Ovalocytes 1+ 10/22/22 Na 135 mmol/L (136-145) L 10/23/22 K 4.3 mmol/L (3.5-5.1) 10/23/22 Cl 103 mmol/L (98-107) 10/23/22 CO2 26 mmol/L (21-32) 10/23/22 Anion Gap 6 (3-11) 10/23/22 BUN 22 mg/dl (6-23) 10/23/22 Creatinine 0.93 mg/dl (0.6-1.4) 10/23/22 BUN/Creatinine Ratio 23.7 (10-20) H 10/23/22 Glucose Level 111 mg/dl (70-99(Fasting)) H 10/23/22 Ca 8.7 mg/dl (8.6-10.3) 10/23/22 Phosphorus Level 2.7 mg/dl (2.5-4.9) 10/21/22 Total Bilirubin 0.6 mg/dl (0.2-1.0) 10/22/22 AST/SGOT 10 U/L (13-39) L 10/22/22 ALT/SGPT 8 U/L (7-52) 10/22/22 Alkaline Phosphatase 58 U/L (34-104) 10/22/22 Total Protein 6.1 gm/dl (6.0-8.3) 10/22/22 Albumin 3.5 gm/dl (3.4-5.0) 10/22/22 Globulin 2.6 gm/dl (2.5-4.0) 10/22/22 Albumin/Globulin Ratio 1.3 (0.9-2) 10/22/22 Procalcitonin < 0.05 ng/ml (0-0.5) 10/21/22 INR 1.0 (0.9-1.1) 10/21/22 Adenovirus (PCR) Not Detected (NotDetected) 10/21/22 B. parapertussis DNA (PCR) Not Detected (NotDetected) 09/28 07/19 B. pertussis DNA (PCR) Not Detected (NotDetected) 10/21/22 C. pneumoniae DNA (PCR) Not Detected (NotDetected) 3 Coronavirus Type OC43 (PCR) Not Detected (NotDetected) Coronavirus Type HKU1 (PCR) Not Detected (NotDetected) Coronavirus Type 229E (PCR) Not Detected (NotDetected) COVID-19 PCR Not Detected (NotDetected) 10/21/22 Coronavirus Type NL63 (PCR) Not Detected (NotDetected) Human Metapneumovirus (PCR) Not Detected (NotDetected) Influenza Virus Type A (PCR) Not Detected (NotDetected) Influenza Virus Type B (PCR) Not Detected (NotDetected) M. pneumoniae (PCR) Not Detected (NotDetected) 10/21/22 Parainfluenza Type 1 (PCR) Not Detected (NotDetected) 09/28 07/19 Parainfluenza Type 2 (PCR) Not Detected (NotDetected) 09/28 07/19 Parainfluenza Type 3 (PCR) Not Detected (NotDetected) 09/28 07/19 Parainfluenza Type 4 (PCR) Not Detected (NotDetected) 09/28 07/19 RSV (PCR) Not Detected (NotDetected) 10/21/22 Enterovirus/Rhinovirus (PCR) Not Detected (NotDetected) Micro Respiratory Specimen 10/22/22 Chest X-Ray 10/23/22 Code Status & VTE Plan Code Status DNR/DNI Supervising Physician Co-Signing Physician Notes Pt seen and examined by myself, Jessica Doshi MD on the day of service. Care was coordinated with Rosy Olmos PA-C. Please refer to her note for additional information. 82yoM admitted with SOB and concern for aspiration in the setting of Hx of COPD and lung cancer. at bedside. No acute distress on exam.Breath sounds coarse at the bases IV Zosyn, pulmonary toilet with IV steroids. Pulm consult-appreciate recs Otherwise as above (2) Pneumonia Laterality: right Lung location: lower lobe of lung Pneumonia type: due to unspecified organism Qualified Code(s): J18.9 - Pneumonia, unspecified organism
[2022-10-21 17:32] LABS: Adenovirus PCR Not Detected (NotDetected); Bordetella parapertussis PCR Not Detected (NotDetected); Bordetella pertussis PCR Not Detected (NotDetected); Chlamydia pneumoniae PCR Not Detected (NotDetected); Coronavirus 229E PCR Not Detected (NotDetected); Coronavirus CoV-2 (COVID19)PCR Not Detected (NotDetected); Coronavirus HKU1 PCR Not Detected (NotDetected); Coronavirus NL63 PCR Not Detected (NotDetected); Coronavirus OC43PCR Not Detected (NotDetected); Human Metapneumovirus PCR Not Detected (NotDetected); Influenza A PCR Not Detected (NotDetected); Influenza B PCR Not Detected (NotDetected); Mycoplasma pneumoniae PCR Not Detected (NotDetected); Parainfluenza Virus 1 PCR Not Detected (NotDetected); Parainfluenza Virus 2 PCR Not Detected (NotDetected); Parainfluenza Virus 3 PCR Not Detected (NotDetected); Parainfluenza Virus 4 PCR Not Detected (NotDetected); Respiratory Syncytial VirusPCR Not Detected (NotDetected); Rhinovirus/Enterovirus PCR Not Detected (NotDetected)
[2022-10-21 20:46] LABS: Appearance Urine Clear (Clear); Bilirubin Urine Negative (Negative); Blood Urine Negative (Negative); Color Urine Yellow; Glucose Urine UA Negative (Negative); Ketones Urine Trace (Negative); Leukocyte Esterase Urine Negative (Negative); Nitrite Urine Negative (Negative); Protein Urine Negative (Negative); Specific Gravity Urine > 1.045 (1.000-1.030); Urobilinogen Urine Negative (Negative)
[2022-10-21] MEDS ORDERED: GLUCOSE 10 TAB/TUBE PO PRN (21:22)
[2022-10-21] MEDS ORDERED: DEXTROSE 50% 50 ML SYRINGE IV PRN (21:22)
[2022-10-21] MEDS ORDERED: LANTUS PER UNIT CHARGE SQ SCH (21:22)
[2022-10-21] MEDS ORDERED: ALUMINUM/MAGNESIUM SUSP 30 ML UDC PO PRN (21:22)
[2022-10-21] MEDS ORDERED: CARBOHYDRATES FOR HYPOGLYCEMIA PO PRN (21:22)
[2022-10-21] MEDS ORDERED: GLUCOSE 40% GEL 15 GM TUBE PO PRN (21:22)
[2022-10-21] MEDS ORDERED: MAGNESIUM HYDROXIDE SUSP 30 ML UDC PO PRN (21:22)
[2022-10-21] MEDS ORDERED: ACETAMINOPHEN 325 MG TAB PO PRN (21:22)
[2022-10-21] MEDS ORDERED: PREGABALIN 150 MG CAP PO PRN (21:22)
[2022-10-21] MEDS ORDERED: POLYETHYLENE (MIRALAX) 17 GM PACK PO PRN (21:22)
[2022-10-21] MEDS ORDERED: traMADol HCL 50 MG TABLET PO PRN (21:22)
[2022-10-21] MEDS ORDERED: GLUCAGON FOR INJ 1 MG VIAL SQ PRN (21:22)
[2022-10-21] MEDS: SODIUM CHLOR 7% 4 ML NEB NEB SCH (22:18)
[2022-10-21] MEDS: ALBUT/IPRATROP 3MG/0.5MG NEB 3 ML VIAL NEB SCH (22:18)
[2022-10-21] MEDS: guaiFENesin 600 MG TABCR PO SCH (22:34)
[2022-10-21] MEDS: METOPROLOL SUCC 50MG EXT REL TAB PO SCH (22:35)
[2022-10-21] MEDS: MONTELUKAST SODIUM 10 MG TABLET PO SCH (22:35)
[2022-10-21] MEDS: DOXYCYCLINE HYCLATE 100 MG CAP PO SCH (22:35)
[2022-10-21] MEDS: MAGNESIUM OXIDE 400 MG TAB PO SCH (22:36)
[2022-10-21] MEDS: PIPERACILLIN/TAZOBACTAM 4.5 GM in DEXTROSE 5% 100 ML IV SCH (22:36)
[2022-10-21] MEDS: INSULIN ASPART PER UNIT CHARGE SC SCH (22:41)
[2022-10-22 06:25] LABS: Hematocrit (blood only) 38.8 % (42.0-52.0); Hemoglobin 13.3 g/dl (14.0-18.0); Mean Corpuscular Hemoglobin 32.2 pg (25.0-34.0); Mean Corpuscular Hgb Conc 34.3 g/dL (32.0-36.0); Mean Corpuscular Volume 93.9 fL (80.0-100.0); Mean Platelet Volume 11.1 fL (9.4-12.4); Platelet Count 226 K/uL (130-400); RDW Standard Deviation 48.2 fL (36.4-46.3); Red Blood Count 4.13 M/uL (4.70-6.10); White Blood Count 9.89 K/ul (4.8-10.8)
[2022-10-22] MEDS: PIPERACILLIN/TAZOBACTAM 4.5 GM in DEXTROSE 5% 100 ML IV SCH ×3 (06:39→21:04)
[2022-10-22] MEDS: methylPREDNISolone 40 MG in SYRINGE 0 ML IV SCH ×2 (06:39→13:05)
[2022-10-22] MEDS: PANTOprazole 40 MG TAB PO SCH (06:41)
[2022-10-22 06:47] LABS: Basophils # (auto) 0.01 K/uL (0.00-0.20); Basophils % (auto) 0.1 %; Immature Granulocytes # (auto) 0.06 K/uL (0.01-0.20); Immature Granulocytes % (auto) 0.6 %; Lymphocytes # (auto) 0.42 K/uL (1.20-3.40); Lymphocytes % (auto) 4.2 %; Monocytes # (auto) 0.28 K/uL (0.11-0.59); Monocytes % (auto) 2.8 %; Neutrophils # (auto) 9.12 K/uL (1.40-6.50); Neutrophils % (auto) 92.3 %; Ovalocytes 1+
[2022-10-22 06:50] LABS: Albumin Globulin Ratio 1.3 (0.9-2); Albumin Level 3.5 gm/dl (3.4-5.0); BUN Creatinine Ratio 19.8 (10-20); Bilirubin,Total 0.6 mg/dl (0.2-1.0); Calcium 8.5 mg/dl (8.6-10.3); Creatinine Clr Calc Pharmacy 60.8 ml/min; Est GFR (African American) 78.8 ml/min; Globulin 2.6 gm/dl (2.5-4.0); Magnesium 2.1 mg/dl (1.7-2.4); Total Protein 6.1 gm/dl (6.0-8.3)
[2022-10-22] MEDS ORDERED: PHARMACY GLYCEMIC MGMT CONSULT PRN (07:48)
[2022-10-22] MEDS: ALBUT/IPRATROP 3MG/0.5MG NEB 3 ML VIAL NEB SCH ×4 (07:49→19:38)
[2022-10-22] MEDS: SODIUM CHLOR 7% 4 ML NEB NEB SCH (07:49)
--- NOTE | 2022-10-22 08:10 | Pulmonary Consultation ---
Date of Consultation October 22, 2022 Assessment & Plan (1) Hemoptysis: Plan CT chest 10/21/2022 personally reviewed: Centrilobular and paraseptal emphysema appreciated bilaterally Right middle and right lower lobe consolidative process Chronic scarring of the superior segment of the right lower lobe likely from SBRT Bilateral small pleural effusion Saber sheath trachea No significant mediastinal lymphadenopathy -- Multilobar pneumonia Respiratory bio fire negative for everything on 10/21/2022 Procalcitonin negative BNP 488 QTc 500 2D echo 07/19/2019 EF grossly normal, RV normal in size and function Patient will need a repeat CT chest to be done in 6-8 weeks to follow-up with on the opacities -- COPD with emphysema On Stiolto inhaler at home Can add budesonide nebulized to this regimen on discharge --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 It may contain grammatical, syntax or spelling errors.Any formal questions or concerns about the content, text or information contained within the body of this dictation should be directly addressed to the provider for clarification. History of Present Illness Attending Physician: Brandon Rubalcava MD History of Present Illness 82-year-old male was admitted to hospital because of shortness of breath Past medical history: Diabetes, hypertension, moderate aortic stenosis, right lower lobe cancer s/p radiation, dyslipidemia, peripheral vascular disease Patient was following up with Dr. Murray, he saw the patient on 09/09/2021. He now follows up with Dr. Desir Previous records and images personally reviewed At the time of examination patient was getting breathing treatment He said that he has been having issues with shortness of breath. His cough is worsened. He does bring up phlegm and it has blood in it it has been going on since last 2 days. Since coming to the hospital it has decreased in intensity. No fever or chills No night sweats, no unintentional weight loss No headache, no blurry vision Social history: 63-xdae-lymp smoking history quit in 2012. Drinks 1 and half to 2 drinks a week. Denies any illicit drug use Allergies Allergy/AdvReac Type Severity Reaction Status Date / Time No Known Allergies Allergy Verified 12/14/21 14:23 Home Medications Medication Instructions Recorded Confirmed Type albuterol sulfate 90 mcg/actuation 2 puff inhalation Q4H PRN Wheezing 12/11/17 10/21/22 History aerosol inhaler omeprazole 20 mg capsule,delayed 20 mg PO DAILYBB 12/11/17 10/21/22 History release furosemide 20 mg tablet (Lasix) 20 mg PO SUMOTUWETHSA@0900 10/31/19 10/21/22 History montelukast 10 mg tablet 10 mg PO HS 10/31/19 10/21/22 History potassium gluconate 550 mg (90 mg) 550 mg PO DAILY 10/31/19 10/21/22 History tablet aspirin 81 mg tablet,delayed 81 mg PO DAILY 01/07/21 10/21/22 History release (Adult Aspirin Regimen) atorvastatin 80 mg tablet 80 mg PO DAILY 01/07/21 10/21/22 History ipratropium bromide 21 mcg (0.03 2 spray intranasal BID 06/24/21 10/21/22 History %) nasal spray magnesium oxide 400 mg PO BID 06/24/21 10/21/22 History polyethylene glycol 3350 17 gram 17 g PO DAILY PRN Constipation 06/24/21 10/21/22 History oral powder packet (Miralax) tramadol 50 mg tablet 50 mg PO Q8H PRN Moderate Pain 06/24/21 10/21/22 History (Scale Score 5-6) lisinopril 5 mg tablet 5 mg PO QAM 09/19/21 10/21/22 History metformin 500 mg tablet,extended 1,000 mg PO DAILY 09/19/21 10/21/22 History release 24 hr tiotropium 2.5 mcg-olodaterol 2.5 2 inh inhalation DAILY #4 grams 09/22/21 10/21/22 Rx mcg/actuation mist for inhalation (Stiolto Respimat) loperamide 2 mg capsule (Imodium 2 mg PO Q6H PRN loose stool #14 07/16/22 10/21/22 Rx A-D) caps metoprolol succinate 50 mg 50 mg PO AMHS 10/21/22 10/21/22 History tablet,extended release 24 hr pregabalin 150 mg capsule (Lyrica) 150 mg PO Q8H PRN nerve pain 10/21/22 10/21/22 History Patient History Medical History Acute on chronic systolic and diastolic heart failure, NYHA class 4 Acute congestive heart failure likely precipitated by paroxysmal atrial fibr illation with rapid ventricular rate. Now back in sinus rhythm diuresing well with decreasing oxygen requirements Recommend: Continue diuretics, discontinue BiPAP, wean oxygen as tolerated, initiate sliding scale insulin for hyperglycemia, advance diet as tolerated Acute respiratory failure with hypoxia and hypercapnia Aortic stenosis Atherosclerosis of leg with intermittent claudication COPD (chronic obstructive pulmonary disease) Diabetes mellitus, type 2 Electrolyte imbalance GERD (gastroesophageal reflux disease) Hyperlipidemia Hypertension Hypokalemia Hypomagnesemia Hypoxia LBBB (left bundle branch block) Malignant neoplasm of skin of trunk Basal Cell - on Forehead and on Neck Nonischemic cardiomyopathy Osteoporosis Pulmonary edema PVD (peripheral vascular disease) Valvular heart disease Vertebral fracture, osteoporotic (02/04/08) Surgical History History of bronchoscopy 10/23/2019 - Diagnostic History of cardiac cath 11/2017 History of cataract extraction with lens replacement 07/03/2013 - Dr. Hazel History of cholecystectomy 1998 History of discectomy 1995 History of ERCP 02/1999 - with stone removal History of nasal septoplasty History of procedure for peripheral vascular disease 01/15/2015 - Right Femoral Endarterectomy History of tonsillectomy As a Child History of total knee replacement 12/05/2011 - Right - Dr. Medina History of trigger finger 10/09/2019 - Release Surgery (Dr. Dana Hernandez) Family History Mother , Passed age 92 of natural causes No problems noted. Father , Passed age 67 from stroke complications No problems noted. Brother , Passed age 67 of [place] No problems noted. Son No problems noted. Daughter No problems noted. 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 Other Information That Helps Us Care for You: No Feels Safe at Home: Yes Safety Concerns: Feels Safe At This Time Childhood Exposure to Second-Hand Smoke: No Diet: regular caffeine: Yes (1-2 cups of coffee/day ) during the past year weight has: remained stable Dental Care, Regularly: Yes Assistive Devices: Glasses Review of Systems Review of Systems: All systems reviewed & are unremarkable except as noted in HPI & below Physical Exam Physical Exam: Constitutional: No acute distress HEENT: EOMI, PERRLA Respiratory system: Decreased air entry bilaterally, no wheeze, rhonchi, positive crackles bilateral lower lobes CVS: S1-S2 positive, no murmurs or gallops Abdomen: Soft, nontender, nondistended, positive bowel sounds x4 Extremities: +2 pulses bilaterally radialis/ dorsalis pedis, no cyanosis, no edema Neuro: Awake alert oriented x3 Psych: Normal mood and affect G/U: No Moreau Skin: no rashes, warm and dry Lymphatic: no cervical or axillary lymphadenopathy Results & Data Results & Data Vital Signs (Past 12 Hours) Vital Signs Temp Pulse Pulse Resp BP Pulse Ox O2 Del Method 10/22/22 07:49 52 L 17 94 Room Air 10/22/22 07:42 36.4 C L 51 L 16 146/75 H 94 Room Air 10/22/22 04:00 36.5 C 54 L 18 148/75 H 95 Room Air 10/21/22 22:00 Room Air 10/21/22 21:30 36.3 C L 68 18 126/73 91 Room Air 10/21/22 21:56 63 10/22/22 00:00 36.6 C 111 H 18 104/61 94 Room Air 10/21/22 22:21 60 18 92 Room Air Laboratory Results 10/22/22 05:28 10/22/22 05:28 PG Care Time/CCT Total # of Minutes Spent Total Time Spent with Patient: Total time spent is greater than 50% in coordination of care (as documented) at patient's floor/unit and/or counseling patient: Coding Level of Care Code 64135 INT INP/OBS CARE 3/75MIN Diagnoses Hemoptysis R04.2
[2022-10-22] MEDS: UMECLIDINIUM/VILANTEROL 62.5/25MCG 7 PUFFS/INHALER INH SCH (08:26)
[2022-10-22] MEDS: IPRATROPIUM BROMIDE NASAL SPRAY 0.06% 15ML NAE SCH ×2 (08:27→20:55)
[2022-10-22] MEDS: DOXYCYCLINE HYCLATE 100 MG CAP PO SCH ×2 (08:27→20:54)
[2022-10-22] MEDS: FUROSEMIDE 20 MG TAB PO SCH (08:28)
[2022-10-22] MEDS: MAGNESIUM OXIDE 400 MG TAB PO SCH ×2 (08:28→20:55)
[2022-10-22] MEDS: lisinopril 5 MG TAB PO SCH (08:29)
[2022-10-22] MEDS: METOPROLOL SUCC 50MG EXT REL TAB PO SCH ×2 (08:29→20:54)
[2022-10-22] MEDS: ASPIRIN 81 MG ECTAB PO SCH (08:29)
[2022-10-22] MEDS: ATORVASTATIN 40 MG TAB PO SCH (08:29)
[2022-10-22] MEDS: guaiFENesin 600 MG TABCR PO SCH (08:30)
[2022-10-22] MEDS: INSULIN ASPART PER UNIT CHARGE SC SCH ×4 (08:37→20:56)
[2022-10-22] MEDS ORDERED: LANTUS PER UNIT CHARGE SQ ONE (09:00)
[2022-10-22 09:55] LABS: Estimated Average Glucose 160 mg/dl; Hemoglobin A1C 7.2 % (4.5-5.6)
--- NOTE | 2022-10-22 11:33 | Pharmacy Report ---
Pharmacy Glycemic Short Note 2 - Date of Service October 22, 2022 - Glycemic Short BSG Results (Last 24 hours): 10/21/22 10/21/22 10/22/22 14:50 20:58 05:28 Glucose 123 H 276 H POC Glucose 265 H 10/22/22 08:31 Glucose POC Glucose 205 H OUTPATIENT ANTIDIABETIC REGIMEN: * metformin 1000 mg PO daily * HbA1C = 7.2% (10/22/22) ASSESSMENT: * Mr Piña is an 82 y/o M with a PMH of T2DM who presents with pneumonia. * Patient received Solu-Medrol 125 mg @ 1557 on 10/21/22. * Today (10/22/22), he is started on Solu-Medrol 40 mg IV q8 hours. * Per previous records, patient has significant hyperglycemia with Solu-Medrol. * Patient has basal requirements as well as evidenced by his A1C. * Will start with Lantus 20 units x 1 then 17 units SQ BID (weight-based stress of 2/3). This should accommodate his basal requirements + extra for steroid hyperglycemia. * For Novolog, will pursue a tight CR of 5 and looser CF of 30. During previous hospitalization, patient had hypoglycemic event due to stacking. Therefore, will not overcorrect too aggressively. PLAN FOR INPATIENT GLYCEMIC CONTROL: * Hold outpatient oral diabetes medications * Basal insulin * Lantus 17 units SQ BID * Bolus insulin * NovoLog per scale ACHS or Q6hrs while NPO * Goal Range: Low 110 mg/dL - High 140 mg/dL * Correction Factor: 30 mg/dL/unit * Nutritional / Prandial insulin per carb ratio of 1 unit per 5 grams CHO consumed
--- NOTE | 2022-10-22 16:06 | Hospitalist Progress Note ---
Date of Service October 22, 2022 Assessment & Plan (1) Hypoxia: (2) Pneumonia: (3) COPD (chronic obstructive pulmonary disease): Plan per admitting service notes with addendum: This is an 82-year-old male who has a significant past medical history of HTN, moderate aortic stenosis, chronic diastolic CHF, history of SVT, atherosclerosis of lower extremities, T2DM, chronic hypoxic respiratory failure, COPD, history of right lower lobe lung cancer status post radiation, history of radiation pneumonitis who presents to ED secondary to worsening cough and shortness of breath/chills x 1 day. Acute hypoxic respiratory failure Right middle and lower lobe pneumonia, likely aspiration COPD exacerbation Hemoptysis Hx of RLL CA s/p XRT Admit to telemetry Biofire: negative CT Chest:No evidence of pulmonary embolus.2. Airspace opacity in the right lung compatible with aspiration/pneumonia.3. Small right pleural effusion.4. Emphysema and fibrotic changes. Treat with IV Zosyn, oral doxycycline Solu-Medrol 40 mg IV every 8 Pulmonary toilet with routine nebulizers, hypertonic saline, incentive spirometer, flutter valve Mucinex 600 mg twice daily Consult pulmonology in regards to recurrent right lower lobe pneumonia, known right lower lobe lung cancer history and hemoptysis Continue oxygen supplementation as needed He is not on home oxygen Sputum culture He does not meet sepsis criteria, he did receive 500 mL IV fluid in ED Given history of CHF will avoid further fluids 10/22 Off oxygen supplement Clinically improving Continue doxycycline plus Zosyn Solu-Medrol 40 mg IV daily Nebs Lactic acidosis Likely in setting of hypoxia, now resolved Patient does not meet sepsis criteria Chronic diastolic CHF HTN Left subclavian stenosis Patient euvolemic Continue ASA, statin, Lasix, lisinopril Most recent echo 09/2022 revealed EF 55 to 59%, moderate mitral annular calcification, MV chordae thickened, mild mitral stenosis No blood pressures in left upper extremity T2DM Last A1c 7.April Hold metformin Lantus/NovoLog per protocol DVT prophylaxis: SCDs for now in setting of hemoptysis PCP: Reddy DNR/DNI Dispo: Anticipate discharge to home in 1 to 2 days Admission and Anticipated Discharge Date Admission Date: October 21, 2022 Subjective Follow-up for pneumonia, etc. Resting in bed, comfortable, watching TV States he feels fine overall Breathing is improving Less cough No chest pain, fevers or chills No other symptoms Review of Systems Review of Systems: all noted and negative except for above Physical Exam Physical Exam: General- oriented x 3, not in distress, speaks in sentences with no effort or accessory muscle use Eyes- anicteric Neck- no JVD Lungs-mild crackles in the right, clear on the left Heart- normal rate, regular rhythm; no murmurs Abdomen- normal bowel sounds, nondistended, soft, no tenderness Extremities- no pretibial edema, no calf tenderness Neuro- alert, oriented x 3; no gross focal neurologic deficits Skin- warm & dry Results & Data Results & Data Vital Signs (Past 12 Hours) Vital Signs Temp Pulse Pulse Resp BP Pulse Ox O2 Del Method 10/22/22 15:14 36.3 C L 56 L 16 107/67 95 Room Air 10/22/22 15:04 60 18 93 Room Air 10/22/22 14:04 67 10/22/22 11:37 54 L 16 93 Room Air 10/22/22 11:29 36.4 C L 53 L 15 117/68 95 Room Air 10/22/22 07:37 Room Air 10/22/22 06:00 46 L 10/22/22 08:25 65 10/22/22 07:49 52 L 17 94 Room Air 10/22/22 07:42 36.4 C L 51 L 16 146/75 H 94 Room Air all noted and reviewed including below (2) Pneumonia Laterality: right Lung location: lower lobe of lung Pneumonia type: due to unspecified organism Qualified Code(s): J18.9 - Pneumonia, unspecified organism (3) COPD (chronic obstructive pulmonary disease) COPD type: unspecified COPD Qualified Code(s): J44.9 - Chronic obstructive pulmonary disease, unspecified
[2022-10-22] MEDS: guaiFENesin/DEXTROM SYRUP 200MG/20MG 10ML UDC PO SCH (20:54)
[2022-10-22] MEDS: MONTELUKAST SODIUM 10 MG TABLET PO SCH (20:55)
[2022-10-22] MEDS: LANTUS PER UNIT CHARGE SQ SCH (21:04)
[2022-10-23] MEDS ORDERED: COUGH DROP (SUGAR FREE) LOZ 24 LOZ/1 BOX BUCCAL PRN (04:25)
[2022-10-23] MEDS: PANTOprazole 40 MG TAB PO SCH (04:26)
[2022-10-23] MEDS: guaiFENesin/DEXTROM SYRUP 200MG/20MG 10ML UDC PO SCH ×2 (04:26→13:00)
[2022-10-23] MEDS: PIPERACILLIN/TAZOBACTAM 4.5 GM in DEXTROSE 5% 100 ML IV SCH ×2 (04:36→13:00)
[2022-10-23 05:56] LABS: Basophils # (auto) 0.01 K/uL (0.00-0.20); Basophils % (auto) 0.1 %; Hematocrit (blood only) 37.5 % (42.0-52.0); Hemoglobin 13.1 g/dl (14.0-18.0); Immature Granulocytes # (auto) 0.13 K/uL (0.01-0.20); Lymphocytes # (auto) 0.56 K/uL (1.20-3.40); Lymphocytes % (auto) 4.1 %; Mean Corpuscular Hemoglobin 31.9 pg (25.0-34.0); Mean Corpuscular Hgb Conc 34.9 g/dL (32.0-36.0); Mean Corpuscular Volume 91.2 fL (80.0-100.0); Monocytes # (auto) 0.98 K/uL (0.11-0.59); Monocytes % (auto) 7.2 %; Neutrophils # (auto) 11.98 K/uL (1.40-6.50); Neutrophils % (auto) 87.6 %; Platelet Count 230 K/uL (130-400); RDW Coefficient of Variation 14.3 % (11.5-14.5); RDW Standard Deviation 48.1 fL (36.4-46.3); Red Blood Count 4.11 M/uL (4.70-6.10); White Blood Count 13.66 K/ul (4.8-10.8)
[2022-10-23 06:17] LABS: BUN Creatinine Ratio 23.7 (10-20); Calcium 8.7 mg/dl (8.6-10.3); Creatinine Clr Calc Pharmacy 66.1 ml/min; Est GFR (African American) 87.1 ml/min; Est GFR (Non-African American) 75.1 ml/min; Magnesium 2.3 mg/dl (1.7-2.4); Potassium 4.3 mmol/L (3.5-5.1)
[2022-10-23] MEDS: ALBUT/IPRATROP 3MG/0.5MG NEB 3 ML VIAL NEB SCH ×2 (07:35→11:07)
--- NOTE | 2022-10-23 08:16 | XRay Report ---
XR chest 1V portable HISTORY: Shortness of breath. Hypoxia. COMPARISON: Chest 10/21/2022. FINDINGS: Emphysema and interstitial thickening persists. No pneumothorax. The heart is normal in siz e. The right base airspace opacities have improved. Patchy right midlung zone airspace opacities pers ist. No evidence for pulmonary edema. Old posttraumatic changes within the right clavicle and right h umerus. Prior cholecystectomy. IMPRESSION: 1. Interval improvement in the right basilar airspace opacities. 2. The right midlung zone airspace opacities persist. 3. Emphysema again noted. ACT 112: Negative or not required by law. Electronically signed by: Hung Stuart M.D. 10/23/2022 8:15 AM
--- NOTE | 2022-10-23 08:18 | Pulmonology Progress Note ---
Date of Service October 23, 2022 Assessment & Plan (1) Hemoptysis: Plan CT chest 10/21/2022 personally reviewed: Centrilobular and paraseptal emphysema appreciated bilaterally Right middle and right lower lobe consolidative process Chronic scarring of the superior segment of the right lower lobe likely from SBRT Bilateral small pleural effusion Saber sheath trachea No significant mediastinal lymphadenopathy -- Multilobar pneumonia Respiratory bio fire negative for everything on 10/21/2022 Procalcitonin negative BNP 488 QTc 500 2D echo 07/19/2019 EF grossly normal, RV normal in size and function Patient will need a repeat CT chest to be done in 6-8 weeks to follow-up with on the opacities -- Hemoptysis Likely secondary to underlying pneumonia and coughing Cough suppressant medication [id number]. 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 Masters at [facility] which grew Corynebacterium and he was treated for it Cytology at that time was negative Plan: Chest x-ray from today shows improvement compared to the time of examination. Continue with doxycycline for total of 7 days for atypical coverage Continue with Zosyn for possible aspiration pneumonia Follow-up sputum culture Avoid flutter valve and hypertonic saline given the hemoptysis, Continue with guaifenesin-DM [id number] instead Starting tomorrow DC Solu-Medrol and give prednisone 40 mg for 3 days followed by 20 for 2 and then stop Also discussed the case with patient's on the phone Repeat CT chest in 6-8 weeks Case was discussed with Dr. Rubalcava No further recommendation from pulmonary perspective, will sign off Please call directly with any questions Please note the above document was generated using voice recognition software. It may contain grammatical, syntax or spelling errors.Any formal questions or concerns about the content, text or information contained within the body of this dictation should be directly addressed to the provider for clarification. Admission and Anticipated Discharge Date Admission Date: October 21, 2022 Subjective Patient seen and examined at bedside. No acute distress, no adverse events overnight Patient states he is feeling better compared to when he came to the hospital He still coughing and having blood-tinged phlegm but it has decreased in intensity and frequency Denies any chest pain, no nausea vomiting Fair appetite. Physical Exam Physical Exam: Constitutional: No acute distress HEENT: EOMI, PERRLA Respiratory system: Decreased air entry bilaterally, no wheeze, rhonchi, positive crackles bilateral lower lobes CVS: S1-S2 positive, no murmurs or gallops Abdomen: Soft, nontender, nondistended, positive bowel sounds x4 Extremities: +2 pulses bilaterally radialis/ dorsalis pedis, no cyanosis, no edema Neuro: Awake alert oriented x3 Psych: Normal mood and affect G/U: No Moreau Skin: no rashes, warm and dry Lymphatic: no cervical or axillary lymphadenopathy Results & Data Results & Data Vital Signs (Past 12 Hours) Vital Signs Temp Pulse Pulse Resp BP Pulse Ox O2 Del Method 10/23/22 07:37 51 L 16 97 Room Air 10/23/22 07:32 Room Air 10/23/22 06:00 62 10/23/22 04:00 36.7 C 75 18 114/73 94 Room Air 10/22/22 23:00 Room Air 10/22/22 22:00 76 10/22/22 23:00 36.7 C 75 18 111/69 93 Room Air Laboratory Results 10/23/22 05:27 10/23/22 05:27 PG Care Time/CCT Total # of Minutes Spent Total Time Spent with Patient: Total time spent is greater than 50% in coordination of care (as documented) at patient's floor/unit and/or counseling patient: Coding Level of Care Code 00389 SUB INP/OBS CARE 3/50MIN Diagnoses Hemoptysis R04.2
[2022-10-23] MEDS: UMECLIDINIUM/VILANTEROL 62.5/25MCG 7 PUFFS/INHALER INH SCH (08:42)
[2022-10-23] MEDS: IPRATROPIUM BROMIDE NASAL SPRAY 0.06% 15ML NAE SCH (08:42)
[2022-10-23] MEDS: INSULIN ASPART PER UNIT CHARGE SC SCH ×2 (08:45→12:56)
[2022-10-23] MEDS: LANTUS PER UNIT CHARGE SQ SCH (08:45)
[2022-10-23] MEDS: MAGNESIUM OXIDE 400 MG TAB PO SCH (08:47)
[2022-10-23] MEDS: ATORVASTATIN 40 MG TAB PO SCH (08:47)
[2022-10-23] MEDS: METOPROLOL SUCC 50MG EXT REL TAB PO SCH (08:48)
[2022-10-23] MEDS: ASPIRIN 81 MG ECTAB PO SCH (08:49)
[2022-10-23] MEDS: lisinopril 5 MG TAB PO SCH (08:49)
[2022-10-23] MEDS: FUROSEMIDE 20 MG TAB PO SCH (08:49)
[2022-10-23] MEDS: DOXYCYCLINE HYCLATE 100 MG CAP PO SCH (08:49)
[2022-10-23] MEDS ORDERED: LANTUS PER UNIT CHARGE SQ SCH (09:00)
[2022-10-23] MEDS ORDERED: methylPREDNISolone 40 MG in SYRINGE 0 ML IV SCH (09:00)
--- NOTE | 2022-10-23 11:00 | Hospitalist Progress Note ---
Date of Service October 23, 2022 Assessment & Plan (1) Hypoxia: (2) Pneumonia: (3) COPD (chronic obstructive pulmonary disease): Plan per admitting service notes with addendum: This is an 82-year-old male who has a significant past medical history of HTN, moderate aortic stenosis, chronic diastolic CHF, history of SVT, atherosclerosis of lower extremities, T2DM, chronic hypoxic respiratory failure, COPD, history of right lower lobe lung cancer status post radiation, history of radiation pneumonitis who presents to ED secondary to worsening cough and shortness of breath/chills x 1 day. Hypoxia Right middle and lower lobe pneumonia COPD exacerbation Hemoptysis Hx of RLL CA s/p XRT Biofire: negative CT Chest:No evidence of pulmonary embolus.2. Airspace opacity in the right lung compatible with aspiration/pneumonia.3. Small right pleural effusion.4. Emphysema and fibrotic changes. Treat with IV Zosyn, oral doxycycline Pulmonary service consulted, Dr. Oakes Given IV Zosyn, Solu-Medrol, nebs, guaifenesin DM Sputum culture: Pending Gradually improving Weaned off oxygen Cleared for discharge by pulmonary service Discharge plan: Prednisone taper Augmentin 875 mg x 10 days Doxycycline 100 mg twice daily x5 days Guaifenesin DM x1 week Follow-up with PCP in 1 week Lactic acidosis Likely in setting of hypoxia, now resolved Patient does not meet sepsis criteria Chronic diastolic CHF HTN Left subclavian stenosis Patient euvolemic Continue ASA, statin, Lasix, lisinopril Most recent echo 09/2022 revealed EF 55 to 59%, moderate mitral annular calcification, MV chordae thickened, mild mitral stenosis T2DM Continue usual regimen Disposition Discharge to home today ff up with PCP in 1 week Admission and Anticipated Discharge Date Admission Date: October 21, 2022 Subjective Follow-up for pneumonia, etc. Seen resting in bed, sitting up, not in distress, watching TV In good spirits On room air States he feels better overall Breathing is improved, no shortness of breath Minimal cough, with minimal blood-tinged sputum this morning Denies chest pain, palpitations, dizziness, nausea vomiting Appetite is good Ambulating in room with no problems Patient states he is ready for discharge today Review of Systems Review of Systems: all noted and negative except for above Physical Exam Physical Exam: General- oriented x 3, not in distress, speaks in sentences with no effort or accessory muscle use Eyes- anicteric Neck- no JVD Lungs- clear breath sounds bilaterally, no rales/wheezes Heart- normal rate, regular rhythm; no murmurs Abdomen- normal bowel sounds, nondistended, soft, nontender Extremities- no pretibial edema, no calf tenderness Neuro- alert, oriented x 3; no gross focal neurologic deficits Skin- warm & dry Results & Data Results & Data Vital Signs (Past 12 Hours) Vital Signs Temp Pulse Pulse Resp BP Pulse Ox O2 Del Method 10/23/22 10:29 36.6 C 77 19 176/90 H 96 Room Air 10/23/22 08:24 68 10/23/22 07:37 51 L 16 97 Room Air 10/23/22 07:32 Room Air 10/23/22 06:00 62 10/23/22 04:00 36.7 C 75 18 114/73 94 Room Air 10/22/22 23:00 Room Air 10/22/22 23:00 36.7 C 75 18 111/69 93 Room Air all noted and reviewed including below (2) Pneumonia Laterality: right Lung location: lower lobe of lung Pneumonia type: due to unspecified organism Qualified Code(s): J18.9 - Pneumonia, unspecified organism (3) COPD (chronic obstructive pulmonary disease) COPD type: unspecified COPD Qualified Code(s): J44.9 - Chronic obstructive pulmonary disease, unspecified
[2022-10-23 11:09] VITALS: O2SAT 97
[2022-10-23 11:13] VITALS: BP 154/86; PULSE 61; TEMP 100
--- NOTE | 2022-10-23 16:52 | Discharge Summary ---
Discharge Summary Date of Service October 23, 2022 Notes For Next Care Provider Medication Changes From Visit Prednisone taper, as follows: 40mg daily x 2 days, then 20mg daily x 2 days, then 10mg daily x 2 days, then stop Doxycycline 100mg BID x 5 days Augmentin 875mg BID x 10 days Guiafenesin DM x1 week Admission HPI Per Admitting Provider This is an 82-year-old male who has a significant past medical history of HTN, moderate aortic stenosis, chronic diastolic CHF, history of SVT, atherosclerosis of lower extremities, T2DM, chronic hypoxic respiratory failure, COPD, history of right lower lobe lung cancer status post radiation, history of radiation pneumonitis who presents to ED secondary to worsening cough and shortness of breath/chills x 1 day. Patient has history of recurrent aspiration pneumonia. He states symptoms started yesterday with chills and increasing shortness of breath. He has a chronic cough at baseline but feels it is more productive and did have 2 episodes of bloody sputum today. He had one episode of lightheadedness today but otherwise denies any fever, sweats, dizziness, chest pain, shortness breath at rest, sinus congestion, sore throat, nausea, vomiting, abdominal pain, changes bowel or urinary habits. He denies any orthopnea, PND, change in weight or lower extremity edema. He has been compliant with his medications. He did not take his Lasix today as he normally does not take it on Fridays. He has been using his albuterol twice daily. He gets short of breath at rest with minimal exertion. In ED patient was initially hypoxic requiring 2 L of supplemental oxygen. He was otherwise hemodynamically stable. He did have a mild elevated lactic acidosis at 2.2 and received 500 mL of IV fluid. His lactic acidosis has since resolved. He also had low magnesium at 1.6, elevated BNP at 488 and his respiratory bio fire panel was negative.Chest CTA was negative for PE, airspace opacity in the right lung compatible with as piration/pneumonia, small right pleural effusion, emphysema and fibrotic changes noted. Patient was seen IV Solu-Medrol, IV Zosyn, nebulizer and IV fluid in ED. He currently feels improved. Admission Exam Per Admitting Provider Constitutional: WD/WN, Tall, M, [place], vitals as above, NAD, sitting up in bed, pleasant, conversing easily Head: Normocephalic, Atraumatic Eyes: PERRL, conjunctivae normal, anicteric sclerae ENMT: external ear and nose normal, oropharynx normal dry membranes Neck: trachea midline, no thyromegaly normal visual inspection Respiratory: normal respiratory effort, lungs with scattered wheezing/rhonchi throughout, decreased RLL. Normal insp/exp effort, no accessory muscle use Cardiovascular: RRR, no murmur, no edema Vessels: no JVD or carotid bruit Chest: normal inspection of chest Abdomen: normal bowel sounds, soft, nontender, no hepatosplenomegaly Musculoskeletal: no cyanosis or clubbing, extremities motor strength 5/5 Skin: no rashes, warm and dry normal turgor Neurologic: PERRL, EOMI, accommodation nl, no face palsy, no dysarthria CN's II-XI intact bilaterally and moves all extremities Psychiatric: A+Ox3, euthymic affect Lymphatic: no cervical or axillary lymphadenopathy : deferred Principal Dx & Hospital Course #1 = Principal Diagnosis (1) Hypoxia: (2) Pneumonia: (3) COPD (chronic obstructive pulmonary disease): Plan per admitting service notes with addendum: This is an 82-year-old male who has a significant past medical history of HTN, moderate aortic stenosis, chronic diastolic CHF, history of SVT, atherosclerosis of lower extremities, T2DM, chronic hypoxic respiratory failure, COPD, history of right lower lobe lung cancer status post radiation, history of radiation pneumonitis who presents to ED secondary to worsening cough and shortness of breath/chills x 1 day. Hypoxia Right middle and lower lobe pneumonia COPD exacerbation Hemoptysis Hx of RLL CA s/p XRT Biofire: negative CT Chest:No evidence of pulmonary embolus.2. Airspace opacity in the right lung compatible with aspiration/pneumonia.3. Small right pleural effusion.4. Emphysema and fibrotic changes. Treat with IV Zosyn, oral doxycycline Pulmonary service consulted, Dr. Oakes Given IV Zosyn, Solu-Medrol, nebs, guaifenesin DM Sputum culture: Pending Gradually improving Weaned off oxygen Cleared for discharge by pulmonary service Discharge plan: Prednisone taper Augmentin 875 mg x 10 days Doxycycline 100 mg twice daily x5 days Guaifenesin DM x1 week Follow-up with PCP in 1 week Lactic acidosis Likely in setting of hypoxia, now resolved Patient does not meet sepsis criteria Chronic diastolic CHF HTN Left subclavian stenosis Patient euvolemic Continue ASA, statin, Lasix, lisinopril Most recent echo 09/2022 revealed EF 55 to 59%, moderate mitral annular calcification, MV chordae thickened, mild mitral stenosis T2DM Continue usual regimen Disposition Discharge to home today ff up with PCP in 1 week Discharge Exam General- oriented x 3, not in distress, speaks in sentences with no effort or accessory muscle use Eyes- anicteric Neck- no JVD Lungs- clear breath sounds bilaterally, no rales/wheezes Heart- normal rate, regular rhythm; no murmurs Abdomen- normal bowel sounds, nondistended, soft, nontender Extremities- no pretibial edema, no calf tenderness Neuro- alert, oriented x 3; no gross focal neurologic deficits Skin- warm & dry Updated Medication List Medication Instructions Recorded Confirmed Type albuterol sulfate 90 mcg/actuation 2 puff inhalation Q4H PRN Wheezing 12/11/17 10/21/22 History aerosol inhaler omeprazole 20 mg capsule,delayed 20 mg PO DAILYBB 12/11/17 10/21/22 History release furosemide 20 mg tablet (Lasix) 20 mg PO SUMOTUWETHSA@0900 10/31/19 10/21/22 History montelukast 10 mg tablet 10 mg PO HS 10/31/19 10/21/22 History potassium gluconate 550 mg (90 mg) 550 mg PO DAILY 10/31/19 10/21/22 History tablet aspirin 81 mg tablet,delayed 81 mg PO DAILY 01/07/21 10/21/22 History release (Adult Aspirin Regimen) atorvastatin 80 mg tablet 80 mg PO DAILY 01/07/21 10/21/22 History ipratropium bromide 21 mcg (0.03 2 spray intranasal BID 06/24/21 10/21/22 History %) nasal spray magnesium oxide 400 mg PO BID 06/24/21 10/21/22 History polyethylene glycol 3350 17 gram 17 g PO DAILY PRN Constipation 06/24/21 10/21/22 History oral powder packet (Miralax) tramadol 50 mg tablet 50 mg PO Q8H PRN Moderate Pain 06/24/21 10/21/22 History (Scale Score 5-6) lisinopril 5 mg tablet 5 mg PO QAM 09/19/21 10/21/22 History metformin 500 mg tablet,extended 1,000 mg PO DAILY 09/19/21 10/21/22 History release 24 hr tiotropium 2.5 mcg-olodaterol 2.5 2 inh inhalation DAILY #4 grams 09/22/21 10/21/22 Rx mcg/actuation mist for inhalation (Stiolto Respimat) loperamide 2 mg capsule (Imodium 2 mg PO Q6H PRN loose stool #14 07/16/22 10/21/22 Rx A-D) caps metoprolol succinate 50 mg 50 mg PO AMHS 10/21/22 10/21/22 History tablet,extended release 24 hr pregabalin 150 mg capsule (Lyrica) 150 mg PO Q8H PRN nerve pain 10/21/22 10/21/22 History amoxicillin 875 mg-potassium 1 tab PO BID 10 days #20 tabs 10/23/22 Rx clavulanate 125 mg tablet dextromethorphan-guaifenesin 5 10 ml PO Q8 7 days #237 mL 10/23/22 Rx mg-100 mg/5 mL oral liquid (Robitussin Cough-Chest Congestion DM) doxycycline hyclate 100 mg capsule 100 mg PO BID 5 days #10 caps 10/23/22 Rx prednisone 10 mg tablet 10 mg PO DAILY #14 tabs 10/23/22 Rx Hospital Stay Data Consultations 10/21/22 17:13 ED Decision to Admit Stat 10/21/22 21:22 Consult Pulmonology Routine Diagnostic Imagining Performed Chest CTA 10/21/22 15:21 CT angio chest PE protocol CLINICAL HISTORY: cp, sob, hypoxia, r/o PE TECHNIQUE: Multidetector row helical CT of the chest was performed with angiographic protocol. Coronal and sagittal reformations were obtained. Coronal and sagittal MIPS were obtained from the axial data set and were submitted for review. Automated dose lowering techniques and/or adjustment according to patient size were utilized for this exam. CT DOSE: 749.76 mGy.cm Comparison: Comparison is made to chest 01/03/2022 FINDINGS: Lungs and pleura: Severe emphysematous and fibrotic changes are seen. There is a trace right pleural effusion. There is airspace opacity in the right lower middle lobes, new from prior exam. Heart and pericardium: Cardiomegaly is seen with biatrial enlargement. Aortic valve calcifications are seen. Vessels: Severe atherosclerotic changes in the aorta and coronary arteries. Mediastinum and james: Subcentimeter lymph nodes are seen. Chest wall and lower neck: Unremarkable. Abdomen: Patient is status post cholecystectomy. Bones: Degenerative changes in the thoracic spine. IMPRESSION: 1. No evidence of pulmonary embolus. 2. Airspace opacity in the right lung compatible with aspiration/pneumonia. 3. Small right pleural effusion. 4. Emphysema and fibrotic changes. ACT 112: Negative or not required by law. Electronically signed by: Tra Gonzalez M.D. 10/21/2022 4:23 PM Chest X-Ray 10/23/22 07:00 XR chest 1V portable HISTORY: Shortness of breath. Hypoxia. COMPARISON: Chest 10/21/2022. FINDINGS: Emphysema and interstitial thickening persists. No pneumothorax. The heart is normal in size. The right base airspace opacities have improved. Patchy right midlung zone airspace opacities persist. No evidence for pulmonary edema. Old posttraumatic changes within the right clavicle and right humerus. Prior cholecystectomy. IMPRESSION: 1. Interval improvement in the right basilar airspace opacities. 2. The right midlung zone airspace opacities persist. 3. Emphysema again noted. ACT 112: Negative or not required by law. Electronically signed by: Hung Stuart M.D. 10/23/2022 8:15 AM Pending Results Patient Have Any Pending Studies at Discharge: Yes Discharge Instructions Given to Patient (Per Discharging Provider) PLEASE REFER TO YOUR NEW MEDICATION LIST AND FOLLOW INSTRUCTIONS CAREFULLY. YOUR NEW MEDICATIONS INCLUDE: Prednisone taper, as follows: 40mg daily x 2 days, then 20mg daily x 2 days, then 10mg daily x 2 days, then stop Doxycycline, Augmentin- antibiotic Guiafenesin DM- for cough Take a probiotic daily for 2 weeks. Drink plent of water. PLEASE CALL YOUR PRIMARY CARE PHYSICIAN OR RETURN TO THE ER IF WITH WORSENING OF SYMPTOMS, INCLUDING shortness of breath, cough, blood in the sputum, fever/chills, nausea/vomiting, etc FOLLOW UP WITH PRIMARY CARE PHYSICIAN IN 1 WEEK. FOLLOW UP WITH [facility] SCHEDULED. Total Time Total Time Spent Total Time Spent (In Minutes): >30 minutes
[2022-10-24] MEDS ORDERED: predniSONE 20 MG TAB PO SCH (09:00)
== END 2022-10-23 14:10 | disposition home or self-care (01) | DRG 178 ==
LOC: ED 14:22 → SUATTDRO 17:56 → 2W 17:56
DX: I11.0 Hypertensive heart disease with heart failure; Z92.3 Personal history of irradiation; Z85.118 Personal history of other malignant neoplasm of bronchus and lung; E11.51 Type 2 diabetes mellitus with diabetic peripheral angiopathy without gangrene; Z87.01 Personal history of pneumonia (recurrent); Z79.84 Long term (current) use of oral hypoglycemic drugs; I35.0 Nonrheumatic aortic (valve) stenosis; J69.0 Pneumonitis due to inhalation of food and vomit; Z66 Do not resuscitate; I50.32 Chronic diastolic (congestive) heart failure; E87.20 Acidosis, unspecified; Z79.899 Other long term (current) drug therapy; R04.2 Hemoptysis; J43.2 Centrilobular emphysema; J96.11 Chronic respiratory failure with hypoxia; Z79.82 Long term (current) use of aspirin

== ENCOUNTER 2024-07-03 15:11 | Observation (INO) ==
[2024-07-03] MEDS: OPTIRAY 320 125ml IV ONE (15:33)
[2024-07-03 15:53] LABS: iSTAT Creatinine 1.3 mg/dl (0.6-1.3); iSTAT Hemoglobin 14.6 g/dl (14.0-18.0); iSTAT Ionized Calcium 1.18 mmol/l (1.12-1.32); iSTAT Potassium 4.5 mmol/L (3.3-5.0)
--- NOTE | 2024-07-03 15:53 | CT Scan Report ---
CT head/brain wo con CLINICAL HISTORY: neuro deficit, acute stroke suspected, speech champagne. TECHNIQUE: Multiple axial CT images of the head were obtained without contrast. A dose lowering tech nique was utilized adhering to the principles of ALARA. COMPARISON: 07/17/2021 FINDINGS: No intracranial hemorrhage seen. No mass effect, midline shift, or hydrocephalus. There is stable chronic small vessel ischemic change. No skull fracture seen. Visualized paranasal sinuses and mastoid air cells are clear. IMPRESSION: No acute findings. ACT 112: Negative or not required by law. The above report was generated using voice recognition software. It may contain grammatical, syntax o r spelling errors. Electronically signed by: Huan Jennings M.D. 07/03/2024 3:52 PM
--- NOTE | 2024-07-03 15:53 | CT Scan Report ---
CT angio chest PE protocol CT DOSE: 1797.91 mGy.cm HISTORY: ?pna, slurred speech. TECHNIQUE: Multiple CTA images of the chest were obtained after the intravenous administration of 120 ml Optiray. Coronal and sagittal MIPS were obtained from the axial data set and were submitted for review. All measurements were obtained according to NASCET criteria. A dose lowering technique was u tilized adhering to the principles of ALARA. COMPARISON STUDY: 10/21/2022 FINDINGS: There are mild airway secretions. There is bronchial wall thickening consistent with bronch itis. There is moderate to severe emphysema. There are trace bilateral pleural effusions. There is pr ogressive reticular and groundglass opacity at the inferior right lower lobe and right middle lobe wi th a few small scattered areas of patchy nodular consolidation, largest anterior right middle lobe me asures 2.6 cm series 6 image 41, increased. There is an interval bandlike opacity at the left lung ba se. No pneumothorax. Stable bulla or pneumatoceles at the right lung base. No enlarged adenopathy. No pericardial effusion. There are diffuse coronary artery and aortic calcifications. No thoracic aorti c dissection or aneurysm. No pulmonary embolism. There are mild thoracic spine degenerative changes. IMPRESSION: 1. No pulmonary embolism seen. 2. Progressive pneumonia at the right lung base. 3. Increased nodular opacity at the right middle lobe, pneumonia versus pulmonary nodule. Follow-up c hest CT suggested in 3 months. 4. Otherwise as described. ACT 112: Positive. There are findings on this exam that require communication between the performing entity and the patient following Patient Test Result Information Act ([place] Act 112) guidelines. The above report was generated using voice recognition software. It may contain grammatical, syntax o r spelling errors. Electronically signed by: Huan Jennings M.D. 07/03/2024 3:50 PM
--- NOTE | 2024-07-03 15:54 | XRay Report ---
XR chest 1V portable CLINICAL HISTORY: sob, slurred speech COMPARISON STUDY: 10/23/2022 FINDINGS: Stable emphysema. There is increased reticular and patchy opacity at the lung bases. No pne umothorax. IMPRESSION: Lung base pneumonia, right greater than left. ACT 112: Negative or not required by law. Electronically signed by: Huan Jennings M.D. 07/03/2024 3:53 PM
--- NOTE | 2024-07-03 15:59 | CT Scan Report ---
CT ANGIOGRAPHY OF THE NECK WITH CONTRAST CLINICAL HISTORY: neuro deficit, acute stroke suspected COMPARISON STUDY: Neck CTA June 24, 2021. Carotid ultrasound July 18, 2021. Technique: CT angiography of the carotid and vertebral arteries was obtained using Optiray and 3D rec onstruction on an independent workstation. NASCET criteria was utilized. Automated exposure control was utilized for the study. A dose lowering technique was utilized adhering to the principles of ALA RA. Findings: Severe emphysema is incidentally noted within visualized portions of the lung apices. There are small bilateral pleural effusions. Subpleural opacity within the superior segment of the right l ower lobe favor scarring. Findings are better depicted on the chest CT which will be reported separat antonella. 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 There is reconsti tution at the level of the axillary artery. There is chronic occlusion of the proximal to mid left ve rtebral artery with distal reconstitution. This vessel is diminutive. Moderate stenosis at the origin the right vertebral artery is unchanged. There is extensive calcified plaque within the distal left common carotid artery, similar to prior exam. This results in 70% stenosis. There is 90% stenosis of the proximal left internal carotid artery which is also unchanged. There is occlusion of the proximal left external carotid artery with distal reconstitution. Extensive calcified plaque within the distal right common carotid arteries also mild stenosis. There is severe stenosis at the origin of the right external carotid artery. In addition, there is 80% sten osis of the proximal right internal carotid artery, similar to prior exam. IMPRESSION: 1. Extensive calcified atherosclerotic plaque within the bilateral distal common carotid and proximal internal carotid arteries, similar to CTA of June 24, 2021. 2. 90% stenosis of the proximal left internal carotid artery and 80% stenosis of the proximal right i nternal carotid artery. Common carotid artery stenoses, as described above. 3. 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 No change in moderate stenosis at the origin of the right vertebral artery. ACT 112: Negative or not required by law. Electronically signed by: Jewel Balbuena M.D. 07/03/2024 3:57 PM
--- NOTE | 2024-07-03 16:07 | CT Scan Report ---
CTA ANGIOGRAPHY OF THE HEAD CLINICAL HISTORY: neuro deficit, acute stroke suspected COMPARISON STUDY: MRI of the brain July 18, 2021. CTA of the head June 24, 2021. TECHNIQUE: Helical axial images of the head were obtained following uneventful intravenous administr ation of 118 cc of Optiray. Sagittal and coronal reconstructions were viewed as well as maximal inten sity projections on an independent 3-D workstation. Automated exposure control was utilized for the study. A dose lowering technique was utilized adhering to the principles of ALARA. FINDINGS: No acute intracranial hemorrhage, midline shift or mass effect is present. Please note that the head CT will be reported separately. The ventricular system is normal. The basal cisterns are pa tent. There is extensive calcified atherosclerotic plaque within the bilateral cavernous carotids. Th is results in severe stenosis of the left cavernous carotid and moderate stenosis of the right cavern ous carotid. The anterior cerebral arteries arise from the right internal carotid artery. 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 No additional intracranial aneurysms are present. The bilateral M1 and M2 segments are p atent. No abrupt vessel cut off is identified. Severe stenosis of the intracranial portion of the lef t vertebral artery is unchanged. There is moderate stenosis of the intracranial portion of the right vertebral artery. There is persistence of the right posterior cerebral artery. The basilar delmi ry is diminutive. IMPRESSION: 1. No large vessel occlusion. 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 2. Severe multifocal stenoses within the intracranial vessels, similar to prior exam. ACT 112: Negative or not required by law. Electronically signed by: Jewel Balbuena M.D. 07/03/2024 4:05 PM
--- NOTE | 2024-07-03 16:09 | Emergency Department Note ---
Impression & Plan Pneumonia, Slurring of speech ED Provider Note Provider: Art Banda MD CHIEF COMPLAINT: Breathing issues, slurred speech HISTORY OF PRESENT ILLNESS: Patient is a 84-year-old gentleman history of lung cancer and COPD status post radiation presenting here today stating last night around 2 AM got up to go to the bathroom and felt short of breath with this. Today had significant issues this morning walking the dog and has been resting on the couch and having chills. Patient denies falling or syncope or pain at this time. He finally acquiesced to his and came here for evaluation this afternoon. Triage nursing here noted the patient to have maybe a little bit of left facial droop and slurred speech. Patient himself states that he has had some slurred speech for years. Patient reports his speech has been on and off slurred for several months and seems a bit worse in the afternoon. She states at lunchtime he seemed more lethargic than normal and not himself and she is unsure if his speech was not slurred as it is right now. She states he seen for himself yesterday afternoon evening. No trauma reported. Patient denies headache or new numbness or tingling. Patient again denied to me any new significant neurological deficits and really is only complaining about his breathing. PAST MEDICAL HISTORY: As noted above MEDICATIONS: Reviewed home medications includes prophylactic azithromycin SOCIAL HISTORY: PHYSICAL EXAM: GENERAL: alert and oriented in no acute distress on stretcher Head: normocephalic and atraumatic EYES: No injection, discharge or icterus. EOMI. NECK: Trachea midline. Supple. ENT: Mucous membranes pink and moist. LUNGS: Airway patent. No retractions. Breath sounds faint scattered wheezing HEART: Regular rate and rhythm. No chest wall tenderness ABDOMEN: Soft and non-tender, without guarding or rebound. SKIN: Acyanotic, warm, dry, without rashes EXTREMITIES: Without swelling, tenderness or deformity NEUROLOGICAL: No focal deficits. No aphasia. Very mild slurred speech. Maybe just a little bit of depression of the left lip line for droop but has good movement otherwise and sensation. Tongue midline. Normal strength and tone in the extremities. Sensation to gross touch normal. Ambulatory. EK bpm sinus rhythm first-grade V-block. Left bundle branch block is noted. No clear Sgarbossa criteria for ST segment elevation. QTc 502. CONTINUOUS CARDIAC MONITORING: was ordered and showed a heart rate of 60s to 70s bpm in first-degree heart block Patient's laboratory studies and imaging reviewed. Differential includes CVA, seizure, reactive airway disease, pneumonia, pneumothorax, COPD, CHF, infections, cardiac ischemia, pulmonary embolism, musculoskeletal, gastrointestinal, as well as other pathologies. IMPRESSION/MEDICAL DECISION MAKING: Stroke alert from triage based upon questionable neurological deficits. Upon evaluation of the patient the CT scan and further discussion of the it appears the patient's had on and off slurred speech for some time. At this point last known well more than 4-1/2 hours and outside the window for thrombolytics. Does not seem to have gross deficits as far as extremities or vision. Patient again states he does not feel that his speech is more slurred than normal over the last year or 2. Patient primarily here with respiratory symptoms. History of aspiration as well as lung cancer. Borderline oxygen placed on [address] scan of the chest to exclude PE and evaluate lung parenchyma for possible pneumonia completed with concerns for right basilar pneumonia per radiology. No PE noted. Blood work is sent. No severe anemia or electrolyte abnormalities noted. No significant leukocytosis today. Based on his prior structural lung disease and review of prior hospitalization here in 2022, will cover empirically with Zosyn. He is on prophylactic azithromycin. Blood pressure around 100 and given small amount of gentle IV fluid 500mL cautious as he is on diuretics by cardiology. Does not appear fluid overload at this time. CT of the head without acute changes noted. CT Angiograms of the head and neck with extensive plaques and stenoses but no large acute occlusions noted. Have lower suspicion for CVA believe this more infectious related to pneumonia. Discussed with patient and findings of pneumonia and covered with antibiotics. Will bring him in for further care. Discussed with the hospitalist team here. DIAGNOSIS: Pneumonia, blurred speech/weakness DISPOSITION: Hospitalist will evaluate Patient was agreeable with this plan. Past Med/Surg History Problem List (Updated 07/03/24 @ 22:01 by Art Banda M.D.) Slurring of speech (Acute) Pneumonia (Acute) Hemoptysis Hypoxia (Acute) Pneumonia (Acute) Multifocal pneumonia (Acute) Hypoxia (Acute) Abnormal CT scan of lung COPD (chronic obstructive pulmonary disease) (Acute) Hyponatremia Atrial tachycardia, paroxysmal Stroke-like symptoms Pneumonia (Acute) AMS (altered mental status) (Acute) Hypoxia (Acute) History of lung cancer Carotid arterial disease (Acute) Intercostal neuralgia Pleural effusion Primary cancer of right lower lobe of lung (Chronic 10/23/19) Medical History Acute on chronic systolic and diastolic heart failure, NYHA class 4 Acute congestive heart failure likely precipitated by paroxysmal atrial fibrillation with rapid ventricular rate. Now back in sinus rhythm diuresing well with decreasing oxygen requirements Recommend: Continue diuretics, discontinue BiPAP, wean oxygen as tolerated, initiate sliding scale insulin for hyperglycemia, advance diet as tolerated Acute respiratory failure with hypoxia and hypercapnia Aortic stenosis Atherosclerosis of leg with intermittent claudication COPD (chronic obstructive pulmonary disease) Diabetes mellitus, type 2 Electrolyte imbalance GERD (gastroesophageal reflux disease) Hyperlipidemia Hypertension Hypokalemia Hypomagnesemia Hypoxia LBBB (left bundle branch block) Malignant neoplasm of skin of trunk Basal Cell - on Forehead and on Neck Nonischemic cardiomyopathy Osteoporosis Pulmonary edema PVD (peripheral vascular disease) Valvular heart disease Vertebral fracture, osteoporotic (02/04/08) Surgical History History of bronchoscopy 10/23/2019 - Diagnostic History of cardiac cath 11/2017 History of cataract extraction with lens replacement 07/03/2013 - Dr. Hazel History of cholecystectomy 1998 History of discectomy 1995 History of ERCP 02/1999 - with stone removal History of nasal septoplasty History of procedure for peripheral vascular disease 01/15/2015 - Right Femoral Endarterectomy History of tonsillectomy As a Child History of total knee replacement 12/05/2011 - Right - Dr. Medina History of trigger finger 10/09/2019 - Release Surgery (Dr. Dana Hernandez) Family History Mother , Passed age 92 of natural causes No problems noted. Father , Passed age 67 from stroke complications No problems noted. Brother , Passed age 67 of [place] No problems noted. Son No problems noted. Daughter No problems noted. 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 Feels Safe at Home: Yes Childhood Exposure to Second-Hand Smoke: No Diet: regular caffeine: Yes (1-2 cups of coffee/day ) during the past year weight has: remained stable Dental Care, Regularly: Yes Assistive Devices: Glasses Allergies Allergies Allergy/AdvReac Type Severity Reaction Status Date / Time No Known Allergies Allergy Verified 07/03/24 16:26 Home Meds Home Medications Medication Instructions Recorded Confirmed albuterol sulfate 90 mcg/actuation 2 puff inhalation Q4H PRN 12/11/17 07/03/24 aerosol inhaler Shortness Of Breath Or Wheezing omeprazole 20 mg capsule,delayed 20 mg PO DAILYBB 12/11/17 07/03/24 release montelukast 10 mg tablet 10 mg PO HS 10/31/19 07/03/24 potassium gluconate 550 mg (90 mg) 550 mg PO DAILY 10/31/19 07/03/24 tablet atorvastatin 80 mg tablet 80 mg PO DAILY 01/07/21 07/03/24 magnesium oxide 400 mg PO BID 06/24/21 07/03/24 tramadol 50 mg tablet 50 mg PO Q8H PRN Moderate Pain 06/24/21 07/03/24 (Scale Score 5-6) lisinopril 5 mg tablet 5 mg PO QAM 09/19/21 07/03/24 metformin 500 mg tablet,extended 1,000 mg PO DAILY 09/19/21 07/03/24 release 24 hr metoprolol succinate 50 mg 25 mg PO BID 10/21/22 07/03/24 tablet,extended release 24 hr pregabalin 150 mg capsule (Lyrica) 150 mg PO QPM nerve pain 10/21/22 07/03/24 furosemide 20 mg tablet (Lasix) 20 mg PO 5XWK 12/23/22 07/03/24 ipratropium bromide 21 mcg (0.03 2 spray intranasal BID 12/23/22 07/03/24 %) nasal spray Saccharomyces boulardii 250 mg 250 mg PO DAILY 07/03/24 07/03/24 capsule (Florastor) aspirin 81 mg tablet,delayed 81 mg PO DAILY 07/03/24 07/03/24 release azithromycin 500 mg tablet 500 mg PO 3XWK 07/03/24 07/03/24 cyanocobalamin (vitamin B-12) 1,000 mcg PO DAILY 07/03/24 07/03/24 1,000 mcg tablet (Vitamin B-12) ipratropium 0.5 mg-albuterol 3 mg 3 ml inhalation Q4H PRN Shortness 07/03/24 07/03/24 (2.5 mg base)/3 mL nebulization Of Breath Or Wheezing soln loperamide 2 mg capsule (Imodium 2 mg PO DIRECTED PRN loose stool 07/03/24 07/03/24 A-D) sitagliptin phosphate 25 mg tablet 25 mg PO DAILY 07/03/24 07/03/24 (Januvia) Previous Rx's Medication Instructions Recorded tiotropium 2.5 mcg-olodaterol 2.5 2 inh inhalation DAILY #4 grams 09/22/21 mcg/actuation mist for inhalation (Stiolto Respimat) Results & Data (ED) Vital Signs Vital Signs - 24 hr 07/03/24 15:20 07/03/24 15:50 07/03/24 16:15 Temperature 36.6 C Temperature Source Temporal Artery Scan Pulse Rate 80 Pulse Rate [Apical] 71 Respiratory Rate 20 18 Respiratory Effort / Characteristics Non-Labored Spontaneous Non-Labored Spontaneous Respiratory Depth Normal Normal Respiratory Pattern Regular Regular Blood Pressure 113/58 L Blood Pressure [Right Arm] 103/58 L Blood Pressure Mean 76 Blood Pressure Mean [Right Arm] 73 Blood Pressure Position Sitting Pulse Oximetry 89 L 90 88 L Oxygen Delivery Method Room Air Room Air Room Air Nasal Cannula Oxygen Flow Rate 0 Sepsis Recent Fever Within 48 Hours No Sepsis New/Unexplained Change in Mental Status N/A Sepsis Action Taken by Nursing No Action Required Oxygen Flow Rate - Titration 3 Pulse Oximetry Post Tiitration 94 07/03/24 16:19 07/03/24 16:30 07/03/24 16:57 Temperature Temperature Source Pulse Rate 66 Pulse Rate [Apical] 63 65 Respiratory Rate 18 16 Respiratory Effort / Characteristics Non-Labored Spontaneous Respiratory Depth Normal Respiratory Pattern Regular Blood Pressure Blood Pressure [Right Arm] 100/65 99/64 L Blood Pressure Mean Blood Pressure Mean [Right Arm] 76 75 Blood Pressure Position Pulse Oximetry 99 98 Oxygen Delivery Method Nebulizer Nasal Cannula Oxygen Flow Rate 8 3 Sepsis Recent Fever Within 48 Hours Sepsis New/Unexplained Change in Mental Status Sepsis Action Taken by Nursing Oxygen Flow Rate - Titration Pulse Oximetry Post Tiitration Laboratory Data 07/03/24 15:49 07/03/24 15:49 Lab Results 07/03/24 07/03/24 07/03/24 Range/Units 15:39 15:41 15:49 WBC 8.99 (4.8-10.8) K/ul RBC 4.35 L (4.70-6.10) M/uL Hgb 13.7 L (14.0-18.0) g/dl POC Hgb 14.6 (14.0-18.0) g/dl Hct 40.7 L (42.0-52.0) % POC Hct 43 (42-52) % MCV 93.6 (80.0-100.0) fL MCH 31.5 (25.0-34.0) pg MCHC 33.7 (32.0-36.0) g/dL RDW Std Deviation 47.9 H (36.4-46.3) fL RDW Coeff of Carol 13.9 (11.5-14.5) % Plt Count 214 (130-400) K/uL MPV 11.0 (9.4-12.4) fL Immature Gran % (Auto) 0.6 % Neut % (Auto) 82.1 % Lymph % (Auto) 7.8 % Carolina % (Auto) 9.2 % Eos % (Auto) 0.1 % Baso % (Auto) 0.2 % Neut # (Auto) 7.38 H (1.40-6.50) K/uL Lymph # (Auto) 0.70 L (1.20-3.40) K/uL Carolina # (Auto) 0.83 H (0.11-0.59) K/uL Eos # (Auto) 0.01 (0.00-0.50) K/uL Baso # (Auto) 0.02 (0.00-0.20) K/uL Immature Gran # (Auto) 0.05 (0.01-0.20) K/uL PT 10.9 (9.0-12.0) Seconds INR 1.0 (0.9-1.1) APTT 30 (21-31) Seconds PTT Ratio 1.1 POC Sodium 138 (135-144) mmol/L Sodium 133 L (136-145) mmol/L POC Potassium 4.5 (3.3-5.0) mmol/L Potassium 4.2 (3.5-5.1) mmol/L POC Chloride 101 (101-112) mmol/L Chloride 101 (98-107) mmol/L Carbon Dioxide 27 (21-32) mmol/L POC Total CO2 26 (24-31) mmol/L Anion Gap 5 (3-11) POC Anion Gap 16.0 (16-25) mmol/L POC BUN 27 H (7-18) mg/dl BUN 24 H (6-23) mg/dl Creatinine 1.23 (0.6-1.4) mg/dl POC Creatinine 1.3 (0.6-1.3) mg/dl Est Cr Clr Drug Dosing 41.8 ml/min eGFR 57.17 BUN/Creatinine Ratio 19.5 (10-20) Glucose 116 H (70-99(Fasting)) mg/dl POC Glucose 121 H (70-99) mg/dl POC Glucose (other) 126 H (70-99) mg/dl Lactate 1.2 (0.4-2.0) mmol/L Calcium 8.0 L (8.6-10.3) mg/dl POC Ioniz Calcium Yaya 1.18 (1.12-1.32) mmol/l Magnesium 1.6 L (1.7-2.4) mg/dl Total Bilirubin 0.5 (0.2-1.0) mg/dl AST 9 L (13-39) U/L ALT 6 L (7-52) U/L Alkaline Phosphatase 76 (34-104) U/L Troponin I High Sens 30.6 H (0-20) pg/ml Total Protein 5.8 L (6.0-8.3) gm/dl Albumin 3.3 L (3.4-5.0) gm/dl Globulin 2.5 (2.5-4.0) gm/dl Albumin/Globulin Ratio 1.3 (0.9-2) Procalcitonin 0.22 (0-0.5) ng/ml Blood Type A Positive Antibody Screen NEGATIVE Administered Medications Heparin Sodium (Porcine) (Heparin Sod 5,000 Unit/0.5 Ml Vial) 5,000 units SQ Q8 ZHENG Stop: 08/02/24 21:59 Last Admin: 07/03/24 21:09 Dose: 5,000 units Documented By: MELECIO Insulin Aspart (Insulin Aspart Per Unit Charge) 0 units SC ACHS ZHENG Stop: 08/02/24 20:59 Last Admin: 07/03/24 21:07 Dose: Not Given Documented By: MELECIO Magnesium Oxide (Magnesium Oxide 400 Mg Tab) 400 mg PO BID ZHENG Stop: 08/02/24 20:59 Last Admin: 07/03/24 21:07 Dose: 400 mg Documented By: MELECIO Metoprolol Succinate (Metoprolol Succ 25mg Ext Rel Tab) 25 mg PO BID ZHENG Stop: 08/02/24 20:59 Last Admin: 07/03/24 21:08 Dose: 25 mg Documented By: MELECIO Montelukast Sodium (Montelukast Sodium 10 Mg Tablet) 10 mg PO HS ZHENG Stop: 08/02/24 20:59 Last Admin: 07/03/24 21:08 Dose: 10 mg Documented By: MELECIO Pregabalin (Pregabalin 150 Mg Cap) 150 mg PO QPM ZHENG Stop: 08/02/24 20:59 Last Admin: 07/03/24 21:07 Dose: 150 mg Documented By: MELECIO Discontinued Medications Albuterol (Albut/Ipratrop 3mg/0.5mg Neb 3 Ml Vial) 3 ml NEB NOW STA; Protocol Stop: 07/03/24 16:17 Last Admin: 07/03/24 16:29 Dose: 3 ml Documented By: VILLA Piperacillin Sod/Tazobactam Sod (Zosyn) 4.5 gm in 100 mls @ 200 mls/hr IV NOW ONE; Protocol Stop: 07/03/24 16:35 Last Infusion: 07/03/24 16:59 Dose: Infused Documented By: Admin: 07/03/24 16:29 Dose: 200 mls/hr Documented By: VILLA Sodium Chloride (Nss) 500 mls @ 999 mls/hr IV .Q31M ONE Stop: 07/03/24 16:48 Last Infusion: 07/03/24 17:03 Dose: Infused Documented By: Admin: 07/03/24 16:30 Dose: 999 mls/hr Documented By: VILLA Magnesium Sulfate/Dextrose (Magnesium Sulfate / D5w) 1 gm in 100 mls @ 100 mls/hr IV NOW STA Stop: 07/03/24 17:50 Last Infusion: 07/03/24 18:05 Dose: Infused Documented By: Admin: 07/03/24 17:01 Dose: 100 mls/hr Documented By: NEIDA Ioversol (Optiray 320 125ml) 118 ml IV ONCE ONE Stop: 07/03/24 15:34 Last Admin: 07/03/24 15:33 Dose: 118 ml Documented By: GES Imaging Data Radiologist's Impression: Chest CTA 07/03/24 15:28 CT angio chest PE protocol CT DOSE: 1797.91 mGy.cm HISTORY: ?pna, slurred speech. TECHNIQUE: Multiple CTA images of the chest were obtained after the intravenous administration of 120 ml Optiray. Coronal and sagittal MIPS were obtained from the axial data set and were submitted for review. All measurements were obtained according to NASCET criteria. A dose lowering technique was utilized adhering to the principles of ALARA. COMPARISON STUDY: 10/21/2022 FINDINGS: There are mild airway secretions. There is bronchial wall thickening consistent with bronchitis. There is moderate to severe emphysema. There are trace bilateral pleural effusions. There is progressive reticular and groundglass opacity at the inferior right lower lobe and right middle lobe with a few small scattered areas of patchy nodular consolidation, largest anterior right middle lobe measures 2.6 cm series 6 image 41, increased. There is an interval bandlike opacity at the left lung base. No pneumothorax. Stable bulla or pneumatoceles at the right lung base. No enlarged adenopathy. No pericardial effusion. There are diffuse coronary artery and aortic calcifications. No thoracic aortic dissection or aneurysm. No pulmonary embolism. There are mild thoracic spine degenerative changes. IMPRESSION: 1. No pulmonary embolism seen. 2. Progressive pneumonia at the right lung base. 3. Increased nodular opacity at the right middle lobe, pneumonia versus pulmonary nodule. Follow-up chest CT suggested in 3 months. 4. Otherwise as described. ACT 112: Positive. There are findings on this exam that require communication between the performing entity and the patient following Patient Test Result Information Act ([place] Act 112) guidelines. The above report was generated using voice recognition software. It may contain grammatical, syntax or spelling errors. Electronically signed by: Huan Jennings M.D. 07/03/2024 3:50 PM Chest X-Ray 07/03/24 15:28 XR chest 1V portable CLINICAL HISTORY: sob, slurred speech COMPARISON STUDY: 10/23/2022 FINDINGS: Stable emphysema. There is increased reticular and patchy opacity at the lung bases. No pneumothorax. IMPRESSION: Lung base pneumonia, right greater than left. ACT 112: Negative or not required by law. Electronically signed by: Huan Jennings M.D. 07/03/2024 3:[address] 07/03/24 15:28 CT head/brain wo con CLINICAL HISTORY: neuro deficit, acute stroke suspected, speech champagne. TECHNIQUE: Multiple axial CT images of the head were obtained without contrast. A dose lowering technique was utilized adhering to the principles of ALARA. COMPARISON: 07/17/2021 FINDINGS: No intracranial hemorrhage seen. No mass effect, midline shift, or hydrocephalus. There is stable chronic small vessel ischemic change. No skull fracture seen. Visualized paranasal sinuses and mastoid air cells are clear. IMPRESSION: No acute findings. ACT 112: Negative or not required by law. The above report was generated using voice recognition software. It may contain grammatical, syntax or spelling errors. Electronically signed by: Huan Jennings M.D. 07/03/2024 3:52 PM Head CTA 07/03/24 15:28 CTA ANGIOGRAPHY OF THE HEAD CLINICAL HISTORY: neuro deficit, acute stroke suspected COMPARISON STUDY: MRI of the brain July 18, 2021. CTA of the head June 24, 2021. TECHNIQUE: Helical axial images of the head were obtained following uneventful intravenous administration of 118 cc of Optiray. Sagittal and coronal reconstructions were viewed as well as maximal intensity projections on an independent 3-D workstation. Automated exposure control was utilized for the study. A dose lowering technique was utilized adhering to the principles of ALARA. FINDINGS: No acute intracranial hemorrhage, midline shift or mass effect is present. Please note that the head CT will be reported separately. The ventricular system is normal. The basal cisterns are patent. There is extensive calcified atherosclerotic plaque within the bilateral cavernous carotids. This results in severe stenosis of the left cavernous carotid and moderate stenosis of the right cavernous carotid. The anterior cerebral arteries arise from the right internal carotid artery. 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 No additional intracranial aneurysms are present. The bilateral M1 and M2 segments are patent. No abrupt vessel cut off is identified. Severe stenosis of the intracranial portion of the left vertebral artery is unchanged. There is moderate stenosis of the intracranial portion of the right vertebral artery. There is persistence of the right posterior cerebral artery. The basilar artery is diminutive. IMPRESSION: 1. No large vessel occlusion. 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 2. Severe multifocal stenoses within the intracranial vessels, similar to prior exam. ACT 112: Negative or not required by law. Electronically signed by: Jewel Balbuena M.D. 07/03/2024 4:05 PM Neck CTA 07/03/24 15:28 CT ANGIOGRAPHY OF THE NECK WITH CONTRAST CLINICAL HISTORY: neuro deficit, acute stroke suspected COMPARISON STUDY: Neck CTA June 24, 2021. Carotid ultrasound July 18, 2021. Technique: CT angiography of the carotid and vertebral arteries was obtained using Optiray and 3D reconstruction on an independent workstation. NASCET criteria was utilized. Automated exposure control was utilized for the study. A dose lowering technique was utilized adhering to the principles of ALARA. Findings: Severe emphysema is incidentally noted within visualized portions of the lung apices. There are small bilateral pleural effusions. Subpleural opacity within the superior segment of the right lower lobe favor scarring. Findings are better depicted on the chest CT which will be reported separately. 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 There is reconstitution at the level of the axillary artery. There is chronic occlusion of the proximal to mid left vertebral artery with distal reconstitution. This vessel is diminutive. Moderate stenosis at the origin the right vertebral artery is unchanged. There is extensive calcified plaque within the distal left common carotid artery, similar to prior exam. This results in 70% stenosis. There is 90% stenosis of the proximal left internal carotid artery which is also unchanged. There is occlusion of the proximal left external carotid artery with distal reconstitution. Extensive calcified plaque within the distal right common carotid arteries also mild stenosis. There is severe stenosis at the origin of the right external carotid artery. In addition, there is 80% stenosis of the proximal right internal carotid artery, similar to prior exam. IMPRESSION: 1. Extensive calcified atherosclerotic plaque within the bilateral distal common carotid and proximal internal carotid arteries, similar to CTA of June 24, 2021. 2. 90% stenosis of the proximal left internal carotid artery and 80% stenosis of the proximal right internal carotid artery. Common carotid artery stenoses, as described above. 3. 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 No change in moderate stenosis at the origin of the right vertebral artery. ACT 112: Negative or not required by law. Electronically signed by: Jewel Balbuena M.D. 07/03/2024 3:57 PM Discharge Plan Visit Data Chief Complaint: Flu Like Symptoms Stated Complaint: POSSIBLE PNEUMONIA ED Provider: Art Banda Discharge Problem: Pneumonia, Slurring of speech Patient Disposition: Admitted As Inpatient Condition: Fair Discharge Instructions Interventions: ED Discharge Assessment Last Done: 07/03/24 20:04
[2024-07-03 16:12] LABS: Basophils # (auto) 0.02 K/uL (0.00-0.20); Basophils % (auto) 0.2 %; Eosinophils # (auto) 0.01 K/uL (0.00-0.50); Eosinophils % (auto) 0.1 %; Hematocrit (blood only) 40.7 % (42.0-52.0); Hemoglobin 13.7 g/dl (14.0-18.0); Immature Granulocytes # (auto) 0.05 K/uL (0.01-0.20); Immature Granulocytes % (auto) 0.6 %; Lymphocytes % (auto) 7.8 %; Mean Corpuscular Hemoglobin 31.5 pg (25.0-34.0); Mean Corpuscular Hgb Conc 33.7 g/dL (32.0-36.0); Mean Corpuscular Volume 93.6 fL (80.0-100.0); Monocytes # (auto) 0.83 K/uL (0.11-0.59); Monocytes % (auto) 9.2 %; Neutrophils # (auto) 7.38 K/uL (1.40-6.50); Neutrophils % (auto) 82.1 %; Platelet Count 214 K/uL (130-400); RDW Coefficient of Variation 13.9 % (11.5-14.5); RDW Standard Deviation 47.9 fL (36.4-46.3); Red Blood Count 4.35 M/uL (4.70-6.10); White Blood Count 8.99 K/ul (4.8-10.8)
[2024-07-03] MEDS: ALBUT/IPRATROP 3MG/0.5MG NEB 3 ML VIAL NEB STA (16:29)
[2024-07-03] MEDS: PIPERACILLIN/TAZOBACTAM 4.5 GM/100 ML BAG IV ONE (16:29)
[2024-07-03] MEDS: SODIUM CHLORIDE 0.9% 500 ML IV ONE (16:30)
[2024-07-03 16:31] LABS: Albumin Globulin Ratio 1.3 (0.9-2); Albumin Level 3.3 gm/dl (3.4-5.0); BUN Creatinine Ratio 19.5 (10-20); Bilirubin,Total 0.5 mg/dl (0.2-1.0); Creatinine Clr Calc Pharmacy 41.8 ml/min; Globulin 2.5 gm/dl (2.5-4.0); Magnesium 1.6 mg/dl (1.7-2.4); Potassium 4.2 mmol/L (3.5-5.1); Total Protein 5.8 gm/dl (6.0-8.3)
[2024-07-03 16:37] LABS: Troponin I High Sensitivity 30.6 pg/ml (0-20)
[2024-07-03 16:44] LABS: Partial Thromboplastin Ratio 1.1; Partial Thromboplastin Time 30 Seconds (21-31); Prothrombin Time 10.9 Seconds (9.0-12.0)
[2024-07-03] MEDS: MAGNESIUM SULFATE / D5W 1 GM/100 ML BAG IV STA (17:01)
--- NOTE | 2024-07-03 17:47 | History & Physical Report ---
Date of Service July 03, 2024 Assessment & Plan (1) Pneumonia: (2) Primary cancer of right lower lobe of lung: (3) Diabetes mellitus, type 2: (4) Hypertension: (5) Hypomagnesemia: Plan 84-year-old man with history of hypertension, aortic stenosis, chronic diastolic heart failure, SVT, atherosclerosis of lower extremities, DM type II, COPD, right lower lobe cancer s/p radiation with radiation pneumonitis who presents with shortness of breath dyspneic with exertion that started today, associated with chills and chest pain Labs notable for hemoglobin 20.7, magnesium of 1.6, troponin of 30.6, Pro-Rasta 0.22 CT PE did not show any PE but noted progressive pneumonia in right lung base, increased nodular opacity of the right middle lobe. CT head did not show any acute abnormalities. 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 Considering history of aspiration, chronic Zithromax, will continue Zosyn and Zithromax for now. Can resume STOCK ORDER LISTER zithromax 3x a week after completion of 5 day therapy RN will monitor dysphagia screen and if there are concerns, we will get speech evaluation. Wean oxygen as tolerated Elevated troponin. EKG similar to prior. Elevated troponin likely due to demand. Trend troponin. Reviewed echocardiogram from 2021. Get echocardiogram. If troponin trends up and all abnormalities on echo, get cardiology. Continue lisinopril, metoprolol Got IV mag in ER Continue magnesium and daily potassium and monitor. Hold home metformin and Januvia. Insulin sliding scale for now. Heart healthy carb controlled diet with aspiration precautions once dysphagia screen is passed. DVT prophylaxisheparin subcu. Code status- Full I spent a total of 75 minutes coordinating, documenting and providing care for this patient excluding time spent in performance of separately billed services History of Present Illness Chief Complaint: Shortness of breath Primary Care Provider: Narendra Blakely MD 84-year-old man with history of hypertension, aortic stenosis, chronic diastolic heart failure, SVT, atherosclerosis of lower extremities, DM type II, COPD, right lower lobe cancer s/p radiation with radiation pneumonitis who presents with shortness of breath dyspneic with exertion that started today. History provided by patient and was at bedside. According to , she has noticed some gurgling for the past few days. Patient reported increased shortness of breath overnight and had increased exertional dyspnea while walking her dog this morning which is unusual. Also reported chills. No reported fevers. Patient reported chest pain this morning that was not exertional, dull, central, referred and resolved on its own. Patient reports patient has chronic slurred speech especially in the afternoon starting going on for months. She reports patient has chronic ulceration and aspiration pneumonia in the past Has chronic intermittent hemoptysis Patient does not currently smoke, drinks alcohol occasionally, denies illicit drug use. Uses 2.5 L of oxygen at bedtime. Allergies Allergy/AdvReac Type Severity Reaction Status Date / Time No Known Allergies Allergy Verified 07/03/24 16:26 Home Medications Medication Instructions Recorded Confirmed Type albuterol sulfate 90 mcg/actuation 2 puff inhalation Q4H PRN 12/11/17 07/03/24 History aerosol inhaler Shortness Of Breath Or Wheezing omeprazole 20 mg capsule,delayed 20 mg PO DAILYBB 12/11/17 07/03/24 History release montelukast 10 mg tablet 10 mg PO HS 10/31/19 07/03/24 History potassium gluconate 550 mg (90 mg) 550 mg PO DAILY 10/31/19 07/03/24 History tablet atorvastatin 80 mg tablet 80 mg PO DAILY 01/07/21 07/03/24 History magnesium oxide 400 mg PO BID 06/24/21 07/03/24 History tramadol 50 mg tablet 50 mg PO Q8H PRN Moderate Pain 06/24/21 07/03/24 History (Scale Score 5-6) lisinopril 5 mg tablet 5 mg PO QAM 09/19/21 07/03/24 History metformin 500 mg tablet,extended 1,000 mg PO DAILY 09/19/21 07/03/24 History release 24 hr tiotropium 2.5 mcg-olodaterol 2.5 2 inh inhalation DAILY #4 grams 09/22/21 07/03/24 Rx mcg/actuation mist for inhalation (Stiolto Respimat) metoprolol succinate 50 mg 25 mg PO BID 10/21/22 07/03/24 History tablet,extended release 24 hr pregabalin 150 mg capsule (Lyrica) 150 mg PO QPM nerve pain 10/21/22 07/03/24 History furosemide 20 mg tablet (Lasix) 20 mg PO 5XWK 12/23/22 07/03/24 History ipratropium bromide 21 mcg (0.03 2 spray intranasal BID 12/23/22 07/03/24 History %) nasal spray Saccharomyces boulardii 250 mg 250 mg PO DAILY 07/03/24 07/03/24 History capsule (Florastor) aspirin 81 mg tablet,delayed 81 mg PO DAILY 07/03/24 07/03/24 History release azithromycin 500 mg tablet 500 mg PO 3XWK 07/03/24 07/03/24 History cyanocobalamin (vitamin B-12) 1,000 mcg PO DAILY 07/03/24 07/03/24 History 1,000 mcg tablet (Vitamin B-12) ipratropium 0.5 mg-albuterol 3 mg 3 ml inhalation Q4H PRN Shortness 07/03/24 07/03/24 History (2.5 mg base)/3 mL nebulization Of Breath Or Wheezing soln loperamide 2 mg capsule (Imodium 2 mg PO DIRECTED PRN loose stool 07/03/24 07/03/24 History A-D) sitagliptin phosphate 25 mg tablet 25 mg PO DAILY 07/03/24 07/03/24 History (Januvia) Past Med/Surg History Problem List (Updated 10/22/22 @ 14:54 by Power Mcqueen MD, [facility]) Hemoptysis Hypoxia (Acute) Pneumonia (Acute) Multifocal pneumonia (Acute) Hypoxia (Acute) Abnormal CT scan of lung COPD (chronic obstructive pulmonary disease) (Acute) Hyponatremia Atrial tachycardia, paroxysmal Stroke-like symptoms Pneumonia (Acute) AMS (altered mental status) (Acute) Hypoxia (Acute) History of lung cancer Carotid arterial disease (Acute) Intercostal neuralgia Pleural effusion Primary cancer of right lower lobe of lung (Chronic 10/23/19) Medical History Acute on chronic systolic and diastolic heart failure, NYHA class 4 Acute congestive heart failure likely precipitated by paroxysmal atrial fibrillation with rapid ventricular rate. Now back in sinus rhythm diuresing well with decreasing oxygen requirements Recommend: Continue diuretics, discontinue BiPAP, wean oxygen as tolerated, initiate sliding scale insulin for hyperglycemia, advance diet as tolerated Acute respiratory failure with hypoxia and hypercapnia Aortic stenosis Atherosclerosis of leg with intermittent claudication COPD (chronic obstructive pulmonary disease) Diabetes mellitus, type 2 Electrolyte imbalance GERD (gastroesophageal reflux disease) Hyperlipidemia Hypertension Hypokalemia Hypomagnesemia Hypoxia LBBB (left bundle branch block) Malignant neoplasm of skin of trunk Basal Cell - on Forehead and on Neck Nonischemic cardiomyopathy Osteoporosis Pulmonary edema PVD (peripheral vascular disease) Valvular heart disease Vertebral fracture, osteoporotic (02/04/08) Surgical History History of bronchoscopy 10/23/2019 - Diagnostic History of cardiac cath 11/2017 History of cataract extraction with lens replacement 07/03/2013 - Dr. Hazel History of cholecystectomy 1998 History of discectomy 1995 History of ERCP 02/1999 - with stone removal History of nasal septoplasty History of procedure for peripheral vascular disease 01/15/2015 - Right Femoral Endarterectomy History of tonsillectomy As a Child History of total knee replacement 12/05/2011 - Right - Dr. Medina History of trigger finger 10/09/2019 - Release Surgery (Dr. Dana Hernandez) Family History Mother , Passed age 92 of natural causes No problems noted. Father , Passed age 67 from stroke complications No problems noted. Brother , Passed age 67 of [place] No problems noted. Son No problems noted. Daughter No problems noted. 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 Feels Safe at Home: Yes Childhood Exposure to Second-Hand Smoke: No Diet: regular caffeine: Yes (1-2 cups of coffee/day ) during the past year weight has: remained stable Dental Care, Regularly: Yes Assistive Devices: Glasses Physical Exam Constitutional: + well hydrated; no acute distress Eyes: PERRL, conjunctivae normal, anicteric sclerae ENMT: external ear and nose normal, oropharynx normal Respiratory: On nasal cannula, Not in resp distress, +crackles Right lung Cardiovascular: Rate/Rhythm: regular rate and regular rhythm Heart Sounds: + murmur Gastrointestinal (Abdomen): normal bowel sounds, soft, nontender, no hepatosplenomegaly Musculoskeletal: No pedal edema Neurologic: PERRL, EOMI, accommodation nl, no face palsy, no dysarthria Psychiatric: A+Ox3, euthymic affect Results & Data Results & Data Vital Signs (Past 12 Hours) Vital Signs Temp Pulse Pulse Resp BP BP Pulse Ox 07/03/24 16:57 65 16 99/64 L 98 07/03/24 16:30 63 18 100/65 99 07/03/24 16:19 66 07/03/24 16:15 88 L 07/03/24 15:50 71 18 103/58 L 90 07/03/24 15:20 36.6 C 80 20 113/58 L 89 L O2 Del Method O2 Flow Rate 07/03/24 16:57 Nasal Cannula 3 07/03/24 16:30 Nebulizer 8 07/03/24 16:19 07/03/24 16:15 Room Air, Nasal Cannula 0 07/03/24 15:50 Room Air 07/03/24 15:20 Room Air Laboratory Results Abnormal lab results 07/03/24 07/03/24 07/03/24 Range/Units 15:39 15:41 15:49 RBC 4.35 L (4.70-6.10) M/uL Hgb 13.7 L (14.0-18.0) g/dl Hct 40.7 L (42.0-52.0) % RDW Std Deviation 47.9 H (36.4-46.3) fL Neut # (Auto) 7.38 H (1.40-6.50) K/uL Lymph # (Auto) 0.70 L (1.20-3.40) K/uL [place] # (Auto) 0.83 H (0.11-0.59) K/uL Sodium 133 L (136-145) mmol/L POC BUN 27 H (7-18) mg/dl BUN 24 H (6-23) mg/dl Glucose 116 H (70-99(Fasting)) mg/dl POC Glucose 121 H (70-99) mg/dl POC Glucose (other) 126 H (70-99) mg/dl Calcium 8.0 L (8.6-10.3) mg/dl Magnesium 1.6 L (1.7-2.4) mg/dl AST 9 L (13-39) U/L ALT 6 L (7-52) U/L Troponin I High Sens 30.6 H (0-20) pg/ml Total Protein 5.8 L (6.0-8.3) gm/dl Albumin 3.3 L (3.4-5.0) gm/dl Diagnostic Findings CT angio chest PE protocol CT DOSE: 1797.91 mGy.cm HISTORY: ?pna, slurred speech. TECHNIQUE: Multiple CTA images of the chest were obtained after the intravenous administration of 120 ml Optiray. Coronal and sagittal MIPS were obtained from the axial data set and were submitted for review. All measurements were obtained according to NASCET criteria. A dose lowering technique was utilized adhering to the principles of ALARA. COMPARISON STUDY: 10/21/2022 FINDINGS: There are mild airway secretions. There is bronchial wall thickening consistent with bronchitis. There is moderate to severe emphysema. There are trace bilateral pleural effusions. There is progressive reticular and groundglass opacity at the inferior right lower lobe and right middle lobe with a few small scattered areas of patchy nodular consolidation, largest anterior right middle lobe measures 2.6 cm series 6 image 41, increased. There is an interval bandlike opacity at the left lung base. No pneumothorax. Stable bulla or pneumatoceles at the right lung base. No enlarged adenopathy. No pericardial effusion. There are diffuse coronary artery and aortic calcifications. No thoracic aortic dissection or aneurysm. No pulmonary embolism. There are mild thoracic spine degenerative changes. IMPRESSION: 1. No pulmonary embolism seen. 2. Progressive pneumonia at the right lung base. 3. Increased nodular opacity at the right middle lobe, pneumonia versus pulmonary nodule. Follow-up chest CT suggested in 3 months. 4. Otherwise as described. Code Status & VTE Plan Code Status Full code VTE Prophylaxis Plan VTE Prophylaxis will be ordered: Yes (1) Pneumonia Laterality: right Lung location: lower lobe of lung Pneumonia type: due to unspecified organism Qualified Code(s): J18.9 - Pneumonia, unspecified organism
[2024-07-03 19:26] LABS: Adenovirus PCR Not Detected (NotDetected); Bordetella parapertussis PCR Not Detected (NotDetected); Bordetella pertussis PCR Not Detected (NotDetected); Chlamydia pneumoniae PCR Not Detected (NotDetected); Coronavirus 229E PCR Not Detected (NotDetected); Coronavirus CoV-2 (COVID19)PCR Not Detected (NotDetected); Coronavirus HKU1 PCR Not Detected (NotDetected); Coronavirus NL63 PCR Not Detected (NotDetected); Coronavirus OC43PCR Not Detected (NotDetected); Human Metapneumovirus PCR Not Detected (NotDetected); Influenza A PCR Not Detected (NotDetected); Influenza B PCR Not Detected (NotDetected); Mycoplasma pneumoniae PCR Not Detected (NotDetected); Parainfluenza Virus 1 PCR Not Detected (NotDetected); Parainfluenza Virus 2 PCR Not Detected (NotDetected); Parainfluenza Virus 3 PCR Not Detected (NotDetected); Parainfluenza Virus 4 PCR Not Detected (NotDetected); Respiratory Syncytial VirusPCR Not Detected (NotDetected); Rhinovirus/Enterovirus PCR Not Detected (NotDetected)
[2024-07-03] MEDS ORDERED: DEXTROSE 50% 50 ML SYRINGE IV PRN (20:36)
[2024-07-03] MEDS ORDERED: ALBUT/IPRATROP 3MG/0.5MG NEB 3 ML VIAL INH PRN (20:36)
[2024-07-03] MEDS ORDERED: ALBUTEROL HFA 8 GM INHALER INH PRN (20:36)
[2024-07-03] MEDS ORDERED: GLUCOSE 40% GEL 15 GM TUBE PO PRN (20:36)
[2024-07-03] MEDS ORDERED: GLUCAGON FOR INJ 1 MG VIAL SQ PRN (20:36)
[2024-07-03] MEDS ORDERED: CARBOHYDRATES FOR HYPOGLYCEMIA PO PRN (20:36)
[2024-07-03] MEDS ORDERED: GLUCOSE 10 TAB/TUBE PO PRN (20:36)
[2024-07-03] MEDS ORDERED: traMADol HCL 50 MG TABLET PO PRN (20:36)
[2024-07-03] MEDS: MAGNESIUM OXIDE 400 MG TAB PO SCH (21:07)
[2024-07-03] MEDS: PREGABALIN 150 MG CAP PO SCH (21:07)
[2024-07-03] MEDS: INSULIN ASPART PER UNIT CHARGE SC SCH (21:07)
[2024-07-03] MEDS: MONTELUKAST SODIUM 10 MG TABLET PO SCH (21:08)
[2024-07-03] MEDS: METOPROLOL SUCC 25MG EXT REL TAB PO SCH (21:08)
[2024-07-03] MEDS: HEPARIN SOD 5,000 UNIT/0.5 ML VIAL SQ SCH (21:09)
--- NOTE | 2024-07-03 21:53 | Electrocardiogram Report ---
Test Reason : Blood Pressure : */* mmHG Vent. Rate : 71 BPM Atrial Rate : 71 BPM P-R Int : 246 ms QRS Dur : 146 ms QT Int : 462 ms P-R-T Axes : 45 34 112 degrees QTcB Int : 502 ms Sinus rhythm with 1st degree A-V block Left bundle branch block Abnormal ECG When compared with ECG of 21-Oct-2022 14:43, No significant change Confirmed by Sree Pinedo ([id number]) on 07/03/2024 9:52:41 PM Referred By: REFERRED SELF Confirmed By: Sree Pinedo
[2024-07-03] MEDS: PIPERACILLIN/TAZOBACTAM 4.5 GM/100 ML BAG IV SCH (22:31)
--- OUTSIDE RECORDS SUMMARY | 2024-07-04 01:32 | External Medical Summary | Summary of Care ---
Author Name Unknown Organization [facility] Address [address] [facility] [place] [address] Phone [phone] Care Team Providers Care Protective Signal Installer Name Role Phone Narendra Blakely MD Primary Care Provider + Reason for Visit * Reason Onset Date Comments Medication Pre-auth 03/16/2024 Encounter Details Date Type Department Care Team (Late st Contact Info) Description 03/16/2024 Telephone General Internal Medicine [facility] [address] [facility] [place] [address] Narendra Blakely MD [address] [place], [place] [id number] Medication Pre-auth Allergies No known active allergiesdocumented as of this encounter (statuses as of 06/15/2024) Medications ASPIRIN 81 MG PO TABSIndications:HT N, goal to be determined one tab by mouth daily 34 5 03/25/19 06 Active ONETOUCH DELICA LANCETS 33G MISCIndications:Ty pe 2 diabetes mellitus with hemoglobin A1c goal of less than 8.0% ([facility]) Use up to 4 times a day and as needed hgba1c 03/2017= 8.9 100 Each 5 12/22/19 18 Active ACCU-CHEK FASTCLIX LANCETS MISCIndications:Ty pe 2 diabetes mellitus with hemoglobin A1c goal of less than 8.0% (HCC) Use up to 4 times a day and as needed hgba1c 03/2017= 8.9 Dx: E11.9 100 Each 5 12/29/19 18 Active Blood Glucose Monitoring Suppl (ACCU-CHEK GUIDE) w/Device KITIndications:Typ e 2 diabetes mellitus with hemoglobin A1c goal of less than 8.0% ([facility]) Use as directed. Use up to 4 times a day E11.9 hgba1c 03/2017= 8.9 1 Kit 12/29/19 18 Active Albuterol Sulfate HFA 108 (90 Base) MCG/ACT Inhalation Aerosol SolutionIndication s:COPD, group B, by GOLD 2017 classification ([facility]) Inhale by mouth 2 Puffs every 4 hours as needed for Cough, Shortness of Breath or Wheezing. 18 g 11 06/04/19 22 Active Potassium Gluconate 550 MG Oral Tablet Take 1 Tablet by mouth in the morning. Active Vitamin B12 1000 MCG Oral Tablet Extended Release daily. Act marley Accu-Chek Guide In Vitro Strip (Glucose Blood)Indications: Type 2 diabetes mellitus with hemoglobin A1c goal of less than 8.0% ([facility]) USE TO TEST BLOOD GLUCOSE 1 TIMES DAILY. DX: E11.9. 100 Strip 3 05/07/19 23 Active traMADol HCl 50 MG Oral Tablet (Ultram)Indication s:Primary malignant neoplasm of right lower lobe of lung (HCC),Intercostal neuralgia TAKE 1 TABLET BY MOUTH EVERY 8 HOURS NEEDED FOR MODERATE PAIN. 30 Tablet 07/14/19 23 Active Loperamide HCl 2 MG Oral Capsule (Imodium) Take 1 Capsule by mouth as needed for Diarrhea. 30 Capsule 1 05/02/19 24 Active Lisinopril 5 MG Oral Tablet (Prinivil)Indicati ons:HTN, goal below 140/90 TAKE 1 TABLET BY MOUTH EVERY DAY IN THE MORNING 90 Tablet 3 05/22/19 24 Active Atorvastatin Calcium 80 MG Oral Tablet (Lipitor)Indicatio ns:Dyslipidemia, goal LDL below 100 TAKE 1 TABLET BY MOUTH EVERY DAY 90 Tablet 3 07/21/19 24 Active oxygen IN GAS Use 2 L/min(Oxygen) as directed at bedtime. Pt increased to 2.5 LPM Active Magnesium Oxide -Mg Supplement 400 (240 Mg) MG Oral Tablet (Mag-Ox)Indication s:Hypomagnesemia Take 1 Tablet by mouth in the morning and 1 Tablet before bedtime. 180 Tablet 1 09/06/19 24 Active Omeprazole 20 MG Oral Capsule Delayed Release (PriLOSEC)Indicati ons:GERD (gastroesophageal reflux disease) TAKE 1 CAPSULE BY MOUTH EVERY DAY ON EMPTY STOMACH 30 TO 60 MINUTES PRIOR TO EATING 90 Capsule 3 09/12/19 24 Active Tiotropium [place]-Olodaterol 2.5-2.5 MCG/ACT Inhalation Aerosol Solution (Stiolto Respimat) Inhale 2 Puffs by mouth in the morning. 4 g 4 09/22/19 24 Active Ipratropium-Albute rol 0.5-2.5 (3) MG/3ML Inhalation Solution (Duoneb)Indication s:COPD exacerbation (HCC),COPD, group D, by GOLD 2017 classification ([facility]) INHALE CONTENTS OF 1 VIAL ( 3 MILLILITERS ) IN NEBULIZER BY MOUTH AND INTO THE LUNGS EVERY 4 HOURS IF NEEDED FOR SHORTNESS OF BREATH OR WHEEZING 180 mL 5 09/26/19 24 Active Furosemide 20 MG Oral Tablet (Lasix)Indications :HTN, goal below 140/90,Chronic diastolic heart failure due to valvular disease ([facility]) TAKE 1 TABLET 5 DAYS PER WEEK 70 Tablet 3 09/27/19 24 Active Montelukast Sodium 10 MG Oral Tablet (Singulair)Indicat ions:COPD (chronic obstructive pulmonary disease) with chronic bronchitis (HCC) TAKE 1 TABLET BY MOUTH EVERYDAY AT BEDTIME 90 Tablet 3 10/09/19 24 Active metFORMIN HCl ER 500 MG Oral Tablet Extended Release 24 Hour (Glucophage XR)Indications:Typ e 2 diabetes mellitus with hemoglobin A1c goal of less than 8.0% ([facility]) TAKE 2 TABLETS BY MOUTH EVERY DAY 180 Tablet 3 01/10/20 24 Active SITagliptin Phosphate 25 MG Oral Tablet (Januvia)Indicatio ns:Type 2 diabetes mellitus with hemoglobin A1c goal of less than 8.0% ([facility]) Take 1 Tablet by mouth in the morning. 90 Tablet 3 02/15/20 24 Active documented as of this encounter (statuses as of 06/15/2024) Active Problems Problem Noted Date Diagnosed Date History of prolonged Q-T interval on ECG 024 Chronic diastolic heart failure due to valvular disease 05/08/2023 Senile osteoporosis 07/20/2022 SVT (supraventricular tachycardia) 07/06/2022 Non-ischemic cardiomyopathy 07/06/2022 History of nonmelanoma skin cancer 06/16/2022 Overview (06/29/2022): Hx of BCC R shoulder 05/2022, SCC sternal notch 01/2022, BCC R chest 10/2021, BCC R latter-day s/p Mohs 2020, SCC R jawline s/p Mohs 2020, BCC R shoulder s/p curettage 2020, BCC L forehead 2017, BCC L clavicle 2008 and 2005, Brittani suprapubic 2006 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 04/21/2022 Chronic hypoxemic respiratory failure 09/07/2021 Vitamin B12 deficiency 05/02/2021 Radiation pneumonitis 05/27/2020 S/P radiation therapy 01/01/2020 Primary malignant neoplasm of right lower lobe o f lung 10/25/2019 Cancer Staging:Clinical stage from 10/29/2019:Stage IA2(cT1b, cN0, cM0) - Signed by Israel Benz MD on 10/30/2019 Seasonal allergic rhinitis 09/30/2019 COPD, group D, by GOLD 2017 classification 08/06 Overview: Per COPD GOLD Classification Tobacco abuse, in remission 07/10/2017 Chronic sinusitis 07/10/2017 Rhinitis, nonallergic 06/15/2015 HTN, goal below 140/90 05/04/2015 Overview: Per HTN Protocol #27. Subclavian artery stenosis, left 12/02/2014 Aortic stenosis, moderate 03/18/2013 Carotid stenosis, non-symptomatic 03/16/2009 DYSLIPIDEMIA, GOAL LDL BELOW 100 02/16/2009 Overview (02/16/2009): Per Lipid Taxonomy. Type 2 diabetes mellitus wit h hemoglobin A1c goal of less than 8.0% 12/25/2008 Overview (06/25/2015): Per Diabetes Taxonomy. 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 04/21/2022 05/18/2022 High risk for fracture due t o osteoporosis by DEXA scan 02/08/2022 02/24/2022 Right-sided chest wall pain 12/30/2020 09/06/2023 Consolidation of middle lobe of lung 12/30/2020 02/24/2022 Infection, actinomyces 12/30/202005/27 Chronic diastolic heart fail ure due to valvular disease 08/02/2019 03/11/2022 Chronic systolic heart failu re due to valvular disease 05/22/2018 08/02/2019 Simple chronic bronchitis 01/16/2018 Panlobular emphysema 01/16/2018 019 Tobacco abuse, in remission 07/10/2017 08/07/2017 Heart failure due to valvular disease 03/21/2016 01/29/2019 Atherosclerosis of [place] of extremity with rest pain 01/16/2015 06/27/2016 Atherosclerosis of leg with intermittent claudication 12/02/2014 12/05/2022 Accelerate Clinical Trial*[id number] 12/10/2012 02/16/2015 Overview (12/10/2012): ACCELERATE STUDY. Project # [id number], DISCOUNT CLERK: Van Richardson MD. CRC: MIMI Marcus. SUMMARY: To test the hypothesis that Evacetrapib 130 mg, in comparison to placebo, reduces the risk of major adverse coronary events in high-risk vascular disease patients. CONTACTS: During normal business hours, contact study staff at ; after hours Production Estimator via the [facility] furnace operator oil or gas [phone]. 24-hour Global Study Helpline: [phone]. Lipid levels should not be ordered/obtained while this subject is in the Accelerate study. Lipids are being managed in a blinded fashion. If lipid levels are inadvertently obtained, it is important that test results are NOT provided to the patient, study doctor, home school coordinator, or other study team members. Restricted meds while in the study: 1) niacin > 250 mg, 2) gemfibrozil with a potent [id number]. HTN, GOAL BELOW 140/80 10/17/201106/02 Overview: Per HTN Protocol #27. Atherosclerosis of [place] of the extremities with intermittent claudication 10/04/2011 01/10/2012 Overview (05/29/2024): ICD-10 Update of Inactive Term HTN, GOAL BELOW 130/80 01/20/200910/19 Overview (01/20/2009): Modified per HTN protocol #16. ADVANCE DIRECTIVE INFORMATION 09/09/2008 04/30/2021 Overview (09/09/2008): Yes, Patient instructed to provide copy of advance directive for provider to review and to be scanned into Electronic Medical Record Vertebral fracture, osteoporotic 02/04/2008 04/05/2017 Overview (02/04/2008): Per Osteoporotic Vertebral Fracture Protocol # 9 Osteoporosis 09/03/2007 01/05/2023 Peripheral vascular disease, asymptomatic 12/27/2005 10/04/2011 Overview (03/20/2006): Carotid duplex 03/05: IMPRESSION: Duplex examination results are consistent with no hemodynamically significant stenosis bilaterally of the internal carotid arteries. Compared to the prior examination of 11/2004 the current study demonstrates stable velocities in the internal carotid arteries with no significant change. Type 2 diabetes mellitus wit h hemoglobin A1c goal of less than 7.0% 09/14/2004 12/25/2008 Overview (06/23/2015): Per Diabetes Taxonomy. ICD-10 update of inactive term Encounter for screening for malignant neoplasm 12/05/2003 11/16/2016 Overview (06/30/2015): Impression: - Internal hemorrhoids were found. 11/30 - The exam was otherwise normal to the cecum. Recommendation: - Repeat colonoscopy for screening purposes in 10 years ICD-10 update of inactive term COPD, SEVERE 12/05/2003 08/08/2018 Overview: PER COPD PROTOCOL #24. LAST PFT -04/21/11 Olecranon bursitis 06/20/2002 9 Overview (06/20/2002): L superficial basal cell ca,rt deltoid 04/19/01 2 10/17/2016 Dyslipidemia, goal to be determined 08/03/2000 02/16/2009 Overview (02/16/2009): Per Lipid Taxonomy. HYPERTENSION NOS 01/20/2009 Overview (01/20/2009): Modified per HTN protocol #16. Calculus of gallbladder with out mention of cholecystitis or obstruction 10/17/2016 Overview (05/29/2024): ICD-10 Update of Inactive Term COPD, severity to be determined 01/10/2012 History of tobacco use 09/05 documented as of this encounter (statuses as of 06/15/2024) Immunizations Name Administration Dates Next Due COVID-19 mRNA, LNP-s, No Pre serve, 2-Dose Series (Moderna) 11/30/2020,05/14/2020,04/04/2020 COVID-19, MRNA-LNP, PF, 30 M CG/0.3 mL, 12 YRS AND ABOVE, IM (PFIZER-Comirnat) 08/07/2023,12/08/2022 COVID-19, mRNA, LNP-s, PF, B ooster, 100mcg/0.5mg (Moderna) 06/07/2021 Covid-19, Mrna, Lnp-s, Pf, B ivalent, 30 Mcg, IM, 12 yrs and above (Pfizer) 11/22/2021 Pneumococcal Conjugate Vacc, 13 Valent (Prevnar) 10/28/2015,12/26/2014 RSV Vac., Recomb, Adjuvant, PF,0.5 Ml (Arexvy) 12/08/2022 Season Influenza, Quad, PF, Adjuvanted, 65+ Yrs, IM (FLUAD) 12/02/2019 Seasonal Influenza Vac., MDV , IM, 0.5 mL (Fluzone) 12/02/2013,11/26/2012,11/28/2011,2011,12/02/2010,12/01/2009,11/18/2008,1 ,11/27/2006,11/30/2005 Seasonal Influenza Virus Vac cine, Unspecified Formulation 11/30/2020,11/19/2018,12/15/2017,2017,11/16/2016,10/28/2015,12/02/2013,0 11/26/2012,11/28/2011,11/08/2011, 011,12/01/2009,11/18/2008,12/05/2007,,11/30/2005,12/13/2004,12/19/19 03,01/16/2002,02/02/2000 Seasonal Influenza, High Dos e, Trivalent, PF, IM (Fluzone HD) 11/01/2023,12/14/2017,10/28/2015 Seasonal Influenza, PF, 6 M & above, IM , (FluLaval or Fluzone) 12/15/2017 Seasonal Influenza, Quadriva lent Hd (Fluzone Hd) 12/05/2022,11/18/2021,11/30/2020 Seasonal Influenza, Quadriva lent, No Preserve, IM 11/16/2016,12/26/2014 Seasonal Influenza, Trivalen t, Adjuvanted, 65+ YRS, PF, (Fluad) 11/19/2018 TD - Tetanus/Diptheria (ADULT) 05/03/2007 TDAP (age 10 and older)(Boostrix) 01/30/2018 Zoster Vaccine Recombinant (Shingrix) 02/24/2022 ,12/13/2021 documented as of this encounter Social History Tobacco Use Types Packs/Day Years Used Date Smoking Tobacco: Former Cigarettes 1 62 0 08/27/1952 - 08/27/2012 Smokeless Tobacco: Never Comments:Started smoking age -10--quit 2 years once/ no passive smoke Alcohol Use Standard Drinks/Week Comments Yes 0 (1 standard drink = 0.6 oz pur e alcohol) 5 drinks/week 08/18/20 PHQ-2 Answer Date Recorded PHQ Adult Total Score 1 09/06/2023 Hunger Vital Sign Answer Date Recorded Within the past 12 months, y ou worried that your food would run out before you got the money to buy more. Never true 05/19/19 23 Within the past 12 months, t he food you bought just didn't last and you didn't have money to get more. 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 Answer Date of Assessment Author No 01/15/2015 5:29 PM Janell Munoz RN * Are you blind or do you have serious difficulty seeing, even when wearing glasses? Answer Date of Assessment Author No 01/15/2015 5:29 PM Janell Munoz RN * Do you have serious difficulty walking or climbing stairs? (5 years old or older) Answer Date of Assessment Author Yes 01/15/2015 5:29 PM Janell Munoz RN * Do you have difficulty dressing or bathing? (5 years old or older) Answer Date of Assessment Author No 01/15/2015 5:29 PM Janell Munoz RN * Because of a physical, mental, or emotional condition, do you have difficulty doing errands alone such as visiting a doctor’s office or shopping? (15 years old or older) Answer Date of Assessment Author No 01/15/2015 5:29 PM Janell Munoz RN documented as of this encounter Mental Status * Because of a physical, mental, or emotional condition, do you have serious difficulty concentrating, remembering, or making decisions? (5 years old or older) Answer Entry Date Author No 01/15/2015 5:29 PM Janell Munoz RN documented in this encounter Miscellaneous Notes * Telephone Encounter - Alex Zepeda, buckle assembler - 03/16/2024 3:54 PM EST Insurance calling requesting to speak to someone IN OFFICE regarding a PA that was submitted today (03/16/24). Advised I do not see any documentation of a PA and that the physical office is closed. Insurance states they will call back Monday. Thank you, Alex Zepeda Brake Liner I [facility] 03/16/2024,3:55 PM documented in this encounter Plan of Treatment Upcoming Encounters Date Type Department Care Team (Late st Contact Info) Description 08/01/2024 11:00 AM EDT Imaging Radiology [facility] [address] [place] [phone] 08/15/2024 11:00 AM EDT Office Visit Pharmacy, [facility] [address] [place] [address] Pharmacist1, [facility] [address] [place] [address] 08/20/2024 8:30 AM EDT Office Visit Pulmonary Medicine, [facility] [address] [place] [phone] Eugene Moore [facility] [address] [facility] [place] [address] 10/18/2024 3:45 PM EDT Office Visit Dermatology [facility] [address] [place] [address] Narendra Greenwood MD [address] [place] [address] 12/12/2024 10:20 AM EDT Office Visit General Internal Medicine [facility] [address] [place] [address] Narendra Blakely MD [address] [place] [address] 05/23/2025 11:30 AM EDT Office Visit Rheumatology [facility] [address] [place] [phone] Vincent Palafox PA-C [address] [facility] [place] [address] Health Maintenance Due Date Last Done Comments *ADVANCE DIRECTIVE NOT ON FILE 10/16/2021 Adult Wellness Visit 12/09/2023 12/08/2022 COVID-19 Vaccine ( season) 2024 12/05/2023, 08/07/2023, 12/08/2022, Additional history exists Diabetic Foot Exam 05/07/2024 05/08/2023, 1 , 02/24/2022, Additional history exists HbA1c 08/15/2024 02/15/2024, 08/27, 05/22/2023, Additional history exists Depression Screening 09/05/2024 09/06/2023 Diabetic Eye Exam 01/04/2025 01/05/2024, , 01/03/2023, Additional history exists Albumin/Creatinine Ratio 03/22/2025 025, 05/22/2023, 05/18/2022, Additional history exists B-12 03/22/2025 03/22/2024, 12/29, 12/01/2022, Additional history exists O2 ASSESSMENT COMPLETED IN PAST YEAR FOR COPD 05/30/2025 05/30/2024 DXA Scan 02/11/2026 02/12/2024, 01/27, 02/07/2022, Additional history exists DTap/Tdap Vaccines (2 - Td or Tdap) 01/31/2028 01/30/2018, 05/03/2007 Pneumococcal Vaccine: 50+ Years Completed 10/28/2015, 12/26/2014, 11/24/2003 Alpha-1 Antitrypsin Completed 08/20/2020 Zoster Vaccines Completed 02/24/2022, 12/13/2021 VITAMIN D LEVEL ONCE IN A LIFETIME-USE SMARTSET# [id number] Completed 08/15/2023, 07/14/2022, 05/31/2022, Additional history exists Influenza Vaccine (FLU shot) Completed 05/2023, 12/05/2022, 11/18/2021, Additional history exists HPV (Gardasil) Vaccine Aged Out No lo nger eligible based on patient's age to complete this topic Hepatitis B Vaccine Aged Out No longe r eligible based on patient's age to complete this topic MENINGOCOCCAL (MENACTRA/MENVEO) Aged Out No longer eligible based on patient's age to complete this topic Meningitis B Vaccine (Bexsero/Trumemba) Aged Out No longer eligible based on patient's age to complete this topic documented as of this encounter Medical Devices Implanted Type Area Oil Rig Roughneck Device Identifier Shelf Expiration Date Model / Serial / Lot Patch Xenosure [id number] - [id number] Implanted:Qty: 1 on 01/15/2015 by William Siegel MD at [facility] Right: Femoral Artery [employer] 07/27/2017 [id number] / / [id number] documented as of this encounter Advance Directives * Full Code (Latest Code Status on File) Date Activated Date Inactivated Comments 10/09/2019 2:27 PM 10/09/2019 6:51 PM This order r eflects the patients wishes and were consensually agreed upon. * Full Code Date Activated Date Inactivated Comments 01/15/2015 1:36 PM 01/16/2015 1:07 PM This order reflects the patients wishes and were consensually agreed upon. Question Answer Comments Discussion of Advance Directives occurred with: Not Discussed Does the patient have a Living Will? No Does the patient have Health Care Power of Attor melina? No * Full Code Date Activated Date Inactivated Comments 01/14/2015 1:20 PM 01/15/2015 1:36 PM This order reflects the patients wishes and were consensually agreed upon. Question Answer Comments Discussion of Advance Directives occurred with: Not Discussed Does the patient have a Living Will? No Does the patient have Health Care Power of Attor melina? No Care Teams Protective Signal Installer Relationship Specialty Start Date End Date Narendra Blakely MD [address] [place] [address] PCP - General Internal Medicine 12/28/20 documented as of this encounter
--- OUTSIDE RECORDS SUMMARY | 2024-07-04 01:32 | External Medical Summary | Summary of Care ---
Author Name Unknown Organization [facility] Address [address] [place] [address] Phone [phone] Care Team Providers Care Video Rental Clerk Name Role Phone Narendra Blakely MD Primary Care Provider + Reason for Visit * Reason Comments eRx-Medication Refill Encounter Details Date Type Department Care Team (Late st Contact Info) Description 06/24/2024 Refill Family Practice [facility] [address] [place] [address] Cici Chavez CRNP [address] [facility] [place] [address] Allergies No known active allergiesdocumented as of this encounter (statuses as of 06/25/2024) Medications ASPIRIN 81 MG PO TABSIndications:H TN, goal to be determined one tab by mouth daily 34 5 006 Active ONETOUCH DELICA LANCETS 33G MISCIndications:T ype 2 diabetes mellitus with hemoglobin A1c goal of less than 8.0% (HCC) Use up to 4 times a day and as needed hgba1c 03/2017= 8.9 100 Each 5 018 Active ACCU-CHEK FASTCLIX LANCETS MISCIndications:T ype 2 diabetes mellitus with hemoglobin A1c goal of less than 8.0% (HCC) Use up to 4 times a day and as needed hgba1c 03/2017= 8.9 Dx: E11.9 100 Each 5 018 Active Blood Glucose Monitoring Suppl (ACCU-CHEK GUIDE) w/Device KITIndications:Ty pe 2 diabetes mellitus with hemoglobin A1c goal of less than 8.0% ([facility]) Use as directed. Use up to 4 times a day E11.9 hgba1c 03/2017= 8.9 1 Kit 018 Active Albuterol Sulfate HFA 108 (90 Base) MCG/ACT Inhalation Aerosol SolutionIndicatio ns:COPD, group B, by GOLD 2017 classification ([facility]) Inhale by mouth 2 Puffs every 4 hours as needed for Cough, Shortness of Breath or Wheezing. 18 g 11 022 Active Potassium Gluconate 550 MG Oral Tablet Take 1 Tablet by mouth in the morning. Active Vitamin B12 1000 MCG Oral Tablet Extended Release daily. Act marley Accu-Chek Guide In Vitro Strip (Glucose Blood)Indications :Type 2 diabetes mellitus with hemoglobin A1c goal of less than 8.0% ([facility]) USE TO TEST BLOOD GLUCOSE 1 TIMES DAILY. DX: E11.9. 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 30 Tablet 023 Active Loperamide HCl 2 MG Oral Capsule (Imodium) Take 1 Capsule by mouth as needed for Diarrhea. 30 Capsule 1 024 Active Lisinopril 5 MG Oral Tablet (Prinivil)Indicat ions:HTN, goal below 140/90 TAKE 1 TABLET BY MOUTH EVERY DAY IN THE MORNING 90 Tablet 3 024 Active Atorvastatin Calcium 80 MG Oral Tablet (Lipitor)Indicati ons:Dyslipidemia, goal LDL below 100 TAKE 1 TABLET BY MOUTH EVERY DAY 90 Tablet 3 024 Active oxygen IN GAS Use 2 L/min(Oxygen) as directed at bedtime. Pt increased to 2.5 LPM Active Magnesium Oxide -Mg Supplement 400 (240 Mg) MG Oral Tablet (Mag-Ox)Indicatio ns:Hypomagnesemia Take 1 Tablet by mouth in the morning and 1 Tablet before bedtime. 180 Tablet 1 024 Active Omeprazole 20 MG Oral Capsule Delayed Release (PriLOSEC)Indicat ions:GERD (gastroesophageal reflux disease) TAKE 1 CAPSULE BY MOUTH EVERY DAY ON EMPTY STOMACH 30 TO 60 MINUTES PRIOR TO EATING 90 Capsule 3 024 Active Ipratropium-Albut jamie 0.5-2.5 (3) MG/3ML Inhalation Solution (Duoneb)Indicatio ns:COPD exacerbation (HCC),COPD, group D, by GOLD 2017 classification ([facility]) INHALE CONTENTS OF 1 VIAL ( 3 MILLILITERS ) IN NEBULIZER BY MOUTH AND INTO THE LUNGS EVERY 4 HOURS IF NEEDED FOR SHORTNESS OF BREATH OR WHEEZING 180 mL 5 024 Active Furosemide 20 MG Oral Tablet (Lasix)Indication s:HTN, goal below 140/90,Chronic diastolic heart failure due to valvular disease ([facility]) TAKE 1 TABLET 5 DAYS PER WEEK 70 Tablet 3 024 Active Montelukast Sodium 10 MG Oral Tablet (Singulair)Indica tions:COPD (chronic obstructive pulmonary disease) with chronic bronchitis (HCC) TAKE 1 TABLET BY MOUTH EVERYDAY AT BEDTIME 90 Tablet 3 024 Active metFORMIN HCl ER 500 MG Oral Tablet Extended Release 24 Hour (Glucophage XR)Indications:Ty pe 2 diabetes mellitus with hemoglobin A1c goal of less than 8.0% ([facility]) TAKE 2 TABLETS BY MOUTH EVERY DAY 180 Tablet 3 024 Active SITagliptin Phosphate 25 MG Oral Tablet (Januvia)Indicati ons:Type 2 diabetes mellitus with hemoglobin A1c goal of less than 8.0% ([facility]) Take 1 Tablet by mouth in the morning. 90 Tablet 3 024 Active Ipratropium Viper 0.03 % Nasal Solution (Atrovent) Administer 2 Sprays into each nostril in the morning and 2 Sprays before bedtime. 30 mL 6 025 Active Azithromycin 500 MG Oral Tablet (Zithromax)Indica tions:Recurrent aspiration pneumonia (HCC) Take 1 Tablet by mouth once a day on Monday, Monday, and Monday only. 13 Tablet 11 025 Active Probiotic 250 MG Oral Capsule Take by mouth daily. Active Metoprolol Succinate ER 50 MG Oral Tablet Extended Release 24 Hour (toPROL XL) Take 0.5 Tablets by mouth in the morning and 0.5 Tablets before bedtime. 90 Tablet 3 025 Active Pregabalin 150 MG Oral Capsule (Lyrica) Take 1 Capsule by mouth every evening. 90 Capsule 1 025 Active Stiolto Respimat 2.5-2.5 MCG/ACT Inhalation Aerosol Solution (Tiotropium-Oloda terol) INHALE 2 PUFFS BY MOUTH IN THE MORNING. 12 g 1 025 Active Tiotropium Viper-Olodatero l 2.5-2.5 MCG/ACT Inhalation Aerosol Solution (Stiolto Respimat) Inhale 2 Puffs by mouth in the morning. 4 g 4 024 2024 Discontinued documented as of this encounter (statuses as of 06/25/2024) Active Problems Problem Noted Date Diagnosed Date History of prolonged Q-T interval on ECG Chronic diastolic heart failure due to valvular disease 05/08/2023 Senile osteoporosis 07/20/2022 SVT (supraventricular tachycardia) 07/06/2022 Non-ischemic cardiomyopathy 07/06/2022 History of nonmelanoma skin cancer 06/16/2022 Overview (06/29/2022): Hx of BCC R shoulder 05/2022, SCC sternal notch 01/2022, BCC R chest 10/2021, BCC R sikhism s/p Mohs 2020, SCC R jawline s/p Mohs 2020, BCC R shoulder s/p curettage 2020, BCC L forehead 2017, BCC L clavicle 2008 and 2005, Brittani suprapubic 2005 Atherosclerosis [place] of both lower extremities with [...] as of this encounter (statuses as of 06/25/2024) Resolved Problems Problem Noted Date Diagnosed Date Resolved Date Atherosclerosis [place] of both lower extremities with [...] to valvular disease 03/21/2016 01/29/2019 Atherosclerosis [place] of extremity with rest pain 01/16/2015 06/27/2016 Atherosclerosis of leg with intermittent claudication 12/02/2014 12/05/2022 Accelerate Clinical Trial*[id number] 12/10/2012 02/16/2015 Overview (12/10/2012): ACCELERATE STUDY. Project # [id number], SIGN PAINTER APPRENTICE: Van Richardson MD. CRC: MIMI Marcus. SUMMARY: To test the hypothesis that Evacetrapib 130 mg, in comparison to placebo, reduces the risk of major adverse coronary events in high-risk vascular disease patients. CONTACTS: During normal business hours, contact study staff at ; after hours [employer] via the [facility] hospital ammonia print operator [phone]. 24-hour Global Study Helpline: [phone]. Lipid levels should not be ordered/obtained while this subject is in the Accelerate study. Lipids are being managed in a blinded fashion. If lipid levels are inadvertently obtained, it is important that test results are NOT provided to the patient, study doctor, brokerage coordinator, or other study team members. Restricted meds while in the study: 1) niacin > 250 mg, 2) gemfibrozil with a potent [id number]. HTN, GOAL BELOW 140/80 10/17/201106/02 Overview: Per HTN Protocol #27. 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 Answer Date of Assessment Author No 01/15/2015 5:29 PM Janell Munoz, ANTONY * Are you blind or do you [...] encounter Miscellaneous Notes * Telephone Encounter - Howard Centeno RPh - 06/25/2024 9:56 AM EDTSigned Prescriptions: Disp Refills Stiolto Respimat 2.5-2.5 MCG/ACT Inhalatio*12 g 1 Sig: INHALE 2 PUFFS BY MOUTH IN THE MORNING.Authorizing Provider: NARENDRA BLAKELY User: HOWARD CENTENO- documented in this encounter Plan of Treatment Upcoming Encounters Date Type Department Care Team (Late st Contact Info) Description 08/01/2024 11:00 AM EDT Imaging Radiology [address] [place] [phone] 08/15/2024 11:00 AM EDT Office Visit Pharmacy, [facility] [place] [address] [place] [address] Pharmacist1, [facility] [address] [facility] [place] [address] 08/20/2024 8:30 AM EDT Office Visit Pulmonary Medicine, [facility] [address] [place] [phone] [place] [facility] [address] [facility] [address] 10/18/2024 3:45 PM EDT Office Visit Dermatology [facility] [address] [facility] [place] [address] Narendra Greenwood MD [address] [facility] [place] [address] 12/12/2024 10:20 AM EDT Office Visit General Internal Medicine [facility] [address] [facility] [place] [address] Narendra Blakely MD [address] [facility] [place] [address] 05/23/2025 11:30 AM EDT Office Visit Rheumatology [facility] [address] [place] [phone] Vincent [facility]ox [facility] [address] [facility] [address] Health Maintenance Due Date Last Done Comments [...] D LEVEL ONCE IN A LIFETIME-USE SMARTSET# [id number] Completed 08/15/2023, 07/14/2022, 05/31/2022, Additional history exists [...] this encounter Medical Devices Implanted Type Area Tiltrotor Crew Chief Device Identifier Shelf Expiration Date Model / Serial / Lot Patch Xenosure [id number] - [id number] Implanted:Qty: 1 on 01/15/2015 by William Siegel MD at OR [facility] Right: Femoral Artery [employer] 07/27/2017 [id number] / / [id number] documented as of this encounter Advance Directives [...] Power of Attor melina? No Care Teams Video Rental Clerk Relationship Specialty Start Date End Date Narendra Blakely MD [address] [place] [address] PCP - General Internal Medicine 12/28/20 documented as of this encounter
--- OUTSIDE RECORDS SUMMARY | 2024-07-04 01:33 | External Medical Summary | Summary of Care ---
Author Name Unknown Organization [facility] Address [address] [facility] [place] [address] Phone [phone] Care Team Providers Care Building Official Name Role Phone Narendra Blakely MD Primary Care Provider + Reason for Visit * Reason Onset Date Comments Medication Refill 05/27/2024 Zithromax Encounter Details Date Type Department Care Team (Late st Contact Info) Description 05/27/2024 Refill Pulmonary Medicine, [facility] [address] [facility] [place] [phone] Eugene Dumont MD [address] [facility] [place] [address] Recurrent aspiration pneumonia (HCC)* Allergies No known active allergiesdocumented as of this encounter (statuses as of 05/28/2024) Medications ASPIRIN 81 MG PO TABSIndications:HT N, [...] hemoglobin A1c goal of less than 8.0% ([facility]) Use up to 4 times a day and as needed hgba1c 03/2017= 8.9 Dx: E11.9 100 Each 5 12/29/19 18 Active Blood Glucose Monitoring Suppl (ACCU-CHEK GUIDE) w/Device KITIndications:Typ e 2 diabetes mellitus with hemoglobin A1c goal of less than 8.0% ([facility]) Use as directed. Use up to 4 times a day E11.9 hgba1c 03/2017= 8.9 1 Kit 12/29/19 18 Active Albuterol Sulfate HFA 108 (90 Base) MCG/ACT Inhalation Aerosol SolutionIndication s:COPD, group B, by GOLD 2017 classification ([facility]) Inhale by mouth 2 Puffs every 4 hours as needed for Cough, Shortness of Breath or Wheezing. 18 g 11 06/04/19 22 Active Potassium Gluconate 550 MG Oral Tablet Take 1 Tablet by mouth in the morning. Active Vitamin B12 1000 MCG Oral Tablet Extended Release Act marley Accu-Chek Guide In Vitro Strip (Glucose Blood)Indications: Type 2 diabetes mellitus with hemoglobin A1c goal of less than 8.0% ([facility]) USE TO TEST BLOOD GLUCOSE 1 TIMES [...] 90 Capsule 3 09/12/19 24 Active Tiotropium [place]-Olodaterol 2.5-2.5 MCG/ACT Inhalation Aerosol Solution (Stiolto Respimat) Inhale 2 Puffs by mouth in the morning. 4 g 4 09/22/19 24 Active Ipratropium-[place] rol 0.5-2.5 (3) MG/3ML Inhalation Solution (Duoneb)Indication s:COPD exacerbation ([facility]),COPD, group D, by GOLD 2017 classification ([facility]) INHALE CONTENTS OF 1 VIAL ( 3 MILLILITERS ) IN NEBULIZER BY MOUTH AND INTO THE LUNGS EVERY 4 HOURS IF NEEDED FOR SHORTNESS OF BREATH OR WHEEZING 180 mL 5 09/26/19 24 Active Furosemide 20 MG Oral Tablet (Lasix)Indications :HTN, goal below 140/90,Chronic diastolic heart failure due to valvular disease ([facility]) TAKE 1 TABLET 5 DAYS PER WEEK 70 Tablet 3 09/27/19 24 Active Montelukast Sodium 10 MG Oral Tablet (Singulair)Indicat ions:COPD (chronic obstructive pulmonary disease) with chronic bronchitis ([facility]) TAKE 1 TABLET BY MOUTH EVERYDAY AT BEDTIME 90 Tablet 3 10/09/19 24 Active Metoprolol Succinate ER 50 MG Oral Tablet Extended Release 24 Hour (toPROL XL)Indications:Wid e-complex tachycardia Take 1 tablet in the morning, 1/2 in the evening 135 Tablet 3 11/01/19 24 Active metFORMIN HCl ER 500 MG Oral Tablet Extended Release 24 Hour (Glucophage XR)Indications:Typ e 2 diabetes mellitus with hemoglobin A1c goal of less than 8.0% ([facility]) TAKE 2 TABLETS BY MOUTH EVERY DAY 180 Tablet 3 01/10/20 24 Active SITagliptin Phosphate 25 MG Oral Tablet (Januvia)Indicatio ns:Type 2 diabetes mellitus with hemoglobin A1c goal of less than 8.0% ([facility]) Take 1 Tablet by mouth in the morning. 90 Tablet 3 02/15/20 24 Active Pregabalin 150 MG Oral Capsule (Lyrica) Take 1 Capsule by mouth every evening. 03/21/19 25 Active Ipratropium [place] 0.03 % Nasal Solution (Atrovent) Administer 2 Sprays into each nostril in the morning and 2 Sprays before bedtime. 30 mL 6 05/18/19 25 Active Azithromycin 500 MG Oral Tablet (Zithromax)Indicat ions:Recurrent aspiration pneumonia (HCC) Take 1 Tablet by mouth once a day on Monday, Monday, and Monday only. 13 Tablet 11 05/28/19 25 Active Azithromycin 500 MG Oral Tablet (Zithromax) Take 1 Tablet by mouth once a day on Monday, Monday, and Monday only. 13 Tablet 11 07/26/19 24 025 Discontin ued(Refil l) documented as of this encounter (statuses as of 05/28/2024) Active Problems Problem Noted Date Diagnosed Date History of prolonged Q-T interval on ECG 024 Chronic diastolic heart failure due to valvular disease 05/08/2023 Senile osteoporosis 07/20/2022 SVT (supraventricular tachycardia) 07/06/2022 Non-ischemic cardiomyopathy 07/06/2022 History of nonmelanoma skin cancer 06/16/2022 Overview (06/29/2022): Hx of BCC R shoulder 05/2022, SCC sternal notch 01/2022, BCC R chest 10/2021, BCC R catholic s/p Mohs 2020, SCC R jawline s/p Mohs 2020, BCC R shoulder s/p curettage 2020, BCC L forehead 2017, BCC L clavicle 2008 and 2005, Brittani suprapubic 2005 Atherosclerosis of [place] of both lower extremities with [...] as of this encounter (statuses as of 05/28/2024) Resolved Problems Problem Noted Date Diagnosed Date Resolved Date Atherosclerosis of [place] of both lower extremities with [...] to valvular disease 03/21/2016 01/29/2019 Atherosclerosis of [place] of extremity with rest pain 01/16/2015 06/27/2016 Atherosclerosis of leg with intermittent claudication 12/02/2014 12/05/2022 Accelerate Clinical Trial*[id number] 12/10/2012 02/16/2015 Overview (12/10/2012): ACCELERATE STUDY. Project # [id number], CLINICAL PRODUCT MANAGER: Van Richardson MD. CRC: MIMI Marcus. SUMMARY: To test the hypothesis that Evacetrapib 130 mg, in comparison to placebo, reduces the risk of major adverse coronary events in high-risk vascular disease patients. CONTACTS: During normal business hours, contact study staff at ; after hours Property And Equipment Clerk via the [facility] hospital kohinoor operator [phone]. 24-hour Global Study Helpline: [phone]. Lipid levels should not be ordered/obtained while this subject is in the Accelerate study. Lipids are being managed in a blinded fashion. If lipid levels are inadvertently obtained, it is important that test results are NOT provided to the patient, study doctor, quality improvement coordinator (rn), or other study team members. Restricted meds while in the study: 1) niacin > 250 mg, 2) gemfibrozil with a potent [id number]. HTN, GOAL BELOW 140/80 10/17/201106/02 Overview: Per HTN Protocol #27. 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 (5 years old or older) Answer Date of Assessment Author Yes 01/15/2015 5:29 PM Janell Munoz, ANTONY * Do you have difficulty dressing or bathing? (5 years old or older) Answer Date of Assessment Author No 01/15/2015 5:29 PM Janell Munoz, ANTONY * Because of a physical, mental, or emotional condition, do you have difficulty doing errands alone such as visiting a doctor’s office or shopping? (15 years old or older) Answer Date of Assessment Author No 01/15/2015 5:29 PM Janell Munoz, ANTONY documented as of this encounter Mental Status * Because of a physical, mental, or emotional condition, do you have serious difficulty concentrating, remembering, or making decisions? (5 years old or older) Answer Entry Date Author No 01/15/2015 5:29 PM Janell Munoz, ANTONY documented in this encounter Miscellaneous Notes * Telephone Encounter - Eugene Dumont MD - 05/27/2024 8:05 PM EDT Signed Prescriptions: Disp Refills Azithromycin 500 MG Oral Tablet (Zithromax)13 Tab*11 Sig: Take 1 Tablet by mouth once a day on Monday, Monday, and Monday only. Authorizing Provider: EUGENE DUMONT * Telephone Encounter - Maureen Willoughby LPN - 05/27/2024 8:25 AM EDT Did you pend patient's preferred pharmacy and medication before forwarding?yes Pharmacy: [id number] [address] [facility] Pending Prescriptions: Disp Refills Azithromycin 500 MG Oral Tablet (Zithroma*13 Tab*11 Sig: Take 1 Tablet by mouth once a day on Monday, Monday, and Monday only. Last Visit: 02/08/2024 (in office), Visit date not found (telemedicine) Next Visit: Visit date not found If no future appointments scheduled, and last appointment is greater than a year ago, please schedule patient for a follow-up appointment Last date the medication was ordered: 07/26/23 Is this request for a controlled substance?No Urine Drug Screen:No results found. However, due to the size of the patient record, not all encounters were searched. Please check Results Review for a complete set of results. Patient Phone Numbers Labs: Lab Results Component Value Date/Time CREAT 1.1 03/22/2024 12:02 PM CREAT 0.85 07/21/2021 12:00 AM CREAT 1.3 (H) 03/05/2020 10:50 AM POTASSIUM 4.7 03/22/2024 12:02 PM POTASSIUM 4.3 07/21/2021 12:00 AM POTASSIUM 4.7 03/05/2020 10:50 AM TSH 2.21 03/22/2024 12:02 PM TSH 1.774 07/21/2021 12:00 AM TSH 1.36 03/05/2020 10:50 AM LDL 45 01/17/2024 10:49 AM LDL 60 08/02/2019 11:14 AM LDL NOT APPLICABLE 08/02/2019 11:14 AM ALT 12 03/22/2024 12:02 PM ALT 16 03/05/2020 10:50 AM HGBA1C 6.7 (H) 02/15/2024 10:52 AM HGBA1C 7.8 (H) 03/05/2020 10:50 AM documented in this encounter Plan of Treatment Upcoming Encounters Date Type Department Care Team (Late st Contact Info) Description 05/30/2024 11:30 AM EDT Office Visit Cardiology, [facility] [address] [place] [phone] Van Richardson MD [address] [place] [phone] 08/01/2024 11:00 AM EDT Imaging Radiology [address] [place] [phone] 08/15/2024 11:00 AM EDT Office Visit Pharmacy, [facility] [address] [facility] [place] [address] Pharmacist1, [facility] [address] [facility] [place] [address] 08/20/2024 8:30 AM EDT Office Visit Pulmonary Medicine, [facility] [address] [place] [phone] Eugene Dumont MD [address] [facility] [address] 10/18/2024 3:45 PM EDT Office Visit Dermatology [facility] [address] [facility] [place] [address] Narendra Greenwood MD [address] [facility] [place] [address] 12/12/2024 10:20 AM EDT Office Visit General Internal Medicine [facility] [address] [facility] [place], [place] [address] Narendra Blakely MD [address] [facility] [place], [place] [address] 05/23/2025 11:30 AM EDT Office Visit Rheumatology [facility] [address] [place] [phone] Vincent Palafox [facility] [address] [place] [address] [place], [place] [address] Health Maintenance Due Date Last Done Comments *ADVANCE DIRECTIVE NOT ON FILE 10/16/2021 Adult Wellness Visit 12/09/2023 12/08/2022 COVID-19 Vaccine ( season) 2024 12/05/2023, 08/07/2023, 12/08/2022, Additional history exists Diabetic Foot Exam 05/07/2024 05/08/2023, 1 , 02/24/2022, Additional history exists HbA1c 08/15/2024 02/15/2024, 08/27, 05/22/2023, Additional history exists Depression Screening 09/05/2024 09/06/2023 Diabetic Eye Exam 01/04/2025 01/05/2024, , 01/03/2023, Additional history exists O2 ASSESSMENT COMPLETED IN PAST YEAR FOR COPD 03/20/2025 03/20/2024 Albumin/Creatinine Ratio 03/22/2025 025, 05/22/2023, 05/18/2022, Additional history exists B-12 03/22/2025 03/22/2024, 12/29, 12/01/2022, Additional history exists DXA Scan 02/11/2026 02/12/2024, 01/27, 02/07/2022, Additional history exists DTap/Tdap Vaccines (2 - Td or Tdap) 01/31/2028 01/30/2018, 05/03/2007 Pneumococcal Vaccine: 50+ Years Completed 10/28/2015, 12/26/2014, 11/24/2003 Alpha-1 Antitrypsin Completed 08/20/2020 Zoster Vaccines Completed 02/24/2022, 12/13/2021 VITAMIN D LEVEL ONCE IN A LIFETIME-USE SMARTSET# [id number] Completed 08/15/2023, 07/14/2022, 05/31/2022, Additional history exists [...] this encounter Medical Devices Implanted Type Area Proof Machine Operator Supervisor Device Identifier Shelf Expiration Date Model / Serial / Lot Patch Xenosure [id number] - [id number] Implanted:Qty: 1 on 01/15/2015 by William Siegel MD at OR [facility] Right: Femoral [employer] 07/27/2017 [id number] / / [id number] documented as of this encounter Visit Diagnoses Diagnosis Recurrent aspiration pneumonia (HCC)- Primary Pneumonitis due to inhalation of food or vomitus documented in this encounter Advance Directives * Full Code (Latest Code Status on File) Date Activated Date Inactivated Comments 10/09/2019 2:27 PM 10/09/2019 6:51 PM This order r eflects the patients wishes and were consensually agreed upon. * Full Code Date Activated Date Inactivated Comments 01/15/2015 1:36 PM 01/16/2015 1:07 PM This orde r reflects the patients wishes and were consensually [...] Power of Attor melina? No Care Teams Building Official Relationship Specialty Start Date End Date Narendra Blakely MD [address] [place] [address] PCP - General Internal Medicine 12/28/20 documented as of this encounter
--- OUTSIDE RECORDS SUMMARY | 2024-07-04 01:33 | External Medical Summary | Summary of Care ---
Author Name Unknown Organization [facility] Address [address] [facility] [address] Phone [phone] Care Team Providers Care Crinkling Machine Operator Name Role Phone Narendra Blakely MD Primary Care Provider + Reason for Visit * Reason Onset Date Comments Medication Pre-auth 05/23/2024 Reclast Encounter Details Date Type Department Care Team (Late st Contact Info) Description 05/23/2024 Telephone Hematology/Oncology Treatment, [place] [address] [place] [address] Vincent Palafox PA-C [facility] [place] [address] Medication Pre-auth (Reclast) Allergies No known active allergiesdocumented as of this encounter (statuses as of 05/24/2024) Medications ASPIRIN 81 MG PO TABSIndications:HT N, goal to be determined one tab by mouth daily 34 5 03/25/19 06 Active ONETOUCH DELICA LANCETS 33G MISCIndications:Ty pe 2 diabetes mellitus with hemoglobin A1c goal of less than 8.0% ([facility]) Use up to 4 times a day and as needed hgba1c 03/2017= 8.9 100 Each 5 12/22/19 18 Active ACCU-CHEK FASTCLIX LANCETS MISCIndications:Ty pe 2 diabetes mellitus with hemoglobin A1c goal of less than 8.0% ([facility]) Use up to 4 times a day and as needed hgba1c 03/2017= 8.9 Dx: E11.9 100 Each 5 12/29/19 18 Active Blood Glucose Monitoring Suppl (ACCU-CHEK GUIDE) w/Device KITIndications:Typ e 2 diabetes mellitus with hemoglobin A1c goal of less than 8.0% ([facility]) Use as directed. Use up to 4 times a day E11.9 hgba1c 03/2017= 8.9 1 Kit 12/29/19 18 Active Albuterol Sulfate HFA 108 (90 Base) MCG/ACT Inhalation Aerosol SolutionIndication s:COPD, group B, by GOLD 2017 classification ([facility]) Inhale by mouth 2 Puffs every 4 [...] hemoglobin A1c goal of less than 8.0% ([facility]) USE TO TEST BLOOD GLUCOSE 1 TIMES [...] bedtime. Pt increased to 2.5 LPM Active Azithromycin 500 MG Oral Tablet (Zithromax) Take 1 Tablet by mouth once a day on Monday, Monday, and Monday only. 13 Tablet 11 07/26/19 24 Active Magnesium Oxide -Mg Supplement 400 (240 [...] 90 Capsule 3 09/12/19 24 Active Tiotropium [place]-Olodaterol 2.5-2.5 MCG/ACT Inhalation Aerosol Solution (Stiolto Respimat) Inhale 2 Puffs by mouth in the morning. 4 g 4 09/22/19 24 Active Ipratropium-[place] rol 0.5-2.5 (3) MG/3ML Inhalation Solution (Duoneb)Indication s:COPD exacerbation (HCC),COPD, group D, by GOLD 2017 classification ([facility]) INHALE CONTENTS OF 1 VIAL ( 3 MILLILITERS ) IN NEBULIZER BY MOUTH AND INTO THE LUNGS EVERY 4 HOURS IF NEEDED FOR SHORTNESS OF BREATH OR WHEEZING 180 mL 5 09/26/19 24 Active Furosemide 20 MG Oral Tablet (Lasix)Indications :HTN, goal below 140/90,Chronic diastolic heart failure due to valvular disease (HCC) TAKE 1 TABLET 5 DAYS PER WEEK [...] hemoglobin A1c goal of less than 8.0% ([facility]) TAKE 2 TABLETS BY MOUTH EVERY DAY 180 Tablet 3 01/10/20 24 Active SITagliptin Phosphate 25 MG Oral Tablet (Januvia)Indicatio ns:Type 2 diabetes mellitus with hemoglobin A1c goal of less than 8.0% ([facility]) Take 1 Tablet by mouth in the morning. 90 Tablet 3 02/15/20 24 Active Pregabalin 150 MG Oral Capsule (Lyrica) Take 1 Capsule by mouth every evening. 03/21/19 25 Active Ipratropium [place] 0.03 % Nasal Solution (Atrovent) Administer 2 Sprays into each nostril in the morning and 2 Sprays before bedtime. 30 mL 6 05/18/19 25 Active documented as of this encounter (statuses as of 05/24/2024) Active Problems Problem Noted Date Diagnosed Date History of prolonged Q-T interval on ECG 024 Chronic diastolic heart failure due to valvular disease 05/08/2023 Senile osteoporosis 07/20/2022 SVT (supraventricular tachycardia) 07/06/2022 Non-ischemic cardiomyopathy 07/06/2022 History of nonmelanoma skin cancer 06/16/2022 Overview (06/29/2022): Hx of BCC R shoulder 05/2022, SCC sternal notch 01/2022, BCC R chest 10/2021, BCC R baptism s/p Mohs 2020, SCC R jawline s/p Mohs 2020, BCC R shoulder s/p curettage 2020, BCC L forehead 2017, BCC L clavicle 2008 and 2005, Brittani suprapubic 2005 Atherosclerosis of [place] of both lower extremities with [...] as of this encounter (statuses as of 05/24/2024) Resolved Problems Problem Noted Date Diagnosed Date Resolved Date Atherosclerosis of [place] of both lower extremities with [...] to valvular disease 03/21/2016 01/29/2019 Atherosclerosis of [place] of extremity with rest pain 01/16/2015 06/27/2016 Atherosclerosis of leg with intermittent claudication 12/02/2014 12/05/2022 Accelerate Clinical Trial*[id number] 12/10/2012 02/16/2015 Overview (12/10/2012): ACCELERATE STUDY. Project # [id number], SET DECORATOR: Van Richardson MD. CRC: MIMI Marcus. SUMMARY: To test the hypothesis that Evacetrapib 130 mg, in comparison to placebo, reduces the risk of major adverse coronary events in high-risk vascular disease patients. CONTACTS: During normal business hours, contact study staff at ; after hours Rn Er via the [facility] hospital casting machine service operator [phone]. 24-hour Global Study Helpline: [phone]. Lipid levels should not be ordered/obtained while this subject is in the Accelerate study. Lipids are being managed in a blinded fashion. If lipid levels are inadvertently obtained, it is important that test results are NOT provided to the patient, study doctor, precision farming coordinator, or other study team members. Restricted meds while in the study: 1) niacin > 250 mg, 2) gemfibrozil with a potent [id number]-dusaouvis. HTN, GOAL BELOW 140/80 10/17/201106/02 Overview: Per HTN Protocol #27. Atherosclerosis of [place] of the extremities with intermittent [...] as of this encounter (statuses as of 05/24/2024) Immunizations Name Administration Dates Next Due COVID-19 mRNA, LNP-s, No Pre serve, 2-Dose Series (Moderna) 11/30/2020,05/14/2020,04/04/2020 COVID-19, MRNA-LNP, PF, 30 M CG/0.3 mL, 12 YRS AND ABOVE, IM (PFIZER-Comirnaty) 08/07/2023,12/08/2022 COVID-19, mRNA, LNP-s, PF, B ooster, 100mcg/0.5mg (Moderna) 06/07/2021 Covid-19, Mrna, Lnp-s, Pf, B ivalent, 30 Mcg, IM, 12 yrs and above (Pfizer) 11/22/2021 Influenza, Whole Virus 02/02/2000 Pneumococcal Conjugate Vacc, 13 Valent (Prevnar) 10/28/2015,12/26/2014 Pneumococcal Polysaccharide PPV23 (Pneumovax) 11/24/2003 RSV Vac., Recomb, Adjuvant, PF,0.5 Ml (Arexvy) 12/08/2022 Season Influenza, Quad, PF, Adjuvanted, 65+ Yrs, IM (FLUAD) 12/02/2019 Seasonal Influenza Vac., MDV , IM, 0.5 mL (Fluzone) 12/02/2013,11/26/2012,11/28/2011,11/07,12/02/2010,12/01/2009,11/18/2008 ,12/05/2007,11/27/2006,11/30/2005,11/27,12/18/2002,01/16/2002 Seasonal Influenza Virus Vac cine, Unspecified Formulation 11/30/2020,11/19/2018,12/15/2017,12/14,11/16/2016,10/28/2015,12/02/2013 ,11/26/2012,11/28/2011,11/08/2011,07/2010,12/01/2009,11/18/2008, 8,11/27/2006,11/30/2005,12/13/2004,,01/16/2002,02/02/2000 Seasonal Influenza, High Dos e, Trivalent, PF, [...] 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 Awaiting lab results and signature. Pt due 08/25/24 or later. * Telephone Encounter - Arina Heck LPN - 05/23/2024 3:00 PM EDT Order received for Reclast [place] plan built and routed to provider Awaiting provider signature, prior authorization, and completed lab results before scheduling patient. Per Heidi Palafox PA-C preferred administration date on 08/25/2024 or later. documented in this encounter Plan of Treatment Upcoming Encounters Date Type Department Care Team (Late st Contact Info) Description 05/30/2024 11:30 AM EDT Office Visit Cardiology, [facility] [address] [place] [phone] Van Richardson MD [address] [place] [address] 08/01/2024 11:00 AM EDT Imaging Radiology [address] [place] [address] 08/15/2024 11:00 AM EDT Office Visit Pharmacy, [facility] [address] [facility] [place] [address] Pharmacist1, [facility] [address] [facility] [place] [address] 08/20/2024 8:30 AM EDT Office Visit Pulmonary Medicine, [facility] [address] [place] [phone] Eugene Moore MD [address] [place] [facility] [place] [address] 10/18/2024 3:45 PM EDT Office Visit Dermatology [facility] 200 [facility] [place], [place] [address] Narendra Greenwood MD 200 [facility] [place], [place] [address] 12/12/2024 10:20 AM EDT Office Visit General Internal Medicine [facility] 200 [facility] [place], [place] [address] Narendra Blakely MD 200 [facility] [place], [place] [address] 05/23/2025 11:30 AM EDT Office Visit Rheumatology [facility] [address] [place] [phone] Vincent Palafox PA-C [email or web address] [place], [place] [address] Health Maintenance Due Date Last Done Comments [...] D LEVEL ONCE IN A LIFETIME-USE SMARTSET# 41134 Completed 08/15/2023, 07/14/2022, 05/31/2022, Additional history exists [...] this encounter Medical Devices Implanted Type Area Ios Developer Device Identifier Shelf Expiration Date Model / Serial / Lot Patch Xenosure [id number] - [id number] Implanted:Qty: 1 on 01/15/2015 by William Siegel MD at [facility] Right: Femoral Artery [employer] 07/27/2017 [id number] / / [id number] documented as of this encounter Advance Directives [...] Power of Attor melina? No Care Teams Crinkling Machine Operator Relationship Specialty Start Date End Date Narendra Blakely MD [address] [place] [address] PCP - General Internal Medicine 12/28/20 documented as of this encounter
--- OUTSIDE RECORDS SUMMARY | 2024-07-04 01:33 | External Medical Summary | Summary of Care ---
Author Name Unknown Organization [facility] Address [address] [facility] [address] Phone [phone] Care Team Providers Care Microfilming Document Preparer Name Role Phone Narendra Blakely MD Primary Care Provider + Reason for Visit * Reason Onset Date Comments Med Request 06/13/2024 Encounter Details Date Type Department Care Team (Late st Contact Info) Description 06/13/2024 Telephone General Internal Medicine [facility] 200 [facility] [place] [address] Narendra Blakely MD [address] [place], [place] [id number] Med Request Allergies No known active allergiesdocumented as of this encounter (statuses as of 06/13/2024) Medications ASPIRIN 81 MG PO TABSIndications:HT N, goal to be determined one tab by mouth daily 34 5 03/25/19 06 Active ONETOUCH DELICA LANCETS 33G MISCIndications:Ty pe 2 diabetes mellitus with hemoglobin A1c goal of less than 8.0% ([facility]) Use up to 4 times a day and as needed hgba1c 03/2017= 8.9 100 Each 5 12/22/19 18 Active ACCU-CHEK FASTCLIX LANCETS MISCIndications:Ty pe 2 diabetes mellitus with hemoglobin A1c goal of less than 8.0% ([facility]) Use up to 4 times a day and as needed hgba1c 03/2017= 8.9 Dx: E11.9 100 Each 5 12/29/19 18 Active Blood Glucose Monitoring Suppl (ACCU-CHEK GUIDE) w/Device KITIndications:Typ e 2 diabetes mellitus with hemoglobin A1c goal of less than 8.0% ([facility]) Use as directed. Use up to 4 times a day E11.9 hgba1c 03/2017= 8.9 1 Kit 12/29/19 18 Active Albuterol Sulfate HFA 108 (90 Base) MCG/ACT Inhalation Aerosol SolutionIndication s:COPD, group B, by GOLD 2017 classification ([facility]) Inhale by mouth 2 Puffs every [...] hemoglobin A1c goal of less than 8.0% ([facility]) USE TO TEST BLOOD GLUCOSE 1 [...] 90 Capsule 3 09/12/19 24 Active Tiotropium [place]-Olodaterol 2.5-2.5 MCG/ACT Inhalation Aerosol Solution (Stiolto Respimat) Inhale 2 Puffs by mouth in the morning. 4 g 4 09/22/19 24 Active Ipratropium-Albute rol 0.5-2.5 (3) MG/3ML Inhalation Solution (Duoneb)Indication s:COPD exacerbation (HCC),COPD, group D, by GOLD 2017 classification ([facility]) INHALE CONTENTS OF 1 VIAL ( 3 MILLILITERS ) IN NEBULIZER BY MOUTH AND INTO THE LUNGS EVERY 4 HOURS IF NEEDED FOR SHORTNESS OF BREATH OR WHEEZING 180 mL 5 09/26/19 24 Active Furosemide 20 MG Oral Tablet (Lasix)Indications :HTN, goal below 140/90,Chronic diastolic heart failure due to valvular disease ([facility]) TAKE 1 TABLET 5 DAYS PER WEEK 70 Tablet 3 09/27/19 24 Active Montelukast Sodium 10 MG Oral Tablet (Singulair)Indicat ions:COPD (chronic obstructive pulmonary disease) with chronic bronchitis ([facility]) TAKE 1 TABLET BY MOUTH EVERYDAY AT BEDTIME 90 Tablet 3 10/09/19 24 Active metFORMIN HCl ER 500 MG Oral Tablet Extended Release 24 Hour (Glucophage XR)Indications:Typ e 2 diabetes mellitus with hemoglobin A1c goal of less than 8.0% ([facility]) TAKE 2 TABLETS BY MOUTH EVERY DAY 180 Tablet 3 01/10/20 24 Active SITagliptin Phosphate 25 MG Oral Tablet (Januvia)Indicatio ns:Type 2 diabetes mellitus with hemoglobin A1c goal of less than 8.0% ([facility]) Take 1 Tablet by mouth in the morning. 90 Tablet 3 02/15/20 24 Active Ipratropium [place] 0.03 % Nasal Solution (Atrovent) Administer 2 Sprays into each nostril in the morning and 2 Sprays before bedtime. 30 mL 6 05/18/19 25 Active Azithromycin 500 MG Oral Tablet (Zithromax)Indicat ions:Recurrent aspiration pneumonia (HCC) Take 1 Tablet by mouth once a day on Monday, Monday, and Monday only. 13 Tablet 11 05/28/19 25 Active Probiotic 250 MG Oral Capsule Take by mouth daily. Active Metoprolol Succinate ER 50 MG Oral Tablet Extended Release 24 Hour (toPROL XL) Take 0.5 Tablets by mouth in the morning and 0.5 Tablets before bedtime. 90 Tablet 3 05/31/19 25 Active Pregabalin 150 MG Oral Capsule (Lyrica) Take 1 Capsule by mouth every evening. 90 Capsule 1 06/14/19 25 Active Pregabalin 150 MG Oral Capsule (Lyrica) Take 1 Capsule by mouth every evening. 03/21/19 25 025 Discontin ued(Refil l) documented as of this encounter (statuses as of 06/13/2024) Active Problems Problem Noted Date Diagnosed Date History of prolonged Q-T interval on ECG 024 Chronic diastolic heart failure due to valvular disease 05/08/2023 Senile osteoporosis 07/20/2022 SVT (supraventricular tachycardia) 07/06/2022 Non-ischemic cardiomyopathy 07/06/2022 History of nonmelanoma skin cancer 06/16/2022 Overview (06/29/2022): Hx of BCC R shoulder 05/2022, SCC sternal notch 01/2022, BCC R chest 10/2021, BCC R taoist s/p Mohs 2020, SCC R jawline s/p Mohs 2020, BCC R shoulder s/p curettage 2020, BCC L forehead 2017, BCC L clavicle 2008 and 2005, Brittani suprapubic 2006 Atherosclerosis of [place] of both lower extremities with [...] as of this encounter (statuses as of 06/13/2024) Resolved Problems Problem Noted Date Diagnosed Date Resolved Date Atherosclerosis of [place] of both lower extremities with [...] to valvular disease 03/21/2016 01/29/2019 Atherosclerosis of [place] of extremity with rest pain 01/16/2015 06/27/2016 Atherosclerosis of leg with intermittent claudication 12/02/2014 12/05/2022 Accelerate Clinical Trial*[id number] 12/10/2012 02/16/2015 Overview (12/10/2012): ACCELERATE STUDY. Project # [id number], PRINCIPAL STATISTICAL SCIENTIST: Van Richardson MD. CRC: MIMI Marcus. SUMMARY: To test the hypothesis that Evacetrapib 130 mg, in comparison to placebo, reduces the risk of major adverse coronary events in high-risk vascular disease patients. CONTACTS: During normal business hours, contact study staff at ; after hours [place] via the [facility] hospital photocopying machine operator [phone]. 24-hour Global Study Helpline: [phone]. Lipid levels should not be ordered/obtained while this subject is in the Accelerate study. Lipids are being managed in a blinded fashion. If lipid levels are inadvertently obtained, it is important that test results are NOT provided to the patient, study doctor, special services coordinator, or other study team members. Restricted meds while in the study: 1) niacin > 250 mg, 2) gemfibrozil with a potent [id number]. HTN, GOAL BELOW 140/80 10/17/201106/02 Overview: Per HTN Protocol #27. 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 * Telephone Encounter - Tamar Lee PHARM Tech - 06/13/2024 9:28 AM EDT pt calling requesting the following medication below that is listed as "Historical". The following information was provided: Medication Name: Pregabalin Strength: 150 mg Directions: take 1 Capsule by mouth every evening. Preferred Quantity: 90 Previous Prescriber: Narendra Blakely MD Preferred Pharmacy: [facility]/pharmacy #[id number] [address] [facility] [phone] Please review and approve if appropriate. Thank you, Tamar Lee CPhT Tap And Die Maker Technician II [facility] ([facility]) 06/13/2024, 9:29 AM documented in this encounter Plan of Treatment Upcoming Encounters Date Type Department Care Team (Late st Contact Info) Description 08/01/2024 11:00 AM EDT Imaging Radiology [address], [place] [address] [place] [phone] 08/15/2024 11:00 AM EDT Office Visit Pharmacy, [facility] 200 [facility] [place] [address] Pharmacist1, [facility] [address] [facility] [place] [address] 08/20/2024 8:30 AM EDT Office Visit Pulmonary Medicine, [facility] [address] [place] [phone] Eugene Moore MD [address] [place] [address] 10/18/2024 3:45 PM EDT Office Visit Dermatology [facility] [address] [facility] [place] [address] Narendra Greenwood MD [address] [facility] [place] [address] 12/12/2024 10:20 AM EDT Office Visit General Internal Medicine [facility] [address] [facility] [place], [place] [address] Narendra Blakely MD [address] [facility] [place], [place] [address] 05/23/2025 11:30 AM EDT Office Visit Rheumatology [facility] [address] [place] [phone] Vincent Palafox PA-C [address] [place], [place] [address] Health Maintenance Due Date Last Done Comments [...] D LEVEL ONCE IN A LIFETIME-USE SMARTSET# [id number] Completed 08/15/2023, 07/14/2022, 05/31/2022, Additional history exists [...] this encounter Medical Devices Implanted Type Area Docket Specialist Device Identifier Shelf Expiration Date Model / Serial / Lot Patch Xenosure [id number] - [id number] Implanted:Qty: 1 on 01/15/2015 by William Siegel MD at [facility] Right: Femoral Artery [employer] 07/27/2017 E0.8P8 / / [id number] documented as of this encounter Advance Directives [...] Power of Attor melina? No Care Teams Microfilming Document Preparer Relationship Specialty Start Date End Date Narendra Blakely MD [address] [facility] [place] [address] PCP - General Internal Medicine 12/28/20 documented as of this encounter
--- OUTSIDE RECORDS SUMMARY | 2024-07-04 01:33 | External Medical Summary | Summary of Care ---
Author Name Unknown Organization [facility] Address [address] [facility] [place] [address] Phone [phone] Care Team Providers Care Parenting Skills Instructor Name Role Phone Narendra Blakely MD Primary Care Provider + Reason for Visit * Reason Comments Follow Up Encounter Details Date Type Department Care Team (Latest Contact Info) Description 05/30/2024 11:30 AM EDT Office Visit Cardiology, [facility] [address] [place] [phone] Van Richardson MD [address] [place] [address] Aortic stenosis, moderate*; Subclavian artery stenosis, left (HCC); HTN, goal below 140/90; LBBB (left bundle branch block); Non-ischemic cardiomyopathy (HCC) Allergies No known active allergiesdocumented as of this encounter (statuses as of 05/30/2024) Medications ASPIRIN 81 MG PO TABSIndications:H TN, goal to be determined one tab by mouth daily 34 5 006 Active ONETOUCH DELICA LANCETS 33G MISCIndications:T ype 2 diabetes mellitus with hemoglobin A1c goal of less than 8.0% ([facility]) Use up to 4 times a day and as needed hgba1c 03/2017= 8.9 100 Each 5 018 Active ACCU-CHEK FASTCLIX LANCETS MISCIndications:T ype 2 diabetes mellitus with hemoglobin A1c goal of less than 8.0% ([facility]) Use up to 4 times a day and as needed hgba1c 03/2017= 8.9 Dx: E11.9 100 Each 5 018 Active Blood Glucose Monitoring Suppl (ACCU-CHEK GUIDE) w/Device KITIndications:Ty pe 2 diabetes mellitus with hemoglobin A1c goal of less than 8.0% (HCC) Use as directed. Use up to 4 times a day E11.9 hgba1c 03/2017= 8.9 1 Kit 018 Active Albuterol Sulfate HFA 108 (90 Base) MCG/ACT Inhalation Aerosol SolutionIndicatio ns:COPD, group B, by GOLD 2017 classification ([facility]) Inhale by mouth 2 Puffs every 4 [...] hemoglobin A1c goal of less than 8.0% ([facility]) USE TO TEST BLOOD GLUCOSE 1 TIMES [...] TO EATING 90 Capsule 3 024 Active Tiotropium [place]-Olodatero l 2.5-2.5 MCG/ACT Inhalation Aerosol Solution (Stiolto Respimat) Inhale 2 Puffs by mouth in the morning. 4 g 4 024 Active Ipratropium-Albut jamie 0.5-2.5 (3) MG/3ML Inhalation Solution (Duoneb)Indicatio ns:COPD exacerbation (HCC),COPD, group D, by GOLD 2017 classification ([facility]) INHALE CONTENTS OF 1 VIAL ( 3 [...] hemoglobin A1c goal of less than 8.0% ([facility]) TAKE 2 TABLETS BY MOUTH EVERY DAY 180 Tablet 3 024 Active SITagliptin Phosphate 25 MG Oral Tablet (Januvia)Indicati ons:Type 2 diabetes mellitus with hemoglobin A1c goal of less than 8.0% (HCC) Take 1 Tablet by mouth in the morning. 90 Tablet 3 024 Active Pregabalin 150 MG Oral Capsule (Lyrica) Take 1 Capsule by mouth every evening. 025 Active Ipratropium [place] 0.03 % Nasal Solution (Atrovent) Administer 2 [...] before bedtime. 90 Tablet 3 025 Active Metoprolol Succinate ER 50 MG Oral Tablet Extended Release 24 Hour (toPROL XL)Indications:Wi de-complex tachycardia Take 1 tablet in the morning, 1/2 in the evening 135 Tablet 3 024 2024 Discontinued documented as of this encounter (statuses as of 05/30/2024) Active Problems Problem Noted Date Diagnosed Date History of prolonged Q-T interval on ECG 024 Chronic diastolic heart failure due to valvular disease 05/08/2023 Senile osteoporosis 07/20/2022 SVT (supraventricular tachycardia) 07/06/2022 Non-ischemic cardiomyopathy 07/06/2022 History of nonmelanoma skin cancer 06/16/2022 Overview (06/29/2022): Hx of BCC R shoulder 05/2022, SCC sternal notch 01/2022, BCC R chest 10/2021, BCC R synagogue s/p Mohs 2020, SCC R jawline s/p Mohs 2020, BCC R shoulder s/p curettage 2020, BCC L forehead 2017, BCC L clavicle 2008 and 2005, Brittani suprapubic 2005 Atherosclerosis of cahto ar trinity of both lower extremities with [...] as of this encounter (statuses as of 05/30/2024) Resolved Problems Problem Noted Date Diagnosed Date Resolved Date Atherosclerosis of cahto ar trinity of both lower extremities with [...] to valvular disease 03/21/2016 01/29/2019 Atherosclerosis of cahto ar teries of extremity with rest pain 01/16/2015 06/27/2016 Atherosclerosis of leg with intermittent claudication 12/02/2014 12/05/2022 Accelerate Clinical Trial*[id number] 12/10/2012 02/16/2015 Overview (12/10/2012): ACCELERATE STUDY. Project # [id number], SAND MILL OPERATOR CORE SAND: Van Richardson MD. CRC: MIMI Marcus. SUMMARY: To test the hypothesis that Evacetrapib 130 mg, in comparison to placebo, reduces the risk of major adverse coronary events in high-risk vascular disease patients. CONTACTS: During normal business hours, contact study staff at ; after hours Oncology Social Worker via the [facility] hospital hog operator [phone]. 24-hour Global Study Helpline: [phone]. Lipid levels should not be ordered/obtained while this subject is in the Accelerate study. Lipids are being managed in a blinded fashion. If lipid levels are inadvertently obtained, it is important that test results are NOT provided to the patient, study doctor, technology coordinator, or other study team members. Restricted meds while in the study: 1) niacin > 250 mg, 2) gemfibrozil with a potent [id number]. HTN, GOAL BELOW 140/80 10/17/201106/02 Overview: Per HTN Protocol #27. 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 Answer Date of Assessment Author No 01/15/2015 5:29 PM Janell Munoz RN * Are you blind or do you have serious difficulty seeing, even when wearing glasses? Answer Date of Assessment Author No 01/15/2015 5:29 PM Jaenll Munoz RN * Do you have serious [...] Janell Munoz RN documented in this encounter Progress Notes * Van Richardson MD - 05/30/2024 11:30 AM EDT May 30, 2024 Cardiology Follow Up PCP: NARENDRA BLAKELY [facility], [place] [id number] Chief Complaint: Chronic cardiovascular and peripheral vascular disease, aortic stenosis SUBJECTIVE: Noemi Piña is an 84 year old year old male with cardiac concerns 1. Diffuse generalized atherosclerosis. 2. Atherosclerotic peripheral vascular disease with chronic claudication, status post right common femoral artery and profunda femoral artery endarterectomy, December 2014. 3. Mild to moderate carotid atherosclerosis with chronic right carotid bruit. 4. Left subclavian stenosis with marked reduction in left arm blood pressure. 5. Chronic obstructive lung disease. 6. History of nonischemic cardiomyopathy with moderate nonobstructive coronary artery disease by cardiac catheterization, January 2016, November 2017. 7. Calcific moderate aortic stenosis. 8. Hypertension. 9. Hyperlipidemia. 10. Chronic left bundle branch block. 11. Diabetes mellitus. 12. History of chronic neuropathic foot pain. 13. 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 Paroxysmal supraventricular tachycardia with wide complex conduction Patient presents today in routine follow-up. History of Present Illness Noemi Piña is an 84 year old male with a complex history of diffuse atherosclerosis who presents for routine follow-up. He has a complex history of diffuse atherosclerosis, including peripheral vascular disease with chronic claudication, carotid artery disease, and left subclavian stenosis with left arm claudication. No changes in his condition have been noted. He denies chest pain or discomfort and continues to take his medications as prescribed, with a recent adjustment in his Januvia dosage to 25 mg. He has underlying cardiac issues, including nonischemic cardiomyopathy, moderate calcific aortic stenosis, longstanding hypertension, and chronic left bundle branch block. No swelling in his ankles, legs, or feet is reported. He denies bleeding issues, dark black stools, or blood in the stools. Hisblood pressure was elevated to the 160s during a period of extended sleep but is usually well-controlled. He is currently taking a diuretic for his condition. He mentions that his heart murmur persists and experiences some daytime fatigue, which may be related to his heart condition. He is currently taking metoprolol, which has been adjusted to a half tablet twice a day to potentially improve his heart rate and reduce fatigue. He reports sleeping well, although he goes to bed early due to his dog's routine, resulting in waking up at midnight and feeling tired in the early afternoon. He has been putting some weight back on after previously losing weight down to 170 pounds. No fevers, chills, or unexplained infections. A Complete Review of Systems is as stated above or negative. Patient Active Problem List Diagnosis Malignant neoplasm of skin of trunk Type 2 diabetes mellitus with hemoglobin A1c goal of less than 8.0% ([facility]) DYSLIPIDEMIA, GOAL LDL BELOW 100 Carotid stenosis, non-symptomatic Aortic stenosis, moderate Subclavian artery stenosis, left ([facility]) HTN, goal below 140/90 Rhinitis, nonallergic Tobacco abuse, in remission Chronic sinusitis COPD, group D, by GOLD 2017 classification ([facility]) Seasonal allergic rhinitis Primary malignant neoplasm of right lower lobe of lung ([facility]) S/P radiation therapy Radiation pneumonitis ([facility]) Vitamin B12 deficiency Chronic hypoxemic respiratory failure ([facility]) Atherosclerosis of cahto artery of both lower extremities with intermittent claudication ([facility]) History of nonmelanoma skin cancer SVT (supraventricular tachycardia) ([facility]) Non-ischemic cardiomyopathy ([facility]) Senile osteoporosis Chronic diastolic heart failure due to valvular disease ([facility]) History of prolonged Q-T interval on ECG Review of patient's allergies indicates: No Known Allergies Current Outpatient Medications Medication Sig Dispense Refill ASPIRIN 81 MG PO TABS one tab by mouth daily 34 5 Albuterol Sulfate HFA 108 (90 Base) MCG/ACT Inhalation Aerosol Solution Inhale by mouth 2 Puffs every 4 hours as needed for Cough, Shortness of Breath or Wheezing. 18 g 11 Potassium Gluconate 550 MG Oral Tablet Take 1 Tablet by mouth in the morning. Vitamin B12 1000 MCG Oral Tablet Extended Release daily. traMADol HCl 50 MG Oral Tablet (Ultram) TAKE 1 TABLET BY MOUTH EVERY 8 HOURS NEEDED FOR MODERATEPAIN. 30 Tablet 0 Loperamide HCl 2 MG Oral Capsule (Imodium) Take 1 Capsule by mouth as needed for Diarrhea. 30 Capsule 1 Lisinopril 5 MG Oral Tablet (Prinivil) TAKE 1 TABLET BY MOUTH EVERY DAY IN THE MORNING 90 Tablet 3 Atorvastatin Calcium 80 MG Oral Tablet (Lipitor) TAKE 1 TABLET BY MOUTH EVERY DAY 90 Tablet 3 oxygen IN GAS Use 2 L/min(Oxygen) as directed at bedtime. Pt increased to 2.5 LPM Magnesium Oxide -Mg Supplement 400 (240 Mg) MG Oral Tablet (Mag-Ox) Take 1 Tablet by mouth in the morning and 1 Tablet before bedtime. 180 Tablet 1 Omeprazole 20 MG Oral Capsule Delayed Release (PriLOSEC) TAKE 1 CAPSULE BY MOUTH EVERY DAY ON EMPTYSTOMACH 30 TO 60 MINUTES PRIOR TO EATING 90 Capsule 3 Tiotropium [place]-Olodaterol 2.5-2.5 MCG/ACT Inhalation Aerosol Solution (Stiolto Respimat) Inhale2 Puffs by mouth in the morning. 4 g 4 Ipratropium-Albuterol 0.5-2.5 (3) MG/3ML Inhalation Solution (Duoneb) INHALE CONTENTS OF 1 VIAL ( 3MILLILITERS ) IN NEBULIZER BY MOUTH AND INTO THE LUNGS EVERY 4 HOURS IF NEEDED FOR SHORTNESS OF BREATH OR WHEEZING 180 mL 5 Furosemide 20 MG Oral Tablet (Lasix) TAKE 1 TABLET 5 DAYS PER WEEK 70 Tablet 3 Montelukast Sodium 10 MG Oral Tablet (Singulair) TAKE 1 TABLET BY MOUTH EVERYDAY AT BEDTIME 90 Tablet 3 Metoprolol Succinate ER 50 MG Oral Tablet Extended Release 24 Hour (toPROL XL) Take 1 tablet in themorning, 1/2 in the evening 135 Tablet 3 metFORMIN HCl ER 500 MG Oral Tablet Extended Release 24 Hour (Glucophage XR) TAKE 2 TABLETS BY MOUTH EVERY DAY 180 Tablet 3 SITagliptin Phosphate 25 MG Oral Tablet (Januvia) Take 1 Tablet by mouth in the morning. 90 Tablet 3 Pregabalin 150 MG Oral Capsule (Lyrica) Take 1 Capsule by mouth every evening. Ipratropium [place] 0.03 % Nasal Solution (Atrovent) Administer 2 Sprays into each nostril in the morning and 2 Sprays before bedtime. 30 mL 6 Azithromycin 500 MG Oral Tablet (Zithromax) Take 1 Tablet by mouth once a day on Monday, Monday,and Monday only. 13 Tablet 11 Probiotic 250 MG Oral Capsule Take by mouth daily. ONETOUCH DELICA LANCETS 33G MISC Use up to 4 times a day and as needed hgba1c 03/2017= 8.9 100 Each 5 ACCU-CHEK FASTCLIX LANCETS MISC Use up to 4 times a day and as needed hgba1c 03/2017= 8.9 Dx: E11.9 100 Each 5 Blood Glucose Monitoring Suppl (ACCU-CHEK GUIDE) w/Device KIT Use as directed. Use up to 4 times a day E11.9 hgba1c 03/2017= 8.9 1 Kit 0 Accu-Chek Guide In Vitro Strip (Glucose Blood) USE TO TEST BLOOD GLUCOSE 1 TIMES DAILY. DX: E11.9. 100 Strip 3 No current facility-administered medications for this visit. OBJECTIVE/PHYSICAL EXAMINATION: BP 138/82 (BP Site: Right Arm) | Pulse 54 | Wt 86.3 kg (190 lb 4.8 oz) | SpO2 94% | BMI 24.43 kg/m² | BSA 2.12 m² Blood pressure taken in right arm General: Thin age-appropriate male in no acute distress Head: normocephalic, no masses, lesions, tenderness or abnormalities Eyes: conjunctiva are pink and non-injected, sclera clear Throat: clear Nares: without discharge Neck: supple, no adenopathy, right carotid bruits, normal jugular venous pulse, no hepatojugular reflux, right carotid bruits present Chest: normal shape and normal respiratory effort Lungs: Diffusely diminished breath sounds with few scattered rhonchi at right chest Cardiac Exam: - regular rate & rhythm, grade 2/6 systolic murmur no diastolic murmur no S3 gallop or rubs - normal S-1, diminished but present S-2 Pulses are diminished in left arm Abdomen: abdomen soft, non-tender, no abnormal masses, no hepatosplenomegaly, no abdominal bruit, no femoral bruit Musculoskeletal: no gait disturbance, no joint inflammation, no deforming arthritis Extremities: No edema, no cyanosis, diminished distal pulses left radial absent Neuro: grossly normal exam Data: Echocardiogram October 02, 2023 The qualitative LV ejection fraction is 60-64% (normal). The LV wall thickness is mildly increased (concentric). The left atrium is mildly enlarged (35-41 ml/m^2). The aortic valve is severely calcified. Moderate aortic valve stenosis is present. There is moderate mitral annular calcification. The mitral valve chordae are thickened and diffusely calcified. The mitral valve leaflets are mildly calcified. Mild mitral stenosis is present. Mild mitral regurgitation is present. Compared to last available study changes are noted as follows: Aortic valve systolic gradient has mildly increased. EKG he had November 01, 2023 Sinus rhythm with first-degree AV block at 48 beats per minute with left bundle- branch block QTC 471 ASSESSMENT: 84 year old year old male complex constellation of medical issues as listed above. Assessment & Plan Hypertension Blood pressure elevated at home, not concerning in clinic. Avoid excessive lowering due to vascularnarrowings. - Reduce metoprolol to half a tablet twice daily. - Monitor blood pressure and heart rate at home. - Consider increasing lisinopril if blood pressure rises significantly. Bradycardia Low heart rate contributing to fatigue. Aim to increase heart rate slightly. - Reduce metoprolol to half a tablet twice daily. - Monitor heart rate at home, report if consistently 55-60 bpm. - Report significant symptom changes. Chronic diastolic heart failure due to valvular disease Heart murmur from narrowed valves causing fatigue. Adjust medications to manage symptoms. - Monitor symptoms and report changes. - Adjust medications based on blood pressure and heart rate monitoring. DISPOSITION: Follow-up 4-6 months time MD Michael Oher Cardiology, [facility] [address] [place] [id number] documented in this encounter Nursing Notes * Veronika Gomez CMA - 05/30/2024 11:18 AM EDT Examination Room: 14 Name: Noemi Piña Date of : (1940). Reason for Visit: f/u Interim Hospitalization(s): denies Problems/Concerns: Pt's has been taking his BP recently, states it is running high 170's/70's 90's, denies symptoms Chest Pain/SOB: Denies worsening symptoms [facility] Discussed: Yes [facility] is a way you can talk to your provider online through e-mail. Would you like to sign up? I can activate it for you? ALREADY ACTIVE Patient was instructed to not get up on the exam table until directed and assisted by their provider; patient is to remain seated in the chair/ wheelchair/ exam table for fall prevention and safety reasons. Patient is aware to have assistance to step down off exam table with personnel. Patient voiced full comprehension of instructions. documented in this encounter Plan of Treatment Upcoming Encounters Date Type Department Care Team (Late st Contact Info) Description 08/01/2024 11:00 AM EDT Imaging Radiology [facility] [address] [facility] [address] [facility] [place] [phone] 08/15/2024 11:00 AM EDT Office Visit Pharm[facility], [facility] [address] [facility] [address] [facility]1, [facility] [address] [facility] [place] [place] [address] 08/20/2024 8:30 AM EDT Office Visit Pulmonary Medicine, [facility] [address] [place] [phone] Eugene Moore MD [address] [place] [facility] [place] [address] 10/18/2024 3:45 PM EDT Office Visit Dermatology [facility] [address] [facility] [place] [address] Narendra Greenwood MD [address] [facility] [place] [address] 12/12/2024 10:20 AM EDT Office Visit General Internal Medicine [facility] [address] [facility] [place] [address] Narendra Blakely MD [address] [facility] [place], [place] [address] 05/23/2025 11:30 AM EDT Office Visit Rheumatology [facility] [address] [place] [phone] Vincent Palafox, PA-C [facility] [place], [place] [address] Health Maintenance Due Date Last Done Comments *ADVANCE DIRECTIVE NOT ON FILE 10/16/2021 Adult Wellness Visit 12/09/2023 12/08/2022 COVID-19 Vaccine ( season) 2024 12/05/2023, 08/07/2023, 12/08/2022, Additional history exists Diabetic Foot Exam 05/07/2024 05/08/2023, 1 , 02/24/2022, Additional history exists HbA1c 08/15/2024 02/15/2024, 07, 05/22/2023, Additional history exists Depression Screening 09/05/2024 [...] D LEVEL ONCE IN A LIFETIME-USE SMARTSET# [id number] Completed 08/15/2023, 07/14/2022, 05/31/2022, Additional history exists [...] this encounter Medical Devices Implanted Type Area Events Associate Device Identifier Shelf Expiration Date Model / Serial / Lot Patch Xenosure [id number] - [id number] Implanted:Qty: 1 on 01/15/2015 by William Siegel MD at [place] [facility] [place] Right: Femoral Artery [employer] 07/27/2017 [id number] / / [id number] documented as of this encounter Visit Diagnoses Diagnosis Aortic stenosis, moderate- Primary Aortic valve disorders Subclavian artery stenosis, left (HCC) Atherosclerosis of other specified arteries HTN, goal below 140/90 Unspecified essential hypertension LBBB (left bundle branch block) Other left bundle branch block Non-ischemic cardiomyopathy (HCC) Other primary cardiomyopathies documented in this encounter Advance Directives * [...] Power of Attor melina? No Care Teams Parenting Skills Instructor Relationship Specialty Start Date End Date Narendra Blakely MD [address] [place] [address] PCP - General Internal Medicine 12/28/20 documented as of this encounter"
--- OUTSIDE RECORDS SUMMARY | 2024-07-04 01:33 | External Medical Summary | Summary of Care ---
Author Name Unknown Organization [facility] Address [address] [address] Phone [phone] Care Team Providers Care Director Clinical Operations Name Role Phone Narendra Blakely MD Primary Care Provider + Reason for Visit * Reason Onset Date Comments Health Maintenance 06/07/2024 Encounter Details Date Type Department Care Team (Late st Contact Info) Description 06/07/2024 Telephone General Internal Medicine [facility] [address] [facility] [place] [address] Narendra Blakely MD [address] [place], [place] [id number] Health Maintenance Allergies No known active allergiesdocumented as of this encounter (statuses as of 06/07/2024) Medications ASPIRIN 81 MG PO TABSIndications:HT N, goal to be determined one tab by mouth daily 34 5 03/25/19 06 Active ONETOUCH DELICA LANCETS 33G MISCIndications:Ty pe 2 diabetes mellitus with hemoglobin A1c goal of less than 8.0% ([facility]) Use up to 4 times a day and as needed hgba1c 03/2017= 8.9 100 Each 5 12/22/19 18 Active ACCU-CHEK FASTCLIX LANCETS MISCIndications:Ty pe 2 diabetes mellitus with hemoglobin A1c goal of less than 8.0% ([facility]) Use up to 4 times a day and as needed hgba1c 03/2017= 8.9 Dx: E11.9 100 Each 5 12/29/19 18 Active Blood Glucose Monitoring Suppl (ACCU-CHEK GUIDE) w/Device KITIndications:Typ e 2 diabetes mellitus with hemoglobin A1c goal of less than 8.0% ([facility]) Use as directed. Use up to 4 times a day E11.9 hgba1c 03/2017= 8.9 1 Kit 12/29/19 18 Active Albuterol Sulfate HFA 108 (90 Base) MCG/ACT Inhalation Aerosol SolutionIndication s:COPD, group B, by GOLD 2017 classification ([facility]) Inhale by mouth 2 Puffs every [...] hemoglobin A1c goal of less than 8.0% ([facility]) USE TO TEST BLOOD GLUCOSE 1 [...] 90 Capsule 3 09/12/19 24 Active Tiotropium [place]-Olodaterol 2.5-2.5 MCG/ACT Inhalation Aerosol Solution (Stiolto Respimat) Inhale 2 Puffs by mouth in the morning. 4 g 4 09/22/19 24 Active Ipratropium-Albute rol 0.5-2.5 (3) MG/3ML Inhalation Solution (Duoneb)Indication s:COPD exacerbation (HCC),COPD, group D, by GOLD 2017 classification ([facility]) INHALE CONTENTS OF 1 VIAL ( 3 MILLILITERS ) IN NEBULIZER BY MOUTH AND INTO THE LUNGS EVERY 4 HOURS IF NEEDED FOR SHORTNESS OF BREATH OR WHEEZING 180 mL 5 09/26/19 24 Active Furosemide 20 MG Oral Tablet (Lasix)Indications :HTN, goal below 140/90,Chronic diastolic heart failure due to valvular disease ([facility]) TAKE 1 TABLET 5 DAYS PER WEEK [...] hemoglobin A1c goal of less than 8.0% ([facility]) TAKE 2 TABLETS BY MOUTH EVERY DAY 180 Tablet 3 01/10/20 24 Active SITagliptin Phosphate 25 MG Oral Tablet (Januvia)Indicatio ns:Type 2 diabetes mellitus with hemoglobin A1c goal of less than 8.0% ([facility]) Take 1 Tablet by mouth in the morning. 90 Tablet 3 02/15/20 24 Active Pregabalin 150 MG Oral Capsule (Lyrica) Take 1 Capsule by mouth every evening. 03/21/19 25 Active Ipratropium [place] 0.03 % Nasal Solution (Atrovent) Administer 2 [...] bedtime. 90 Tablet 3 05/31/19 25 Active documented as of this encounter (statuses as of 06/07/2024) Active Problems Problem Noted Date Diagnosed Date History of prolonged Q-T interval on ECG 024 Chronic diastolic heart failure due to valvular disease 05/08/2023 Senile osteoporosis 07/20/2022 SVT (supraventricular tachycardia) 07/06/2022 Non-ischemic cardiomyopathy 07/06/2022 History of nonmelanoma skin cancer 06/16/2022 Overview (06/29/2022): Hx of BCC R shoulder 05/2022, SCC sternal notch 01/2022, BCC R chest 10/2021, BCC R yazdanism s/p Mohs 2020, SCC R jawline s/p Mohs 2020, BCC R shoulder s/p curettage 2020, BCC L forehead 2017, BCC L clavicle 2008 and 2005, Brittani suprapubic 2005 Atherosclerosis of [place] of both lower extremities with [...] as of this encounter (statuses as of 06/07/2024) Resolved Problems Problem Noted Date Diagnosed Date Resolved Date Atherosclerosis of [place] of both lower extremities with [...] to valvular disease 03/21/2016 01/29/2019 Atherosclerosis of [place] of extremity with rest pain 01/16/2015 06/27/2016 Atherosclerosis of leg with intermittent claudication 12/02/2014 12/05/2022 Accelerate Clinical Trial*[id number] 12/10/2012 02/16/2015 Overview (12/10/2012): ACCELERATE STUDY. Project # [id number], SENIOR ACCOUNTANT ANALYST: Van Richardson MD. CRC: Arabella Meredith, BSN. SUMMARY: To test the hypothesis that Evacetrapib 130 mg, in comparison to placebo, reduces the risk of major adverse coronary events in high-risk vascular disease patients. CONTACTS: During normal business hours, contact study staff at ; after hours Cable Tool Driller via the [facility] hospital pressure tester operator [phone]. 24-hour Global Study Helpline: [phone]. Lipid levels should not be ordered/obtained while this subject is in the Accelerate study. Lipids are being managed in a blinded fashion. If lipid levels are inadvertently obtained, it is important that test results are NOT provided to the patient, study doctor, work study student, or other study team members. Restricted meds while in the study: 1) niacin > 250 mg, 2) gemfibrozil with a potent [id number]. HTN, GOAL BELOW 140/80 10/17/201106/02 Overview: Per HTN Protocol #27. 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 (5 years old or older) Answer Date of Assessment Author No 01/15/2015 5:29 PM Janell Munoz, RN * Because of a physical, mental, or emotional condition, do you have difficulty doing errands alone such as visiting a doctor’s office or shopping? (15 years old or older) Answer Date of Assessment Author No 01/15/2015 5:29 PM Janell Munoz, RN documented as of this encounter Mental Status * Because of a physical, mental, or emotional condition, do you have serious difficulty concentrating, remembering, or making decisions? (5 years old or older) Answer Entry Date Author No 01/15/2015 5:29 PM Janell Munoz, RN documented in this encounter Miscellaneous Notes * Telephone Encounter - Ale BoJOHNNY - 06/07/2024 8:18 AM EDT Care Gaps Comprehensive Care Outreach Last Office/Telemedicine Visit: 03/20/2024 (in office), 05/10/2022 (telemedicine) Next Office Visit: 12/12/2024 Hemoglobin AIC Results: Lab Results Component Value Date/Time HEMOGLOBIN A1C - [facility] 6.6 (H) 05/22/2023 09:27 AM HEMOGLOBIN A1C - [facility] 7.2 (H) 12/01/2022 10:07 AM HEMOGLOBIN A1C - [facility] 6.6 (H) 11/22/2021 10:21 AM HEMOGLOBIN A1C - [facility] 7.8 (H) 03/05/2020 10:50 AM HEMOGLOBIN A1C - [facility] 8.6 (H) 08/02/2019 11:14 AM HEMOGLOBIN A1C - [facility] 8.6 (H) 09/26/2018 02:32 PM HEMOGLOBIN A1C POCT - [facility] 6.7 (H) 02/15/2024 10:52 AM HEMOGLOBIN A1C POCT - [facility] 6.3 (H) 09/06/2023 09:24 AM HEMOGLOBIN A1C POCT - [facility] 7.8 (H) 03/13/2023 09:53 AM BP Readings from Last 1 Encounters: 05/30/24 138/82 Reviewed Health Maintenance below: Health Maintenance Topic Date Due *ADVANCE DIRECTIVE NOT ON FILE Never done Adult Wellness Visit 12/09/2023 COVID-19 Vaccine ( season) 2024 Diabetic Foot Exam 05/07/2024 HbA1c 08/15/2024 Labs already ordered awv Care Gap Outreach Action Taken: Losonocohart message sent documented in this encounter Plan of Treatment Upcoming Encounters Date Type Department Care Team (Late st Contact Info) Description 08/01/2024 11:00 AM EDT Imaging Radiology [address] [place] [phone] 08/15/2024 11:00 AM EDT Office Visit Pharmacy, [facility] [address] [facility] [place] [address] Pharmacist1, [facility] [address] [place] [address] 08/20/2024 8:30 AM EDT Office Visit Pulmonary Medicine, [facility] [address] [place] [phone] Eugene Moore MD [address] [facility] [address] 10/18/2024 3:45 PM EDT Office Visit Dermatology [facility] [address] [facility] [place] [address] Narendra Greenwood MD [address] [facility] [place] [address] 12/12/2024 10:20 AM EDT Office Visit General Internal Medicine [facility] [address] [facility] [place] [address] Narendra Blakely MD [address] [facility] [place] [address] 05/23/2025 11:30 AM EDT Office Visit Rheumatology [facility] [address] [place] [phone] Vincent Palafox, PA-C [address] [facility] [place] [address] Health Maintenance Due Date Last Done Comments [...] D LEVEL ONCE IN A LIFETIME-USE SMARTSET# [id number] Completed 08/15/2023, 07/14/2022, 05/31/2022, Additional history exists [...] this encounter Medical Devices Implanted Type Area Automobile Carpets Molder Device Identifier Shelf Expiration Date Model / Serial / Lot Patch Xenosure [id number] - [id number] Implanted:Qty: 1 on 01/15/2015 by William Siegel MD at [facility] Right: Femoral Artery [employer] 07/27/2017 [id number] / / [id number] documented as of this encounter Advance Directives [...] 01/14/2015 1:20 PM 01/15/2015 1:36 PM This orde r reflects the patients wishes and were consensually agreed upon. Question Answer Comments Discussion of Advance Directives occurred with: Not Discussed Does the patient have a Living Will? No Does the patient have Health Care Power of Attor melina? No Care Teams Director Clinical Operations Relationship Specialty Start Date End Date Narendra Blakely MD [address] [place] [address] PCP - General Internal Medicine 12/28/20 documented as of this encounter
--- OUTSIDE RECORDS SUMMARY | 2024-07-04 01:34 | External Medical Summary | Summary of Care ---
Author Name Unknown Organization [facility] Address [address] [facility] [address] Phone [phone] Care Team Providers Care Men'S Garment Fitter Name Role Phone Narendra Blakely MD Primary Care Provider + Reason for Visit * Reason Comments Rheum Follow Up Recheck Osteoporosis Encounter Details Date Type Department Care Team (Late st Contact Info) Description 05/23/2024 8:30 AM EDT Office Visit Rheumatology [facility] [address] [place] [phone] Vincent Palafox PA-Satya [address] [facility] [address] Senile osteoporosis* Allergies No known active allergiesdocumented as of this encounter (statuses as of 05/23/2024) Medications ASPIRIN 81 MG PO TABSIndications:H TN, goal to be determined one tab by mouth daily 34 5 006 Active ONETOUCH DELICA LANCETS 33G MISCIndications:T ype 2 diabetes mellitus with hemoglobin A1c goal of less than 8.0% ([facility]) Use up to 4 times a day and as needed hgba1c 03/2017= 8.9 100 Each 5 018 Active ACCU-CHEK FASTCLIX LANCETS MISCIndications:T ype 2 diabetes mellitus with hemoglobin A1c goal of less than 8.0% ([facility]) Use up to 4 times [...] ns:COPD, group B, by GOLD 2017 classification ([facility]) Inhale by mouth 2 Puffs [...] goal of less than 8.0% ([facility]) USE TO TEST BLOOD GLUCOSE [...] Monday, and Monday only. 13 Tablet 11 024 Active Magnesium Oxide -Mg Supplement 400 (240 [...] EATING 90 Capsule 3 024 Active Tiotropium Flomot-Olodatero l 2.5-2.5 MCG/ACT Inhalation Aerosol Solution (Stiolto Respimat) Inhale 2 Puffs by mouth in the morning. 4 g 4 024 Active Ipratropium-Albut jamie 0.5-2.5 (3) MG/3ML Inhalation Solution (Duoneb)Indicatio ns:COPD exacerbation (HCC),COPD, group D, by GOLD 2017 classification ([facility]) INHALE CONTENTS OF 1 VIAL ( 3 MILLILITERS ) IN NEBULIZER BY MOUTH AND INTO THE LUNGS EVERY 4 HOURS IF NEEDED FOR SHORTNESS OF BREATH OR WHEEZING 180 mL 5 024 Active Furosemide 20 MG Oral Tablet (Lasix)Indication s:HTN, goal below 140/90,Chronic diastolic heart failure due to valvular disease ([facility]) TAKE 1 TABLET 5 DAYS PER WEEK 70 Tablet 3 024 Active Montelukast Sodium 10 MG Oral Tablet (Singulair)Indica tions:COPD (chronic obstructive pulmonary disease) with chronic bronchitis ([facility]) TAKE 1 TABLET BY MOUTH EVERYDAY AT BEDTIME 90 Tablet 3 024 Active Metoprolol Succinate ER 50 MG Oral Tablet Extended Release 24 Hour (toPROL XL)Indications:Wi de-complex tachycardia Take 1 tablet in the morning, 1/2 in the evening 135 Tablet 3 024 Active metFORMIN HCl ER 500 MG Oral Tablet Extended Release 24 Hour (Glucophage XR)Indications:Ty pe 2 diabetes mellitus with hemoglobin A1c goal of less than 8.0% ([facility]) TAKE 2 TABLETS BY MOUTH EVERY DAY 180 Tablet 3 024 Active SITagliptin Phosphate 25 MG Oral Tablet (Januvia)Indicati ons:Type 2 diabetes mellitus with hemoglobin A1c goal of less than 8.0% ([facility]) Take 1 Tablet by mouth in the morning. 90 Tablet 3 024 Active Pregabalin 150 MG Oral Capsule (Lyrica) Take 1 Capsule by mouth every evening. 025 Active Ipratropium Flomot 0.03 % Nasal Solution (Atrovent) Administer 2 Sprays into each nostril in the morning and 2 Sprays before bedtime. 30 mL 6 025 Active methylPREDNISolon e 4 MG Oral Tablet Therapy Pack (Medrol Dosepack) follow package directions 21 Tablet 024 2024 Discontinued documented as of this encounter (statuses as of 05/23/2024) Active Problems Problem Noted Date Diagnosed Date History of prolonged Q-T interval on ECG Chronic diastolic heart failure due to valvular disease 05/08/2023 Senile osteoporosis 07/20/2022 SVT (supraventricular tachycardia) 07/06/2022 Non-ischemic cardiomyopathy 07/06/2022 History of nonmelanoma skin cancer 06/16/2022 Overview (06/29/2022): Hx of BCC R shoulder 05/2022, SCC sternal notch 01/2022, BCC R chest 10/2021, BCC R mandaeism s/p Mohs 2020, SCC R jawline s/p Mohs 2020, BCC R shoulder s/p curettage 2020, BCC L forehead 2017, BCC L clavicle 2008 and 2005, Brittani suprapubic 2005 Atherosclerosis of [place] of both lower extremities with [...] as of this encounter (statuses as of 05/23/2024) Resolved Problems Problem Noted Date Diagnosed Date Resolved Date Atherosclerosis of [place] of both lower extremities with [...] to valvular disease 03/21/2016 01/29/2019 Atherosclerosis of [place] of extremity with rest pain 01/16/2015 06/27/2016 Atherosclerosis of leg with intermittent claudication 12/02/2014 12/05/2022 Accelerate Clinical Trial*[id number] 12/10/2012 02/16/2015 Overview (12/10/2012): ACCELERATE STUDY. Project # [id number], CEMENT FINISHER HELPER: Van Richardson MD. CRC: MIMI Marcus. SUMMARY: To test the hypothesis that Evacetrapib 130 mg, in comparison to placebo, reduces the risk of major adverse coronary events in high-risk vascular disease patients. CONTACTS: During normal business hours, contact study staff at ; after hours Java Programmer Analyst via the [facility] jewel oliving machine operator [phone]. 24-hour Global Study Helpline: [phone]. Lipid levels should not be ordered/obtained while this subject is in the Accelerate study. Lipids are being managed in a blinded fashion. If lipid levels are inadvertently obtained, it is important that test results are NOT provided to the patient, study doctor, hospital coordinator, or other study team members. Restricted meds while in the study: 1) niacin > 250 mg, 2) gemfibrozil with a potent [id number]. HTN, GOAL BELOW 140/80 10/17/201106/02 Overview: Per HTN Protocol #27. 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 Troy Ambrosio Previous Visit Plan from 05/24/2023 reviewed. Reason for visit: Patient seen today for further follow-up/evaluation of osteoporosis. Bone Health Summary: Charleen x2. Last 08/25/23 Risks: Falls since last [facility] visit: no Personal History of Fx since last [facility] Visit: no Prevention: Exercise : 3 or more times weekly: No Nutrition: eats calcium rich foods, Yes Gait: unsteady with walking, No, use of cane/walker, No, Calcium and Vitamin D supplements in adequate doses: Yes Current Smoker: No Chronic Glucocorticoid use: No Rheumatoid Arthritis: No Alcohol 3 or more per day: No Medications: Current Outpatient Medications Medication Sig Dispense Refill ASPIRIN 81 MG PO TABS one tab by mouth daily 34 5 ONETOUCH DELICA LANCETS 33G MISC Use up [...] E11.9 hgba1c 03/2017= 8.9 1 Kit 0 Albuterol Sulfate HFA 108 (90 Base) MCG/ACT Inhalation Aerosol Solution Inhale by mouth 2 Puffs every 4 hours as needed for Cough, Shortness of Breath or Wheezing. 18 g 11 Potassium Gluconate 550 MG Oral Tablet Take 1 Tablet by mouth in the morning. Vitamin B12 1000 MCG Oral Tablet Extended Release Accu-Chek Guide In Vitro Strip (Glucose Blood) USE TO TEST BLOOD GLUCOSE 1 TIMES DAILY. DX: E11.9. 100 Strip 3 traMADol HCl 50 MG Oral Tablet (Ultram) [...] at bedtime. Pt increased to 2.5 LPM Azithromycin 500 MG Oral Tablet (Zithromax) Take 1 Tablet by mouth once a day on Monday, Monday,and Monday only. 13 Tablet 11 Magnesium Oxide -Mg Supplement 400 (240 Mg) MG Oral Tablet (Mag-Ox) Take 1 Tablet by mouth in the morning and 1 Tablet before bedtime. 180 Tablet 1 Omeprazole 20 MG Oral Capsule Delayed Release (PriLOSEC) TAKE 1 CAPSULE BY MOUTH EVERY DAY ON EMPTYSTOMACH 30 TO 60 MINUTES PRIOR TO EATING 90 Capsule 3 Tiotropium Flomot-Olodaterol 2.5-2.5 MCG/ACT Inhalation Aerosol Solution (Stiolto Respimat) [...] 1 Capsule by mouth every evening. Ipratropium Flomot 0.03 % Nasal Solution (Atrovent) Administer 2 Sprays into each nostril in the morning and 2 Sprays before bedtime. 30 mL 6 No current facility-administered medications for this visit. Social History: Social History Tobacco Use Smoking status: Former Current packs/day: 0.00 Average packs/day: 1 pack/day for 62.0 years (62.0 ttl pk-yrs) Types: Cigarettes Start date: 08/27/1952 Quit date: 08/27/2012 Years since quittin.7 Smokeless tobacco: Never Tobacco comments: Started smoking age-10--quit 2 years once/ no passive smoke Vaping Use Vaping status: Never Used Substance Use Topics Alcohol use: Yes Comment: 5 drinks/week 08/18/20 Drug use: No PHYSICAL EXAM: General appearance: NAD Eyes: Normal Heme/Lymph: goiter: No Musculoskeletal: Kyphosis No Heart: normal Lungs: normal Diagnostic Testing: Results of labs and DXA were reviewed and discussed with the patient. Labs: Component Latest Ref Rng 08/15/2023 03/22/2024 BUN 6 - 20 mg/dL 18 CREATININE 0.6 - 1.2 mg/dL 1.1 EGFR >=60 mL/min 63 SODIUM 135 - 146 mmol/L 142 POTASSIUM 3.5 - 5.1 mmol/L 4.7 CHLORIDE 98 - 107 mmol/L 103 CO2 22 - 32 mmol/L 27 ANION GAP 7 - 15 mmol/L 12 GLUCOSE 70 - 120 mg/dL 67 (L) Albumin 3.8 - 5.0 g/dL 3.9 AST 10 - 50 U/L 15 Alkaline Phosphatase 35 - 130 U/L 120 Bilirubin, Total <=1.2 mg/dL 0.4 CALCIUM 8.4 - 10.2 mg/dL 9.6 Protein 6.0 - 8.3 g/dL 6.5 ALT 10 - 50 U/L 12 Albumin, Random Urine mg/dL 4.00 Creatinine, Random Urine mg/dL 197 Albumin / Creatinine Ratio, Urine <30 mg/g Creat 20 25-Hydroxy Vitamin D >19 ng/mL 30 Legend: (L) Low DXA - Vertebral Fracture Assessment: Date: 02/12/2024 DXA Result: RESULTS: Left femoral neck: 0.610 gms/cm2 T-score: -2.4 FRAX not indicated. Assessment: Osteoporosis Plan: The following items are ordered or are in progress: 1. Education: Osteoporosis education was provided by the [facility] team (topics included disease process, DXA, calcium/vitamin D, osteoporosis medications - including administration instructions and risks/benefits, weight bearing exercise, fall prevention/safety). 2. Prevention: . Eye Examination recommended annually, as good vision may help to prevent falls . Exercise recommended: standing, walking, light lifting . Fall Prevention/Safety Education recommended and discussed . Continue calcium rich foods (goal of 3 servings daily) 3. Osteoporosis Medications : Consider Reclast 5mg IV yearly. Business vp cardiovascular service line contacted? yes 4. Bone Density Testing: due 2 year(s) from previous 5. Laboratory: 25-OH Vitamin D calcium Creatinine IN July within 30 days of infusion 6. Followup: Return to [facility] clinic in 1 year Vincent Palafox PA-C [facility] Team The patient was discussed with me. I agree with the findings and plan as documented by /Vincent Guerrero in this note. Troy Ambrosio MD Rheumatology Department documented in this encounter Nursing Notes * Ofe Soto LPN - 05/23/2024 8:26 AM EDT Chief Complaint Patient presents with Rheum Follow Up Recheck Osteoporosis documented in this encounter Plan of Treatment Upcoming Encounters Date Type Department Care Team (Late st Contact Info) Description 05/30/2024 11:30 AM EDT Office Visit Cardiology, [facility] [address] [place] [phone] Van Richardson MD [address] [place] [address] 08/01/2024 11:00 AM EDT Imaging Radiology [address] [place] [phone] 08/15/2024 11:00 AM EDT Office Visit Pharmacy, [facility] [address] [place] [address] Pharmacist1, [facility] [address] [facility] [place], [place] [address] 08/20/2024 8:30 AM EDT Office Visit Pulmonary Medicine, [facility] [address] [place] [phone] Eugene Moore MD [address] [place] [address] 10/18/2024 3:45 PM EDT Office Visit Dermatology [facility] [address] [facility] [place], [place] [address] Narendra Greenwood MD [address] [facility] [place], [place] [address] 12/12/2024 10:20 AM EDT Office Visit General Internal Medicine [facility] [address] [facility] [place], [place] [address] Narendra Blakely MD [address] [place] [address] 05/23/2025 11:30 AM EDT Office Visit Rheumatology [facility] [address] [place] [phone] Vincent Palafox PA-C [facility] [place], [place] [address] Scheduled Orders Name Type Priority Associated Diagnoses Orde r Schedule 25-HYDROXY VITAMIN D Lab Routine Senile osteoporosis Expected: 08/11/2024 (Approximate), Expires: 11/23/2024 CALCIUM Lab Routine Senile osteoporosis Expected: 08/11/2024 (Approximate), Expires: 11/23/2024 CREATININE Lab Routine Senile osteoporosis Expected: 08/11/2024 (Approximate), Expires: 11/23/2024 Health Maintenance Due Date Last Done Comments [...] D LEVEL ONCE IN A LIFETIME-USE SMARTSET# [id number] Completed 08/15/2023, 07/14/2022, 05/31/2022, Additional history exists [...] this encounter Medical Devices Implanted Type Area Electrophysiology Nurse Practitioner Device Identifier Shelf Expiration Date Model / Serial / Lot Patch Xenosure [id number] - [id number] Implanted:Qty: 1 on 01/15/2015 by William Siegel MD at [facility] Right: Femoral Artery [id number] [place] [employer] 07/27/2017 [id number] / / [id number] documented as of this encounter Visit Diagnoses Diagnosis Senile osteoporosis- Primary documented in this encounter Advance Directives * [...] Power of Attor melina? No Care Teams Men'S Garment Fitter Relationship Specialty Start Date End Date Narendra Blakely MD [address] [place] [address] PCP - General Internal Medicine 12/28/20 documented as of this encounter
--- OUTSIDE RECORDS SUMMARY | 2024-07-04 01:34 | External Medical Summary | Summary of Care ---
Author Name Unknown Organization [facility] Address [address] [facility] [address] Phone [phone] Care Team Providers Care Installation & Maintenance Executive Name Role Phone Narendra Blakely MD Primary Care Provider + Reason for Visit * Reason Onset Date Comments Medication Pre-auth 05/23/2024 Reclast Encounter Details Date Type Department Care Team (Late st Contact Info) Description 05/23/2024 Telephone Hematology/Oncology Treatment, [place] [address] [place] [address] iVncent Palafox PA-C [facility] [place] [address] Medication Pre-auth (Reclast) Allergies No known active allergiesdocumented as of this encounter (statuses as of 05/23/2024) Medications ASPIRIN 81 MG PO TABSIndications:HT N, goal to be determined one tab by mouth daily 34 5 03/25/19 06 Active ONETOUCH DELICA LANCETS 33G MISCIndications:Ty pe 2 diabetes mellitus with hemoglobin A1c goal of less than 8.0% ([facility]) Use up to 4 times a day and as needed hgba1c 03/2017= 8.9 100 Each 5 12/22/19 18 Active ACCU-CHEK FASTCLIX LANCETS MISCIndications:Ty pe 2 diabetes mellitus with hemoglobin A1c goal of less than 8.0% ([facility]) Use up to 4 times a day and as needed hgba1c 03/2017= 8.9 Dx: E11.9 100 Each 5 12/29/19 18 Active Blood Glucose Monitoring Suppl (ACCU-CHEK GUIDE) w/Device KITIndications:Typ e 2 diabetes mellitus with hemoglobin A1c goal of less than 8.0% ([facility]) Use as directed. Use up to 4 times a day E11.9 hgba1c 03/2017= 8.9 1 Kit 12/29/19 18 Active Albuterol Sulfate HFA 108 (90 Base) MCG/ACT Inhalation Aerosol SolutionIndication s:COPD, group B, by GOLD 2017 classification ([facility]) Inhale by mouth 2 Puffs every 4 [...] than 8.0% ([facility]) USE TO TEST BLOOD GLUCOSE 1 TIMES [...] 90 Capsule 3 09/12/19 24 Active Tiotropium [place]-Olodaterol 2.5-2.5 MCG/ACT Inhalation Aerosol Solution (Stiolto Respimat) Inhale 2 Puffs by mouth in the morning. 4 g 4 09/22/19 24 Active Ipratropium-Albute rol 0.5-2.5 (3) MG/3ML Inhalation Solution (Duoneb)Indication s:COPD exacerbation (HCC),COPD, group D, by GOLD 2017 classification ([facility]) INHALE CONTENTS OF 1 VIAL ( 3 [...] than 8.0% ([facility]) TAKE 2 TABLETS BY MOUTH EVERY DAY 180 Tablet 3 01/10/20 24 Active SITagliptin Phosphate 25 MG Oral Tablet (Januvia)Indicatio ns:Type 2 diabetes mellitus with hemoglobin A1c goal of less than 8.0% ([facility]) Take 1 Tablet by mouth in the morning. 90 Tablet 3 02/15/20 24 Active Pregabalin 150 MG Oral Capsule (Lyrica) Take 1 Capsule by mouth every evening. 03/21/19 25 Active Ipratropium [place] 0.03 % Nasal Solution (Atrovent) Administer 2 [...] 01/2022, BCC R chest 10/2021, BCC R christianity s/p Mohs 2020, SCC R jawline s/p Mohs 2020, BCC R shoulder s/p curettage 2020, BCC L forehead 2017, BCC L clavicle 2008 and 2005, Brittani suprapubic 2005 Atherosclerosis of [place] of both lower extremities with [...] Date Diagnosed Date Resolved Date Atherosclerosis of [place] of both lower extremities with [...] to valvular disease 03/21/2016 01/29/2019 Atherosclerosis of [place] of extremity with rest pain 01/16/2015 06/27/2016 Atherosclerosis of leg with intermittent claudication 12/02/2014 12/05/2022 Accelerate Clinical Trial*[id number] 12/10/2012 02/16/2015 Overview (12/10/2012): ACCELERATE STUDY. Project # [id number], CONTINUOUS PILLOWCASE CUTTER: Van Richardson MD. CRC: MIMI Marcus. SUMMARY: To test the hypothesis that Evacetrapib 130 mg, in comparison to placebo, reduces the risk of major adverse coronary events in high-risk vascular disease patients. CONTACTS: During normal business hours, contact study staff at ; after hours Silk Screen Processor via the [facility] hospital commuter train operator [phone]. 24-hour Global Study Helpline: [phone]. Lipid levels should not be ordered/obtained while this subject is in the Accelerate study. Lipids are being managed in a blinded fashion. If lipid levels are inadvertently obtained, it is important that test results are NOT provided to the patient, study doctor, creative coordinator, or other study team members. Restricted meds while in the study: 1) niacin > 250 mg, 2) gemfibrozil with a potent [id number]. HTN, GOAL BELOW 140/80 10/17/201106/02 Overview: Per HTN Protocol #27. 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 Awaiting lab results and signature. Pt due 08/25/24 or later. * Telephone Encounter - Arina Heck LPN - 05/23/2024 3:00 PM EDT Order received for Reclast [place] plan built and routed to provider Awaiting provider signature, prior authorization, and completed lab results before scheduling patient. Per Heidi Palafox PA-C preferred administration date on 08/25/2024 or later. documented in this encounter Plan of Treatment Upcoming Encounters Date Type Department Care Team (Late st Contact Info) Description 05/30/2024 11:30 AM EDT Office Visit Cardiology, [facility] [address] [place] [address] [phone] Van Richardson MD [address] [place] [address] 08/01/2024 11:00 AM EDT Imaging Radiology [address] [place] [address] 08/15/2024 11:00 AM EDT Office Visit Pharmacy, [facility] [address] [place] [address] Pharmacist1, [facility] [address] [facility] [place] [address] 08/20/2024 8:30 AM EDT Office Visit Pulmonary Medicine, [facility] [address] [place] [phone] Eugene Moore MD [address] [place] [facility] [place] [address] 10/18/2024 3:45 PM EDT Office Visit Dermatology [facility] [address] [facility] [place], [place] [address] Narendra Greenwood MD [address] [facility] [place], [place] [address] 12/12/2024 10:20 AM EDT Office Visit General Internal Medicine [facility] [address] [facility] [place], [place] [address] Narendra Blakely MD [address] [place] [address] 05/23/2025 11:30 AM EDT Office Visit Rheumatology [facility] [address] [place] [phone] Vincent Palafox, PA-C [address] [place] [address] [place] [address] Health Maintenance Due Date Last Done Comments [...] D LEVEL ONCE IN A LIFETIME-USE SMARTSET# [id number] Completed 08/15/2023, 07/14/2022, 05/31/2022, Additional history exists [...] this encounter Medical Devices Implanted Type Area Wet Inspector Optical Glass Device Identifier Shelf Expiration Date Model / Serial / Lot Patch Xenosure [id number] - [id number] Implanted:Qty: 1 on 01/15/2015 by William Siegel MD at [place] [facility] Right: Femoral Artery [employer] 07/27/2017 E0.8P8 / / [id number] documented as of this encounter Advance Directives [...] Power of Attor melina? No Care Teams Installation & Maintenance Executive Relationship Specialty Start Date End Date Narendra Blakely MD [address] [place] [address] PCP - General Internal Medicine 12/28/20 documented as of this encounter
--- OUTSIDE RECORDS SUMMARY | 2024-07-04 01:34 | External Medical Summary | Summary of Care ---
Author Name Unknown Organization [facility] Address [address] [facility] [facility] [address] Phone [phone] Care Team Providers Care Hydroblaster Name Role Phone Narendra Blakely MD Primary Care Provider + Reason for Visit * Reason Onset Date Comments Medication Pre-auth 05/23/2024 Reclast Encounter Details Date Type Department Care Team (Late st Contact Info) Description 05/23/2024 Telephone Hematology/Oncology Treatment, [place] [address] [place] [address] Vincent Palafox PA-C [facility] [place] [address] Medication Pre-auth (Reclast) Allergies No known active allergiesdocumented as of this encounter (statuses as of 05/23/2024) Medications ASPIRIN 81 MG PO TABSIndications:HT N, goal to be determined one tab by mouth daily 34 5 03/25/19 06 Active ONETOUCH DELICA LANCETS 33G MISCIndications:Ty pe 2 diabetes mellitus with hemoglobin A1c goal of less than 8.0% ([facility]) Use up to 4 times a day and as needed hgba1c 03/2017= 8.9 100 Each 5 12/22/19 18 Active ACCU-CHEK FASTCLIX LANCETS MISCIndications:Ty pe 2 diabetes mellitus with hemoglobin A1c goal of less than 8.0% ([facility]) Use up to 4 times a day and as needed hgba1c 03/2017= 8.9 Dx: E11.9 100 Each 5 12/29/19 18 Active Blood Glucose Monitoring Suppl (ACCU-CHEK GUIDE) w/Device KITIndications:Typ e 2 diabetes mellitus with hemoglobin A1c goal of less than 8.0% ([facility]) Use as directed. Use up to 4 times a day E11.9 hgba1c 03/2017= 8.9 1 Kit 12/29/19 18 Active Albuterol Sulfate HFA 108 (90 Base) MCG/ACT Inhalation Aerosol SolutionIndication s:COPD, group B, by GOLD 2017 classification ([facility]) Inhale by mouth 2 Puffs every [...] A1c goal of less than 8.0% ([facility]) USE TO TEST BLOOD GLUCOSE 1 [...] 90 Capsule 3 09/12/19 24 Active Tiotropium [place]-Olodaterol 2.5-2.5 MCG/ACT Inhalation Aerosol Solution (Stiolto Respimat) Inhale 2 Puffs by mouth in the morning. 4 g 4 09/22/19 24 Active Ipratropium-Albute rol 0.5-2.5 (3) MG/3ML Inhalation Solution (Duoneb)Indication s:COPD exacerbation (HCC),COPD, group D, by GOLD 2017 classification ([facility]) INHALE CONTENTS OF 1 VIAL ( [...] A1c goal of less than 8.0% ([facility]) TAKE 2 TABLETS BY MOUTH EVERY DAY 180 Tablet 3 01/10/20 24 Active SITagliptin Phosphate 25 MG Oral Tablet (Januvia)Indicatio ns:Type 2 diabetes mellitus with hemoglobin A1c goal of less than 8.0% ([facility]) Take 1 Tablet by mouth in the morning. 90 Tablet 3 02/15/20 24 Active Pregabalin 150 MG Oral Capsule (Lyrica) Take 1 Capsule by mouth every evening. 03/21/19 25 Active Ipratropium [place] 0.03 % Nasal Solution (Atrovent) Administer 2 [...] 01/2022, BCC R chest 10/2021, BCC R congregational s/p Mohs 2020, SCC R jawline s/p Mohs 2020, BCC R shoulder s/p curettage 2020, BCC L forehead 2017, BCC L clavicle 2008 and 2005, Brittani suprapubic 2005 Atherosclerosis of [place] tr[place] of both lower extremities with [...] Date Diagnosed Date Resolved Date Atherosclerosis of habemat[place] ar trinity of both lower extremities with [...] to valvular disease 03/21/2016 01/29/2019 Atherosclerosis of [place]emat[place] ar teries of extremity with rest pain 01/16/2015 06/27/2016 Atherosclerosis of leg with intermittent claudication 12/02/2014 12/05/2022 Accelerate Clinical Trial*[id number] 12/10/2012 02/16/2015 Overview (12/10/2012): ACCELERATE STUDY. Project # [id number], LINE DEPARTMENT SUPERVISOR: Van Richardson MD. CRC: MIMI Marcus. SUMMARY: To test the hypothesis that Evacetrapib 130 mg, in comparison to placebo, reduces the risk of major adverse coronary events in high-risk vascular disease patients. CONTACTS: During normal business hours, contact study staff at ; after hours Automotive Maintenance Technician via the [facility] hospital skates operator [phone]. 24-hour Global Study Helpline: [phone]. Lipid levels should not be ordered/obtained while this subject is in the Accelerate study. Lipids are being managed in a blinded fashion. If lipid levels are inadvertently obtained, it is important that test results are NOT provided to the patient, study doctor, time study statistician, or other study team members. Restricted meds while in the study: 1) niacin > 250 mg, 2) gemfibrozil with a potent [id number]. HTN, GOAL BELOW 140/80 10/17/201106/02 Overview: Per HTN Protocol #27. 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 Per Heidi Palafox PA-C preferred administration date on 08/25/2024 or later. documented in this encounter Plan of Treatment Upcoming Encounters Date Type Department Care Team (Late st Contact Info) Description 05/30/2024 11:30 AM EDT Office Visit Cardiology, [facility] [address] [phone] Van Richardson MD [address] [place] [address] [address] 08/01/2024 11:00 AM EDT Imaging Radiology [address] [place] [address] 08/15/2024 11:00 AM EDT Office Visit Pharmacy, [facility] [address] [place] [address] Pharmacist1, [facility] [address] [facility] [place] [address] 08/20/2024 8:30 AM EDT Office Visit Pulmonary Medicine, [facility] [address] [place] [phone] Eugene Moore MD [address] [place] [facility] [place] [address] 10/18/2024 3:45 PM EDT Office Visit Dermatology [facility] [address] [facility] [place], [place] [address] Narendra Greenwood MD [address] [facility] [place], [place] [address] 12/12/2024 10:20 AM EDT Office Visit General Internal Medicine [facility] [address] [facility] [place], [place] [address] Narendra Blakely MD [address] [facility] [place] [address] 05/23/2025 11:30 AM EDT Office Visit Rheumatology [facility] [address] [place] [phone] Vincent Palafox, PA-C [address] [place] [address] [place] [address] Health Maintenance Due Date Last Done Comments [...] D LEVEL ONCE IN A LIFETIME-USE SMARTSET# [id number] Completed 08/15/2023, 07/14/2022, 05/31/2022, Additional history exists [...] this encounter Medical Devices Implanted Type Area Tyre Fitter Device Identifier Shelf Expiration Date Model / Serial / Lot Patch Xenosure [id number] - [id number] Implanted:Qty: 1 on 01/15/2015 by William Siegel MD at OR [facility] Right: Femoral Artery [employer] 07/27/2017 E0.8P8 / / [id number] documented as of this encounter Advance Directives [...] Power of Attor melina? No Care Teams Hydroblaster Relationship Specialty Start Date End Date Narendra Blakely MD [address] [place] [address] PCP - General Internal Medicine 12/28/20 documented as of this encounter
--- OUTSIDE RECORDS SUMMARY | 2024-07-04 01:34 | External Medical Summary | Summary of Care ---
Author Name Unknown Organization [facility] Address [address] [facility] [place] [address] Phone [phone] Care Team Providers Care Physician Extender Name Role Phone Narendra Blakely MD Primary Care Provider + Reason for Visit * Reason Comments Rheum Follow Up Recheck Osteoporosis Encounter Details Date Type Department Care Team (Late st Contact Info) Description 05/23/2024 8:30 AM EDT Office Visit Rheumatology [facility] [address] [place] [phone] Vincent Palafox PA-Satya [address] [facility] [address] Senile osteoporosis* Allergies No known active allergiesdocumented as of this encounter (statuses as of 05/23/2024) Medications ASPIRIN 81 MG PO TABSIndications:H TN, goal to be determined one tab by mouth daily 34 5 006 Active ONETOUCH DELICA LANCETS 33G MISCIndications:T ype 2 diabetes mellitus with hemoglobin A1c goal of less than 8.0% ([facility]) Use up to 4 times a day and as needed hgba1c 03/2017= 8.9 100 Each 5 018 Active ACCU-CHEK FASTCLIX LANCETS MISCIndications:T ype 2 diabetes mellitus with hemoglobin A1c goal of less than 8.0% ([facility]) Use up to 4 [...] ns:COPD, group B, by GOLD 2017 classification ([facility]) Inhale by mouth 2 [...] hemoglobin A1c goal of less than 8.0% ([facility]) USE TO TEST BLOOD [...] EATING 90 Capsule 3 024 Active Tiotropium [place]-Olodatero l 2.5-2.5 MCG/ACT Inhalation Aerosol Solution (Stiolto Respimat) Inhale 2 Puffs by mouth in the morning. 4 g 4 024 Active Ipratropium-Albut jamie 0.5-2.5 (3) MG/3ML Inhalation Solution (Duoneb)Indicatio ns:COPD exacerbation (HCC),COPD, group D, by GOLD 2017 classification ([facility]) INHALE CONTENTS OF 1 VIAL ( 3 MILLILITERS ) IN NEBULIZER BY MOUTH AND INTO THE LUNGS EVERY 4 HOURS IF NEEDED FOR SHORTNESS OF BREATH OR WHEEZING 180 mL 5 024 Active Furosemide 20 MG Oral Tablet (Lasix)Indication s:HTN, goal below 140/90,Chronic diastolic heart failure due to valvular disease ([facility]) TAKE 1 TABLET 5 DAYS PER WEEK 70 Tablet 3 024 Active Montelukast Sodium 10 MG Oral Tablet (Singulair)Indica tions:COPD (chronic obstructive pulmonary disease) with chronic bronchitis ([facility]) TAKE 1 TABLET BY [...] hemoglobin A1c goal of less than 8.0% ([facility]) TAKE 2 TABLETS BY MOUTH EVERY DAY 180 Tablet 3 024 Active SITagliptin Phosphate 25 MG Oral Tablet (Januvia)Indicati ons:Type 2 diabetes mellitus with hemoglobin A1c goal of less than 8.0% ([facility]) Take 1 Tablet by mouth in the morning. 90 Tablet 3 024 Active Pregabalin 150 MG Oral Capsule (Lyrica) Take 1 Capsule by mouth every evening. 025 Active Ipratropium [place] 0.03 % Nasal Solution (Atrovent) Administer 2 [...] and 2005, Brittani suprapubic 2005 Atherosclerosis of [place] ar trinity of both lower extremities with [...] Date Diagnosed Date Resolved Date Atherosclerosis of [place] ar trinity of both lower extremities with [...] to valvular disease 03/21/2016 01/29/2019 Atherosclerosis of [place]' ar teries of extremity with rest pain 01/16/2015 06/27/2016 Atherosclerosis of leg with intermittent claudication 12/02/2014 12/05/2022 Accelerate Clinical Trial*[id number] 12/10/2012 02/16/2015 Overview (12/10/2012): ACCELERATE STUDY. Project # [id number], COMMUNITY LIVING INSTRUCTOR: Van Richardson MD. CRC: MIMI Marcus. SUMMARY: To test the hypothesis that Evacetrapib 130 mg, in comparison to placebo, reduces the risk of major adverse coronary events in high-risk vascular disease patients. CONTACTS: During normal business hours, contact study staff at ; after hours Tax Compliance Representative via the [facility] hospital marine service operator [phone]. 24-hour Global Study Helpline: [phone]. Lipid levels should not be ordered/obtained while this subject is in the Accelerate study. Lipids are being managed in a blinded fashion. If lipid levels are inadvertently obtained, it is important that test results are NOT provided to the patient, study doctor, hardware installation coordinator, or other study team members. Restricted meds while in the study: 1) niacin > 250 mg, 2) gemfibrozil with a potent [id number]. HTN, GOAL BELOW 140/80 10/17/201106/02 Overview: Per HTN Protocol #27. 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 [...] of Assessment Author No 01/15/2015 5:29 PM EST Janell Choudhary, ANTONY * Are you blind or do [...] Janell Munoz RN documented in this encounter Nursing Notes * Ofe Soto LPN - 05/23/2024 8:26 AM EDT Chief Complaint Patient presents with Rheum Follow Up Recheck Osteoporosis documented in this encounter Plan of Treatment Upcoming Encounters Date Type Department Care Team (Late st Contact Info) Description 05/30/2024 11:30 AM EDT Office Visit Cardiology, [facility] [address] [phone] Van Richardson MD [address] [place] [address] [address] 08/01/2024 11:00 AM EDT Imaging Radiology [facility] [address] [place] [phone] 08/15/2024 11:00 AM EDT Office Visit Pharmacy, [facility] [address] [facility] [address] Pharmacist1, [facility] [address] [facility] [place] [address] 08/20/2024 8:30 AM EDT Office Visit Pulmonary Medicine, [facility] [address] [place] [phone] Eugene Moore MD [address] [place] [facility] [place] [address] 10/18/2024 3:45 PM EDT Office Visit Dermatology [facility] 200 [facility] [place], [place] [address] Narendra Greenwood MD [address] [facility] [place] [address] 12/12/2024 10:20 AM EDT Office Visit General Internal Medicine [facility] [address] [facility] [place], [place] [address] Narendra Blakely MD [address] [facility] [place] [address] 05/23/2025 11:30 AM EDT Office Visit Rheumatology [facility] [address] [place] [phone] Vincent Palafox, PA-C [address] [facility] [place] [address] Scheduled Orders Name Type Priority Associated Diagnoses [...] D LEVEL ONCE IN A LIFETIME-USE SMARTSET# [id number] Completed 08/15/2023, 07/14/2022, 05/31/2022, Additional history exists [...] this encounter Medical Devices Implanted Type Area Arts Education Teacher Device Identifier Shelf Expiration Date Model / Serial / Lot Patch Xenosure [id number] - [id number] Implanted:Qty: 1 on 01/15/2015 by William Siegel MD at OR [facility] Right: Femoral Artery [employer] 07/27/2017 E0.8P8 / / [id number] documented as of this encounter Visit Diagnoses [...] Power of Attor melina? No Care Teams Physician Extender Relationship Specialty Start Date End Date Narendra Blakely MD [address] [place] [address] PCP - General Internal Medicine 12/28/20 documented as of this encounter
--- OUTSIDE RECORDS SUMMARY | 2024-07-04 01:35 | External Medical Summary | Summary of Care ---
Author Name Unknown Organization [facility] Address [address] [facility] [place] [address] Phone [phone] Care Team Providers Care Hospice Bereavement Coordinator Name Role Phone Narendra Blakely MD Primary Care Provider + Reason for Visit * Reason Onset Date Comments Follow Up 04/22/2024 Encounter Details Date Type Department Care Team (Late st Contact Info) Description 04/22/2024 Telephone Pulmonary Medicine, [facility] [address] [facility] [place] [address] Eugene Moore MD [address] [facility] [address] Follow Up Allergies No known active allergiesdocumented as of this encounter (statuses as of 04/22/2024) Medications ASPIRIN 81 MG PO TABSIndications:HT N, goal to be determined one tab by mouth daily 34 5 03/25/19 06 Active ONETOUCH DELICA LANCETS 33G MISCIndications:Ty pe 2 diabetes mellitus with hemoglobin A1c goal of less than 8.0% ([facility]) Use up to 4 times a day and as needed hgba1c 03/2017= 8.9 100 Each 5 12/22/19 18 Active ACCU-CHEK FASTCLIX LANCETS MISCIndications:Ty pe 2 diabetes mellitus with hemoglobin A1c goal of less than 8.0% ([facility]) Use up to 4 times a day and as needed hgba1c 03/2017= 8.9 Dx: E11.9 100 Each 5 12/29/19 18 Active Blood Glucose Monitoring Suppl (ACCU-CHEK GUIDE) w/Device KITIndications:Typ e 2 diabetes mellitus with hemoglobin A1c goal of less than 8.0% ([facility]) Use as directed. Use up to 4 times a day E11.9 hgba1c 03/2017= 8.9 1 Kit 12/29/19 18 Active Albuterol Sulfate HFA 108 (90 Base) MCG/ACT Inhalation Aerosol SolutionIndication s:COPD, group B, by GOLD 2017 classification ([facility]) Inhale by mouth 2 Puffs [...] hemoglobin A1c goal of less than 8.0% ([facility]) USE TO TEST BLOOD GLUCOSE [...] 90 Capsule 3 09/12/19 24 Active Tiotropium [place]-Olodaterol 2.5-2.5 MCG/ACT Inhalation Aerosol Solution (Stiolto Respimat) Inhale 2 Puffs by mouth in the morning. 4 g 4 09/22/19 24 Active Ipratropium-Albute rol 0.5-2.5 (3) MG/3ML Inhalation Solution (Duoneb)Indication s:COPD exacerbation (HCC),COPD, group D, by GOLD 2017 classification ([facility]) INHALE CONTENTS OF 1 VIAL [...] hemoglobin A1c goal of less than 8.0% ([facility]) TAKE 2 TABLETS BY MOUTH EVERY DAY 180 Tablet 3 01/10/20 24 Active methylPREDNISolone 4 MG Oral Tablet Therapy Pack (Medrol Dosepack) follow package directions 21 Tablet 02/08/20 24 Active SITagliptin Phosphate 25 MG Oral Tablet (Januvia)Indicatio ns:Type 2 diabetes mellitus with hemoglobin A1c goal of less than 8.0% ([facility]) Take 1 Tablet by mouth in the morning. 90 Tablet 3 02/15/20 24 Active Ipratropium [place] 0.03 % Nasal Solution (Atrovent) Administer 2 Sprays into each nostril in the morning and 2 Sprays before bedtime. 30 mL 6 02/23/20 24 Active Pregabalin 150 MG Oral Capsule (Lyrica) Take 1 Capsule by mouth every evening. 03/21/19 25 Active documented as of this encounter (statuses as of 04/22/2024) Active Problems Problem Noted Date Diagnosed Date History of prolonged Q-T interval on ECG 024 Chronic diastolic heart failure due to valvular disease 05/08/2023 Senile osteoporosis 07/20/2022 SVT (supraventricular tachycardia) 07/06/2022 Non-ischemic cardiomyopathy 07/06/2022 History of nonmelanoma skin cancer 06/16/2022 Overview (06/29/2022): Hx of BCC R shoulder 05/2022, SCC sternal notch 01/2022, BCC R chest 10/2021, BCC R yarsanism s/p Mohs 2020, SCC R jawline s/p Mohs 2020, BCC R shoulder s/p curettage 2020, BCC L forehead 2017, BCC L clavicle 2008 and 2005, Brittani suprapubic 2005 Atherosclerosis of [place] of both lower extremities with [...] as of this encounter (statuses as of 04/22/2024) Resolved Problems Problem Noted Date Diagnosed Date Resolved Date Atherosclerosis of [place] of both lower extremities with [...] to valvular disease 03/21/2016 01/29/2019 Atherosclerosis of [place] ar teries of extremity with rest pain 01/16/2015 06/27/2016 Atherosclerosis of leg with intermittent claudication 12/02/2014 12/05/2022 Accelerate Clinical Trial*[id number] 12/10/2012 02/16/2015 Overview (12/10/2012): ACCELERATE STUDY. Project # [id number], BENEFITS COUNSELOR: Van Richardson MD. CRC: MIMI Marcus. SUMMARY: To test the hypothesis that Evacetrapib 130 mg, in comparison to placebo, reduces the risk of major adverse coronary events in high-risk vascular disease patients. CONTACTS: During normal business hours, contact study staff at ; after hours Manpower Development Manager via the [facility] hospital flower machine operator [phone]. 24-hour Global Study Helpline: [phone]. Lipid levels should not be ordered/obtained while this subject is in the Accelerate study. Lipids are being managed in a blinded fashion. If lipid levels are inadvertently obtained, it is important that test results are NOT provided to the patient, study doctor, online program coordinator, or other study team members. Restricted meds while in the study: 1) niacin > 250 mg, 2) gemfibrozil with a potent [id number]. HTN, GOAL BELOW 140/80 10/17/201106/02 Overview: Per HTN Protocol #27. 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 Patient states that he doesn't want to schedule it. documented in this encounter Plan of Treatment Upcoming Encounters Date Type Department Care Team (Late st Contact Info) Description 05/30/2024 11:30 AM EDT Office Visit Cardiology, [facility] [address] [place] [address] Van Richardson MD [address] [place] [address] 06/06/2024 10:00 AM EDT Office Visit Rheumatology [facility] [address] [place] [phone] Vincent Palafox PA-Satya [facility] [place] [address] 08/01/2024 11:00 AM EDT Imaging [facility] [address] [place] [phone] 08/15/2024 11:00 AM EDT Office Visit Pharmacy, [facility] [address] [facility] [place] [address] Pharmacist1, [facility] [address] [facility] [place] [address] 08/20/2024 8:30 AM EDT Office Visit Pulmonary Medicine, [facility] [address] [place] [address] Eugene Moore MD [address] [place] [address] 10/18/2024 3:45 PM EDT Office Visit Dermatology [facility] [address] [facility] [place] [address] Narendra Greenwood MD [address] [facility] [place] [address] 12/12/2024 10:20 AM EDT Office Visit General Internal Medicine [facility] [address] [facility] [place] [address] Narendra Blakely MD [address] [facility] [place], [place] [address] Health Maintenance Due Date Last Done Comments [...] D LEVEL ONCE IN A LIFETIME-USE SMARTSET# [id number] Completed 08/15/2023, 07/14/2022, 05/31/2022, Additional history exists [...] this encounter Medical Devices Implanted Type Area Attendant Sales Device Identifier Shelf Expiration Date Model / Serial / Lot Patch Xenosure [id number] - [id number] Implanted:Qty: 1 on 01/15/2015 by William Siegel MD at OR [facility] Right: Femoral Artery [facility] 07/27/2017 E0.8P8 / / [id number] documented as of this encounter Advance Directives [...] Power of Attor melina? No Care Teams Hospice Bereavement Coordinator Relationship Specialty Start Date End Date Narendra Blakely MD 200 [place] [address] PCP - General Internal Medicine 12/28/20 documented as of this encounter
--- OUTSIDE RECORDS SUMMARY | 2024-07-04 01:35 | External Medical Summary | Summary of Care ---
Author Name Unknown Organization [facility] Address [address] [facility] [place] [address] Phone [phone] Care Team Providers Care Nuclear Plant Instrument Technician Name Role Phone Narendra Blakely MD Primary Care Provider + Encounter Details Date Type Department Care Team (Late st Contact Info) Description 04/23/2024 Refill Otolaryngology [facility] [address] [place] [address] Aren Ayala PA-C [address] [place] [phone] Allergies No known active allergiesdocumented as of this encounter (statuses as of 2024) Medications ASPIRIN 81 MG PO TABSIndications:HT N, [...] goal of less than 8.0% ([facility]) Use as directed. Use up to 4 times a day E11.9 hgba1c 03/2017= 8.9 1 Kit 12/29/19 18 Active Albuterol Sulfate HFA 108 (90 Base) MCG/ACT Inhalation Aerosol SolutionIndication s:COPD, group B, by GOLD 2017 classification ([facility]) Inhale by mouth 2 Puffs every 4 [...] goal of less than 8.0% ([facility]) USE TO TEST BLOOD GLUCOSE 1 TIMES [...] 90 Capsule 3 09/12/19 24 Active Tiotropium Searcy-Olodaterol 2.5-2.5 MCG/ACT Inhalation Aerosol Solution (Stiolto Respimat) Inhale 2 Puffs by mouth in the morning. 4 g 4 09/22/19 24 Active Ipratropium-Albute rol 0.5-2.5 (3) MG/3ML Inhalation Solution (Duoneb)Indication s:COPD exacerbation (HCC),COPD, group D, by GOLD 2017 classification ([facility]) INHALE CONTENTS OF 1 VIAL ( 3 MILLILITERS ) IN NEBULIZER BY MOUTH AND INTO THE LUNGS EVERY 4 HOURS IF NEEDED FOR SHORTNESS OF BREATH OR WHEEZING 180 mL 5 09/26/19 24 Active Furosemide 20 MG Oral Tablet (Lasix)Indications :HTN, goal below 140/90,Chronic diastolic heart failure due to valvular disease ([facility]) TAKE 1 TABLET 5 DAYS PER WEEK [...] goal of less than 8.0% ([facility]) TAKE 2 TABLETS BY MOUTH EVERY DAY 180 Tablet 3 01/10/20 24 Active methylPREDNISolone 4 MG Oral Tablet Therapy Pack (Medrol Dosepack) follow package directions 21 Tablet 02/08/20 24 Active SITagliptin Phosphate 25 MG Oral Tablet (Januvia)Indicatio ns:Type 2 diabetes mellitus with hemoglobin A1c goal of less than 8.0% ([facility]) Take 1 Tablet by mouth in the morning. 90 Tablet 3 02/15/20 24 Active Pregabalin 150 MG Oral Capsule (Lyrica) Take 1 Capsule by mouth every evening. 03/21/19 25 Active Ipratropium Searcy 0.03 % Nasal Solution (Atrovent) Administer 2 Sprays into each nostril in the morning and 2 Sprays before bedtime. 30 mL 6 05/18/19 25 Active Ipratropium Searcy 0.03 % Nasal Solution (Atrovent) Administer 2 Sprays into each nostril in the morning and 2 Sprays before bedtime. 30 mL 6 02/23/20 24 025 Discontin ued(Refil l) documented as of this encounter (statuses as of 2024) Active Problems Problem Noted Date Diagnosed Date History of prolonged Q-T interval on ECG 024 Chronic diastolic heart failure due to valvular disease 05/08/2023 Senile osteoporosis 07/20/2022 SVT (supraventricular tachycardia) 07/06/2022 Non-ischemic cardiomyopathy 07/06/2022 History of nonmelanoma skin cancer 06/16/2022 Overview (06/29/2022): Hx of BCC R shoulder 05/2022, SCC sternal notch 01/2022, BCC R chest 10/2021, BCC R oriental orthodox s/p Mohs 2020, SCC R jawline s/p Mohs 2020, BCC R shoulder s/p curettage 2020, BCC L forehead 2017, BCC L clavicle 2008 and 2005, Brittani suprapubic 2005 Atherosclerosis of [place] of both lower extremities with [...] as of this encounter (statuses as of 2024) Resolved Problems Problem Noted Date Diagnosed Date Resolved Date Atherosclerosis of [place] of both lower extremities with [...] to valvular disease 03/21/2016 01/29/2019 Atherosclerosis of [place] of extremity with rest pain 01/16/2015 06/27/2016 Atherosclerosis of leg with intermittent claudication 12/02/2014 12/05/2022 Accelerate Clinical Trial*[id number] 12/10/2012 02/16/2015 Overview (12/10/2012): ACCELERATE STUDY. Project # [id number], TORPEDO SHOOTER: Van Richardson MD. CRC: MIMI Marcus. SUMMARY: To test the hypothesis that Evacetrapib 130 mg, in comparison to placebo, reduces the risk of major adverse coronary events in high-risk vascular disease patients. CONTACTS: During normal business hours, contact study staff at ; after hours Book Coverer via the [facility] hospital band saw operator [phone]. 24-hour Global Study Helpline: [phone]. Lipid levels should not be ordered/obtained while this subject is in the Accelerate study. Lipids are being managed in a blinded fashion. If lipid levels are inadvertently obtained, it is important that test results are NOT provided to the patient, study doctor, rental coordinator, or other study team members. Restricted meds while in the study: 1) niacin > 250 mg, 2) gemfibrozil with a potent [id number]. HTN, GOAL BELOW 140/80 10/17/201106/02 Overview: Per HTN Protocol #27. 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 Not [...] encounter Miscellaneous Notes * Telephone Encounter - Aren Ayala PA-C - 2024 11:12 AM EDT Signed Prescriptions: Disp Refills Ipratropium Searcy 0.03 % Nasal Solution *30 mL 6 Sig: Administer 2 Sprays into each nostril in the morning and 2 Sprays before bedtime.Authorizing Provider: AREN AYALA * Telephone Encounter - Shlomo Oliva CMA - 04/23/2024 10:39 AM EST 90 day prescription request for ipratropium nasal spray Last filled 02/23/2024 Last office visit 03/29/2024 documented in this encounter Plan of Treatment Upcoming Encounters Date Type Department Care Team (Late st Contact Info) Description 05/30/2024 11:30 AM EDT Office Visit Cardiology, [facility] [address] [place] [phone] Van Richardson MD [address] [place] [address] 06/06/2024 10:00 AM EDT Office Visit Rheumatology [facility] [address] [place] [phone] Vincent Palafox PA-C [address] [facility] [place] [address] 08/01/2024 11:00 AM EDT Imaging Radiology [facility] [address] [facility] [address] [place] [phone] 08/15/2024 11:00 AM EDT Office Visit Pharmacy, [facility] [address] [address] Pharmacist1, [facility] [address] [address] 08/20/2024 8:30 AM EDT Office Visit Pulmonary Medicine, [facility] [address] [phone] Eugene Moore [facility] [address] [facility] [address] 10/18/2024 3:45 PM EDT Office Visit Dermatology [facility] [address] [address] Narendra Greenwood MD [address] [facility] [place] [address] 12/12/2024 10:20 AM EDT Office Visit General Internal Medicine [facility] [address] [address] Narendra Blakely MD [address] [address] Health Maintenance Due Date Last Done Comments [...] D LEVEL ONCE IN A LIFETIME-USE SMARTSET# [id number] Completed 08/15/2023, 07/14/2022, 05/31/2022, Additional history exists [...] this encounter Medical Devices Implanted Type Area V Belt Coverer Device Identifier Shelf Expiration Date Model / Serial / Lot Patch Xenosure [id number] - [id number] Implanted:Qty: 1 on 01/15/2015 by William Siegel MD at OR [facility] Right: Femoral Artery [employer] 07/27/2017 [id number] / / [id number] documented as of this encounter Advance Directives [...] patient have Health Care Power of Attor melian? No Care Teams Nuclear Plant Instrument Technician Relationship Specialty Start Date End Date Narendra Blakely MD [address] [place] [phone] PCP - General Internal Medicine 12/28/20 documented as of this encounter
--- OUTSIDE RECORDS SUMMARY | 2024-07-04 01:35 | External Medical Summary | Summary of Care ---
Author Name Unknown Organization [facility] Address [address] [facility] [place] [address] Phone [phone] Care Team Providers Care Fishery Division Chief Name Role Phone Narendra Blakely MD Primary Care Provider + Encounter Details Date Type Department Care Team (Latest Contact Info) Description 03/18/2024 1:00 PM EST Office Visit Audiology [facility] [address] [place] [address] Mickie Disla AuAshish [address] [place] [address] Asymmetrical sensorineural hearing loss* Allergies No known active allergiesdocumented as of this encounter (statuses as of 04/16/2024) Medications ASPIRIN 81 MG PO TABSIndications:HT N, [...] hemoglobin A1c goal of less than 8.0% ([facility]) Use as directed. Use up to 4 times a day E11.9 hgba1c 03/2017= 8.9 1 Kit 12/29/19 18 Active Albuterol Sulfate HFA 108 (90 Base) MCG/ACT Inhalation Aerosol SolutionIndication s:COPD, group B, by GOLD 2017 classification ([facility]) Inhale by mouth 2 Puffs every 4 [...] hemoglobin A1c goal of less than 8.0% ([facility]) USE TO TEST BLOOD GLUCOSE 1 TIMES [...] 90 Capsule 3 09/12/19 24 Active Tiotropium Aledo-Olodaterol 2.5-2.5 MCG/ACT Inhalation Aerosol Solution (Stiolto Respimat) Inhale 2 Puffs by mouth in the morning. 4 g 4 09/22/19 24 Active Ipratropium-Albute rol 0.5-2.5 (3) MG/3ML Inhalation Solution (Duoneb)Indication s:COPD exacerbation (HCC),COPD, group D, by GOLD 2017 classification ([facility]) INHALE CONTENTS OF 1 VIAL ( 3 [...] hemoglobin A1c goal of less than 8.0% ([facility]) TAKE 2 TABLETS BY MOUTH EVERY DAY 180 Tablet 3 01/10/20 24 Active methylPREDNISolone 4 MG Oral Tablet Therapy Pack (Medrol Dosepack) follow package directions 21 Tablet 02/08/20 24 Active SITagliptin Phosphate 25 MG Oral Tablet (Januvia)Indicatio ns:Type 2 diabetes mellitus with hemoglobin A1c goal of less than 8.0% ([facility]) Take 1 Tablet by mouth in the morning. 90 Tablet 3 02/15/20 24 Active Ipratropium Aledo 0.03 % Nasal Solution (Atrovent) Administer 2 Sprays into each nostril in the morning and 2 Sprays before bedtime. 30 mL 6 02/23/20 24 Active Azelastine HCl 0.1 % Nasal Solution Administer 1 Chauncey into nostril in the morning and 1 Chauncey before bedtime. 30 mL 12 05/11/19 23 025 Discontin ued(Patie nt preferenc e/discont inuation) Dextromethorphan-g uaiFENesin 5-100 MG/5ML Oral Liquid 10/24/19 23 025 Discontin ued(Patie nt preferenc e/discont inuation) Amoxicillin-Pot Clavulanate 875-125 MG Oral Tablet (Augmentin) Take 1 Tablet by mouth in the morning and 1 Tablet before bedtime. Do all this for 14 days. 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),Intercostal neuralgia TAKE 1 CAPSULE BY MOUTH THREE TIMES A DAY 90 Capsule 02/28/19 25 025 Discontin ued(Patie nt preferenc e/discont inuation) documented as of this encounter (statuses as of 04/16/2024) Active Problems Problem Noted Date Diagnosed Date History of prolonged Q-T interval on ECG 024 Chronic diastolic heart failure due to valvular disease 05/08/2023 Senile osteoporosis 07/20/2022 SVT (supraventricular tachycardia) 07/06/2022 Non-ischemic cardiomyopathy 07/06/2022 History of nonmelanoma skin cancer 06/16/2022 Overview (06/29/2022): Hx of BCC R shoulder 05/2022, SCC sternal notch 01/2022, BCC R chest 10/2021, BCC R scientology s/p Mohs 2020, SCC R jawline s/p Mohs 2020, BCC R shoulder s/p curettage 2020, BCC L forehead 2018, BCC L clavicle 2008 and 2006, Brittani suprapubic 2006 Atherosclerosis of [place] of both lower extremities with [...] as of this encounter (statuses as of 04/16/2024) Resolved Problems Problem Noted Date Diagnosed Date Resolved Date Atherosclerosis of [place] of both lower extremities with [...] to valvular disease 03/21/2016 01/29/2019 Atherosclerosis of [place] of extremity with rest pain 01/16/2015 06/27/2016 Atherosclerosis of leg with intermittent claudication 12/02/2014 12/05/2022 Accelerate Clinical Trial*[id number] 12/10/2012 02/16/2015 Overview (12/10/2012): ACCELERATE STUDY. Project # [id number], TALENT DEVELOPMENT CONSULTANT: Van Richardson MD. CRC: MIMI Marcus. SUMMARY: To test the hypothesis that Evacetrapib 130 mg, in comparison to placebo, reduces the risk of major adverse coronary events in high-risk vascular disease patients. CONTACTS: During normal business hours, contact study staff at ; after hours Unit Director via the [facility] computed tomography scanner operator [phone]. 24-hour Global Study Helpline: [phone]. Lipid levels should not be ordered/obtained while this subject is in the Accelerate study. Lipids are being managed in a blinded fashion. If lipid levels are inadvertently obtained, it is important that test results are NOT provided to the patient, study doctor, real estate services coordinator, or other study team members. Restricted meds while in the study: 1) niacin > 250 mg, 2) gemfibrozil with a potent [id number]. HTN, GOAL BELOW 140/80 10/17/201106/02 Overview: Per HTN Protocol #27. Atherosclerosis of [place] of the extremities with intermittent [...] HYPERTENSION NOS 01/20/2009 Overview (01/20/2009): Modified per [facility] protocol #16. 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 - 03/18/2024 12:49 PM EST Hearing Aid Consultation Reason for Visit Noemi Piña was seen today for a hearing aid consultation. He was last tested audiologically in this clinic on 02/20/2024 and was found to have an asymmetrical sensorineural hearing loss. Amplification was briefly discussed and recommended that day. Noemi returns today to further discuss hearing aids. Consultation The audiogram was reviewed with Noemi and his . The benefits and limitations of amplification were discussed in detail. The different styles of hearing aids (in-the-ear vs. [id number]) were discussed. Monaural vs. binaural use of amplification was discussed and binaural amplification was re commended. The different levels of digital technology and features were explained. All questions were answered. It was decided that Noeim would take some time to consider his options. He will obtainmedical clearance from Dr. Bradley Rocha, ,DO., in the mean time. Plan Noemi will contact the clinic if/when he is ready to obtain hearing aids. Literature and pricing given to review at home. He was advised to contact the clinic should he have any questions or concerns. Policy for insurance reimbursement was discussed with Noemi, and he expressed understanding. He is aware that payment is due for one hearing aid at the time of the hearing aid fitting. He is also aware that a clearance form must be completed by his physician before he can be fit with the hearingaids. \ Josué Queen, CCC-A documented in this encounter Plan of Treatment Upcoming Encounters Date Type Department Care Team (Late st Contact Info) Description 05/30/2024 11:30 AM EDT Office Visit Cardiology, [facility] [address] [place] [address] Van Richardson MD [address] [place] [address] 06/06/2024 10:00 AM EDT Office Visit Rheumatology [facility] [address] [place] [address] [phone] Vincent Palafox PA-Satya [address] [place] [address] 08/01/2024 11:00 AM EDT Imaging Radiology [facility] [address] [facility] [address] [place] [address] [phone] 08/15/2024 11:00 AM EDT [facility] [address] [place] [address] Pharmacist1, [facility] [address] [address] 08/20/2024 8:30 AM EDT Office Visit Pulmonary Medicine, [facility] [address] [place] [address] Eugene Moore MD [address] [place] [address] [address] 10/18/2024 3:45 PM EDT Office Visit Dermatology [facility] [address] [facility] [place] [address] Narendra Greenwood MD [address] [facility] [place] [address] 12/12/2024 10:20 AM EDT Office Visit General Internal Medicine [facility] [address] [facility] [place] [address] Narendra Blakely MD [address] [facility] [place], [place] [address] Health Maintenance Due Date Last Done Comments [...] D LEVEL ONCE IN A LIFETIME-USE SMARTSET# [id number] Completed 08/15/2023, 07/14/2022, 05/31/2022, Additional history exists [...] this encounter Medical Devices Implanted Type Area Ribber Device Identifier Shelf Expiration Date Model / Serial / Lot Patch Xenosure [id number] - [id number] Implanted:Qty: 1 on 01/15/2015 by William Siegel MD at [facility] Right: Femoral Artery [employer] 07/27/2017 E0.8P8 / / [id number] documented as of this encounter Visit Diagnoses Diagnosis Asymmetrical sensorineural hearing loss- Primary Sensorineural hearing loss, asymmetrical documented in this encounter Advance Directives * [...] Power of Attor melina? No Care Teams Fishery Division Chief Relationship Specialty Start Date End Date Narendra Blakely MD [address] [place] [address] PCP - General Internal Medicine 12/28/20 documented as of this encounter
--- OUTSIDE RECORDS SUMMARY | 2024-07-04 01:35 | External Medical Summary | Summary of Care ---
Author Name Unknown Organization [facility] Address [address] [facility] [place] [address] Phone [phone] Care Team Providers Care Heat Treater Apprentice Name Role Phone Narendra Blakely MD Primary Care Provider + Encounter Details Date Type Department Care Team (Late st Contact Info) Description 04/16/2024 Telephone Otolaryngology [facility] [address] [place] [phone] Bradley Rocha DO [address] [place] [phone] Allergies No known active allergiesdocumented as of [...] hemoglobin A1c goal of less than 8.0% ([facility]) Use as directed. Use up to 4 times a day E11.9 hgba1c 03/2017= 8.9 1 Kit 12/29/19 18 Active Albuterol Sulfate HFA 108 (90 Base) MCG/ACT Inhalation Aerosol SolutionIndication s:COPD, group B, by GOLD 2017 classification ([facility]) Inhale by mouth 2 Puffs every 4 [...] hemoglobin A1c goal of less than 8.0% ([facility]) USE TO TEST BLOOD GLUCOSE 1 TIMES [...] 90 Capsule 3 09/12/19 24 Active Tiotropium [place]-Olodaterol 2.5-2.5 MCG/ACT Inhalation Aerosol Solution (Stiolto Respimat) Inhale 2 Puffs by mouth in the morning. 4 g 4 09/22/19 24 Active Ipratropium-Alb[place] rol 0.5-2.5 (3) MG/3ML Inhalation Solution (Duoneb)Indication s:COPD exacerbation (HCC),COPD, group D, by GOLD 2017 classification ([facility]) INHALE CONTENTS OF 1 VIAL ( 3 [...] hemoglobin A1c goal of less than 8.0% ([facility]) TAKE 2 TABLETS BY MOUTH EVERY DAY 180 Tablet 3 01/10/20 24 Active methylPREDNISolone 4 MG Oral Tablet Therapy Pack (Medrol Dosepack) follow package directions 21 Tablet 02/08/20 24 Active SITagliptin Phosphate 25 MG Oral Tablet (Januvia)Indicatio ns:Type 2 diabetes mellitus with hemoglobin A1c goal of less than 8.0% ([facility]) Take 1 Tablet by mouth in the morning. 90 Tablet 3 02/15/20 24 Active Ipratropium [place] 0.03 % Nasal Solution (Atrovent) Administer 2 [...] 01/2022, BCC R chest 10/2021, BCC R druze s/p Mohs 2020, SCC R jawline s/p Mohs 2020, BCC R shoulder s/p curettage 2020, BCC L forehead 2017, BCC L clavicle 2008 and 2005, Brittani suprapubic 2005 Atherosclerosis of tetlin ar tr[place] of both lower extremities with [...] Date Diagnosed Date Resolved Date Atherosclerosis of tetlin [place] of both lower extremities with [...] to valvular disease 03/21/2016 01/29/2019 Atherosclerosis of tetlin ar teries of extremity with rest pain 01/16/2015 06/27/2016 Atherosclerosis of leg with intermittent claudication 12/02/2014 12/05/2022 Accelerate Clinical Trial*[id number] 12/10/2012 02/16/2015 Overview (12/10/2012): ACCELERATE STUDY. Project # [id number], TIMBER RIDER: Van Richardson MD. CRC: MIMI Marcus. SUMMARY: To test the hypothesis that Evacetrapib 130 mg, in comparison to placebo, reduces the risk of major adverse coronary events in high-risk vascular disease patients. CONTACTS: During normal business hours, contact study staff at ; after hours Tobacco Sizer via the [facility] [place] scalper operator [phone]. 24-hour Global Study Helpline: [phone]. Lipid levels should not be ordered/obtained while this subject is in the Accelerate study. Lipids are being managed in a blinded fashion. If lipid levels are inadvertently obtained, it is important that test results are NOT provided to the patient, study doctor, digital project coordinator, or other study team members. Restricted meds while in the study: 1) niacin > 250 mg, 2) gemfibrozil with a potent [id number]. HTN, GOAL BELOW 140/80 10/17/201106/02 Overview: Per HTN Protocol #27. 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 (5 years old or older) Answer Entry Date Author No 01/15/2015 5:29 PM EST Janell Choudhary RN documented in this encounter Miscellaneous Notes * Telephone Encounter - Belkis Biggs LPN - 04/16/2024 11:01 AM EST Spouse calling in for medical clearance letter to obtain hearing aids. Currently unsure which facility they are going to will send letter through [employer]. documented in this encounter Plan of Treatment Upcoming Encounters Date Type Department Care Team (Late st Contact Info) Description 05/30/2024 11:30 AM EDT Office Visit Cardiology, [facility] [address] [place] [id number] Van Richardson MD [address] [place] [phone] 06/06/2024 10:00 AM EDT Office Visit Rheumatology [facility] [address] [place] [phone] Vincent Palafox, PA-Satya [facility] [address] 08/01/2024 11:00 AM EDT Imaging Radiology [facility] [address] [place] [phone] 08/15/2024 11:00 AM EDT Office Visit Pharmacy, [facility] [address] [place] [address] Pharmacist1, [facility] [address] [facility] [place] [address] 08/20/2024 8:30 AM EDT Office Visit Pulmonary Medicine, [facility] [address] [place] [address] Eugene Moore MD [address] [place] [address] 10/18/2024 3:45 PM EDT Office Visit Dermatology [facility] [address] [facility] [place] [address] Narendra Greenwood MD [address] [facility] [place] [address] 12/12/2024 10:20 AM EDT Office Visit General Internal Medicine [facility] [address] [facility] [place] [address] Narendra Blakely MD [address] [facility] [place] [address] Health Maintenance Due Date Last Done Comments [...] D LEVEL ONCE IN A LIFETIME-USE SMARTSET# [id number] Completed 08/15/2023, 07/14/2022, 05/31/2022, Additional history exists [...] this encounter Medical Devices Implanted Type Area Tag Maker Device Identifier Shelf Expiration Date Model / Serial / Lot Patch Xenosure [id number] - [id number] Implanted:Qty: 1 on 01/15/2015 by William Siegel MD at [place] [facility] Right: [facility] 07/27/2017 [id number] / / [id number] documented as of this encounter Advance Directives [...] Power of Attor melina? No Care Teams Heat Treater Apprentice Relationship Specialty Start Date End Date Narendra Blakely MD [address] [place] [address] PCP - General Internal Medicine 12/28/20 documented as of this encounter
[2024-07-04] MEDS: PANTOprazole 40 MG TAB PO SCH (05:30)
[2024-07-04 08:03] VITALS: RESP 18
[2024-07-04 08:23] LABS: Appearance Urine Clear (Clear); Bacteria Urine Automated None Seen (None Seen); Bilirubin Urine Negative (Negative); Blood Urine Negative (Negative); Cast Urine Automated 0-2 /lpf (0-2); Color Urine Yellow; Epithelial Cell Urine Auto 0-2 /hpf (0-2); Glucose Urine UA Negative (Negative); Ketones Urine Negative (Negative); Leukocyte Esterase Urine Negative (Negative); Nitrite Urine Negative (Negative); Protein Urine Trace (Negative); RBC Urine Automated 0-2 /hpf (0-2); Specific Gravity Urine 1.026 (1.000-1.030); Urobilinogen Urine Negative (Negative); WBC Urine Automated 0-5 /hpf (0-5)
[2024-07-04] MEDS: FUROSEMIDE 20 MG TAB PO SCH (09:48)
[2024-07-04] MEDS: UMECLIDINIUM/VILANTEROL 62.5/25MCG 7 PUFFS/INHALER INH SCH (09:48)
[2024-07-04] MEDS: AZITHROMYCIN 250 MG TAB PO SCH (09:48)
[2024-07-04] MEDS: CYANOCOBALAMIN (B-12) 500 MCG TABLET PO SCH (09:49)
[2024-07-04] MEDS: ATORVASTATIN 40 MG TAB PO SCH (09:49)
[2024-07-04] MEDS: ASPIRIN 81 MG ECTAB PO SCH (09:49)
[2024-07-04] MEDS: lisinopril 5 MG TAB PO SCH (09:49)
[2024-07-04] MEDS: SACCHAROMYCES BOULARDII 250 MG CAP PO SCH (09:50)
[2024-07-04] MEDS: POTASSIUM CHLORIDE CRTAB 20 MEQ TABCR PO SCH (09:57)
[2024-07-04 11:32] VITALS: BP 156/80; PULSE 90; TEMP 97.7
[2024-07-04 11:48] LABS: Hematocrit (blood only) 44.1 % (42.0-52.0); Hemoglobin 14.5 g/dl (14.0-18.0); Mean Corpuscular Hemoglobin 31.1 pg (25.0-34.0); Mean Corpuscular Hgb Conc 32.9 g/dL (32.0-36.0); Mean Corpuscular Volume 94.6 fL (80.0-100.0); Mean Platelet Volume 11.3 fL (9.4-12.4); Platelet Count 201 K/uL (130-400); RDW Coefficient of Variation 14.2 % (11.5-14.5); RDW Standard Deviation 49.1 fL (36.4-46.3); Red Blood Count 4.66 M/uL (4.70-6.10); White Blood Count 5.15 K/ul (4.8-10.8)
[2024-07-04 11:55] LABS: BUN Creatinine Ratio 15.3 (10-20); Calcium 8.8 mg/dl (8.6-10.3); Magnesium 2.1 mg/dl (1.7-2.4); Phosphorus 3.2 mg/dl (2.5-4.9); Potassium 4.1 mmol/L (3.5-5.1)
[2024-07-04 11:59] VITALS: O2SAT 93
[2024-07-04 12:08] LABS: Estimated Average Glucose 148 mg/dl; Hemoglobin A1C 6.8 % (4.5-5.6)
--- NOTE | 2024-07-04 12:20 | Communication Note ---
By CMS guidelines, a determination that the admission or continued stay is not medically necessary has been made by a member of the UR committee and a physician for this hospital stay, therefore a Code 44 will be completed and the Inpatient admission will be changed to outpatient. Date of Service: July 04, 2024
--- NOTE | 2024-07-04 12:29 | Discharge Summary ---
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: (3) Diabetes mellitus, type 2: (4) Hypertension: (5) Hypomagnesemia: Plan 84-year-old man with history of hypertension, aortic stenosis, chronic diastolic heart failure, SVT, atherosclerosis of lower extremities, DM type II, COPD, right lower lobe cancer s/p radiation with radiation pneumonitis who presents with shortness of breath dyspneic with exertion that started today, associated with chills and chest pain Labs notable for hemoglobin 20.7, magnesium of 1.6, troponin of 30.6, Pro-Rasta 0.22 CT PE did not show any PE but noted progressive pneumonia in right lung base, increased nodular opacity of the right middle lobe. CT head did not show any acute abnormalities. 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 Considering history of aspiration, chronic Zithromax, will continue Zosyn and Zithromax for now. Can resume PROFESSIONAL SERVICES SPECIALIST zithromax 3x a week after completion of 5 day therapy RN will monitor dysphagia screen and if there are concerns, we will get speech evaluation. Wean oxygen as tolerated Elevated troponin. EKG similar to prior. Elevated troponin likely due to demand. Trend troponin. Reviewed echocardiogram from 2021. Get echocardiogram. If troponin trends up and all abnormalities on echo, get cardiology. Continue lisinopril, metoprolol Got IV mag in ER Continue magnesium and daily potassium and monitor. Hold home metformin and Januvia. Insulin sliding scale for now. Heart healthy carb controlled diet with aspiration precautions once dysphagia screen is passed. Notes For Next Care Provider 84-year-old man with history of hypertension, aortic stenosis, chronic diastolic heart failure, SVT, atherosclerosis of lower extremities, DM type II, COPD, right lower lobe cancer s/p radiation with radiation pneumonitis who presents with shortness of breath dyspneic with exertion that started today, associated with chills and chest pain. Noted to have RLL/RML CAP, started on abx. Initial workup for stroke, however patient has chronic deficits that he states were what was noted. Patient titrated down to room air, requested to go home. Walking well at time of discharge, goal oxygen saturation 88%, 93% on room air at time of discharge. On 07/04/2024 medically stable for discharge home. To do: [ ] finish 7 day course of abx [ ] f/u with vascular surgery for carotids outpatient [ ] f/u CT lung in 3-6 months to ensure resolution Medication Changes From Visit -see below Admission HPI Per Admitting Provider 84-year-old man with history of hypertension, aortic stenosis, chronic diastolic heart failure, SVT, atherosclerosis of lower extremities, DM type II, COPD, right lower lobe cancer s/p radiation with radiation pneumonitis who presents with shortness of breath dyspneic with exertion that started today. History provided by patient and was at bedside. According to , she has noticed some gurgling for the past few days. Patient reported increased shortness of breath overnight and had increased exertional dyspnea while walking her dog this morning which is unusual. Also reported chills. No reported fevers. Patient reported chest pain this morning that was not exertional, dull, central, referred and resolved on its own. Patient reports patient has chronic slurred speech especially in the afternoon starting going on for months. She reports patient has chronic ulceration and aspiration pneumonia in the past Has chronic intermittent hemoptysis Patient does not currently smoke, drinks alcohol occasionally, denies illicit drug use. Uses 2.5 L of oxygen at bedtime. Discharge Exam Gen: A&O 3 NAD HEENT: NCAT, EOMI, not icteric. External ears normal. No rhinorrhea. Moist mucous membranes. Neck: Supple, full range of motion, no observable masses, No meningeal sign. Lungs: rhonchi in right lower lobe CV: RRR, no edema. Abdomen: Soft, nondistended, No rebound tenderness. MSK: No joint swelling, no redness. Skin: No rashes, petechiae, lesions. Normal color per patient. Neuro: Normal Gait, Grossly intact. Psych: Appropriate for situation. Updated Medication List Medication Instructions Recorded Confirmed Type albuterol sulfate 90 mcg/actuation 2 puff inhalation Q4H PRN 12/11/17 07/03/24 History aerosol inhaler Shortness Of Breath Or Wheezing omeprazole 20 mg capsule,delayed 20 mg PO DAILYBB 12/11/17 07/03/24 History release montelukast 10 mg tablet 10 mg PO HS 10/31/19 07/03/24 History potassium gluconate 550 mg (90 mg) 550 mg PO DAILY 10/31/19 07/03/24 History tablet atorvastatin 80 mg tablet 80 mg PO DAILY 01/07/21 07/03/24 History magnesium oxide 400 mg PO BID 06/24/21 07/03/24 History tramadol 50 mg tablet 50 mg PO Q8H PRN Moderate Pain 06/24/21 07/03/24 History (Scale Score 5-6) lisinopril 5 mg tablet 5 mg PO QAM 09/19/21 07/03/24 History metformin 500 mg tablet,extended 1,000 mg PO DAILY 09/19/21 07/03/24 History release 24 hr tiotropium 2.5 mcg-olodaterol 2.5 2 inh inhalation DAILY #4 grams 09/22/21 07/03/24 Rx mcg/actuation mist for inhalation (Stiolto Respimat) metoprolol succinate 50 mg 25 mg PO BID 10/21/22 07/03/24 History tablet,extended release 24 hr pregabalin 150 mg capsule (Lyrica) 150 mg PO QPM nerve pain 10/21/22 07/03/24 History furosemide 20 mg tablet (Lasix) 20 mg PO 5XWK 12/23/22 07/03/24 History ipratropium bromide 21 mcg (0.03 2 spray intranasal BID 12/23/22 07/03/24 History %) nasal spray Saccharomyces boulardii 250 mg 250 mg PO DAILY 07/03/24 07/03/24 History capsule (Florastor) aspirin 81 mg tablet,delayed 81 mg PO DAILY 07/03/24 07/03/24 History release azithromycin 500 mg tablet 500 mg PO 3XWK 07/03/24 07/03/24 History cyanocobalamin (vitamin B-12) 1,000 mcg PO DAILY 07/03/24 07/03/24 History 1,000 mcg tablet (Vitamin B-12) ipratropium 0.5 mg-albuterol 3 mg 3 ml inhalation Q4H PRN Shortness 07/03/24 07/03/24 History (2.5 mg base)/3 mL nebulization Of Breath Or Wheezing soln loperamide 2 mg capsule (Imodium 2 mg PO DIRECTED PRN loose stool 07/03/24 07/03/24 History A-D) sitagliptin phosphate 25 mg tablet 25 mg PO DAILY 07/03/24 07/03/24 History (Januvia) amoxicillin 500 mg-potassium 1 tab PO BID 7 days #14 tabs 07/04/24 Rx clavulanate 125 mg tablet (Augmentin) azithromycin 250 mg tablet 500 mg (2 x 250 mg) PO QAM 7 days 07/04/24 Rx #14 tabs Hospital Stay Data Consultations 07/03/24 16:36 ED Decision to Admit Stat Diagnostic Imagining Performed 07/03/24 15:28 CT angio chest PE protocol Stat CT angio head w con Stat CT angio neck with con Stat CT head/brain wo con Stat Pending Results Patient Have Any Pending Studies at Discharge: No Discharge Instructions Given to Patient (Per Discharging Provider) 1. Please take 7 days of antibiotics as prescribed. 2. Follow up CT scan in 6 months. Total Time Total Time Spent Total Time Spent (In Minutes): I spent a total of 45 minutes in direct patient care, including [id number] ketan e with the patient and/or family, reviewing medical records, ordering and reviewing diagnostic tests, and coordinating care with other healthcare providers. This time includes: history taking, physical examination, medical decision making, counseling, ECG interpretation, imaging interpretation, lab interpretation, orders, and education, excluding time spent in the performance of separately billed services.
--- NOTE | 2024-07-05 15:23 | Communication Note ---
Date of Service: July 05, 2024 By CMS guidelines, a determination that the admission or continued stay is not medically necessary has been made by a member of the UR committee and a physici an for this hospital stay, therefore a Code 44 will be completed and the Inpatient admission will be changed to outpatient.
== END 2024-07-04 14:10 | disposition home or self-care (01) | DRG 194 ==
LOC: ED 15:11 → 2N 17:47 → INTOOBSV 17:47 → SUATTDRO 17:47 → 2N 20:04

== ENCOUNTER 2025-01-07 11:45 | Inpatient (IN) ==
--- NOTE | 2025-01-07 12:26 | Emergency Department Note ---
Impression & Plan Pneumonia, Hypoxia ED Provider Note NAME: RADHA VENCES AGE: 84 SEX: M : 1940 ARRIVES VIA: Walk-In INFORMANT: Patient, ED PROVIDER(S): Efrain Anne DO CHIEF COMPLAINT: Hemoptysis HPI: The patient is an 84-year-old male who presented to the emergency department with concerns of pulmonary infection. The patient has a history of lung cancer in the past. He was treated for this in the past. He also has COPD. He started having cough and difficulty breathing over the last few days. He has been using his oxygen [id number] whereas normally he uses it only at night. The patient started noticing hemoptysis over the last 24 hours. He came to the emergency department for further evaluation. He did present with his significant other who states that he is having significant difficulty breathing. He is unable to walk very far without having shortness of breath and significant dyspnea. ROS: See above HPI for pertinent positives & negatives. A total of 10 systems reviewed and were otherwise negative. PAST MEDICAL HISTORY: See Below PAST SURGICAL HISTORY: See Below FAMILY HISTORY: See Below SOCIAL HISTORY: See Below HOME MEDICATIONS: See Below ALLERGIES: See Below VITALS: See Below PHYSICAL EXAMINATION: GENERAL: Patient is awake alert in no acute distress patient is resting comfortably and showing no signs of anxiety EYES: The conjunctivae are clear. The pupils are round and reactive. EARS, NOSE, MOUTH AND THROAT: The nose is without any evidence of any deformity. NECK: The neck is nontender and supple. RESPIRATORY: Diminished breath sounds are noted in the right lung field. There are scattered rhonchi noted in the mid right lung field. Left side does have some rales at the bases but overall is clear. There is no tachypnea or conversational dyspnea. CARDIOVASCULAR: Regular rate and rhythm noted there no murmurs rubs or gallops normal S1 normal S2. GASTROINTESTINAL: The abdomen is soft. Abdomen is nontender. MUSCULOSKELETAL/EXTREMITIES: There is no evidence of gross deformity full range of motion is noted in the hips and shoulders. SKIN: There is no obvious evidence of any rash. There are no petechiae, pallor or cyanosis noted. NEUROLOGIC: Patient is awake alert and oriented x3 MEDICAL DECISION MAKING: The patient is an 84-year-old male who presented to the emergency department for shortness of breath. The patient's had a cough which started to have hemoptysis. The patient does have a history of lung cancer. For this reason further laboratory and radiographic studies were obtained. The patient has been using his supplemental oxygen at home more than usual. He normally when he wears his oxygen at night. The patient was hypoxic at home as well and this is why his made him come to the emergency department. I discussed the patient's laboratory and radiographic studies with him. Ultimately the patient did have a CT of the chest given his abnormal chest x-ray to ensure there is no other underlying process causing hemoptysis. Because of the patient's ongoing symptoms and oxygen requirements I did discuss his condition with the on-call [facility] hospitalist. They have agreed to evaluate the patient in the emergency department for further management and disposition. The patient was treated with IV antibiotics. Triage Nursing notes reviewed. Prior medical records reviewed Vital Signs: reviewed and remarkable for hypoxia. Differential diagnosis: Reactive airway disease, pneumonia, pneumothorax, COPD, CHF, infections, cardiac ischemia, pulmonary embolism, musculoskeletal, gastrointestinal, as well as other pathologies. ER treatment provided: See below Diagnostics interpreted by me: ECG: EKG was obtained in the emergency department. My interpretation is sinus rhythm at 65 bpm. Left bundle branch block pattern was noted. There was no PVCs noted. This was compared to a tracing from July 03, 2024. No changes were noted. Cardiac Monitoring: An order was placed for continuous cardiac monitoring. The monitor shows a rate of 54 bpm with sinus bradycardia. Laboratory studies: As stated above and show below. Imaging studies: See below. Radiographic imaging was reviewed by myself Consultation(s): I discussed this case with Dr. Moreira [facility] Past Med/Surg History Problem List (Updated 01/07/25 @ 16:08 by Efrain Anne DO) Hypoxia (Acute) Pneumonia (Acute) Slurring of speech (Acute) Pneumonia (Acute) Hemoptysis Hypoxia (Acute) Pneumonia (Acute) Multifocal pneumonia (Acute) Hypoxia (Acute) Abnormal CT scan of lung COPD (chronic obstructive pulmonary disease) (Acute) Hyponatremia Atrial tachycardia, paroxysmal Stroke-like symptoms Pneumonia (Acute) AMS (altered mental status) (Acute) Hypoxia (Acute) History of lung cancer Carotid arterial disease (Acute) Intercostal neuralgia Pleural effusion Primary cancer of right lower lobe of lung (Chronic 10/23/19) Medical History Vertebral fracture, osteoporotic (02/04/08) Atherosclerosis of leg with intermittent claudication Osteoporosis Malignant neoplasm of skin of trunk Basal Cell - on Forehead and on Neck Electrolyte imbalance PVD (peripheral vascular disease) Nonischemic cardiomyopathy LBBB (left bundle branch block) Hypokalemia Aortic stenosis Acute on chronic systolic and diastolic heart failure, NYHA class 4 Acute congestive heart failure likely precipitated by paroxysmal atrial fibrillation with rapid ventricular rate. Now back in sinus rhythm diuresing well with decreasing oxygen requirements Recommend: Continue diuretics, discontinue BiPAP, wean oxygen as tolerated, initiate sliding scale insulin for hyperglycemia, advance diet as tolerated Acute respiratory failure with hypoxia and hypercapnia GERD (gastroesophageal reflux disease) Diabetes mellitus, type 2 Valvular heart disease Hyperlipidemia Hypertension Pulmonary edema Hypoxia Surgical History History of trigger finger 10/09/2019 - Release Surgery (Dr. Dana Hernandez) History of nasal septoplasty History of cataract extraction with lens replacement 07/03/2013 - Dr. Hazel History of tonsillectomy As a Child History of ERCP 02/1999 - with stone removal History of bronchoscopy 10/23/2019 - Diagnostic History of cholecystectomy 1998 History of total knee replacement 12/05/2011 - Right - Dr. Medina History of discectomy 1995 History of procedure for peripheral vascular disease 01/15/2015 - Right Femoral Endarterectomy History of cardiac cath 11/2017 Family History Mother , Passed age 92 of natural causes No problems noted. Father , Passed age 67 from stroke complications No problems noted. Brother , Passed age 67 of [place] No problems noted. Son No problems noted. Daughter No problems noted. 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 Feels Safe at Home: Yes Childhood Exposure to Second-Hand Smoke: No Diet: regular caffeine: Yes (1-2 cups of coffee/day ) during the past year weight has: remained stable Dental Care, Regularly: Yes Assistive Devices: Oxygen - at Night Allergies Allergies Allergy/AdvReac Type Severity Reaction Status Date / Time No Known Allergies Allergy Verified 01/07/25 15:03 Home Meds Home Medications Medication Instructions Recorded Confirmed albuterol sulfate 90 mcg/actuation 2 puff inhalation Q4H PRN 12/11/17 01/07/25 aerosol inhaler Shortness Of Breath Or Wheezing omeprazole 20 mg capsule,delayed 20 mg PO DAILYBB 12/11/17 01/07/25 release montelukast 10 mg tablet 10 mg PO HS 10/31/19 01/07/25 potassium gluconate 550 mg (90 mg) 550 mg PO DAILY 10/31/19 01/07/25 tablet atorvastatin 80 mg tablet 80 mg PO DAILY 01/07/21 01/07/25 magnesium oxide 400 mg PO BID 06/24/21 01/07/25 tramadol 50 mg tablet 50 mg PO Q8H PRN Moderate Pain 06/24/21 01/07/25 (Scale Score 5-6) lisinopril 5 mg tablet 5 mg PO QAM 09/19/21 01/07/25 metformin 500 mg tablet,extended 1,000 mg PO DAILY 09/19/21 01/07/25 release 24 hr metoprolol succinate 50 mg 25 mg PO BID 10/21/22 01/07/25 tablet,extended release 24 hr pregabalin 150 mg capsule (Lyrica) 150 mg PO QPM nerve pain 10/21/22 01/07/25 furosemide 20 mg tablet (Lasix) 20 mg PO 5XWK 12/23/22 01/07/25 ipratropium bromide 21 mcg (0.03 2 spray intranasal BID 12/23/22 01/07/25 %) nasal spray Saccharomyces boulardii 250 mg 250 mg PO DAILY 07/03/24 01/07/25 capsule (Florastor) aspirin 81 mg tablet,delayed 81 mg PO DAILY 07/03/24 01/07/25 release azithromycin 500 mg tablet 500 mg PO 3XWK 07/03/24 01/07/25 cyanocobalamin (vitamin B-12) 1,000 mcg PO DAILY 07/03/24 01/07/25 1,000 mcg tablet (Vitamin B-12) ipratropium 0.5 mg-albuterol 3 mg 3 ml inhalation Q4H PRN Shortness 07/03/24 01/07/25 (2.5 mg base)/3 mL nebulization Of Breath Or Wheezing soln loperamide 2 mg capsule (Imodium 2 mg PO DIRECTED PRN loose stool 07/03/24 01/07/25 A-D) sitagliptin phosphate 25 mg tablet 25 mg PO DAILY 07/03/24 01/07/25 (Januvia) Previous Rx's Medication Instructions Recorded tiotropium 2.5 mcg-olodaterol 2.5 2 inh inhalation DAILY #4 grams 09/22/21 mcg/actuation mist for inhalation (Stiolto Respimat) Results & Data (ED) Vital Signs Vital Signs - 24 hr 01/07/25 11:48 01/07/25 12:17 01/07/25 12:23 Temperature 36.5 C Temperature Source Temporal Artery Scan Pulse Rate 80 Pulse Rate from SpO2 Sensor Pulse Rhythm Regular Pulse Strength Normal Respiratory Rate 20 Respiratory Effort / Characteristics Non-Labored Spontaneous Respiratory Depth Normal Blood Pressure 153/83 H 128/69 Blood Pressure Mean 106 84 Pulse Oximetry 87 L 87 L Oxygen Delivery Method Room Air Room Air Nasal Cannula Oxygen Flow Rate 0 Sepsis Recent Fever Within 48 Hours No Sepsis New/Unexplained Change in Mental Status N/A Sepsis Action Taken by Nursing No Action Required Oxygen Flow Rate - Titration 2 Pulse Oximetry Post Tiitration 93 01/07/25 12:23 01/07/25 12:27 01/07/25 12:30 Temperature Temperature Source Pulse Rate 71 63 Pulse Rate from SpO2 Sensor 68 63 Pulse Rhythm Pulse Strength Respiratory Rate 22 15 Respiratory Effort / Characteristics Respiratory Depth Blood Pressure 128/69 Blood Pressure Mean 84 Pulse Oximetry 96 95 Oxygen Delivery Method Oxygen Flow Rate Sepsis Recent Fever Within 48 Hours Sepsis New/Unexplained Change in Mental Status Sepsis Action Taken by Nursing Oxygen Flow Rate - Titration Pulse Oximetry Post Tiitration 01/07/25 12:42 01/07/25 12:51 01/07/25 12:53 Temperature Temperature Source Pulse Rate 87 63 62 Pulse Rate from SpO2 Sensor 63 Pulse Rhythm Pulse Strength Respiratory Rate 23 14 Respiratory Effort / Characteristics Respiratory Depth Blood Pressure Blood Pressure Mean Pulse Oximetry 97 Oxygen Delivery Method Oxygen Flow Rate Sepsis Recent Fever Within 48 Hours Sepsis New/Unexplained Change in Mental Status Sepsis Action Taken by Nursing Oxygen Flow Rate - Titration Pulse Oximetry Post Tiitration 01/07/25 13:00 01/07/25 13:12 01/07/25 13:21 Temperature Temperature Source Pulse Rate 60 63 61 Pulse Rate from SpO2 Sensor 60 63 60 Pulse Rhythm Pulse Strength Respiratory Rate 17 27 H 13 Respiratory Effort / Characteristics Respiratory Depth Blood Pressure Blood Pressure Mean Pulse Oximetry 96 97 97 Oxygen Delivery Method Oxygen Flow Rate Sepsis Recent Fever Within 48 Hours Sepsis New/Unexplained Change in Mental Status Sepsis Action Taken by Nursing Oxygen Flow Rate - Titration Pulse Oximetry Post Tiitration 01/07/25 13:30 01/07/25 13:45 01/07/25 13:51 Temperature Temperature Source Pulse Rate 57 L 74 57 L Pulse Rate from SpO2 Sensor 56 L 54 L Pulse Rhythm Pulse Strength Respiratory Rate 16 22 18 Respiratory Effort / Characteristics Respiratory Depth Blood Pressure Blood Pressure Mean Pulse Oximetry 97 97 Oxygen Delivery Method Oxygen Flow Rate Sepsis Recent Fever Within 48 Hours Sepsis New/Unexplained Change in Mental Status Sepsis Action Taken by Nursing Oxygen Flow Rate - Titration Pulse Oximetry Post Tiitration 01/07/25 14:00 01/07/25 14:12 01/07/25 14:21 Temperature Temperature Source Pulse Rate 55 L 55 L 54 L Pulse Rate from SpO2 Sensor 52 L 54 L 56 L Pulse Rhythm Pulse Strength Respiratory Rate 17 20 20 Respiratory Effort / Characteristics Respiratory Depth Blood Pressure Blood Pressure Mean Pulse Oximetry 97 96 96 Oxygen Delivery Method Oxygen Flow Rate Sepsis Recent Fever Within 48 Hours Sepsis New/Unexplained Change in Mental Status Sepsis Action Taken by Nursing Oxygen Flow Rate - Titration Pulse Oximetry Post Tiitration 01/07/25 14:30 01/07/25 14:42 01/07/25 14:51 Temperature Temperature Source Pulse Rate 56 L 53 L 55 L Pulse Rate from SpO2 Sensor 56 L 53 L 55 L Pulse Rhythm Pulse Strength Respiratory Rate 15 16 19 Respiratory Effort / Characteristics Respiratory Depth Blood Pressure Blood Pressure Mean Pulse Oximetry 96 97 95 Oxygen Delivery Method Oxygen Flow Rate Sepsis Recent Fever Within 48 Hours Sepsis New/Unexplained Change in Mental Status Sepsis Action Taken by Nursing Oxygen Flow Rate - Titration Pulse Oximetry Post Tiitration 01/07/25 15:00 01/07/25 15:12 Temperature Temperature Source Pulse Rate 54 L 54 L Pulse Rate from SpO2 Sensor 54 L 54 L Pulse Rhythm Pulse Strength Respiratory Rate 13 17 Respiratory Effort / Characteristics Respiratory Depth Blood Pressure Blood Pressure Mean Pulse Oximetry 97 96 Oxygen Delivery Method Oxygen Flow Rate Sepsis Recent Fever Within 48 Hours Sepsis New/Unexplained Change in Mental Status Sepsis Action Taken by Nursing Oxygen Flow Rate - Titration Pulse Oximetry Post Tiitration Home Medications Current Medication List: was personally reviewed by me Laboratory Data Attestation: I reviewed the patient's lab results. 01/07/25 12:07 01/07/25 12:07 Lab Results 01/07/25 01/07/25 01/07/25 Range/Units 12:07 12:10 12:14 WBC 6.55 (4.8-10.8) K/ul RBC 4.75 (4.70-6.10) M/uL Hgb 14.9 (14.0-18.0) g/dL Hct 45.0 (42.0-52.0) % MCV 94.7 (80.0-100.0) fL MCH 31.4 (25.0-34.0) pg MCHC 33.1 (32.0-36.0) g/dL RDW Std Deviation 49.5 H (36.4-46.3) fL RDW Coeff of Carol 14.3 (11.5-14.5) % Plt Count 257 (130-400) K/uL MPV 11.2 (9.4-12.4) fL Immature Gran % (Auto) 0.2 % Neut % (Auto) 79.5 % Lymph % (Auto) 10.5 % Tate % (Auto) 7.6 % Eos % (Auto) 1.7 % Baso % (Auto) 0.5 % Neut # (Auto) 5.21 (1.40-6.50) K/uL Lymph # (Auto) 0.69 L (1.20-3.40) K/uL Tate # (Auto) 0.50 (0.11-0.59) K/uL Eos # (Auto) 0.11 (0.00-0.50) K/uL Baso # (Auto) 0.03 (0.00-0.20) K/uL Immature Gran # (Auto) 0.01 (0.01-0.20) K/uL PT 10.3 (9.0-12.0) Seconds INR 1.0 (0.9-1.1) APTT 28 (21-31) Seconds PTT Ratio 1.0 VBG pH (7.36-7.41) VBG pCO2 (38-50) mmHg VBG pO2 mmHg VBG HCO3 mmol/L VBG O2 Saturation % VBG Base Excess mEq/L Sodium 138 (136-145) mmol/L Potassium 4.5 (3.5-5.1) mmol/L Chloride 101 (98-107) mmol/L Carbon Dioxide 30 (21-32) mmol/L Anion Gap 7 (3-11) BUN 15 (6-23) mg/dl Creatinine 1.23 (0.6-1.4) mg/dl Est Cr Clr Drug Dosing 50.1 ml/min eGFR 57.17 BUN/Creatinine Ratio 12.2 (10-20) Glucose 104 H (70-99(Fasting)) mg/dl Lactate 2.2 H* (0.4-2.0) mmol/L Calcium 9.3 (8.6-10.3) mg/dl Magnesium 2.0 (1.7-2.4) mg/dl Total Bilirubin 0.7 (0.2-1.0) mg/dl Direct Bilirubin 0.1 (0-0.2) mg/dl AST 12 L (13-39) U/L ALT 7 (7-52) U/L Alkaline Phosphatase 108 H (34-104) U/L Troponin I High Sens 27.6 H (0-20) pg/ml Total Protein 7.3 (6.0-8.3) gm/dl Albumin 3.8 (3.4-5.0) gm/dl Procalcitonin 0.03 (0-0.5) ng/ml Urine Color Urine Appearance (Clear) Urine pH (4.5-7.5) Ur Specific Goodwin (1.000-1.030) Urine Protein (Negative) Urine Glucose (UA) (Negative) Urine Ketones (Negative) Urine Blood (Negative) Urine Nitrite (Negative) Urine Bilirubin (Negative) Urine Urobilinogen (Negative) Ur Leukocyte Esterase (Negative) Urine Comment Adenovirus (PCR) Not Detected (NotDetected) B. pertussis DNA (PCR) Not Detected (NotDetected) B.parapertussis DNA PCR Not Detected (NotDetected) C. pneumoniae DNA (PCR) Not Detected (NotDetected) Coronavirus OC43 (PCR) Not Detected (NotDetected) Coronavirus HKU1 (PCR) Not Detected (NotDetected) Coronavirus 229E (PCR) Not Detected (NotDetected) SARS-CoV-2 (PCR) Not Detected (NotDetected) Coronavirus NL63 (PCR) Not Detected (NotDetected) Human Metapneumovir PCR Not Detected (NotDetected) Influenza Type A (PCR) Not Detected (NotDetected) Influenza Type B (PCR) Not Detected (NotDetected) M. pneumoniae (PCR) Not Detected (NotDetected) Parainfluenza 1 (PCR) Not Detected (NotDetected) Parainfluenza 2 (PCR) Not Detected (NotDetected) Parainfluenza 3 (PCR) Not Detected (NotDetected) Parainfluenza 4 (PCR) Not Detected (NotDetected) RSV (PCR) Not Detected (NotDetected) Entero/Rhino (PCR) Not Detected (NotDetected) 01/07/25 01/07/25 01/07/25 Range/Units 12:18 12:47 14:20 WBC (4.8-10.8) K/ul RBC (4.70-6.10) M/uL Hgb (14.0-18.0) g/dL Hct (42.0-52.0) % MCV (80.0-100.0) fL MCH (25.0-34.0) pg MCHC (32.0-36.0) g/dL RDW Std Deviation (36.4-46.3) fL RDW Coeff of Carol (11.5-14.5) % Plt Count (130-400) K/uL MPV (9.4-12.4) fL Immature Gran % (Auto) % Neut % (Auto) % Lymph % (Auto) % Tate % (Auto) % Eos % (Auto) % Baso % (Auto) % Neut # (Auto) (1.40-6.50) K/uL Lymph # (Auto) (1.20-3.40) K/uL Tate # (Auto) (0.11-0.59) K/uL Eos # (Auto) (0.00-0.50) K/uL Baso # (Auto) (0.00-0.20) K/uL Immature Gran # (Auto) (0.01-0.20) K/uL PT (9.0-12.0) Seconds INR (0.9-1.1) APTT (21-31) Seconds PTT Ratio VBG pH 7.36 (7.36-7.41) VBG pCO2 51 H (38-50) mmHg VBG pO2 48 mmHg VBG HCO3 29 mmol/L VBG O2 Saturation 77.4 % VBG Base Excess 2.4 mEq/L Sodium (136-145) mmol/L Potassium (3.5-5.1) mmol/L Chloride (98-107) mmol/L Carbon Dioxide (21-32) mmol/L Anion Gap (3-11) BUN (6-23) mg/dl Creatinine (0.6-1.4) mg/dl Est Cr Clr Drug Dosing ml/min eGFR BUN/Creatinine Ratio (10-20) Glucose (70-99(Fasting)) mg/dl Lactate 1.3 (0.4-2.0) mmol/L Calcium (8.6-10.3) mg/dl Magnesium (1.7-2.4) mg/dl Total Bilirubin (0.2-1.0) mg/dl Direct Bilirubin (0-0.2) mg/dl AST (13-39) U/L ALT (7-52) U/L Alkaline Phosphatase (34-104) U/L Troponin I High Sens 28.5 H (0-20) pg/ml Total Protein (6.0-8.3) gm/dl Albumin (3.4-5.0) gm/dl Procalcitonin (0-0.5) ng/ml Urine Color Yellow Urine Appearance Clear (Clear) Urine pH 6.0 (4.5-7.5) Ur Specific Goodwin 1.010 (1.000-1.030) Urine Protein Negative (Negative) Urine Glucose (UA) Negative (Negative) Urine Ketones Negative (Negative) Urine Blood Negative (Negative) Urine Nitrite Negative (Negative) Urine Bilirubin Negative (Negative) Urine Urobilinogen Negative (Negative) Ur Leukocyte Esterase Negative (Negative) Urine Comment Adenovirus (PCR) (NotDetected) B. pertussis DNA (PCR) (NotDetected) B.parapertussis DNA PCR (NotDetected) C. pneumoniae DNA (PCR) (NotDetected) Coronavirus OC43 (PCR) (NotDetected) Coronavirus HKU1 (PCR) (NotDetected) Coronavirus 229E (PCR) (NotDetected) SARS-CoV-2 (PCR) (NotDetected) Coronavirus NL63 (PCR) (NotDetected) Human Metapneumovir PCR (NotDetected) Influenza Type A (PCR) (NotDetected) Influenza Type B (PCR) (NotDetected) M. pneumoniae (PCR) (NotDetected) Parainfluenza 1 (PCR) (NotDetected) Parainfluenza 2 (PCR) (NotDetected) Parainfluenza 3 (PCR) (NotDetected) Parainfluenza 4 (PCR) (NotDetected) RSV (PCR) (NotDetected) Entero/Rhino (PCR) (NotDetected) Administered Medications Discontinued Medications Piperacillin Sod/Tazobactam Sod (Zosyn) 4.5 gm in 100 mls @ 200 mls/hr IV NOW ONE; Protocol Stop: 01/07/25 15:10 Last Admin: 01/07/25 15:19 Dose: Not Given Documented By: radha Prednisone (Prednisone 20 Mg Tab) 40 mg PO ONE ONE Stop: 01/07/25 15:46 Last Admin: 01/07/25 15:54 Dose: 40 mg Documented By: radha Imaging Data Attestation: I personally reviewed and interpreted this imaging study as follows: My Impression: 1 view chest x-ray was obtained in the emergency department. There is an infiltrate on the right side, there is no free air, final report below. Radiologist's Impression: Chest X-Ray 01/07/25 12:00 XR chest 1V portable CLINICAL HISTORY: Sepsis COMPARISON STUDY: 07/13/2024 FINDINGS: Heart size and pulmonary vasculature are normal. There is stable reticular and patchy opacity at the right mid and lower lung and at the left lung base. Stable blunting of the costophrenic angles consistent with trace pleural effusions. No pneumothorax seen. IMPRESSION: Stable exam. ACT 112: Negative or not required by law. Electronically signed by: Huan Jennings M.D. 01/07/2025 12:31 PM Chest CTA 01/07/25 12:56 CT ANGIOGRAM OF THE CHEST CLINICAL HISTORY: Shortness of breath. Cough. Evaluate for pulmonary embolus. COMPARISON STUDY: Chest CT March 26, 2020. Chest CT July 03, 2024. Chest radiograph performed earlier today. TECHNIQUE: Following the IV administration of 120 cc of Optiray 320, CT angiogram of the chest was performed from the upper abdomen to the thoracic inlet utilizing the pulmonary embolus protocol. Images are reviewed in the axial, sagittal, and coronal planes. 3-D MIPS images are created and assessed. IV contrast was administered without complication. A dose lowering technique was utilized adhering to the principles of ALARA. CT DOSE: 705.08 mGy.cm FINDINGS: No pulmonary emboli identified although subsegmental pulmonary arteries are suboptimally assessed due to respiratory motion. The heart is moderately enlarged. There is extensive coronary artery and aortic valvular calcification. There is extensive plaque within the thoracic aorta. 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 There is no pneumothorax. Small bilateral pleural effusions have mildly increased in size since CT of July 03, 2024. There are no enlarged thoracic lymph nodes. Multiple calcified right pleural plaques are again noted. Central airways are patent. There are severe emphysema. Lungs are suboptimally assessed due to respiratory motion. A 3.2 x 1.4 cm irregular left lower lobe density on image 68 of 253 has mildly increased since CT of July 03, 2024 measured 2.5 x 1.1 cm. An adjacent 2.1 cm groundglass opacity on image 61 has increased. Irregular right middle lobe density measuring approximately 2.9 x 1.8 cm on image 59 is similar to prior CT. Right middle lobe and right lower lobe interstitial thickening and groundglass opacity is noted. The opacity has slightly increased since prior CT. IMPRESSION: 1. No pulmonary emboli identified although subsegmental pulmonary arteries suboptimally assessed due to respiratory motion. 2. Mild increase in right lower lobe and right middle lobe ground glass opacity. This could represent pneumonia or pulmonary edema superimposed upon interstitial lung disease. 3. Increase in small bilateral pleural effusions. 4. Severe emphysema. 5. Slight increase in several irregular left lower lobe densities. No significant change in irregular right middle lobe densities. These remain indeterminate and could represent foci of scarring. However, short-term follow- up chest CT in 3 months is recommended to exclude the possibility of pulmonary lesions. ACT 112: Negative or not required by law. Electronically signed by: Jewel Balbuena M.D. 01/07/2025 2:09 PM Discharge Plan Visit Data Chief Complaint: Cardiac Assessment Stated Complaint: SOB, LOW BLOOD OXYGEN, HIGH PULSE, COUGHING ED Provider: Efrain Anne Discharge Problem: Pneumonia, Hypoxia Patient Disposition: Being Evaluated by Hospitalist Condition: Fair Forms Stand Alone Forms: My [facility] Prescriptions Prescriptions: No Action montelukast 10 mg tablet 10 mg PO HS potassium gluconate 550 mg (90 mg) tablet 550 mg PO DAILY furosemide [Lasix] 20 mg tablet 20 mg PO 5XWK Rx Instructions: MONDAY THRU MONDAY atorvastatin 80 mg tablet 80 mg PO DAILY omeprazole 20 mg Capsule,Delayed Release(Dr/Ec) 20 mg PO DAILYBB albuterol sulfate 90 mcg/actuation Hfa Aerosol Inhaler 2 puff INHALATION Q4H PRN (Reason: Shortness Of Breath Or Wheezing) tramadol 50 mg tablet 50 mg PO Q8H PRN (Reason: Moderate Pain (Scale Score 5-6)) magnesium oxide 400 mg magnesium Capsule 400 mg PO BID ipratropium bromide 21 mcg (0.03 %) spray,non-aerosol 2 spray INTRANASAL BID lisinopril 5 mg tablet 5 mg PO QAM metformin 500 mg tablet extended release 24 hr 1,000 mg PO DAILY Hold Instructions: Resume on 10/24/22. Stiolto Respimat 2.5-2.5 mcg/actuation mist 2 inh inhalation DAILY Qty: 4 0RF metoprolol succinate 50 mg tablet extended release 24 hr 25 mg PO BID pregabalin [Lyrica] 150 mg capsule 150 mg PO QPM ipratropium-albuterol 0.5 mg-3 mg(2.5 mg base)/3 mL Solution For Nebulization 3 ml INHALATION Q4H PRN (Reason: Shortness Of Breath Or Wheezing) cyanocobalamin (vitamin B-12) [Vitamin B-12] 1,000 mcg Tablet 1,000 mcg PO DAILY azithromycin 500 mg tablet 500 mg PO 3XWK Hold Instructions: Resume on 07/11/24. Rx Instructions: MON, WED, FRI Saccharomyces boulardii [Florastor] 250 mg Capsule 250 mg PO DAILY Januvia 25 mg Tablet 25 mg PO DAILY loperamide [Imodium A-D] 2 mg capsule 2 mg PO DIRECTED PRN (Reason: loose stool) aspirin 81 mg Tablet,Delayed Release (Dr/Ec) 81 mg PO DAILY Referrals Referrals: Narendra Blakely MD [Primary Care Provider] -
[2025-01-07 12:30] LABS: Base Excess VBG 2.4 mEq/L; HCO3 VBG 29 mmol/L; Oxygen Saturation VBG 77.4 %; PCO2 VBG 51 mmHg (38-50); PO2 VBG 48 mmHg; pH VBG 7.36 (7.36-7.41)
[2025-01-07 12:33] LABS: Hematocrit (blood only) 45.0 % (42.0-52.0); Hemoglobin 14.9 g/dL (14.0-18.0); Immature Granulocytes # (auto) 0.01 K/uL (0.01-0.20); Immature Granulocytes % (auto) 0.2 %; Mean Corpuscular Hemoglobin 31.4 pg (25.0-34.0); Mean Corpuscular Volume 94.7 fL (80.0-100.0); Platelet Count 257 K/uL (130-400); RDW Standard Deviation 49.5 fL (36.4-46.3); Red Blood Count 4.75 M/uL (4.70-6.10); White Blood Count 6.55 K/ul (4.8-10.8)
--- NOTE | 2025-01-07 12:33 | XRay Report ---
XR chest 1V portable CLINICAL HISTORY: Sepsis COMPARISON STUDY: 07/13/2024 FINDINGS: Heart size and pulmonary vasculature are normal. There is stable reticular and patchy opaci ty at the right mid and lower lung and at the left lung base. Stable blunting of the costophrenic ang les consistent with trace pleural effusions. No pneumothorax seen. IMPRESSION: Stable exam. ACT 112: Negative or not required by law. Electronically signed by: Huan Jennings M.D. 01/07/2025 12:31 PM
[2025-01-07 12:50] LABS: Alanine Aminotransferase 7.0 U/L (7-52); Albumin Level 3.8 gm/dl (3.4-5.0); Alkaline Phosphatase 108.0 U/L (34-104); Anion Gap 7.0 (3-11); Bilirubin,Total 0.7 mg/dl (0.2-1.0); Blood Urea Nitrogen 15.0 mg/dl (6-23); Calcium 9.3 mg/dl (8.6-10.3); Carbon Dioxide 30.0 mmol/L (21-32); Chloride 101.0 mmol/L (98-107); Creatinine Clr Calc Pharmacy 50.1 ml/min; Glucose 104.0 mg/dl (70-99(Fasting)); Magnesium 2.0 mg/dl (1.7-2.4); Potassium 4.5 mmol/L (3.5-5.1); Sodium 138.0 mmol/L (136-145); Total Protein 7.3 gm/dl (6.0-8.3)
[2025-01-07 13:08] LABS: INR 1.0 (0.9-1.1); Partial Thromboplastin Time 28 Seconds (21-31); Prothrombin Time 10.3 Seconds (9.0-12.0)
[2025-01-07 13:19] LABS: Appearance Urine Clear (Clear); Glucose Urine UA Negative (Negative)
[2025-01-07 13:22] LABS: Chlamydia pneumoniae PCR Not Detected (NotDetected); Coronavirus 229E PCR Not Detected (NotDetected); Coronavirus CoV-2 (COVID19)PCR Not Detected (NotDetected); Coronavirus HKU1 PCR Not Detected (NotDetected); Coronavirus NL63 PCR Not Detected (NotDetected); Coronavirus OC43PCR Not Detected (NotDetected); Human Metapneumovirus PCR Not Detected (NotDetected); Parainfluenza Virus 1 PCR Not Detected (NotDetected); Parainfluenza Virus 2 PCR Not Detected (NotDetected); Parainfluenza Virus 3 PCR Not Detected (NotDetected); Parainfluenza Virus 4 PCR Not Detected (NotDetected); Respiratory Syncytial VirusPCR Not Detected (NotDetected); Rhinovirus/Enterovirus PCR Not Detected (NotDetected)
--- NOTE | 2025-01-07 14:10 | CT Scan Report ---
CT ANGIOGRAM OF THE CHEST CLINICAL HISTORY: Shortness of breath. Cough. Evaluate for pulmonary embolus. COMPARISON STUDY: Chest CT March 26, 2020. Chest CT July 03, 2024. Chest radiograph performed genna r today. TECHNIQUE: Following the IV administration of 120 cc of Optiray 320, CT angiogram of the chest was pe rformed from the upper abdomen to the thoracic inlet utilizing the pulmonary embolus protocol. Images are reviewed in the axial, sagittal, and coronal planes. 3-D MIPS images are created and assessed. I V contrast was administered without complication. A dose lowering technique was utilized adhering to the principles of ALARA. CT DOSE: 705.08 mGy.cm FINDINGS: No pulmonary emboli identified although subsegmental pulmonary arteries are suboptimally as sessed due to respiratory motion. The heart is moderately enlarged. There is extensive coronary arter y and aortic valvular calcification. There is extensive plaque within the thoracic aorta. Chronic occ lusion of the proximal left subclavian artery is again noted. There is no pneumothorax. Small bilater al pleural effusions have mildly increased in size since CT of July 03, 2024. There are no enlarged tho racic lymph nodes. Multiple calcified right pleural plaques are again noted. Central airways are blackwell nt. There are severe emphysema. Lungs are suboptimally assessed due to respiratory motion. A 3.2 x 1. 4 cm irregular left lower lobe density on image 68 of 253 has mildly increased since CT of July 03 5 measured 2.5 x 1.1 cm. An adjacent 2.1 cm groundglass opacity on image 61 has increased. Irregular right middle lobe density measuring approximately 2.9 x 1.8 cm on image 59 is similar to prior CT. Ri ght middle lobe and right lower lobe interstitial thickening and groundglass opacity is noted. The op acity has slightly increased since prior CT. IMPRESSION: 1. No pulmonary emboli identified although subsegmental pulmonary arteries suboptimally assessed due to respiratory motion. 2. Mild increase in right lower lobe and right middle lobe ground glass opacity. This could represent pneumonia or pulmonary edema superimposed upon interstitial lung disease. 3. Increase in small bilateral pleural effusions. 4. Severe emphysema. 5. Slight increase in several irregular left lower lobe densities. No significant change in irregular right middle lobe densities. These remain indeterminate and could represent foci of scarring. Samina delacruz, short-term follow-up chest CT in 3 months is recommended to exclude the possibility of pulmonary l esions. ACT 112: Negative or not required by law. Electronically signed by: Jewel Balbuena M.D. 01/07/2025 2:09 PM
--- NOTE | 2025-01-07 14:56 | History & Physical Report ---
Date of Service January 07, 2025 Assessment & Plan (1) Hemoptysis: (2) COPD (chronic obstructive pulmonary disease): (3) History of lung cancer: (4) Primary cancer of right lower lobe of lung: (5) Acute on chronic systolic and diastolic heart failure, NYHA class 4: (6) Chronic hypoxic respiratory failure: (7) LBBB (left bundle branch block): (8) Atherosclerosis of leg with intermittent claudication: Plan 84 yo male with pmhx of hypertension, aortic stenosis, chronic diastolic heart failure, SVT, atherosclerosis of lower extremities, DM type II, COPD, right lower lobe cancer s/p radiation with radiation pneumonitis who presents for productive cough and blood in sputum likely 2/2 decompensated HF, radiation pneumonitis, and concern for lung cancer recurrence. #Acute on Chronic Hypoxic Respiratory Failure #Severe Emphysema #Hx of Right Lower Lobe Malignancy #Hemoptysis #Radiation Pneumonitis #Acute Decompensated HFpEF (EF 55%) #Moderate Aortic Stenosis -as evidenced by bilateral pleural effusions and pulmonary edema on CT imaging -has hx of radiation induced lung disease as well -no leukocytosis, no fevers, no worsening cough not suggestive of bacterial pneumonia -likely progression of radiation lung disease with mild decompensated HF as well -hemoptysis could be of any of the above etiologies, other considerations would be aspergillus, fungal etiologies, less likely TB Plan: -start 20 IV bid lasix for bilateral pleural effusions and pulmonary edema -start prednisone 40mg daily x5 days for reactive airway disease -start duonebs -continue home roflumilast, other inhalers -check repeat echo -pulmonary consult given concern for recurrent malignancy vs. worsening radiation pneumonitis, appreciate recs -may benefit from bronchoscopy inpatient vs. outpatient -hold abx at this time given less likely bacterial CAP given symptomatology -trend Hgb -check glucan and aspergillis and AFP smear #DM Type 2 -SSI #PVD #Neuropathic Pain -continue pregablin I spent a total of 80 minutes in direct patient care, including [id number] time with the patient and/or family, reviewing medical records, ordering and reviewing diagnostic tests, and coordinating care with other healthcare providers. This time includes: history taking, physical examination, medical decision making, counseling, ECG interpretation, imaging interpretation, lab interpretation, orders, and education, excluding time spent in the performance of separately billed services. History of Present Illness Chief Complaint: -chest pain, SOB, coughing up blood Primary Care Provider: aNrendra Blakely MD 84 yo male with pmhx of hypertension, aortic stenosis, chronic diastolic heart failure, SVT, atherosclerosis of lower extremities, DM type II, COPD, right lower lobe cancer s/p radiation with radiation pneumonitis who presents for productive cough and blood in sputum. Last admission was on 06/2024 for pneumonia. In the ED, CTA showing worsening opacities, trop mildly elevated, admitted to medicine for further workup. Patient seen and examined at bedside. present as well. Patient has not been feeling great for the past week. For the past few months he has had progressive weakness and dyspnea, but the past week it has gotten much worse. States legs have not been swelling, cough has stayed same, no fevers or chills. Denies chest pain, nausea, vomiting. Has chronic diarrhea. States he began coughing up blood today, sputum with radha red blood, moderate in quantity. This has happened to him before. No current tobacco use, no alcohol use, no drug use, DNRDNI per discussion with patient. Allergies Allergy/AdvReac Type Severity Reaction Status Date / Time No Known Allergies Allergy Verified 01/07/25 15:03 Home Medications Medication Instructions Recorded Confirmed Type albuterol sulfate 90 mcg/actuation 2 puff inhalation Q4H PRN 12/11/17 01/07/25 History aerosol inhaler Shortness Of Breath Or Wheezing omeprazole 20 mg capsule,delayed 20 mg PO DAILYBB 12/11/17 01/07/25 History release montelukast 10 mg tablet 10 mg PO HS 10/31/19 01/07/25 History potassium gluconate 550 mg (90 mg) 550 mg PO DAILY 10/31/19 01/07/25 History tablet atorvastatin 80 mg tablet 80 mg PO DAILY 01/07/21 01/07/25 History magnesium oxide 400 mg PO BID 06/24/21 01/07/25 History tramadol 50 mg tablet 50 mg PO Q8H PRN Moderate Pain 06/24/21 01/07/25 History (Scale Score 5-6) lisinopril 5 mg tablet 5 mg PO QAM 09/19/21 01/07/25 History metformin 500 mg tablet,extended 1,000 mg PO DAILY 09/19/21 01/07/25 History release 24 hr tiotropium 2.5 mcg-olodaterol 2.5 2 inh inhalation DAILY #4 grams 09/22/21 01/07/25 Rx mcg/actuation mist for inhalation (Stiolto Respimat) metoprolol succinate 50 mg 25 mg PO BID 10/21/22 01/07/25 History tablet,extended release 24 hr pregabalin 150 mg capsule (Lyrica) 150 mg PO QPM nerve pain 10/21/22 01/07/25 History furosemide 20 mg tablet (Lasix) 20 mg PO 5XWK 12/23/22 01/07/25 History ipratropium bromide 21 mcg (0.03 2 spray intranasal BID 12/23/22 01/07/25 History %) nasal spray Saccharomyces boulardii 250 mg 250 mg PO DAILY 07/03/24 01/07/25 History capsule (Florastor) aspirin 81 mg tablet,delayed 81 mg PO DAILY 07/03/24 01/07/25 History release azithromycin 500 mg tablet 500 mg PO 3XWK 07/03/24 01/07/25 History cyanocobalamin (vitamin B-12) 1,000 mcg PO DAILY 07/03/24 01/07/25 History 1,000 mcg tablet (Vitamin B-12) ipratropium 0.5 mg-albuterol 3 mg 3 ml inhalation Q4H PRN Shortness 07/03/24 01/07/25 History (2.5 mg base)/3 mL nebulization Of Breath Or Wheezing soln loperamide 2 mg capsule (Imodium 2 mg PO DIRECTED PRN loose stool 07/03/24 01/07/25 History A-D) sitagliptin phosphate 25 mg tablet 25 mg PO DAILY 07/03/24 01/07/25 History (Januvia) Past Med/Surg History Problem List (Updated 01/07/25 @ 19:37 by Gray Moreira MD) Chronic hypoxic respiratory failure Hypoxia (Acute) Pneumonia (Acute) Slurring of speech (Acute) Pneumonia (Acute) Hemoptysis Hypoxia (Acute) Pneumonia (Acute) Multifocal pneumonia (Acute) Hypoxia (Acute) Abnormal CT scan of lung COPD (chronic obstructive pulmonary disease) (Acute) Hyponatremia Atrial tachycardia, paroxysmal Stroke-like symptoms Pneumonia (Acute) AMS (altered mental status) (Acute) Hypoxia (Acute) History of lung cancer Carotid arterial disease (Acute) Intercostal neuralgia Pleural effusion Primary cancer of right lower lobe of lung (Chronic 10/23/19) Medical History Vertebral fracture, osteoporotic (02/04/08) Atherosclerosis of leg with intermittent claudication Osteoporosis Malignant neoplasm of skin of trunk Basal Cell - on Forehead and on Neck Electrolyte imbalance PVD (peripheral vascular disease) Nonischemic cardiomyopathy LBBB (left bundle branch block) Hypokalemia Aortic stenosis Acute on chronic systolic and diastolic heart failure, NYHA class 4 Acute congestive heart failure likely precipitated by paroxysmal atrial fibrillation with rapid ventricular rate. Now back in sinus rhythm diuresing well with decreasing oxygen requirements Recommend: Continue diuretics, discontinue BiPAP, wean oxygen as tolerated, initiate sliding scale insulin for hyperglycemia, advance diet as tolerated Acute respiratory failure with hypoxia and hypercapnia GERD (gastroesophageal reflux disease) Diabetes mellitus, type 2 Valvular heart disease Hyperlipidemia Hypertension Pulmonary edema Hypoxia Surgical History History of trigger finger 10/09/2019 - Release Surgery (Dr. Dana Hernandez) History of nasal septoplasty 1959' History of cataract extraction with lens replacement 07/03/2013 - Dr. Hazel History of tonsillectomy As a Child History of ERCP 02/1999 - with stone removal History of bronchoscopy 10/23/2019 - Diagnostic History of cholecystectomy 1998 History of total knee replacement 12/05/2011 - Right - Dr. Medina History of discectomy 1995 History of procedure for peripheral vascular disease 01/15/2015 - Right Femoral Endarterectomy History of cardiac cath 11/2017 Family History Mother , Passed age 92 of natural causes No problems noted. Father , Passed age 67 from stroke complications No problems noted. Brother , Passed age 67 of [place] No problems noted. Son No problems noted. Daughter No problems noted. 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 External ears normal. No rhinorrhea. Moist mucous membranes. Neck: Supple, full range of motion, no observable masses, No meningeal sign. Lungs: expiratory wheezing throughout all lung martin CV: RRR, no edema. Abdomen: Soft, nondistended, No rebound tenderness. MSK: No joint swelling, no redness. Skin: No rashes, petechiae, lesions. Normal color per patient. Neuro: Normal Gait, Grossly intact. Psych: Appropriate for situation. Results & Data Results & Data Vital Signs (Past 12 Hours) Vital Signs Temp Pulse Resp BP Pulse Ox O2 Del Method O2 Flow Rate 01/07/25 12:53 62 01/07/25 12:30 63 15 95 01/07/25 12:27 71 22 96 01/07/25 12:23 128/69 01/07/25 12:23 128/69 01/07/25 12:17 87 L Room Air, Nasal Cannula 0 01/07/25 11:48 36.5 C 80 20 153/83 H 87 L Room Air Laboratory Results -personally reviewed, no leukocytosis, mildly elevated HS troponin in setting of hypoxia, negative biofire Code Status & VTE Plan Code Status -DNRDNI per discussion with patient (2) COPD (chronic obstructive pulmonary disease) COPD type: unspecified COPD Qualified Code(s): J44.9 - Chronic obstructive pulmonary disease, unspecified
[2025-01-07] MEDS: PIPERACILLIN/TAZOBACTAM 4.5 GM/100 ML BAG IV ONE (15:19)
[2025-01-07] MEDS ORDERED: ALBUT/IPRATROP 3MG/0.5MG NEB 3 ML VIAL NEB PRN ×2 (15:32→18:28)
[2025-01-07] MEDS: predniSONE 20 MG TAB PO ONE (15:54)
[2025-01-07] MEDS ORDERED: POLYETHYLENE (MIRALAX) 17 GM PACK PO PRN (18:28)
[2025-01-07] MEDS ORDERED: ONDANSETRON INJ 2 MG/ML 2 ML VIAL IV PRN (18:28)
[2025-01-07] MEDS ORDERED: ACETAMINOPHEN 325 MG TAB PO PRN (18:28)
[2025-01-07] MEDS ORDERED: FUROSEMIDE 20 MG TAB PO SCH (18:28)
--- NOTE | 2025-01-07 18:45 | XCELERA ---
[id number]
[2025-01-07] MEDS ORDERED: GLUCOSE 40% GEL 15 GM TUBE PO PRN (19:57)
[2025-01-07] MEDS ORDERED: CARBOHYDRATES FOR HYPOGLYCEMIA PO PRN (19:57)
[2025-01-07] MEDS ORDERED: GLUCOSE 10 TAB/TUBE PO PRN (19:57)
[2025-01-07] MEDS ORDERED: GLUCAGON FOR INJ 1 MG VIAL SQ PRN (19:57)
[2025-01-07] MEDS ORDERED: DEXTROSE 50% 50 ML SYRINGE IV PRN (19:57)
[2025-01-07] MEDS: INSULIN ASPART PER UNIT CHARGE SC SCH (20:35)
[2025-01-07] MEDS: MAGNESIUM OXIDE 400 MG TAB PO SCH (23:03)
[2025-01-07] MEDS: MONTELUKAST SODIUM 10 MG TABLET PO SCH (23:04)
[2025-01-07] MEDS: METOPROLOL SUCC 25MG EXT REL TAB PO SCH (23:04)
[2025-01-07] MEDS: FUROSEMIDE INJ 20 MG/2 ML VIAL IV SCH (23:05)
[2025-01-07] MEDS: PREGABALIN 150 MG CAP PO SCH (23:07)
[2025-01-07] MEDS: MELATONIN 3 MG TAB PO PRN (23:34)
[2025-01-08 06:29] LABS: Hematocrit (blood only) 38.8 % (42.0-52.0); Hemoglobin 13.0 g/dL (14.0-18.0); Mean Corpuscular Hemoglobin 31.6 pg (25.0-34.0); Mean Corpuscular Volume 94.2 fL (80.0-100.0); Platelet Count 216 K/uL (130-400); RDW Standard Deviation 47.2 fL (36.4-46.3); Red Blood Count 4.12 M/uL (4.70-6.10); White Blood Count 4.93 K/ul (4.8-10.8)
[2025-01-08 07:05] LABS: Anion Gap 6.0 (3-11); Blood Urea Nitrogen 20.0 mg/dl (6-23); Calcium 8.9 mg/dl (8.6-10.3); Carbon Dioxide 28.0 mmol/L (21-32); Chloride 101.0 mmol/L (98-107); Creatinine Clr Calc Pharmacy 56.6 ml/min; Glucose 244.0 mg/dl (70-99(Fasting)); Potassium 4.8 mmol/L (3.5-5.1); Sodium 135.0 mmol/L (136-145)
[2025-01-08] MEDS: predniSONE 20 MG TAB PO SCH (08:31)
[2025-01-08] MEDS: ASPIRIN 81 MG ECTAB PO SCH (08:32)
[2025-01-08] MEDS: AZITHROMYCIN 250 MG TAB PO SCH (08:32)
[2025-01-08] MEDS: ATORVASTATIN 40 MG TAB PO SCH (08:32)
[2025-01-08] MEDS: UMECLIDINIUM/VILANTEROL 62.5/25MCG 7 PUFFS/INHALER INH SCH (08:32)
--- NOTE | 2025-01-08 12:36 | Hospitalist Progress Note ---
Date of Service January 08, 2025 Assessment & Plan (1) Acute on chronic hypoxic respiratory failure: (2) Acute on chronic heart failure with preserved ejection fraction: (3) Hemoptysis: (4) Acute on chronic systolic and diastolic heart failure, NYHA class 4: (5) Chronic hypoxic respiratory failure: Plan: On home oxygen 2 to 3 L (6) Pulmonary hypertension: (7) Radiation pneumonitis: (8) COPD (chronic obstructive pulmonary disease): (9) Primary cancer of right lower lobe of lung: (10) Heart failure due to valvular disease: (11) Diabetes mellitus, type 2: (12) Emphysema lung: Plan Patient 84-year-old gentleman presented with increasing shortness of breath hypoxia and hemoptysis. Symptoms most likely multifactorial including worsening heart failure, possibly some exacerbation of COPD, possibly some friability of lung tissues from his radiation treatments and cancer. Patient seems to have responded to treatments, and currently at his baseline oxygen requirements Continue to attempt further diuresis, increase Lasix dosing Encourage activity Monitor electrolytes continue short course of prednisone If patient continues to show improvement possible discharge tomorrow Admission and Anticipated Discharge Date Admission Date: January 07, 2025 Subjective Patient reports feeling improved, seems to be back down his to his usual oxygen flow. No further hemoptysis Physical Exam Physical Exam: Constitutional: Alert, nontoxic, no acute distress HEENT: Mucous membranes moist. Lungs: Decreased breath sounds, poor airflow, prolonged expiratory phase, expiratory wheezes CV: S1-S2, regular Abdomen: Soft, nontender, nondistended Extremities: No significant edema Neuro: No focal deficits Psych: Cooperative, normal mood Results & Data Results & Data Vital Signs (Past 12 Hours) Vital Signs Temp Pulse Resp BP Pulse Ox O2 Del Method O2 Flow Rate 01/08/25 08:34 36.5 C 01/08/25 08:08 34.7 C L 53 L 18 152/74 H 93 Nasal Cannula 1 01/08/25 07:43 97 Nasal Cannula 1 01/08/25 07:41 34.5 C L 51 L 16 133/75 99 Room Air, Nasal Cannula 2 01/08/25 07:35 Nasal Cannula 1 Diagnostic Findings Reviewed imaging, laboratory and diagnostic studies. Pertinent findings as below. WBCs 4.9 Hemoglobin 13.0 Electrolytes stable Creatinine 1.09 Glucoses reviewed Echocardiogram shows ejection fraction 50 to 55%, moderate aortic stenosis, mildly increased pulmonary pressure 45 mmHg (8) COPD (chronic obstructive pulmonary disease) COPD type: unspecified COPD Qualified Code(s): J44.9 - Chronic obstructive pulmonary disease, unspecified
[2025-01-08] MEDS ORDERED: FUROSEMIDE INJ 20 MG/2 ML VIAL IV SCH (14:00)
[2025-01-08] MEDS: FUROSEMIDE 40 MG/4 ML VIAL IV SCH (14:03)
--- NOTE | 2025-01-08 18:50 | Pulmonary Consultation ---
Date of Consultation January 08, 2025 Assessment & Plan (1) Hemoptysis: * Resolved. * Unclear etiology at this time; however, could be related to parenchymal abnormalities secondary to previous radiation pneumonitis * Cannot rule out recurrence/new lung cancer * Unlikely bacterial pneumonia * Will consider bronchoscopy if hemoptysis recurs. For the time being will plan on Bronchoscopy tomorrow but would cancel if no recurrence. * Preferrably patient should go back to his traditional [facility] health practitioner who has been following him up for many years, unless investigation here is absolutely necessary. (2) Abnormal CT scan of lung: * Changes could be related to parenchymal abnormalities secondary to previous radiation pneumonitis * Cannot rule out recurrence/new lung cancer * Unlikely bacterial pneumonia (3) Primary cancer of right lower lobe of lung: * Previously treated with radiation. (4) Pleural effusion: * Bilateral pleural effusions, possibly related to HFpEF/valvular heart disease * Cannot rule out malignant effusions, but they are too small and loculated for optimal drainage (5) Emphysema lung: * Continue home inhalers (6) Radiation pneumonitis: (7) Pulmonary hypertension: (8) Chronic hypoxic respiratory failure: History of Present Illness Reason for Consultation: "concern for worsening radiation pneumonitis, thu" Attending Physician: Chalino Powell DO History of Present Illness The patient is a very pleasant 84-year-old male who presented to the ED with hemoptysis. He reported a several-day history of cough and worsening shortness of breath, requiring continuous supplemental oxygen, whereas he typically used oxygen only at night. Over the preceding 24 hours, he began to notice blood in his sputum. CXR in the ED was interpreted as being stable when compared to study from July 13, 2024. However, chest CTA was compared to study from July 03, 2024 and was interpreted as showing mild RML and RLL ground-glass opacities, increase in small bilateral pleural effusions, and slight increase in several LLL densities. The patient was treated with IV antibiotics initially, but antibiotics were later held as his presentation was not suggestive of bacterial pneumonia. He was started on IV Lasix for volume overload, prednisone for reactive airway disease, and Duoneb, with continuation of his home inhalers and Roflumilast. Echocardiogram was mostly unremarkable except for septal motion abnormality, moderate Aortic stenosis, and slight increase in RVSP consistent with PASP of around 45 mmHg. Pulmonary consultation was requested due to concern for recurrent malignancy versus worsening radiation pneumonitis. 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 The patient had a prior admission in June 2024 for pneumonia. There is history of Pseudomonas aeruginosa growing from sputum back in August 2021 but not since then (at least not in our system). Note from 01/08/2025: The patient denies any further hemoptysis today. He has occasional dry cough. He denies dyspnea at rest, and has not been exerting himself while hospitalized. Allergies Allergy/AdvReac Type Severity Reaction Status Date / Time No Known Allergies Allergy Verified 01/07/25 15:03 Home Medications Medication Instructions Recorded Confirmed Type albuterol sulfate 90 mcg/actuation 2 puff inhalation Q4H PRN 12/11/17 01/07/25 History aerosol inhaler Shortness Of Breath Or Wheezing omeprazole 20 mg capsule,delayed 20 mg PO DAILYBB 12/11/17 01/07/25 History release montelukast 10 mg tablet 10 mg PO HS 10/31/19 01/07/25 History potassium gluconate 550 mg (90 mg) 550 mg PO DAILY 10/31/19 01/07/25 History tablet atorvastatin 80 mg tablet 80 mg PO DAILY 01/07/21 01/07/25 History magnesium oxide 400 mg PO BID 06/24/21 01/07/25 History tramadol 50 mg tablet 50 mg PO Q8H PRN Moderate Pain 06/24/21 01/07/25 History (Scale Score 5-6) lisinopril 5 mg tablet 5 mg PO QAM 09/19/21 01/07/25 History metformin 500 mg tablet,extended 1,000 mg PO DAILY 09/19/21 01/07/25 History release 24 hr tiotropium 2.5 mcg-olodaterol 2.5 2 inh inhalation DAILY #4 grams 09/22/21 01/07/25 Rx mcg/actuation mist for inhalation (Stiolto Respimat) metoprolol succinate 50 mg 25 mg PO BID 10/21/22 01/07/25 History tablet,extended release 24 hr pregabalin 150 mg capsule (Lyrica) 150 mg PO QPM nerve pain 10/21/22 01/07/25 History furosemide 20 mg tablet (Lasix) 20 mg PO 5XWK 12/23/22 01/07/25 History ipratropium bromide 21 mcg (0.03 2 spray intranasal BID 12/23/22 01/07/25 History %) nasal spray Saccharomyces boulardii 250 mg 250 mg PO DAILY 07/03/24 01/07/25 History capsule (Florastor) aspirin 81 mg tablet,delayed 81 mg PO DAILY 07/03/24 01/07/25 History release azithromycin 500 mg tablet 500 mg PO 3XWK 07/03/24 01/07/25 History cyanocobalamin (vitamin B-12) 1,000 mcg PO DAILY 07/03/24 01/07/25 History 1,000 mcg tablet (Vitamin B-12) ipratropium 0.5 mg-albuterol 3 mg 3 ml inhalation Q4H PRN Shortness 07/03/24 01/07/25 History (2.5 mg base)/3 mL nebulization Of Breath Or Wheezing soln loperamide 2 mg capsule (Imodium 2 mg PO DIRECTED PRN loose stool 07/03/24 01/07/25 History A-D) sitagliptin phosphate 25 mg tablet 25 mg PO DAILY 07/03/24 01/07/25 History (Mosheuvia) Patient History Medical History Vertebral fracture, osteoporotic (02/04/08) Atherosclerosis of leg with intermittent claudication Osteoporosis Malignant neoplasm of skin of trunk Basal Cell - on Forehead and on Neck Electrolyte imbalance PVD (peripheral vascular disease) Nonischemic cardiomyopathy LBBB (left bundle branch block) Hypokalemia Aortic stenosis Acute on chronic systolic and diastolic heart failure, NYHA class 4 Acute congestive heart failure likely precipitated by paroxysmal atrial fibrillation with rapid ventricular rate. Now back in sinus rhythm diuresing well with decreasing oxygen requirements Recommend: Continue diuretics, discontinue BiPAP, wean oxygen as tolerated, initiate sliding scale insulin for hyperglycemia, advance diet as tolerated Acute respiratory failure with hypoxia and hypercapnia GERD (gastroesophageal reflux disease) Diabetes mellitus, type 2 Valvular heart disease Hyperlipidemia Hypertension Pulmonary edema Hypoxia Surgical History History of trigger finger 10/09/2019 - Release Surgery (Dr. Dana Hernandez) History of nasal septoplasty 1959's History of cataract extraction with lens replacement 07/03/2013 - Dr. Hazel History of tonsillectomy As a Child History of ERCP 02/1999 - with stone removal History of bronchoscopy 10/23/2019 - Diagnostic History of cholecystectomy 1998 History of total knee replacement 12/05/2011 - Right - Dr. Medina History of discectomy 1995 History of procedure for peripheral vascular disease 01/15/2015 - Right Femoral Endarterectomy History of cardiac cath 11/2017 Family History Mother , Passed age 92 of natural causes No problems noted. Father , Passed age 67 from stroke complications No problems noted. Brother , Passed age 67 of [place] No problems noted. Son No problems noted. Daughter No problems noted. 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 Skin: Warm and dry to touch. Noobvious lesions. Eyes: Anicteric.Noconjunctival hyperemia or exudates.No periorbital edema. ENT: No oral thrush. No oropharyngeal erythema or exudates. Modified-Mallampati 3 (Hard and soft palate seen). Neck: No palpable masses or adenopathy. Respiratory: Diffusely decreased breath sounds, no wheezing; inspiratory crackles over right-lung base. No use of accessory muscles and no prolonged exhalation. Cardiac: Distant sounds, regular rhythm, Grade 2 systolic murmur over Aortic focus, no gallops, no rubs; could not appreciate JV pulse elevation. GI: Soft, nontender. Extremities No clubbing,no cyanosis,no edema. Neuro: No gross motor deficits. Seems appropriate. No facial-droop. Speech is clear. Results & Data Results & Data Vital Signs (Past 12 Hours) Vital Signs Temp Pulse Resp BP Pulse Ox O2 Del Method O2 Flow Rate 01/08/25 15:00 36.6 C 51 L 16 122/78 98 Nasal Cannula 01/08/25 08:34 36.5 C 01/08/25 08:08 34.7 C L 53 L 18 152/74 H 93 Nasal Cannula 1 01/08/25 07:43 97 Nasal Cannula 1 01/08/25 07:41 34.5 C L 51 L 16 133/75 99 Room Air, Nasal Cannula 2 01/08/25 07:35 Nasal Cannula 1 Laboratory Results 01/07/25 12:10 Aerobic Blood Culture - Preliminary Blood No growth in Aerobic bottle after 24 hours. Anaerobic Blood Culture - Preliminary No growth in Anaerobic bottle after 24 hours. 01/07/25 12:07 Aerobic Blood Culture - Preliminary Blood No growth in Aerobic bottle after 24 hours. Anaerobic Blood Culture - Preliminary No growth in Anaerobic bottle after 24 hours. 01/08/25 08:45 Acid Fast Bacilli Smear - Pending Sputum, Expectorated Acid Fast Bacilli Culture - Pending 01/08/25 01/08/25 01/08/25 16:03 11:22 07:06 WBC RBC Hgb Hct MCV MCH MCHC RDW Std Deviation RDW Coeff of Carol Plt Count MPV Sodium Potassium Chloride Carbon Dioxide Anion Gap BUN Creatinine Est Cr Clr Drug Dosing eGFR BUN/Creatinine Ratio Glucose POC Glucose 180 H 162 H 202 H Calcium B-Natriuretic Peptide 01/08/25 01/07/25 01/07/25 06:00 20:33 20:29 WBC 4.93 RBC 4.12 L Hgb 13.0 L Hct 38.8 L MCV 94.2 MCH 31.6 MCHC 33.5 RDW Std Deviation 47.2 H RDW Coeff of Carol 13.8 Plt Count 216 MPV 11.3 Sodium 135 L Potassium 4.8 Chloride 101 Carbon Dioxide 28 Anion Gap 6 BUN 20 Creatinine 1.09 Est Cr Clr Drug Dosing 56.6 eGFR 66.10 BUN/Creatinine Ratio 18.3 Glucose 244 H POC Glucose 176 H Calcium 8.9 B-Natriuretic Peptide [address] ANGIOGRAM OF THE CHEST CLINICAL HISTORY: Shortness of breath. Cough. Evaluate for pulmonary embolus. COMPARISON STUDY: Chest CT March 26, 2020. Chest CT July 03, 2024. Chest radiograph performed earlier today. TECHNIQUE: Following the IV administration of 120 cc of Optiray 320, CT angiogram of the chest was performed from the upper abdomen to the thoracic inlet utilizing the pulmonary embolus protocol. Images are reviewed in the axial, sagittal, and coronal planes. 3-D MIPS images are created and assessed. IV contrast was administered without complication. A dose lowering technique was utilized adhering to the principles of ALARA. CT DOSE: 705.08 mGy.cm FINDINGS: No pulmonary emboli identified although subsegmental pulmonary arteries are suboptimally assessed due to respiratory motion. The heart is moderately enlarged. There is extensive coronary artery and aortic valvular calcification. There is extensive plaque within the thoracic aorta. 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 There is no pneumothorax. Small bilateral pleural effusions have mildly increased in size since CT of July 03, 2024. There are no enlarged thoracic lymph nodes. Multiple calcified right pleural plaques are again noted. Central airways are patent. There are severe emphysema. Lungs are suboptimally assessed due to respiratory motion. A 3.2 x 1.4 cm irregular left lower lobe density on image 68 of 253 has mildly increased since CT of July 03, 2024 measured 2.5 x 1.1 cm. An adjacent 2.1 cm groundglass opacity on image 61 has increased. Irregular right middle lobe density measuring approximately 2.9 x 1.8 cm on image 59 is similar to prior CT. Right middle lobe and right lower lobe interstitial thickening and groundglass opacity is noted. The opacity has slightly increased since prior CT. IMPRESSION: 1. No pulmonary emboli identified although subsegmental pulmonary arteries suboptimally assessed due to respiratory motion. 2. Mild increase in right lower lobe and right middle lobe ground glass opacity. This could represent pneumonia or pulmonary edema superimposed upon interstitial lung disease. 3. Increase in small bilateral pleural effusions. 4. Severe emphysema. 5. Slight increase in several irregular left lower lobe densities. No significant change in irregular right middle lobe densities. These remain indeterminate and could represent foci of scarring. However, short-term follow- up chest CT in 3 months is recommended to exclude the possibility of pulmonary lesions. Electronically signed by: Jewel Balbuena M.D. 01/07/2025 2:09 PM Dictated: 01/07/25 0283 Medications Administered Home Medications Medication Instructions Recorded Confirmed Last Taken albuterol sulfate 90 mcg/actuation 2 puff inhalation Q4H PRN 12/11/17 01/07/25 Unknown aerosol inhaler Shortness Of Breath Or Wheezing omeprazole 20 mg capsule,delayed 20 mg PO DAILYBB 12/11/17 01/07/25 01/07/25 release montelukast 10 mg tablet 10 mg PO HS 10/31/19 01/07/25 01/06/25 potassium gluconate 550 mg (90 mg) 550 mg PO DAILY 10/31/19 01/07/25 01/07/25 tablet atorvastatin 80 mg tablet 80 mg PO DAILY 01/07/21 01/07/25 01/07/25 magnesium oxide 400 mg PO BID 06/24/21 01/07/25 01/07/25 08:00 tramadol 50 mg tablet 50 mg PO Q8H PRN Moderate Pain 06/24/21 01/07/25 Unknown (Scale Score 5-6) lisinopril 5 mg tablet 5 mg PO QAM 09/19/21 01/07/25 01/07/25 metformin 500 mg tablet,extended 1,000 mg PO DAILY 09/19/21 01/07/25 01/07/25 release 24 hr tiotropium 2.5 mcg-olodaterol 2.5 2 inh inhalation DAILY #4 grams 09/22/21 01/07/25 01/07/25 mcg/actuation mist for inhalation (Stiolto Respimat) metoprolol succinate 50 mg 25 mg PO BID 10/21/22 01/07/25 01/07/25 08:00 tablet,extended release 24 hr pregabalin 150 mg capsule (Lyrica) 150 mg PO QPM nerve pain 10/21/22 01/07/25 01/06/25 furosemide 20 mg tablet (Lasix) 20 mg PO 5XWK 12/23/22 01/07/25 01/07/25 ipratropium bromide 21 mcg (0.03 2 spray intranasal BID 12/23/22 01/07/25 01/07/25 08:00 %) nasal spray Saccharomyces boulardii 250 mg 250 mg PO DAILY 07/03/24 01/07/25 01/07/25 capsule (Florastor) aspirin 81 mg tablet,delayed 81 mg PO DAILY 07/03/24 01/07/25 01/07/25 release azithromycin 500 mg tablet 500 mg PO 3XWK 07/03/24 01/07/25 01/06/25 cyanocobalamin (vitamin B-12) 1,000 mcg PO DAILY 07/03/24 01/07/25 01/07/25 1,000 mcg tablet (Vitamin B-12) ipratropium 0.5 mg-albuterol 3 mg 3 ml inhalation Q4H PRN Shortness 07/03/24 01/07/25 Unknown (2.5 mg base)/3 mL nebulization Of Breath Or Wheezing soln loperamide 2 mg capsule (Imodium 2 mg PO DIRECTED PRN loose stool 07/03/24 01/07/25 Unknown A-D) sitagliptin phosphate 25 mg tablet 25 mg PO DAILY 07/03/24 01/07/25 01/07/25 (Elin) Active Medications Generic Name Dose Route Start Last Admin Trade Name Freq PRN Reason Stop Dose Admin Aspirin 81 mg 01/08/25 09:00 01/08/25 08:32 Aspirin 81 Mg Ectab PO 02/07/25 08:59 81 mg DAILY ZHENG Administration Atorvastatin Calcium 80 mg 01/08/25 09:00 01/08/25 08:32 Atorvastatin 40 Mg Tab PO 02/07/25 08:59 80 mg DAILY ZHENG Administration Azithromycin 500 mg 01/08/25 09:00 01/08/25 08:32 Azithromycin 250 Mg Tab PO 02/07/25 08:59 500 mg [id number] ZHENG Administration Furosemide 40 mg 01/08/25 14:00 01/08/25 14:03 Furosemide 40 Mg/4 Ml Vial IV 02/07/25 13:59 40 mg [id number] ZHENG Administration Insulin Aspart 0 units 01/07/25 21:00 01/08/25 17:05 Insulin Aspart Per Unit Charge SC 02/06/25 20:59 4 units ACHS ZHENG Administration Lisinopril 5 mg 01/08/25 09:00 01/08/25 08:32 Lisinopril 5 Mg Tab PO 02/07/25 08:59 5 mg QAM ZHENG Administration Magnesium Oxide 400 mg 01/07/25 21:00 01/08/25 08:31 Magnesium Oxide 400 Mg Tab PO 02/06/25 20:59 400 mg BID ZHENG Administration Melatonin 3 mg 01/07/25 23:17 01/07/25 23:34 Melatonin 3 Mg Tab PO 02/06/25 23:16 3 mg HS PRN Administration Sleep Metoprolol Succinate 25 mg 01/07/25 21:00 01/08/25 08:31 Metoprolol Succ 25mg Ext Rel Tab PO 02/06/25 20:59 25 mg BID ZHENG Administration Montelukast Sodium 10 mg 01/07/25 21:00 01/07/25 23:04 Montelukast Sodium 10 Mg Tablet PO 02/06/25 20:59 10 mg HS ZHENG Administration Pantoprazole Sodium 40 mg 01/08/25 06:30 01/08/25 05:37 Pantoprazole 40 Mg Tab PO 02/07/25 06:29 40 mg DAILYBB ZHENG Administration Prednisone 40 mg 01/08/25 09:00 01/08/25 08:31 Prednisone 20 Mg Tab PO 02/07/25 08:59 40 mg DAILY ZHENG Administration Pregabalin 150 mg 01/07/25 21:00 01/07/25 23:07 Pregabalin 150 Mg Cap PO 02/06/25 20:59 150 mg QPM ZHENG Administration Umeclidinium/Vilanterol 1 puffs 01/08/25 09:00 01/08/25 08:32 Umeclidinium/Vilanterol 62.5/25mcg 7 Puffs/Inhaler INH 02/07/25 08:59 1 puffs DAILY ZHENG Administration PG Care Time/CCT Total # of Minutes Spent Total Time Spent with Patient: Total time spent is greater than 50% in coordination of care (as documented) at patient's floor/unit and/or counseling patient: 65 minutes Coding Level of Care Code 67535 IN/OBS CONSULT LVL 4,60M Diagnoses Hemoptysis R04.[address] scan of lung R91.8 Primary cancer of right lower lobe of lung C34.31 Pleural effusion J90 Emphysema lung J43.9 Radiation pneumonitis J70.0 Pulmonary hypertension I27.20 Chronic hypoxic respiratory failure J96.11 Time Spent (min) 65
[2025-01-08] MEDS: IPRATROPIUM BROMIDE NASAL SPRAY 0.03% 30 ML SCH (21:02)
[2025-01-09 06:35] LABS: Anion Gap 7.0 (3-11); Blood Urea Nitrogen 26.0 mg/dl (6-23); Calcium 9.4 mg/dl (8.6-10.3); Carbon Dioxide 32.0 mmol/L (21-32); Chloride 100.0 mmol/L (98-107); Creatinine Clr Calc Pharmacy 44.0 ml/min; Glucose 176.0 mg/dl (70-99(Fasting)); Potassium 4.2 mmol/L (3.5-5.1); Sodium 139.0 mmol/L (136-145)
[2025-01-09] MEDS ORDERED: Nursing to Pharmacy Communication SCH (07:15)
[2025-01-09 07:25] VITALS: BP 121/71; PULSE 65; RESP 20; TEMP 97.7; O2SAT 90
[2025-01-09] MEDS: INSULIN ASPART PER UNIT CHARGE SC SCH ×2 (07:45→12:17)
--- NOTE | 2025-01-09 10:21 | Pulmonology Progress Note ---
Date of Service January 09, 2025 Assessment & Plan (1) Hemoptysis: Plan: * Resolved. * Unclear etiology at this time; however, could be related to parenchymal abnormalities secondary to previous radiation pneumonitis * Cannot rule out recurrence/new lung cancer * Unlikely bacterial pneumonia * Will consider bronchoscopy if hemoptysis recurs. For the time being will plan on Bronchoscopy tomorrow but would cancel if no recurrence. * Preferrably patient should go back to his construction driver who has been following him up for many years, unless investigation here is absolutely necessary. (2) Abnormal CT scan of lung: Plan: * Changes could be related to parenchymal abnormalities secondary to previous radiation pneumonitis * Cannot rule out recurrence/new lung cancer * Unlikely bacterial pneumonia (3) Primary cancer of right lower lobe of lung: Plan: * Previously treated with radiation. (4) Pleural effusion: Plan: * Bilateral pleural effusions, possibly related to HFpEF/valvular heart disease * Cannot rule out malignant effusions, but they are too small and loculated for optimal drainage (5) Emphysema lung: Plan: * Continue home inhalers (6) Radiation pneumonitis: (7) Pulmonary hypertension: (8) Chronic hypoxic respiratory failure: Admission and Anticipated Discharge Date Admission Date: January 07, 2025 Subjective The patient is a very pleasant 84-year-old male who presented to the ED with hemoptysis. He reported a several-day history of cough and worsening shortness of breath, requiring continuous supplemental oxygen, whereas he typically used oxygen only at night. Over the preceding 24 hours, he began to notice blood in his sputum. CXR in the ED was interpreted as being stable when compared to study from July 13, 2024. However, chest CTA was compared to study from July 03, 2024 and was interpreted as showing mild RML and RLL ground-glass opacities, increase in small bilateral pleural effusions, and slight increase in several LLL densities. The patient was treated with IV antibiotics initially, but antibiotics were later held as his presentation was not suggestive of bacterial pneumonia. He was started on IV Lasix for volume overload, prednisone for reactive airway disease, and Duoneb, with continuation of his home inhalers and Roflumilast. Echocardiogram was mostly unremarkable except for septal motion abnormality, moderate Aortic stenosis, and slight increase in RVSP consistent with PASP of around 45 mmHg. Pulmonary consultation was requested due to concern for recurrent malignancy versus worsening radiation pneumonitis. 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 The patient had a prior admission in June 2024 for pneumonia. There is history of Pseudomonas aeruginosa growing from sputum back in August 2021 but not since then (at least not in our system). Note from 01/08/2025: The patient denies any further hemoptysis today. He has occasional dry cough. He denies dyspnea at rest, and has not been exerting himself while hospitalized. Note from 01/09/2025: No further hemoptysis since yesterday. I discussed with the patient that it would be better for him to follow up with her construction driver regarding comprehensive work-up based on previous work-up. He verbalized understanding. Review of Systems Review of Systems: All systems reviewed & are unremarkable except as noted in HPI & below Physical Exam Physical Exam: General: In no acute distress, using Oxygenvia nasal cannula. Respiratory: Diffusely decreased breath sounds, no wheezing; inspiratory crackles over right-lung base. No use of accessory muscles and no prolonged exhalation. Cardiac: Distant sounds, regular rhythm, Grade 2 systolic murmur over Aortic focus, no gallops, no rubs; could not appreciate JV pulse elevation. GI: Soft, nontender. Extremities No clubbing,no cyanosis,no edema. Neuro: No gross motor deficits. Seems appropriate. No facial-droop. Speech is clear. Results & Data Results & Data Vital Signs (Past 12 Hours) Vital Signs Temp Pulse Resp BP Pulse Ox O2 Del Method O2 Flow Rate 01/09/25 07:23 36.5 C 65 20 121/71 90 Room Air 01/09/25 06:40 174/90 H 01/08/25 23:29 36.3 C L 62 14 147/73 H 92 Nasal Cannula 1.5 Laboratory Results 01/08/25 08:45 Acid Fast Bacilli Smear - Final Sputum, Expectorated Acid Fast Bacilli Culture - Pending 01/07/25 12:10 Aerobic Blood Culture - Preliminary Blood No growth in Aerobic bottle after 24 hours. Anaerobic Blood Culture - Preliminary No growth in Anaerobic bottle after 24 hours. 01/07/25 12:07 Aerobic Blood Culture - Preliminary Blood No growth in Aerobic bottle after 24 hours. Anaerobic Blood Culture - Preliminary No growth in Anaerobic bottle after 24 hours. 01/09/25 01/09/25 01/08/25 07:01 06:00 20:20 Sodium 139 Potassium 4.2 Chloride 100 Carbon Dioxide 32 Anion Gap 7 BUN 26 H Creatinine 1.40 D Est Cr Clr Drug Dosing 44.0 eGFR 48.95 BUN/Creatinine Ratio 18.6 Glucose 176 H POC Glucose 157 H 259 H Calcium 9.4 01/08/25 01/08/25 16:03 11:22 Sodium Potassium Chloride Carbon Dioxide Anion Gap BUN Creatinine Est Cr Clr Drug Dosing eGFR BUN/Creatinine Ratio Glucose POC Glucose 180 H 162 H Calcium Medications Administered Home Medications Medication Instructions Recorded Confirmed Last Taken albuterol sulfate 90 mcg/actuation 2 puff inhalation Q4H PRN 12/11/17 01/07/25 Unknown aerosol inhaler Shortness Of Breath Or Wheezing omeprazole 20 mg capsule,delayed 20 mg PO DAILYBB 12/11/17 01/07/25 01/07/25 release montelukast 10 mg tablet 10 mg PO HS 10/31/19 01/07/25 01/06/25 potassium gluconate 550 mg (90 mg) 550 mg PO DAILY 10/31/19 01/07/25 01/07/25 tablet atorvastatin 80 mg tablet 80 mg PO DAILY 01/07/21 01/07/25 01/07/25 magnesium oxide 400 mg PO BID 06/24/21 01/07/25 01/07/25 08:00 tramadol 50 mg tablet 50 mg PO Q8H PRN Moderate Pain 06/24/21 01/07/25 Unknown (Scale Score 5-6) lisinopril 5 mg tablet 5 mg PO QAM 09/19/21 01/07/25 01/07/25 metformin 500 mg tablet,extended 1,000 mg PO DAILY 09/19/21 01/07/25 01/07/25 release 24 hr tiotropium 2.5 mcg-olodaterol 2.5 2 inh inhalation DAILY #4 grams 09/22/21 01/07/25 01/07/25 mcg/actuation mist for inhalation (Stiolto Respimat) metoprolol succinate 50 mg 25 mg PO BID 10/21/22 01/07/2525 08:00 tablet,extended release 24 hr pregabalin 150 mg capsule (Lyrica) 150 mg PO QPM nerve pain 10/21/22 01/07/25 01/06/25 furosemide 20 mg tablet (Lasix) 20 mg PO 5XWK 12/23/22 01/07/25 01/07/25 ipratropium bromide 21 mcg (0.03 2 spray intranasal BID 12/23/22 01/07/25 01/07/25 08:00 %) nasal spray Saccharomyces boulardii 250 mg 250 mg PO DAILY 07/03/24 01/07/25 01/07/25 capsule (Florastor) aspirin 81 mg tablet,delayed 81 mg PO DAILY 07/03/24 01/07/25 01/07/25 release azithromycin 500 mg tablet 500 mg PO 3XWK 07/03/24 01/07/25 01/06/25 cyanocobalamin (vitamin B-12) 1,000 mcg PO DAILY 07/03/24 01/07/25 01/07/25 1,000 mcg tablet (Vitamin B-12) ipratropium 0.5 mg-albuterol 3 mg 3 ml inhalation Q4H PRN Shortness 07/03/24 01/07/25 Unknown (2.5 mg base)/3 mL nebulization Of Breath Or Wheezing soln loperamide 2 mg capsule (Imodium 2 mg PO DIRECTED PRN loose stool 07/03/24 01/07/25 Unknown A-D) sitagliptin phosphate 25 mg tablet 25 mg PO DAILY 07/03/24 01/07/25 01/07/25 (Elin) Active Medications Generic Name Dose Route Start Last Admin Trade Name Freq PRN Reason Stop Dose Admin Aspirin 81 mg 01/08/25 09:00 01/09/25 08:38 Aspirin 81 Mg Ectab PO 02/07/25 08:59 81 mg DAILY ZHENG Administration Atorvastatin Calcium 80 mg 01/08/25 09:00 01/09/25 08:38 Atorvastatin 40 Mg Tab PO 02/07/25 08:59 80 mg DAILY ZHENG Administration Azithromycin 500 mg 01/08/25 09:00 01/08/25 08:32 Azithromycin 250 Mg Tab PO 02/07/25 08:59 500 mg [id number] ZHENG Administration Furosemide 40 mg 01/08/25 14:00 01/09/25 06:46 Furosemide 40 Mg/4 Ml Vial IV 02/07/25 13:59 40 mg [id number] ZHENG Administration Insulin Aspart 0 units 01/09/25 07:15 01/09/25 07:45 Insulin Aspart Per Unit Charge SC 02/06/25 20:59 Not Given Q6H ZHENG Ipratropium [place] 2 sprays 01/08/25 21:00 01/09/25 08:37 Ipratropium [place] Nasal [place] 0.03% 30 Ml NA 02/07/25 20:59 2 sprays BID ZHENG Administration Lisinopril 5 mg 01/08/25 09:00 01/09/25 08:37 Lisinopril 5 Mg Tab PO 02/07/25 08:59 5 mg QAM ZHENG Administration Magnesium Oxide 400 mg 01/07/25 21:00 01/09/25 08:38 Magnesium Oxide 400 Mg Tab PO 02/06/25 20:59 400 mg BID ZHENG Administration Melatonin 3 mg 01/07/25 23:17 01/08/25 20:57 Melatonin 3 Mg Tab PO 02/06/25 23:16 3 mg HS PRN Administration Sleep Metoprolol Succinate 25 mg 01/07/25 21:00 01/09/25 08:38 Metoprolol Succ 25mg Ext Rel Tab PO 02/06/25 20:59 25 mg BID ZHENG Administration Montelukast Sodium 10 mg 01/07/25 21:00 01/08/25 20:58 Montelukast Sodium 10 Mg Tablet PO 02/06/25 20:59 10 mg HS ZHENG Administration Pantoprazole Sodium 40 mg 01/08/25 06:30 01/09/25 05:53 Pantoprazole 40 Mg Tab PO 02/07/25 06:29 Not Given DAILYBB ZHENG Prednisone 40 mg 01/08/25 09:00 01/09/25 08:37 Prednisone 20 Mg Tab PO 02/07/25 08:59 40 mg DAILY ZHENG Administration Pregabalin 150 mg 01/07/25 21:00 01/08/25 20:57 Pregabalin 150 Mg Cap PO 02/06/25 20:59 150 mg QPM ZHENG Administration Umeclidinium/Vilanterol 1 puffs 01/08/25 09:00 01/09/25 08:38 Umeclidinium/Vilanterol 62.5/25mcg 7 Puffs/Inhaler INH 02/07/25 08:59 1 puffs DAILY ZHENG Administration PG Care Time/CCT Total # of Minutes Spent Total Time Spent with Patient: Total time spent is greater than 50% in coordination of care (as documented) at patient's floor/unit and/or counseling patient: 40 minutes Coding Level of Care Code 79705 SUB INP/OBS CARE 2/35MIN Diagnoses Hemoptysis R04.[address] scan of lung R91.8 Primary cancer of right lower lobe of lung C34.31 Pleural effusion J90 Emphysema lung J43.9 Radiation pneumonitis J70.0 Pulmonary hypertension I27.20 Chronic hypoxic respiratory failure J96.11 Time Spent (min) 40
--- NOTE | 2025-01-09 11:22 | Discharge Summary ---
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 Patient had multiple ED potential etiologies for his symptoms. He was cared for in the hospital. Was given nebulizer treatments, supported with additional oxygen and started on some steroids. CT of the chest was also consistent with some increased volume and pulmonary edema. He was given additional IV Lasix. By the following day he had significantly improved. He had no further hemoptysis. Pulmonary consultation was obtained. They recommended that he follow-up with his usual outpatient ct tech if he did not have any further hemoptysis. He did not have any more significant hemoptysis. They deferred bronchoscopy and continue to recommend outpatient pulmonary follow-up. He was back to his usual oxygen requirement. He did diurese fair amount. He will be able to discharged home. He was only taking Lasix 5 times a week will increase that to daily. Short course of prednisone. And coordinate outpatient follow-up with his providers. Notes For Next Care Provider Follow-up with pulmonary Medication Changes From Visit Lasix dosed daily Short prednisone burst Admission HPI Per Admitting Provider 84 yo male with pmhx of hypertension, aortic stenosis, chronic diastolic heart failure, SVT, atherosclerosis of lower extremities, DM type II, COPD, right lower lobe cancer s/p radiation with radiation pneumonitis who presents for productive cough and blood in sputum. Last admission was on 06/2024 for pneumonia. In the ED, CTA showing worsening opacities, trop mildly elevated, admitted to medicine for further workup. Patient seen and examined at bedside. present as well. Patient has not been feeling great for the past week. For the past few months he has had progressive weakness and dyspnea, but the past week it has gotten much worse. States legs have not been swelling, cough has stayed same, no fevers or chills. Denies chest pain, nausea, vomiting. Has chronic diarrhea. States he began coughing up blood today, sputum with radha red blood, moderate in quantity. This has happened to him before. No current tobacco use, no alcohol use, no drug use, DNRDNI per discussion with patient. Admission Exam Per Admitting Provider See H&P Discharge Exam Constitutional: Alert, nontoxic, no acute distress HEENT: Mucous membranes moist. Lungs: Decreased breath sounds, prolonged expiratory phase, few expiratory wheezes, rhonchi that clears with coughing. CV: S1-S2, regular Abdomen: Soft, nontender, nondistended Extremities: No significant edema Neuro: No focal deficits Psych: Cooperative, normal mood Updated Medication List Medication Instructions Recorded Confirmed Type albuterol sulfate 90 mcg/actuation 2 puff inhalation Q4H PRN 12/11/17 01/07/25 History aerosol inhaler Shortness Of Breath Or Wheezing omeprazole 20 mg capsule,delayed 20 mg PO DAILYBB 12/11/17 01/07/25 History release montelukast 10 mg tablet 10 mg PO HS 10/31/19 01/07/25 History potassium gluconate 550 mg (90 mg) 550 mg PO DAILY 10/31/19 01/07/25 History tablet atorvastatin 80 mg tablet 80 mg PO DAILY 01/07/21 01/07/25 History magnesium oxide 400 mg PO BID 06/24/21 01/07/25 History tramadol 50 mg tablet 50 mg PO Q8H PRN Moderate Pain 06/24/21 01/07/25 History (Scale Score 5-6) lisinopril 5 mg tablet 5 mg PO QAM 09/19/21 01/07/25 History metformin 500 mg tablet,extended 1,000 mg PO DAILY 09/19/21 01/07/25 History release 24 hr tiotropium 2.5 mcg-olodaterol 2.5 2 inh inhalation DAILY #4 grams 09/22/21 01/07/25 Rx mcg/actuation mist for inhalation (Stiolto Respimat) metoprolol succinate 50 mg 25 mg PO BID 10/21/22 01/07/25 History tablet,extended release 24 hr pregabalin 150 mg capsule (Lyrica) 150 mg PO QPM nerve pain 10/21/22 01/07/25 History ipratropium bromide 21 mcg (0.03 2 spray intranasal BID 12/23/22 01/07/25 History %) nasal spray Saccharomyces boulardii 250 mg 250 mg PO DAILY 07/03/24 01/07/25 History capsule (Florastor) aspirin 81 mg tablet,delayed 81 mg PO DAILY 07/03/24 01/07/25 History release azithromycin 500 mg tablet 500 mg PO 3XWK 07/03/24 01/07/25 History cyanocobalamin (vitamin B-12) 1,000 mcg PO DAILY 07/03/24 01/07/25 History 1,000 mcg tablet (Vitamin B-12) ipratropium 0.5 mg-albuterol 3 mg 3 ml inhalation Q4H PRN Shortness 07/03/24 01/07/25 History (2.5 mg base)/3 mL nebulization Of Breath Or Wheezing soln loperamide 2 mg capsule (Imodium 2 mg PO DIRECTED PRN loose stool 07/03/24 01/07/25 History A-D) sitagliptin phosphate 25 mg tablet 25 mg PO DAILY 07/03/24 01/07/25 History (Januvia) furosemide 20 mg tablet 20 mg PO DAILY 30 days #30 tabs 01/09/25 Rx prednisone 20 mg tablet 40 mg (2 x 20 mg) PO DAILY 2 days 01/09/25 Rx #4 tabs Hospital Stay Data Consultations 01/07/25 14:54 ED Decision to Admit Stat 01/07/25 19:42 Consult Pulmonology Routine Procedures Performed Operation Date: 01/09/25 10:40 <No data on this case meets the specified criteria> Diagnostic Imagining Performed 01/07/25 12:56 CT angio chest PE protocol Stat Reviewed imaging, laboratory and diagnostic studies. Pertinent findings as below. CTA of the chest negative for PE, some small effusions and pulmonary edema WBCs 4.9 Hemoglobin 13.0 Platelets of 216 Electrolytes within normal range Creatinine 1.4 Blood cultures no growth to date Sputum culture, no evidence of acid fast saliva on smear, culture pending Pending Results Patient Have Any Pending Studies at Discharge: No Discharge Instructions Given to Patient (Per Discharging Provider) Follow-up with your ct tech Continue with your usual home oxygen Home Health Attestation I certify that this patient is under my care and that I, or a physicians facility assistant working with me, had a face to-face encounter that meets the home health [id number] encounter requirements with this patient. The encounter with the patient was in whole, or in part, for the following medical condition, which is the primary reason for home health care (list medical condition): I certify that, based on my findings, the following services are medically necessary home health services: My clinical findings support the need for the above services because: Further, I certify that my clinical findings support that this patient is homebound (i.e. absences from home require considerable and taxing effort and are for medical reasons or caodaism services or infrequently or of short duration when for other reasons) because: Certification for Home Health Services: Based on the above findings, I certify that this patient is confined to the home and needs intermittent long-term care, physical therapy and/or speech therapy or continues to need occupational therapy. The patient is under my care, and I have initiated the establishment of the plan of care. This patient will be followed by a physician who will periodically review the plan of care. Total Time Total Time Spent Total Time Spent (In Minutes): 36
--- NOTE | 2025-01-10 08:16 | Electrocardiogram Report ---
Test Reason : Blood Pressure : */* mmHG Vent. Rate : 65 BPM Atrial Rate : 65 BPM P-R Int : 216 ms QRS Dur : 148 ms QT Int : 472 ms P-R-T Axes : 36 6 115 degrees QTcB Int : 490 ms Sinus rhythm with 1st degree A-V block Left bundle branch block Abnormal ECG When compared with ECG of 03-Jul-2024 15:52, No significant change was found Confirmed by Pawan Chinchilla ([id number]) on 01/10/2025 8:16:04 AM Referred By: REFERRED SELF Confirmed By: Pawan Chinchilla
== END 2025-01-09 12:45 | disposition home or self-care (01) | DRG 189 ==
LOC: ED 11:45 → SUATTDRO 15:30 → EDINP 15:30 → 3E 21:24